=== PATIENT | male | born 1945 | race Caucasian/White ===

== ENCOUNTER 2017-12-01 10:03 | Emergency (ER) | payer MEDICARE, OTHER, SELFPAY ==
[2017-12-01 10:05] VITALS: BP 120/76; PULSE 120; RESP 16; TEMP 35.6; BMI 25.8
[2017-12-01] MEDS: HYDROcodone Bitartrate/Apap 5/325 Tablet PO (10:37)
[2017-12-01 10:50] LABS: Prothrombin Time (Protime)PT. 31.2 SECONDS (11.7-14.9)
--- NOTE | 2017-12-01 11:38 | ED.VISSUMM ---
- ER Visit Summary Date of Service: 12/01/17 Chief Complaint: Left thumb swelling History of Present Illness: The patient is a [address] Rodriguez and Dr. Gale. He reports he has swelling to his left thumb that began 3 days ago. There is seen in urgent care and he was placed on Keflex. Is not taking this for 2 days. The swelling is getting worse. Reports his pain is 8 out of 10 with bumping it and is pain-free at rest. He denies any constitutional symptoms. No fever, chills, nausea, or vomiting. Physical Examination: Vitals: Stable. Afebrile. General: Well-nourished and well-developed. Head: Normocephalic atraumatic. Neck: Supple, no lymphadenopathy. No JVD. Nontender. Cardiovascular: Irregular rhythm with a 2 out of 6 systolic murmur and mechanical valve click. Respiratory: No respiratory distress. Clear to auscultation bilaterally. Abdominal: Soft, nontender, nondistended, normal bowel sounds. No guarding, rebound, or peritoneal signs. Back: Nontender. Extremities: Large paronychia on the radial side of his left thumb. There is nothing on the palmar surface. There does not appear to be any infection underneath the nail. Minimal surrounding erythema. No lymphangitic spread. Skin: Normal color, no rash. Neurologic: Alert and oriented ?3. Cranial nerves II through XII are intact. Normal strength and sensation. Psych: Normal affect. Test Results: INR is 3.0 Emergency Department Course and Treatment: Patient was given a single [place] p.o. He did not want a digital block. He had a stab incision made with an 11 blade a large amount of pus drained. It was irrigated. Treatment Plan: Given the fact that the patient does have a mechanical heart valve I think it is a reasonable course of action to continue the Keflex as he may become bacteremic during the procedure. Also be given prescription for Bactroban ointment. Instructed to follow-up with Dr. Rodriguez or Dr. Gale in 4 days for another exam. Return to the emergency department for any worsening symptoms. Disposition: To home in improved and stable condition. Impression: 1. Paronychia left thumb. 2. I&D. 3. Coumadin coagulopathy. This note was generated with Dragon dictation software. It may contain incorrect words, spelling, and punctuation that were not noted in review of the chart prior to signing ED Disposition - Plan for ED Patient: Disposition: Home or Assisted Living Chief Complaint: Upper Extremity Injury Instructions: ED Fingernail Infec Prescriptions: Mupirocin [Bactroban] 1 applic TOPICAL TID #1 tube Referrals: Jeronimo Rodriguez MD [Primary Care Provider] - 12/05/17 Perry Gale MD [STAFF PHYSICIAN] - 12/05/17
[2017-12-01 12:14] VITALS: PULSE 96
--- NOTE | 2017-12-01 12:15 | ED.RN ---
ATTEMPTED TO DISCHARGE PT BUT DR. HARRIS DID NOT HAVE ATB OINTMENT RX. HAD TO WAIT FOR DR TO GET OUT OF ROOM. ALL QUESTIONS ANSWERED, NO FURTHER CONCERNS.
== END 2017-12-01 12:16 | disposition home or self-care (01) ==
LOC: ED 11:17
PROVIDERS: Emergency Provider Emergency Medicine; Family Provider Family Medicine; PCP Family Medicine
DX: L03.011 Cellulitis of right finger (principal); B96.89 Other specified bacterial agents as the cause of diseases classified elsewhere; E78.00 Pure hypercholesterolemia, unspecified; I69.320 Aphasia following cerebral infarction; I69.398 Other sequelae of cerebral infarction; Z79.01 Long term (current) use of anticoagulants; Z79.899 Other long term (current) drug therapy
CPT/HCPCS: 10060; 36415; 85610; 99283

== ENCOUNTER → 2018-05-12 08:42 | Outpatient (CLI) | payer MEDICARE, OTHER, SELFPAY ==
[2018-06-09 13:39] LABS: International Normalized Ratio 2.5; Prothrombin Time (Protime)PT. 27.5 SECONDS (11.7-14.9)
== END ==
PROVIDERS: Family Provider Family Medicine; PCP Family Medicine
DX: Z51.81 Encounter for therapeutic drug level monitoring (principal); Z79.01 Long term (current) use of anticoagulants
CPT/HCPCS: 85610

== ENCOUNTER 2019-08-18 19:26 | Inpatient (IN) | payer MEDICARE, OTHER, SELFPAY ==
[2019-08-18] VITALS (8 sets, daily range): BP systolic 118–156; BP diastolic 73–110; PULSE 67–83; RESP 12–20; TEMP 36.7–37.1; O2SAT 97–99; BMI 23.5; BMI 25.4
--- NOTE | 2019-08-18 19:47 | CT_ITS ---
STUDY: CT BRAIN WITHOUT CONTRAST REASON FOR EXAM: Male, 74 years old. Weakness. TECHNIQUE: Transaxial CT imaging of the brain was performed without administration of intravenous contrast material. Individualized dose optimization techniques were used for this CT. COMPARISON: No relevant priors. FINDINGS: No evidence of intracranial hemorrhage, mass, acute infarct, or hydrocephalus. Large chronic left MCA infarct and smaller chronic left RADHA infarct. Chronic microangiopathic changes in the white matter. Atherosclerosis of the intracranial arteries. No acute osseous abnormality. Visualized paranasal sinuses and mastoid air cells patent. Visualized extracranial soft tissues unremarkable. ASPECTS 05/17 CT/Brain/Head without Contrast IMPRESSION: No acute intracranial findings. 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 Electronically Signed: Todd Umanzor, at 21:21 EST Tel , Service support ,
--- NOTE | 2019-08-18 19:47 | EKG12_ITS ---
Test Reason : SYNCOPE Blood Pressure : / mmHG Vent. Rate : 065 BPM Atrial Rate : 066 BPM P-R Int : 000 ms QRS Dur : 100 ms QT Int : 410 ms P-R-T Axes : 000 -51 074 degrees QTc Int : 426 ms Atrial fibrillation Left anterior fascicular block Abnormal ECG Confirmed by SELVIN MONTGOMERY, REX ([id number]), general expeditor JONO MASSEY ([id number]) on 08/20/2019 10:06:21 AM Referred By: Confirmed By:REX MONTALVO MD
--- NOTE | 2019-08-18 19:50 | RAD_ITS ---
STUDY: X-RAY CHEST REASON FOR EXAM: Male, 74 years old. Syncopal episode. TECHNIQUE: AP upright COMPARISON: 06/20/2014 FINDINGS: No evidence of pneumonia, pulmonary edema, pneumothorax or pleural effusion. Cardiac silhouette, hilar and mediastinal contours with no acute findings. Mild cardiomegaly. Interval sternotomy with prosthetic heart valve and atrial appendage clip. Atherosclerosis and tortuosity of the thoracic aorta. Degenerative osseous changes with no acute osseous abnormality. RAD/Chest 1 View IMPRESSION: No acute findings. Mild cardiomegaly. Interval sternotomy with prosthetic heart valve and atrial appendage clip. Electronically Signed: Todd Umanzor, at 21:23 EST Tel , Service support ,
--- NOTE | 2019-08-18 19:51 | ED.VIS.GEN ---
History of Present Illness Chief Complaint: Syncope Informant: Patient, Family, Remote Sensing Technician Onset: Today Narrative: Patient was in the TV room watching television. was not in there but she heard a noise and came back and saw that the rocker was near where he was seated was on the floor and he reported possibly passing out. His legs were extremely weak and he was unable to stand. He has had a prior stroke and has a aphasia and numbness right arm/hand. EMS also notes his legs were very weak. He tells me it is the left leg that he is having difficulty with dorsiflexion. He denies any pain. He denies any chest pain shortness of breath. No headache. No cuts. No prior syncope. She does have a history of A. fib and is on Coumadin. He recently had dental surgery and has been transitioning from Lovenox to Coumadin. EMS notes a negative [place]. Past Medical History - Allergies and Home Meds Allergies/Adverse Reactions: Allergies No Known Allergies Allergy (Verified 08/18/19 19:32) Smoking Status: Former smoker - Family History Paternal Family History: Reports: No pertinent history Review of Systems General: Denies: Chills, Fever, Sweats Eyes: Denies: Visual changes - bilaterally, Diplopia ENT: Denies: Rhinorrhea, Sore throat Cardiovascular: Denies: Chest pain, Palpitations Respiratory: Denies: Dyspnea, Cough, Dyspnea on exertion Gastrointestinal: Denies: Abdominal pain, Nausea, Vomiting, Diarrhea, Melena, Hematochezia Genitourinary: Denies: Dysuria, Hematuria, Frequency Musculoskeletal: Denies: Back pain, Extremity Pain Skin: Denies: Rash, Wounds Neurological: Denies: Headache, Weakness, Numbness Psych: Denies: Depression, Anxiety, Suicidal thoughts, Suicidal ideations Endocrine: Denies: Polyuria, Heat intolerance, Cold intolerance Hematologic: Reports: Easy bruising, Easy bleeding. Denies: Lymphadenopathy Allergy: Denies: Swelling of the mouth, Swelling of the tongue Physical Exam Vital Signs/Narrative: Vital Signs Temp Pulse Resp BP Pulse Ox 08/18/19 19:45 69 20 H 128/86 H 98 08/18/19 19:27 98.7 F 73 15 156/110 H 98 Inital Vital Signs reviewed: Yes General: Well nourished, Well developed, No Acute Distress Head: Normocephalic, Atraumatic Eyes: Perrl, EOMI ENT: Moist mucous membranes, No rhinorrhea Neck: Supple, Nontender Cardiovascular: Regular rate, Regular rhythm, No murmurs Respiratory: No distress, CTA bilaterally, Chest nontender Abdomen: Soft, Nontender, Nondistended, Normal bowel sounds Back: Nontender, Normal Inspection Extremities: Nontender, No edema Skin: Normal color, No rash Neurological: Alert, Oriented x3, Normal Sensation, Weakness - Patient is able to lift his left leg up off the table. He reports weakness with dorsiflexion., - - chronic changes associated with prior stroke (aphasia, right hand numbness). I think his NIH is at his baseline.. Negative for: Normal Strength Psychological: Normal affect, Normal Mood Diagnostic/Tx/Re-eval - Rhythm Strip Rhythm Strip: A-fib Rate: 65 - LAFB - Medical Decision Making On the patient's physical exam he is able to hold his legs up against gravity as well as his arms. He says yes when he asked if it feels the same. Cannot say that his NIH is different from his baseline other than he is telling me that the legs feel weaker than normal particularly the left but also the right. His labs are otherwise negative and what is very concerning as his INR is 1.3. He has A. fib and a mechanical heart valve and his last dose of Lovenox was over 24 hours ago. Therefore I gave him Lovenox. Upon repeat examination the states that she believes he is trying to relay that the left arm feels different compared to the right as he is rubbing it. He can still feel it. He is not a TPA candidate. He is not a large vessel occlusion. At this time he is not able to safely ambulate and we will admit. ED Disposition - Plan for ED Patient: Diagnosis: Syncope, TIA (transient ischemic attack)
[2019-08-18 20:02] LABS: International Normalized Ratio 1.3
[2019-08-18 20:03] LABS: Partial Thromboplast Time 33.6 Seconds (24.1-36.2)
[2019-08-18 20:20] LABS: ALB/GLOB Ratio 0.9 RATIO (0.9-2.4); AST(SGOT) 36 U/L (15-37); Alanine Aminotransfer ALT/SGPT 50 U/L (16-61); Albumin, Serum 3.7 g/dL (3.2-5.0); Alkaline Phosphatase 68 U/L (45-117); Anion Gap 6 (5-15); BUN 28 mg/dL (7-18); BUN/Creat Ratio 25.9 RATIO (10-20); Calcium,Total 8.6 mg/dL (8.5-10.1); Chloride 105 mmol/L (98-107); Creatinine, Serum 1.08 mg/dL (0.70-1.30); EST Glomerular Filtration Rate 71 mL/min (>60); Est Glom Filt Rate - Afr Amer 86 mL/min (>60); Glucose 99 mg/dL (74-106); Potassium 4.4 mmol/L (3.5-5.1); Protein, Total 7.7 g/dL (6.4-8.2); Sodium Level 139 mmol/L (136-145)
[2019-08-18 20:21] LABS: Absolute Neutrophil Count 3.3 X10^3/uL (2.0-7.7); Basophil# 0.01 X10^3/uL; Basophil% 0.2 % (0-1); Eosinophil# 0.09 X10^3/uL; Eosinophils% 1.5 % (0-5); Hematocrit 40.3 % (40-54); Hemoglobin 13.2 g/dL (13.0-16.5); Lymphocyte % 26.6 % (19-41); Mean Corp Hgb Conc 32.8 g/dL (32-36); Mean Corpuscular Hgb 31.5 pg (27.0-32.0); Mean Corpuscular Volume 96.2 fL (80-94); Monocyte# 0.97 X10^3/uL; Monocyte% 16.1 % (0-10); NRBC Flagged by Analyzer 0 % (0-5); Neutrophil # 3.32 X10^3/uL (2.7-7.7); Neutrophil % 55.3 % (47-70); Platelet Count 203 K/mm3 (150-450); RBC Distribution Width CV 13.2 % (11.6-14.6); RBC Distribution Width SD 46.5 fl (35.1-43.9); Red Blood Count 4.19 M/mm3 (4.6-6.2)
[2019-08-18 20:39] LABS: Bacteria 0 SEEN /hpf (None Seen); Mucous, Urine 0 SEEN /hpf (<or=2+); Red Blood Cells-Urine 0 SEEN /hpf (0-5); Squamous Epithelial Cells - UA 0 SEEN /hpf (0-5); White Blood Cells 0 SEEN /hpf (0-5)
[2019-08-18 20:40] LABS: Color, Urine Straw (Yellow); Glucose, Dipstick Normal (Normal); Ketone-Dipstick Negative (Negative); Leukocyte Esterase-Dipstick Negative /ul (Negative); Nitrite-Dipstick Negative (Negative); Occult Blood-Urine Negative /ul (Negative); Protein-Dipstick Negative (Negative); Urine Bilirubin Dipstick Negative (Negative); Urine Clarity Clear (Clear); Urine Urobilinogen Normal (Normal)
[2019-08-18] MEDS: Enoxaparin 80 MG/0.8 ML Syringe SC (21:50)
--- NOTE | 2019-08-18 21:59 | PCM.HP.STD ---
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 (5) Hyperlipidemia Status: Chronic Qualifiers: Hyperlipidemia type: unspecified Qualified Code(s): E78.5 - Hyperlipidemia, unspecified (6) Atrial fibrillation Status: Chronic Qualifiers: Atrial fibrillation type: unspecified chronic Qualified Code(s): I48.20 - Chronic atrial fibrillation, unspecified History of Present Illness Date of Admission: 08/18/19 Chief Complaint: Left sided weakness, fall, probable syncope - 1 day The patient is a 74 year old M with 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 Patient is aphasic and most of the history was taken from the . Patient baseline is able to ambulate without the use of assistive devices. He recently had dental implants put in and was taking off his Coumadin. He was on the Lovenox and Coumadin bridging until 2 days ago when the pharmacist in his Coumadin clinic told his to give him the last dose of Lovenox yesterday and start giving him Coumadin 8 mg daily with a check to be done a couple of days later. Patient did not receive Lovenox on the day of admission. His had some noise in the living room and rushed her to find the patient on the floor. Per his , patient reported that he passed out. He said his legs were extremely weak especially his left leg and he is unable to stand. Per his also he had complained of numbness in his left upper extremity. I am unable to get a reliable history from the patient. He gets gestures to his legs and when asked if it is weak, he nods vigorously in affirmative. On arrival to the ED, his temperature was 98.7F, heart rate 73, blood pressure 156/110, respiratory to 16, SPO2 was 98% on room air. CBC D, CMP was unremarkable. Troponins were negative. INR was 1.3. UA was unremarkable. CT scan of the brain showed no acute intracranial findings, presence of chronic left RADHA and MCA territory infarcts. EKG showed A. fib, HR 65, QTC 426 Past Medical History Past Medical History (Chronic Problems): Chronic Problems History of stroke (Chronic) Mitral stenosis with regurgitation (Chronic) Hyperlipidemia (Chronic) Atrial fibrillation (Chronic) Allergies No Known Allergies Allergy (Verified 08/18/19 19:32) Home Medications: Ambulatory Orders Medication Instructions Recorded Warfarin [Coumadin] 5 mg PO DAILY #7 06/23/14 Ascorbic Acid [Vitamin C] 1,000 mg PO DAILY 12/01/17 Finasteride [Proscar] 5 mg PO DAILY 12/01/17 Folic Acid 1 mg PO DAILY 12/01/17 Lovastatin [Mevacor] 40 mg PO DAILY 12/01/17 Multivitamin [Multiple Vitamins] 1 each PO DAILY 12/01/17 Surgical History: - - s/p mitral valve replacement([facility]) Psychiatric History: No pertinent psych hx Lives: Spouse/ Significant Other Smoking Status: Former smoker Tobacco Use: Non-smoker Alcohol: None Drugs: None - *Family History Paternal History Items: No pertinent history Maternal History Items: No pertinent history Review of Systems Unable to obtain accurate/complete ROS d/t: Due to patient's aphasia VTE Information - Inpt Only VTE Present on Admission: No VTE Pharm Prophylaxis ordered?: Yes Patient Problems: Active and Suspected Problems Syncope (Acute) TIA (transient ischemic attack) (Acute) - Physical Exam Vitals/I&O's: Vital Signs Temp Pulse Resp BP Pulse Ox 98.7 F 67 16 122/81 H 98 08/18/19 19:27 08/18/19 21:27 08/18/19 21:27 08/18/19 21:27 08/18/19 21:27 Oxygen Delivery Method Room Air Weight: 74.3 kg Body Mass Index (BMI) 23.5 Intake and Output for Last 24 Hours 08/16/19 08/17/19 08/18/19 23:59 23:59 23:59 Intake Total 500 / 500 Balance 500 / 500 General: Alert, Oriented x3, Cooperative, No apparent distress, - - aphasic HEENT: Atraumatic, PERRLA, EOMI, Normocephalic Oral: Moist Mucosa Neck: Supple Lungs: Clear to auscultation, Normal air movement Cardiovascular: Regular rate, Regular Rhythm, Normal S1, Normal S2 Abdomen: Bowel Sounds Present, Soft, Non Tender, Non-Distended, No Hepato-splenomegaly Extremities: No edema Skin: No rashes, No breakdown Musculoskeletal: No Tenderness to Palpation of Joints or Extremities Lymphatic: No Cervical, Supraclavicular, or Inguinal Adenopathy Neurological: Cranial nerves II-XII grossly intact, - - patient is alert, oriented, aphasic, power is 4/5 in all extremities, normal tone Psych/Mental Status: Normal Affect, Appropriate Laboratory Results 08/18/19 19:36: WBC 6.0, RBC 4.19 L, Hgb 13.2, Hct 40.3, MCV 96.2 H, MCH 31.5, MCHC 32.8, RDW Std Deviation 46.5 H, RDW Coeff of Curt 13.2, Plt Count 203, MPV 10.0, Immature Gran % (Auto) 0.300, Neut % (Auto) 55.3, Lymph % (Auto) 26.6, [place] % (Auto) 16.1 H, Eos % (Auto) 1.5, Baso % (Auto) 0.2, Absolute Neuts (auto) 3.3, Absolute Lymphs (auto) 1.60, Nucleated RBC % 0 08/18/19 19:36: PT 16.0 H, INR 1.3, APTT 33.6 08/18/19 19:36: Sodium 139, Potassium 4.4, Chloride 105, Carbon Dioxide 28.0, Anion Gap 6, BUN 28 H, Creatinine 1.08, Estim Creat Clear Calc 62.90, Est GFR (MDRD) Af Amer 86, Est GFR (MDRD) Non-Af 71, BUN/Creatinine Ratio 25.9 H, Glucose 99, Calcium 8.6, Total Bilirubin 0.40, AST 36, ALT 50, Alkaline Phosphatase 68, Troponin I < 0.015, Total Protein 7.7, Albumin 3.7, Globulin 4.0, Albumin/Globulin Ratio 0.9 08/18/19 20:35: Urine Color Straw, Urine Clarity Clear, Urine pH 6.0, Ur Specific [place] 1.010, Urine Protein Negative, Urine Glucose (UA) Normal, Urine Ketones Negative, Urine Occult Blood Negative, Urine Nitrite Negative, Urine Bilirubin Negative, Urine Urobilinogen Normal, Ur Leukocyte Esterase Negative, Urine RBC 0 SEEN, Urine WBC 0 SEEN, Ur Squamous Epith Cells 0 SEEN, Urine Bacteria 0 SEEN, Urine Mucus 0 SEEN Current Medications Sodium Chloride () 500 mls @ 999 mls/hr IV .Q31M ALEXANDRA Stop: 08/18/19 22:00 Last Infusion: 08/18/19 21:54 Dose: Infused Documented by: Assessment/Plan All Active Problems Syncope (Acute) TIA (transient ischemic attack) (Acute) Impetigo follicularis (Acute) Cellulitis, periorbital (Acute) 74 year old M with 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 1. Left sided weakness,likely TIA/CVA in a patient with history of CVA with aphasia Patient has been off his Coumadin and Lovenox, INR has been subtherapeutic, this could be the likely etiology if patient does have CVA CT scan of the brain was negative for any acute abnormality Not a TPA candidate Continue on Lovenox, Coumadin. Would hold off adding aspirin on account of increased bleed risk, INR in a.m. MRI of the brain, carotid ultrasound, 2D echo, lipid profile, HgbA1c 2. [facility] mechanical mitral valve replacement, INR subtherapeutic Continue on therapeutic Lovenox with Coumadin overlap, INR in am 3. Chronic atrial fibrillation, rate controlled, continue on Lovenox/Coumadin 4. Hyperlipidemia, on lovastatin, will check lipid profile 5. BPH, on Proscar 6. DVT prophylaxis -INR subtherapeutic, on therapeutic Lovenox Code Visit Inpatient E&M: [id number] Init Hosp L3
--- NOTE | 2019-08-18 23:36 | CDU_ITS ---
Reason For Study: CVA Rt. Velocities/BP Lt. Velocities/BP Prox CCA 108.3/20.6 cm/sec. Prox CCA 78.3/14.6 cm/sec. Mid CCA 97.4/18.8 cm/sec. Mid CCA 82.7/20.1 cm/sec. Dist CCA 90/18.8 cm/sec. Dist CCA 86/16.8 cm/sec. Prox ICA 99.2/15.2 cm/sec. Prox ICA 79.1/11.5 cm/sec. Mid ICA 80.2/20 cm/sec. Mid ICA 112/35.3 cm/sec. Dist ICA 104.8/32.3 cm/sec. Dist ICA 112/31.6 cm/sec. Rt. ICA/CCA = 1.1. Lt. ICA/CCA = 1.4. Prox ECA 102.3/13.9 cm/sec. Prox ECA 97.4/9.7 cm/sec. Rt. Vert. 56.4/14.6 cm/sec. Lt. Vert. 57/14.5 cm/sec. Right Extracranial There is homogeneous, smooth atherosclerotic plaque noted in the right common carotid artery. There is heterogeneous, irregular atherosclerotic plaque noted in the right internal carotid artery. There is homogeneous, smooth atherosclerotic plaque noted in the right external carotid artery. Antegrade flow is noted in the right vertebral artery. Left Extracranial There is homogeneous, smooth atherosclerotic plaque noted in the left common carotid artery. There is heterogeneous, irregular atherosclerotic plaque noted in the left internal carotid artery. There is homogeneous, smooth atherosclerotic plaque noted in the left external carotid artery. Antegrade flow is noted in the left vertebral artery. Procedure Carotid Duplex [id number]. Exam performed portable in patient room. Interpretation Summary Minimal plaque at the proximal right internal carotid with <50% stenosis. <50% stenosis right external carotid Minimal irregular plague at the proximal left internal carotid with <50% stenosis. <50% stenosis left external carotid Patent, antegrade, <50% stenosis bilateral vertebrals Ordering Physician: Silva Moya Referring Physician: Jeovanny Rodriguez Performed By: Sarai Carty RVT
--- NOTE | 2019-08-18 23:36 | ECHOD_ITS ---
Reason For Study: TIA/CVA Procedure This was a 2D Doppler, Color Flow transthoracic echocardiogram. Exam performed portable in patient room. Left Ventricle Normal LV size. Mild concentric left ventricular hypertrophy. Left ventricular systolic function is normal. The estimated ejection fraction is 60 %. No regional wall motion abnormalities noted. Right Ventricle Normal RV size. Normal systolic function. Atria Normal left atrium. Normal right atrium. Bubble contrast study negative for right to left interatrial shunt. Mitral Valve Stable appearing mechanical mitral valve apparatus. Tricuspid Valve Normal tricuspid valve. Mild tricuspid valve insufficiency. Pulmonary artery systolic pressure is 28 mmHg. Aortic Valve The aortic valve is not well visualized. Pulmonic Valve Normal pulmonic valve. Great Vessels Normal aortic root. The pulmonary artery is normal size. Normal inferior vena cava. Pericardium/Pleural No pericardial effusion. Medication Performed a rapid injection of agitated mix of 9 cc saline and 1cc air to assess for atrial septal defect. MMode/2D Measurements & Calculations LVIDd: 4.5 cm IVSd: 1.4 cm Ao root diam: 3.8 cm LVIDs: 2.8 cm LVPWd: 1.3 cm RVDd: 4.5 cm FS: 38.5 % LAV(MOD-bp): 41.2 ml LVAd ap4: 22.3 cm2 SV(MOD-sp4): 40.4 ml LAV(MOD-bp) Indexed: 22.8 ml/m2 EDV(MOD-sp4): 64.4 ml LAV(MOD-sp2): 33.9 ml EDV(sp4-el): 66.9 ml LAV(MOD-sp4): 44.9 ml LVAs ap4: 12.4 cm2 ESV(MOD-sp4): 24.0 ml ESV(sp4-el): 25.4 ml EF(MOD-sp4): 62.8 % EF(sp4-el): 62.1 % SV(sp4-el): 41.5 ml LA A4 area: 17.0 cm2 RA A4 area: 12.9 cm2 Doppler Measurements & Calculations MV E max matt: 145.3 cm/sec MV V2 max: 159.2 cm/sec Ao V2 max: 140.4 cm/sec MV max P.2 mmHg Ao max P.9 mmHg MV V2 mean: 80.8 cm/sec Ao V2 mean: 97.2 cm/sec MV mean P.3 mmHg Ao mean P.1 mmHg MV V2 VTI: 38.1 cm Ao V2 VTI: 23.8 cm LV V1 max: 89.3 cm/sec PA V2 max: 101.3 cm/sec TR max matt: 247.9 cm/sec LV V1 max P.2 mmHg TR max P.6 mmHg Interpretation Summary Normal LV size. Mild concentric left ventricular hypertrophy. Left ventricular systolic function is normal. The estimated ejection fraction is 60 %. Stable appearing mechanical mitral valve apparatus. Ordering Physician: Silva Moya Referring Physician: Jeovanny Rodriguez Performed By: Erna Funes, HUMBERTO, RVT
[2019-08-19] VITALS (10 sets, daily range): BP systolic 107–141; BP diastolic 65–84; PULSE 59–78; RESP 15–16; TEMP 36.5–37.1; O2SAT 95–99; BMI 25.4
[2019-08-19 01:04] LABS: Hemoglobin A1c 5.7 % (4.2-6.3)
[2019-08-19] MEDS: 0.9% Normal Saline 1,000 ML 100 ML IV ×2 (01:17→12:05)
[2019-08-19] MEDS: Enoxaparin 80 MG/0.8 ML Syringe SC ×2 (06:05→17:19)
--- NOTE | 2019-08-19 07:00 | MRI_ITS ---
STUDY: MRI BRAIN WITHOUT CONTRAST REASON FOR EXAM: Male, 74 years old. CVA -- new onset left sided weakness, syncope yesterday, prev stroke 16 years ago with residual rt sided weakness and aphasia TECHNIQUE: Standardized multiplanar fat and water weighted pulse sequences were obtained. COMPARISON: 08/18/2019 CT of the head FINDINGS: There is mild cerebral atrophy with widening of the extra-axial spaces and ventricular dilatation. There are multiple white matter hyperintensities, distributed throughout the deep white matter tracts of the cerebral hemispheres, consistent with moderate chronic white matter ischemic changes. Again noted is left there are large frontal and parietal temporal encephalomalacia and gliosis, consistent with prior insult. Medial left anterior frontal encephalomalacia is also noted. Small bilateral cerebellar chronic lacunar infarcts are also noted. Normal bilateral basal ganglia. Normal thalami. There is no extra-axial fluid accumulation. Normal flow voids within the major intracranial circulation suggesting patency by spin echo criteria. Normal sella turcica, pituitary gland, infundibular stalk, optic chiasm and hypothalamus. Normal tectal plate and pineal gland. Normal midbrain, roberto and medulla. MRI/Brain without Contrast IMPRESSION: No acute intracranial abnormality. Large chronic left MCA infarct. Electronically Signed: Nancy Nicole MD at 11:20 EST Tel , Service support ,
[2019-08-19 07:08] LABS: International Normalized Ratio 1.5
[2019-08-19 07:44] LABS: ALB/GLOB Ratio 0.9 RATIO (0.9-2.4); AST(SGOT) 33 U/L (15-37); Alanine Aminotransfer ALT/SGPT 41 U/L (16-61); Albumin, Serum 3.3 g/dL (3.2-5.0); Alkaline Phosphatase 61 U/L (45-117); Anion Gap 5 (5-15); BUN 19 mg/dL (7-18); BUN/Creat Ratio 23.9 RATIO (10-20); Calcium,Total 8.2 mg/dL (8.5-10.1); Chloride 109 mmol/L (98-107); Cholesterol 176 mg/dL (200); EST Glomerular Filtration Rate 101 mL/min (>60); Est Glom Filt Rate - Afr Amer 122 mL/min (>60); Estimated Creatinine Clearance 74.21 ml/min; Globulin 3.7 g/dL (2.2-4.2); Glucose 83 mg/dL (74-106); High Density Lipoprotein 55 mg/dL; Potassium 3.8 mmol/L (3.5-5.1); Sodium Level 140 mmol/L (136-145); Triglycerides 86 mg/dL; Very Low Density Lipoprotein 17 mg/dL (5-40)
--- NOTE | 2019-08-19 08:29 | PN_ITS ---
Patient Problems: Active and Suspected Problems TIA (transient ischemic attack) (Acute) - Physical Exam Vitals/I&O's: Vital Signs Temp Pulse Resp BP Pulse Ox 98.4 F 63 15 141/80 H 96 08/19/19 06:00 08/19/19 07:02 08/19/19 06:00 08/19/19 06:00 08/19/19 06:00 Oxygen Delivery Method Room Air Weight: 156 lb 11.979 oz Body Mass Index (BMI) 25.4 Intake and Output for Last 24 Hours 08/17/19 08/18/19 08/19/19 23:59 23:59 23:59 Intake Total 500 / 500 180 / 180 Output Total 1050 / 1050 Balance 500 / 100 -870 / -870 General: Alert, Cooperative, No apparent distress, - - Dysarthric. HEENT: Atraumatic, PERRLA, EOMI, Normocephalic Oral: Moist Mucosa, No Gingival or Mucosal Lesions/ Ulcerations Neck: Supple, No JVD, Negative Carotid Bruits, Trachea Midline, Thyroid Normal Size and Texture Lungs: Clear to auscultation, Normal air movement, No rhonchi, No wheeze, No rales, Diminished Cardiovascular: Normal S1, Normal S2, PMI Normal, Irregular Rate, - - Metallic click. Abdomen: Bowel Sounds Present, Soft, Non Tender, Non-Distended, No Hepato- splenomegaly Extremities: No clubbing, No cyanosis, No edema Skin: No rashes, No breakdown Lymphatic: No Cervical, Supraclavicular, or Inguinal Adenopathy Neurological: Cranial nerves II-XII grossly intact, Motor Exam 5/5 strength throughout, - - Minimal flattening of the right nasolabial fold. Psych/Mental Status: Normal Affect, Appropriate Laboratory Results 08/18/19 19:36: WBC 6.0, RBC 4.19 L, Hgb 13.2, Hct 40.3, MCV 96.2 H, MCH 31.5, MCHC 32.8, RDW Std Deviation 46.5 H, RDW Coeff of Curt 13.2, Plt Count 203, MPV 10.0, Immature Gran % (Auto) 0.300, Neut % (Auto) 55.3, Lymph % (Auto) 26.6, Yancey % (Auto) 16.1 H, Eos % (Auto) 1.5, Baso % (Auto) 0.2, Absolute Neuts (auto) 3.3, Absolute Lymphs (auto) 1.60, Nucleated RBC % 0 08/18/19 19:36: PT 16.0 H, INR 1.3, APTT 33.6 08/18/19 19:36: Sodium 139, Potassium 4.4, Chloride 105, Carbon Dioxide 28.0, Anion Gap 6, BUN 28 H, Creatinine 1.08, Estim Creat Clear Calc 62.90, Est GFR (MDRD) Af Amer 86, Est GFR (MDRD) Non-Af 71, BUN/Creatinine Ratio 25.9 H, Glucose 99, Calcium 8.6, Total Bilirubin 0.40, AST 36, ALT 50, Alkaline Phosphatase 68, Troponin I < 0.015, Total Protein 7.7, Albumin 3.7, Globulin 4.0, Albumin/Globulin Ratio 0.9 08/18/19 19:36: Hemoglobin A1c 5.7 08/18/19 20:35: Urine Color Straw, Urine Clarity Clear, Urine pH 6.0, Ur Specific [place] 1.010, Urine Protein Negative, Urine Glucose (UA) Normal, Urine Ketones Negative, Urine Occult Blood Negative, Urine Nitrite Negative, Urine Bilirubin Negative, Urine Urobilinogen Normal, Ur Leukocyte Esterase Negative, Urine RBC 0 SEEN, Urine WBC 0 SEEN, Ur Squamous Epith Cells 0 SEEN, Urine Bacteria 0 SEEN, Urine Mucus 0 SEEN 08/19/19 03:00: Troponin I < 0.015 08/19/19 05:55: Sodium 140, Potassium 3.8, Chloride 109 H, Carbon Dioxide 26.0, Anion Gap 5, BUN 19 H, Creatinine 0.80, Estim Creat Clear Calc 74.21, Est GFR (MDRD) Af Amer 122, Est GFR (MDRD) Non-Af 101, BUN/Creatinine Ratio 23.9 H, Glucose 83, Calcium 8.2 L, Total Bilirubin 0.60, AST 33, ALT 41, Alkaline Phosphatase 61, Total Protein 7.0, Albumin 3.3, Globulin 3.7, Albumin/Globulin Ratio 0.9, Triglycerides 86, Cholesterol 176, LDL Cholesterol 104, VLDL Cholesterol 17, HDL Cholesterol 55 08/19/19 05:55: PT 18.0 H, INR 1.5 08/19/19 05:55: Troponin I 0.022 Clinical Impression(s) from Imaging Studies Brain CT 08/18/19 19:47 IMPRESSION: No acute intracranial findings. 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 Electronically Signed: Todd Umanzor, at 21:21 EST Tel , Service support , Chest X-Ray 08/18/19 19:50 IMPRESSION: No acute findings. Mild cardiomegaly. Interval sternotomy with prosthetic heart valve and atrial appendage clip. Electronically Signed: Todd Umanzor, at 21:23 EST Tel , Service support , Current Medications Acetaminophen (Tylenol) 650 mg PO Q6H PRN PRN PRN Reason: Pain Score 1-10/Temp > 100.7 F Ascorbic Acid (Vitamin C) 1,000 mg PO DAILY [facility] Atorvastatin Calcium (Lipitor) 10 mg PO DAILY@2200 [facility] Chlorhexidine Gluconate (Peridex) 15 ml PO BID [facility] Enoxaparin Sodium (Lovenox) 80 mg SC Q12@0600,1800 [facility] Last Admin: 08/19/19 06:05 Dose: 80 mg Documented by: Finasteride (Proscar) 5 mg PO DAILY [facility] Folic Acid (Folic Acid) [facility] Sodium Chloride () 1,000 mls @ 100 mls/hr IV .Q10H [facility] Stop: 08/19/19 14:35 Last Admin: 08/19/19 01:17 Dose: 100 mls/hr Documented by: Multivitamins (Multivitamin) 1 tablet [facility] Nutritional Formula (Lactose Free) (Ensure Enlive) 120 ml PO 4X/DAY [facility] Ondansetron HCl (Zofran) 4 mg IV Q8H PRN PRN PRN Reason: NAUSEA/VOMITING Sodium Chloride () 10 - 40 ml IV UD PRN PRN Reason: SALINE FLUSH Warfarin Sodium (Coumadin (Pbkc)) 5 mg PO DAILY@1700 [facility] Medical Necessity - Tobacco Use Smoking Status: Former smoker Tobacco Use: Non-smoker Assessment/Plan All Active Problems TIA (transient ischemic attack) (Acute) This is a 74 years old male patient presented to the emergency room because of left-sided body weakness and he was admitted for TIA for evaluation. #1 left side body weakness/TIA: Patient history of CVA with dysarthria. CT scan brain showed no acute infarct or hemorrhage. EKG revealed A. fib, rate is controlled, no acute changes. His vital signs are stable. He has no focal deficit on physical exam except minimal flattening of the right nasolabial fold with dysarthria and those are chronic. No motor weakness, no drift. He is on Lovenox twice daily, Coumadin and statins. Plan for MRI today, 2D echocardiogram and bilateral carotid Doppler. #2 status post mitral valve replacement with prosthetic valve: This was done for mitral stenosis. Patient is on Coumadin, INR is subtherapeutic and he is on therapeutic Lovenox for bridging. Today's INR is 1.5, still subtherapeutic. Plan to continue Lovenox and Coumadin, repeat INR tomorrow morning. #3 chronic atrial fibrillation: Rate is controlled, he is not on any medication for rate control. On Coumadin and bridging with Lovenox for anticoagulation. #4 hypertension: Blood pressure stable, he is not on any medication at this time. #5 history of stroke: With resultant chronic dysarthria. Plan as above. #6 DVT prophylaxis: On Lovenox twice daily. This note was generated with [email or web address] dictation software. It may contain incorrect words, spelling, and punctuation that were not noted in checking the note before signing. Code Visit Inpatient E&M: 87705 Subs Hosp L2
[2019-08-19] MEDS: Finasteride 5 MG Tablet PO (09:09)
[2019-08-19] MEDS: Multivitamins,Therapeutic Tablet 1 TABLET PO (09:09)
[2019-08-19] MEDS: Folic Acid 1 MG Tablet PO (09:09)
[2019-08-19] MEDS: Ascorbic Acid 500 MG Tablet 1000 MG PO (09:10)
[2019-08-19] MEDS: Chlorhexidine 480 ML 15 ML PO ×2 (09:11→20:36)
[2019-08-19] MEDS: Atorvastatin Calcium 10 MG Tablet PO (20:36)
[2019-08-20] VITALS (9 sets, daily range): BP systolic 105–110; BP diastolic 66–75; PULSE 57–89; RESP 15–18; TEMP 36.4–36.9; O2SAT 97–100; BMI 25.4
[2019-08-20] MEDS: Enoxaparin 80 MG/0.8 ML Syringe SC (05:38)
[2019-08-20 06:06] LABS: International Normalized Ratio 1.6; Prothrombin Time (Protime)PT. 18.8 SECONDS (11.7-14.9)
[2019-08-20] MEDS: Chlorhexidine 480 ML 15 ML PO (09:04)
[2019-08-20] MEDS: Folic Acid 1 MG Tablet PO (09:05)
[2019-08-20] MEDS: Finasteride 5 MG Tablet PO (09:05)
[2019-08-20] MEDS: Multivitamins,Therapeutic Tablet 1 TABLET PO (09:05)
[2019-08-20] MEDS: Ascorbic Acid 500 MG Tablet 1000 MG PO (09:05)
--- NOTE | 2019-08-20 11:20 | CASEMGMT ---
RN CM Assessment Introduced role of RN CM to patient and Shea at bedside.? Patient is alert, oriented and able?to participate in RN CM Assessment some- d/t h/o previous stroke with Aphasia, Shea provided most information. ?Care providers, pharmacy, and demographics verified. Presentation: Lt side weakness. H/o Stroke 19yrs ago with residual Rt side weakness and Aphasia. h/o Mitral Valve replacement on Coumadin, had recent dental implants and Coumadin stopped, was on Lovenox & Coumadin Bridging, , was giving Lovenox injections. Admit Dx: TIA Re-Admit: No Barriers/Issues: None PCP: Jeovanny Rodriguez Specialists: Cardio- at [facility] [address] [facility] Preferred Pharmacy: [facility] Insurance: [facility] A[facility]B, [facility] Rx Benefit:?Yes, [employer] ?LNOK: Shea Sharma LW/HPOA: has both that she thought she placed on file with [facility] x2yrs ago, aware this writer technical publications did not see them on file at [facility] and if brought in will place copy on file. HPOA- Shea Sharma Living Arrangements:? Lives with Shea in a H, no steps to enter through the garage. ADL?s: Independent with ambulation and ADLs Transportation: Both patient and drive, denies transportation issues DME: None. has a 4WW available if needed. HHC: Past with their son's HHC Company called [facility]: Past at [facility] Goal: Home and does not think will have any needs. States that OT has evaluated but awaiting PT eval, states patient has been walking in the hallway without issue. If PT recommended- Preference would be to use her son's company and would get the information from her son re: sister agency for referral. Denies any issues, concerns, needs, or questions with DC planning at this time. Aware CM remains available for any emerging needs. DC PLAN: Home with no anticipated needs identified at this time. is comfortable in continuing to give patient Lovenox injections at DC if that is the continued plan. Niraj Ni RNCM
--- NOTE | 2019-08-20 13:58 | DCINST_ITS ---
- Discharge Diagnoses Current Active Problems: Current Active and Chronic Problems Status post mitral valve replacement with metallic valve (Chronic) TIA (transient ischemic attack) (Acute) You will use the following diet at home:: Cardiac Your food should be the consistency of: Regular Discharge Activity: Return to Normal Activity Weight Bearing Status: Weight bearing as tolerated Call your doctor if you observe: Fever of 101 or Higher, Shortness of breath, Dizziness, Swelling in the ankles, Increased palpitations (irregular heartbeat), Uncontrolled pain Additional Instructions: Keep doing lovenox twice daily along with coumadin and do blood work on Tuesday. Allergies/Adverse Reactions: Allergies No Known Allergies Allergy (Verified 08/18/19 19:32) Medications to take at Discharge Warfarin [Coumadin] 5 mg PO DAILY #7 06/23/14 Ascorbic Acid [Vitamin C] 1,000 mg PO DAILY 12/01/17 Finasteride [Proscar] 5 mg PO DAILY 12/01/17 Folic Acid 1 mg PO DAILY 12/01/17 Lovastatin [Mevacor] 40 mg PO DAILY 12/01/17 Multivitamin [Multiple Vitamins] 1 each PO DAILY 12/01/17 Enoxaparin [Lovenox] 80 mg SUBCUT Q12@0600,1800 #10 syringe 08/20/19 The following prescriptions were given: Enoxaparin [Lovenox] 80 mg SUBCUT Q12@0600,1800 #10 syringe Transmission Status: Received by [facility] [id number] Orders to be completed after discharge: Prothrombin Time w/INR Time Frame: 08/22/19, Facility: [facility], Location: Laboratory Primary Care Physician: Jeronimo Rodriguez MD [Primary Care Provider] - Please follow up with your Primary Care Physician in: 1 week. Test Results: Test results from this visit will be discussed in further detail at your follow- up appointment, if applicable. Please Follow Up With: Jeronimo Rodriguez MD
--- NOTE | 2019-08-20 14:13 | PCM.DC.SUM ---
Discharge Date and Diagnosis Date of Admission: 08/18/19 Date of Discharge: 08/20/19 - Primary Discharge Diagnosis Active and Suspected Problems #1 TIA (transient ischemic attack) (Acute). #2 subtherapeutic INR. - Secondary Discharge Diagnosis Chronic Problems Status post mitral valve replacement with metallic valve (Chronic) History of stroke (Chronic) Mitral stenosis with regurgitation (Chronic) Hyperlipidemia (Chronic) Atrial fibrillation (Chronic) Hospital Course and Treatment Imaging Results: Clinical Impression(s) from Imaging Studies Brain CT 08/18/19 19:47 IMPRESSION: No acute intracranial findings. 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 Electronically Signed: Todd Umanzor, at 21:21 EST Tel , Service support , ADDENDUM: 08/19/19 1016 Chest X-Ray 08/18/19 19:50 IMPRESSION: No acute findings. Mild cardiomegaly. Interval sternotomy with prosthetic heart valve and atrial appendage clip. Electronically Signed: Todd Umanzor, at 21:23 EST Tel , Service support , Brain MRI 08/19/19 07:00 IMPRESSION: No acute intracranial abnormality. Large chronic left MCA infarct. Electronically Signed: Nancy Nicole MD at 11:20 EST Tel , Service support , Procedures: 2-D Echocardiogram, EKG Summary of Care Provided: Patient seen and examined on the day of discharge and appeared to be stable to be discharged home. He had no more symptoms, no more left-sided weakness. He does have chronic dysarthria/aphasia. His vital signs are stable. The patient is a 74 year old M patient presented to the emergency room because of left side body weakness and he was admitted for TIA for evaluation. This patient had a history of mitral valve replacement with bioprosthetic valve and he has been on Coumadin for anticoagulation. Recently, he had planned dental surgery for which he was taken off Coumadin and started on Lovenox for bridging. Upon admission, his INR was subtherapeutic at 1.3. His symptoms resolved after admission. MRI brain showed no acute infarct or hemorrhage. 2D echocardiogram revealed normal LV size and function, ejection fraction was 60% and mitral valve apparatus was stable. Bilateral carotid Doppler revealed less than 50% stenosis of both the right and left external carotid arteries and less than 50% stenosis of the bilateral vertebral arteries. Acute stroke ruled out. His symptoms attributed to TIA in context of history of chronic A. fib being on Coumadin with subtherapeutic INR. Patient was treated with Coumadin and therapeutic Lovenox twice daily for bridging. His routine blood work was unremarkable. EKG was unremarkable. Troponin was negative. Upon discharge, INR was 1.6. Patient discharged home in a stable condition, discharged on Lovenox 80 mg subcu twice daily for bridging, maintained on Coumadin, instructed to give Lovenox until INR between 2.5-3.5, prescription sent to [facility] pharmacy and INR ordered to be done this coming Thursday, August 22, 2019 and then instructed to call patient's PCP for next Coumadin dosing. Recommended follow-up with PCP in 1 week. - Physical Exam Vitals/I&O's: Vital Signs Temp Pulse Resp BP Pulse Ox 97.9 F 89 18 107/66 100 08/20/19 09:00 08/20/19 10:50 08/20/19 09:00 08/20/19 09:00 08/20/19 09:00 Oxygen Delivery Method Room Air Weight: 157 lb 3.033 oz Body Mass Index (BMI) 25.4 Intake and Output for Last 24 Hours 08/18/19 08/19/19 08/20/19 23:59 23:59 23:59 Intake Total 500 / 500 2161.66 / 2461.66 690 / 690 Output Total 1750 / 2750 1750 / 1750 Balance 500 / 100 411.66 / -288.34 -1060 / -1060 General: Alert, Oriented x3, Cooperative, No apparent distress HEENT: Atraumatic, PERRLA, EOMI, Normocephalic Oral: Moist Mucosa, No Gingival or Mucosal Lesions/ Ulcerations Neck: Supple, No JVD, Negative Carotid Bruits, Trachea Midline, Thyroid Normal Size and Texture Lungs: Clear to auscultation, Normal air movement, No rhonchi, No wheeze, No rales Cardiovascular: Normal S1, Normal S2, PMI Normal, Irregular Rate Abdomen: Bowel Sounds Present, Soft, Non Tender, Non-Distended, No Hepato-splenomegaly Extremities: No clubbing, No cyanosis, No edema Skin: No rashes, No breakdown Lymphatic: No Cervical, Supraclavicular, or Inguinal Adenopathy Neurological: Cranial nerves II-XII grossly intact, Motor Exam 5/5 strength throughout, - - Dysarthria/aphasia. Psych/Mental Status: Normal Affect, Appropriate Laboratory Results 08/20/19 05:29: PT 18.8 H, INR 1.6 Current Medications Acetaminophen (Tylenol) 650 mg PO Q6H PRN PRN PRN Reason: Pain Score 1-10/Temp > 100.7 F Ascorbic Acid (Vitamin C) 1,000 mg PO DAILY [facility] Last Admin: 08/20/19 09:05 Dose: 1,000 mg Documented by: Atorvastatin Calcium (Lipitor) 10 mg PO DAILY@2200 [facility] Last Admin: 08/19/19 20:36 Dose: 10 mg Documented by: Chlorhexidine Gluconate (Peridex) 15 ml PO BID [facility] Last Admin: 08/20/19 09:04 Dose: 15 ml Documented by: Enoxaparin Sodium (Lovenox) 80 mg SC Q12@0600,1800 [facility] Last Admin: 08/20/19 05:38 Dose: 80 mg Documented by: Finasteride (Proscar) 5 mg PO DAILY [facility] Last Admin: 08/20/19 09:05 Dose: 5 mg Documented by: [facility] Last Admin: 08/20/19 09:05 Dose: 1 mg Documented by: [facility]ivit[facility] ([facility]itamin) [facility] Last Admin: 08/20/19 09:05 Dose: 1 tablet Documented by: Nutritional Formula (Lactose Free) (Ensure Enlive) 120 ml PO 4X/DAY [facility] Last Admin: 08/20/19 13:08 Dose: 120 ml Documented by: Ondansetron HCl (Zofran) 4 mg IV Q8H PRN PRN PRN Reason: NAUSEA/VOMITING Sodium Chloride () 10 - 40 ml IV UD PRN PRN Reason: SALINE FLUSH Warfarin Sodium (Coumadin (Pbkc)) 5 mg PO DAILY@1700 [facility] Last Admin: 08/19/19 17:19 Dose: 5 mg Documented by: Discharge Activity: Return to Normal Activity Weight Bearing Status: Weight bearing as tolerated Call your doctor if you observe: Fever of 101 or Higher, Shortness of breath, Dizziness, Swelling in the ankles, Increased palpitations (irregular heartbeat), Uncontrolled pain Home Medications: Medications to take at Discharge Warfarin [Coumadin] 5 mg PO DAILY #7 06/23/14 Ascorbic Acid [Vitamin C] 1,000 mg PO DAILY 12/01/17 Finasteride [Proscar] 5 mg PO DAILY 12/01/17 Folic Acid 1 mg PO DAILY 12/01/17 Lovastatin [Mevacor] 40 mg PO DAILY 12/01/17 Multivitamin [Multiple Vitamins] 1 each PO DAILY 12/01/17 Enoxaparin [Lovenox] 80 mg SUBCUT Q12@0600,1800 #10 syringe 08/20/19 Following Prescrptions Were Given to Patient: Enoxaparin [Lovenox] 80 mg SUBCUT Q12@0600,1800 #10 syringe Transmission Status: Received by [facility] [id number] Other Amb Orders: Prothrombin Time w/INR Time Frame: 08/22/19, Facility: [facility], Location: Laboratory Primary Care Physician: Jeronimo Rodriguez MD [Primary Care Provider] - Please follow up with your Primary Care Physician in: 1 week. Please Follow Up With: Jeronimo Rodriguez MD Disposition: Home Minutes spent on discharge:: 28 Patient Condition:: Stable Medical Necessity - Tobacco Use Smoking Status: Never smoker Tobacco Use: Non-smoker Meaningful Use Info Meaningful Use Diagnoses (Choose all that apply): None applicable Code Visit Inpatient E&M: 88736 Disch Hosp
--- NOTE | 2019-08-20 15:09 | CASEMGMT ---
Pt to be sent home on Lovenox 80mg subq every 12 hours at discharge and med e-scribed to [facility] previously. Pt had been on 70mg of Lovenox subq previously. Per [facility] pharmacy laboratory technician, pt has a deductible to meet and Lovenox script is $199 at this time. Pt/ updated at this time and per , they also use [facility] and she states script will only be about $60. Pt/ voice no further questions/concerns/needs at this time. Pt states is awaiting discharge. Willie BAILEY CM
--- NOTE | 2019-08-21 13:35 | CASEMGMT ---
LEO JOYA DC PHONE CALL DC DATE: 08.20.2019 DC Disposition: Home Diagnosis on Discharge: TIA, subtherapeutic INR LACE/STRATA: 05/10 Intro role of CM to patient's . States pt is doing well, no difficulty with medications, f/u appointment is made and pt to have labwork tomorrow. No questions and no concerns @ this time. No care improvement suggestions given. Pierre VENTURAN RN AC
== END 2019-08-20 15:31 | disposition home or self-care (01) | DRG 69 ==
LOC: ED 19:53 → PCU 22:05
PROVIDERS: Admitting Provider Internal Medicine; Emergency Provider Emergency Medicine; Family Provider Family Medicine; PCP Family Medicine; Visit Provider Hospitalist
DX: G45.9 Transient cerebral ischemic attack, unspecified (principal); I48.20 Chronic atrial fibrillation, unspecified; I69.322 Dysarthria following cerebral infarction; I69.320 Aphasia following cerebral infarction; I05.2 Rheumatic mitral stenosis with insufficiency; E78.5 Hyperlipidemia, unspecified; R79.1 Abnormal coagulation profile; Z95.2 Presence of prosthetic heart valve; Z79.01 Long term (current) use of anticoagulants
CPT/HCPCS: 36415; 70450; 70551; 71045; 80053; 80061; 81001; 83036; 84484; 85025; 85610; 85730; 92610; 93005; 93306; 93880; 97112; 97162; 97166; 97802; 99251; 99285; J7030; J7040; A4216; G0463

== ENCOUNTER → 2019-08-22 12:11 | Outpatient (CLI) | payer MEDICARE, OTHER, SELFPAY ==
[2019-08-20 10:41] VITALS: BMI 25.4
[2019-08-22 12:36] LABS: International Normalized Ratio 1.8; Prothrombin Time (Protime)PT. 21.1 SECONDS (11.7-14.9)
== END ==
PROVIDERS: Family Provider Family Medicine; PCP Family Medicine; Referring Provider Family Medicine; Visit Provider Family Medicine
DX: I48.20 Chronic atrial fibrillation, unspecified (principal)
CPT/HCPCS: 85610

== ENCOUNTER → 2020-10-23 20:05 | Outpatient (CLI) | payer MEDICARE, OTHER, SELFPAY ==
[2019-08-20 10:41] VITALS: BMI 25.4
== END ==
PROVIDERS: PCP Family Medicine
DX: G47.19 Other hypersomnia (principal); R06.83 Snoring; G47.30 Sleep apnea, unspecified
CPT/HCPCS: 95810

== ENCOUNTER → 2020-11-19 20:20 | Outpatient (CLI) | payer MEDICARE, OTHER, SELFPAY ==
[2019-08-20 10:41] VITALS: BMI 25.4
== END ==
PROVIDERS: PCP Family Medicine
DX: G47.31 Primary central sleep apnea (principal); G47.33 Obstructive sleep apnea (adult) (pediatric)
CPT/HCPCS: 95811

== ENCOUNTER → 2020-11-25 12:52 | Outpatient (CLI) | payer MEDICARE, OTHER, SELFPAY ==
[2019-08-20 10:41] VITALS: BMI 25.4
--- NOTE | 2020-11-25 12:55 | CT_ITS ---
STUDY: CT RIGHT LOWER EXTREMITY WITHOUT CONTRAST REASON FOR EXAM: Right knee osteoarthritis, varus deformity, surgical planning. TECHNIQUE: Transaxial CT imaging of the lower extremity was performed. Coronal and sagittal images were reformatted. Individualized dose optimization techniques were used for this CT. COMPARISON: None. FINDINGS: Knee: There is [id number] joint space narrowing of the medial femorotibial compartment (coronal reconstruction 29). Normal lateral femoral condyle and lateral tibial plateau. There is preservation of the articular joint space of the lateral knee compartment. There is mild joint space narrowing of the lateral aspect of the patellofemoral articulation (axial image 260). Normal proximal tibiofibular articulation. There is no joint effusion. The quadriceps tendon is grossly normal. The patellar tendon is grossly normal. Normal Hoffa''s fat pad. There is mild vascular calcification. Hip: There is a right hip arthroplasty with heterotopic ossification at the lateral aspect (coronal reconstructions 45-49). Ankle: Normal tibiotalar, posterior subtalar, talonavicular and calcaneocuboid articulations. There is a small posterior calcaneal enthesophyte. CT/Extremity Lower without Contra IMPRESSION: Osteoarthritis of the medial femorotibial and patellofemoral compartments. Electronically Signed: Ozzy Evans MD at 15:00 EDT Tel , Service support ,
== END ==
PROVIDERS: PCP Family Medicine; Referring Provider Specialist; Visit Provider Specialist
DX: M21.161 Varus deformity, not elsewhere classified, right knee (principal); M17.11 Unilateral primary osteoarthritis, right knee
CPT/HCPCS: 73700

== ENCOUNTER 2020-12-10 14:14 | Observation (INO) | payer MEDICARE, OTHER, SELFPAY ==
[2019-08-20 10:41] VITALS: BMI 25.4
--- NOTE | 2020-11-24 22:43 | HP.PCM_ITS ---
History and Physical History and Physical [facility] Patient Name: Cal Sharma : 1945 From: SYL DAVE PA-C DATE OF SURGERY: 12/10/2020 SCHEDULED PROCEDURE: right total knee arthroplasty HISTORY OF PRESENT ILLNESS: Dictating on a 75-year-old male who has had ongoing pain since 2014 with his right knee. Patient's is present at the preoperative visit. 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 His gives patient's previous history. Patient has had pain in the right knee which has been constant, dull, aching. He has had a previous knee arthroscopy on the right knee in [address] Gale. His pain can reach as high as an 8/10. Patient states his pain is over the medial aspect of the knee. Pain is increased with going up and down stairs, sitting, and walking. He has difficulty with activities of daily living including yard work. He has tried rest, ice, heat, elevation with no relief in symptoms. He has previous corticosteroid injection with only one day of relief. He has also had Visco supplementation injection with no relief in symptoms. He has attempted bracing without relief. He uses a cane for ambulatory assistance. Patient has a significant history consistent with previous stroke in 2014 that is affected his right side. He is followed by spine supervisor Dr. Freedman. Mechanical heart valve as well as previous atrial fibrillation. He has history of benign prostatic hyperplasia. He did have a mini stroke 1 year ago. We are obtaining surgical clearance from the primary care physician as well as spine supervisor. Director Of Golf did recommend we stop the Coumadin 5 days prior to surgery but will need to bridge pre-and post operatively until he is therapeutic again. After failing conservative measures and discussing all treatment options with Dr. Ozzie Sweeney, the patient does wish to proceed with a right total knee arthroplasty. REVIEW OF SYSTEMS: ROS: Const: Denies change in appetite, fever and weight change. CV: Reports irregular heartbeat, but denies chest pain and heart murmur. Resp: Denies cough, pneumonia, shortness of breath, tuberculosis and wheezing. GI: Denies constipation, diarrhea, heartburn, nausea, rectal itching, bloody stools and vomiting. : Denies incontinence. Musculo: Denies leg swelling, pain, trouble walking and weakness. Skin: Reports tattoo, but denies Raynaud's and history of shingles. Neuro: Denies ambulatory dysfunction, dizziness, numbness/tingling and tremor. Psych: Denies anxiety, insomnia and stress. Lamont/Lymph: Denies anemia, bleeding/bruising tendency and past transfusion. Reviewed, no changes. PAST MEDICAL HISTORY: Advance Care Plan: Other Directive, LIVING WILL Effective Date: 09/01/2020 Other Directive, POA Effective Date: 09/01/2020 PMH: Medical Problems: Arthritis / Rheumatoid Arthritis Stroke - (08/2003) Hard of Hearing TIA - (2019) Sleep Apnea, Atrial fibulation Accidents: None Surgical Hx: Mechanical Valve - (09/2014) [facility] Hernia Repair - [facility] Knee Arthroscopy RT - (2013) [facility] Hip Replacement RT - (2016) [facility] Anesthesia Complications: None Assistive Devices: Glasses, Dentures Reviewed and updated. SOCIAL HISTORY: SH: Marital: .Occupation: Retired.Work Status: Retired.Hand Dominance: Left- handed. Personal Habits: Cigarette Use: Former.Smokeless Tobacco: Former user.E- Cigarette Use: Never used.Alcohol: Occasionally.Drug Use: Denies Use.Enjoy Exercising: Never Exercises. Reviewed, no changes. VITALS: Ht: 66.25 Wt: 205lb Wt k.988 BMI: 32.8 BP: 94/64 Pulse: 70 Resp: 16 T: 97.5 T: 36.4C ALLERGIES: No Known Drug Allergy MEDICATIONS: Coumadin 5 mg as directed, Finasteride 5 mg 1 by mouth every day, Folic Acid 1 mg 1 by mouth every day, Lovastatin 40 mg 1 by mouth every day, Multivitamin take one(1) tablet daily., Aspirin 81 81 mg 1po bi weekly, Vitamin C 1000 mg 1po qday, Vitamin D3 1000 Unit 1po qday PRE-OP EXAM: General appearance:NORMAL Other: Eyes: Conjunctivae and lids: NORMAL Pupils: ERR Ears, Nose, Mouth, and Throat: NORMAL Other: Inspection of lips, teeth and gums: NORMAL Other: Neck: Examination of neck: no masses noted. Respiratory: Assessment of respiratory effort: NORMAL Other: Auscultation of lungs: clear to auscultation no wheezes, rhonchi or rales. Cardiovascular: Auscultation of heart: regular rate and rhythm, no murmurs, gallops or rubs. Exam of carotid arteries: NORMAL Other: Gastrointestinal: Exam of abdomen: soft, nontender, nondistended bowel sounds present. PHYSICAL EXAMINATION: On exam patient does walk with an antalgic gait. There is valgus alignment on ambulation. Patient does have aphasia secondary to stroke and his does speak for him with regards to previous history. He has tenderness to palpation along the medial joint line. Crepitus with range of motion. Patient is able to flex to 125. Sensation intact to light touch. IMAGING STUDIES: Previous x-rays reveal varus alignment with medial joint space narrowing. Lateral tracking of patella with lateral patellofemoral space narrowing. Previous MRI also reveals grade 3 medial compartment osteoarthritis with full- thickness chondral fissuring of the posterior weightbearing femoral condyle. Post meniscectomy changes of the medial meniscus. Grade 2-3 lateral compartment chondromalacia and grade 2-3 chondromalacia of the patellofemoral compartment. IMPRESSION: 1. Right knee osteoarthritis 2. Mechanical heart valve 3. Atrial fibrillation 4. History of abdominal aortic aortic aneurysm: 3.5 cm in 2017 per spine supervisor 5. Aphasia 6. History of stroke affecting right upper and lower extremity 7. Dyslipidemia 8. Benign prostatic hyperplasia 9. Sleep Apnea: in process of getting BIPAP PLAN: Dr. Ozzie Sweeney did discuss and review with the patient all treatment options including surgical versus nonsurgical options. Patient does wish to proceed with the above-stated procedure. Potential risks, benefits, and complications of the procedure were discussed in detail including but not limited to , infection, nerve and blood vessel damage, persistent pain, numbness, tingling, paresthesias, blood clot, pulmonary embolism, and requirement for possible further surgery. The patient expressed full understanding and has no further questions for the doctor. Patient does agree to proceed with the above-stated procedure and has signed the surgery consent form. We discussed the current risks associated with COVID 19. This does include the risk of exposure while in the hospital. Patient was reassured local hospitals have low infection rates and are taking all necessary precautions to avoid exposure to patients. In addition, we discussed strategies that can be used to help limit exposure including those that limit the patient's time in the hospital. Also using strategies to limit the patient's need for continued inpatient services after being discharged from the hospital. Patient was notified that we will need to comply with any screening or testing the hospital wishes to perform or that surgery may be delayed for any positive results. This dictation was created using voice recognition software. Phonetic and/or grammatical errors may exist. ___ I have re-examined the patient. There are no clinical changes since date of exam. ___ See progress notes for changes. ___ Dictated on admission Date: Time: Signature:
--- NOTE | 2020-12-01 09:16 | EKG12_ITS ---
Test Reason : PREOP Blood Pressure : / mmHG Vent. Rate : 074 BPM Atrial Rate : 098 BPM P-R Int : 000 ms QRS Dur : 092 ms QT Int : 388 ms P-R-T Axes : 000 -53 076 degrees QTc Int : 430 ms Atrial fibrillation Left anterior fascicular block Abnormal ECG Confirmed by SELVIN MONTGOMERY, REX ([id number]), loan expeditor RHEA BERNARD ([id number] on 12/02/2020 8:30:07 AM Referred By: Ozzie Sweeney Confirmed By:REX MONTALVO MD
[2020-12-01 10:56] LABS: Magnesium 2.2 mg/dL (1.6-2.6)
[2020-12-10] VITALS (14 sets, daily range): BP systolic 90–135; BP diastolic 59–83; PULSE 58–80; RESP 16–18; TEMP 36.3–37.6; O2SAT 94–100; BMI 23.9
[2020-12-10 10:46] LABS: Prothrombin Time Fingerstick 22.8 SEC (11.9-14.4)
[2020-12-10] MEDS: Lactated Ringers 1,000 ML 999 ML IV ×2 (10:46→14:15)
[2020-12-10] MEDS: Gabapentin 600 MG Tablet PO (10:47)
[2020-12-10] MEDS: Acetaminophen 500 MG Tablet 1000 MG PO ×2 (10:47→21:18)
[2020-12-10 11:15] LABS: Bedside Glucose 83 mg/dL (70-110)
[2020-12-10 11:20] LABS: International Normalized Ratio 1.1; Prothrombin Time (Protime)PT. 13.4 SECONDS (11.7-14.9)
[2020-12-10] MEDS: Cefazolin 2 GM in 0.9% Normal Saline 100 ML IV (12:50)
[2020-12-10] MEDS: dexAMETHasone 10 MG/ML Vial IV (13:15)
--- NOTE | 2020-12-10 14:19 | PCM.OPRPT ---
Report of Operation Date of Procedure: 12/10/20 Pre-Operative Diagnosis: Right knee primary osteoarthritis Post-Operative Diagnosis: Right knee primary osteoarthritis Surgery/Procedure Performed:: Right minimally invasive robotic assisted total knee replacement Description of Surgical Findings:: Stable knee with good patella tracking order processing clerk: Peyman Lockhart Type of Anesthesia: General Anesthesiologist: Chris Blum Special Medications: 2 g Ancef, 2 g TXA lavage prior to closure, 10 mg Decadron, joint cocktail (5 mg Duramorph, 30 mL of 0.5% Ropivicaine, 1000 units of epinephrine, 30 mg of Toradol) Specimen's removed: Bony cuts Estimated Blood Loss (mL): 20 Fluids Replaced: 500 mL crystalloid Description of Procedure: Implants used: 1. Ana size seven triathlon cruciate retaining distal femoral press-fit component6 2. Ana size six press-fit tritanium tibial baseplate 3. Buffalo X3 9 mm CS polyethylene 4. [place] X3 35 mm asymmetric patella Brief history operative indications: [age]-old male with history of right knee osteoarthritis with radiographic findings with loss of joint space, osteophyte formation and subchondral sclerosis. Failed conservative measures as mentioned in the H&P. Discussion of total knee arthroplasty as well as risk and benefits were discussed the patient including but not limited to blood loss, DVTs, PEs, neurovascular damage, general risk of anesthesia including loss of life, and stiffness or instability were discussed with patient. Patient demonstrated understanding and was able to sign informed consent. Procedure: On the date of procedure patient's right lower extremity was marked in the preoperative area. The patient was then taken back to the operating room where the patient was placed on the table in the supine position. All bony prominences were identified a well-padded. Anesthesia assumed control of the C-spine and airway and remained controlled throughout the remainder of the procedure. A tourniquet was placed on the right upper thigh and the leg was prepped in a sterile fashion. The surgeon then scrubbed at this time .Upon reentering the room right lower extremity was draped in a standard orthopedic fashion. A timeout was then called and everyone agreed upon the side, the site, the procedure to be performed, patient's identity and antibiotics given. Esmarch bandage was used to exsanguinate the extremity and the tourniquet was placed up to 250 mmHg with the knee in flexion. A midline skin incision was made and sharp dissection was taken down through skin subcutaneous tissue and fat. The standard medial parapatellar incision was made and the patella was subluxed laterally. An Appropriate deep MCL release was done and the fat pad was resected. Our attention was then directed to the patella. The patella was everted and a flat resection was made. The knee was then flexed up in 2 femoral pins were placed inside the incision and 2 tibial pins were placed outside the incision in the medial tibia bicortically. Once this was completed the 2 checkpoints in the femur and tibia were placed. Knee was then flexed up and the bony landmarks were registered. Once this was completed knee was taken through range of motion and manually stressed allowing us to a plan for an appropriate tibial cut. The robotic arm was brought into the field sterilely and checkpoint and saw were registered. Based on the patient's deformity the tibial cut was made in 1 degree of varus. At this time the tensioner was then placed in the joint and ligament tension was checked at 90 degrees and full extension. Based on the patient's ligamentous tension appropriate adjustments were made to the operative plan and ligament releases were done. Once we were happy with our operative plan with balanced flexion and extension gaps our attention was directed to the femur. The robot was brought into the field sterilely and registered. Posterior condylar cuts, anterior chamfer cuts and anterior cuts were appropriately made for a size six femur. When these were completed the saws were switched out in the distal femoral and posterior chamfer cuts were made. Protecting the soft tissue throughout this time. A size seven tibial base plate was selected. the knee was flexed to 90 degrees and the soft tissues and posterior osteophytes were removed from the joint. 40 cc of the periarticular injection was injected into the posterior medial corner of the joint. The appropriate trials were then placed on the femur and tibia. A trial polyethylene was trialed to ensure proper balancing and stability of the knee. The appropriate tibial internal rotation was then marked with a bovie. Our attention was then directed to the patella. The lug holes were drilled and the patella trial was placed. Patellar tracking was checked and deemed appropriate. Once we were happy lug holes were drilled for the femur and trial components were removed. the tibia was subluxed and pinned into place and the keel was punched and drilled appropriately. Final components were verified and opened, and cement was mixed in a vacuum. Link Trigger Simplex cement was used. The wound was copiously irrigated with normal saline. When the cement was ready the components were impacted into place starting with the tibia, femur and finally cementing the patella. The trial poly component was placed and the knee was placed in full extension. All excess cement was removed in the process. Once the cement had cured the tracking, alignment and balance were verified and a size 9 mm CS polyethylene component was placed. Once the final components were placed a 3-minute dilute Betadine lavage was performed followed by an Irrisept lavage was performed and the wound was copiously irrigated with normal saline solution and the periarticular injection was given. The wound was closed in a layer massey fashion using #1 vicryl interrupted sutures for the arthrotomy, 2-0 interrupted Vicryl suture for the subcuticular layer and bhupendra for final skin closure. A sterile compressive dressing was then placed. The patient was then awakened from anesthesia, transferred to the rulman and transferred to the PACU for recovery. Post op plan DVT ppx: Coumadin with Lovenox bridge, thigh high compression stockings Follow up: in office in 2 weeks for wound check PT: to start POD #0 at hospital, outpatient PT should be arranged. My physician medical assistant secretary was a vital part of this case. He was important in appropriate retraction during the case, and protection of soft tissues during bony cuts. His intimate knowledge of the case and my steps aided in safe and expedient completion of the procedure as well as appropriate position of the leg during the case. He was also vital in assisting with closure under my direct supervision. Due to the complexity of this case robotic arm was used to assist in the surgery to improve accuracy and clinical outcomes. Complications No intraoperative complications Admit VTE Documentation VTE Present on Admission: No VTE Mechan Device Prophylaxis: SCD's and Thigh High SRUTHI Hose VTE Pharm Prophylaxis ordered?: Yes
[2020-12-10] MEDS: Lactated Ringers 1,000 ML 125 ML IV (15:15)
--- NOTE | 2020-12-10 15:20 | RAD_ITS ---
STUDY: X-RAY - RIGHT KNEE REASON FOR EXAM: Male, 75 years old. Post op -- AP and Lateral xray of operative knee in PACU TECHNIQUE: 2 view(s) of the knee. COMPARISON: None. FINDINGS: Normal visualized distal femur. Normal visualized proximal tibia and fibula. Normal proximal tibiofibular articulation. The patient is status post total knee replacement. There is good alignment. Postoperative soft tissue changes. RAD/Knee 1 or 2 Views IMPRESSION: Status post total knee replacement. There is good alignment. Postoperative soft tissue changes. Electronically Signed: Jayy Valdez MD at 15:33 EDT , Service support ,
[2020-12-10 15:41] LABS: Bedside Glucose 134 mg/dL (70-110)
--- NOTE | 2020-12-10 17:30 | PCM.HP.STD ---
Documented by User: LONI Thakkar 12/10/20 17:43 HPI - General General Date of Admission: 12/10/20 HPI Narrative JUAN MEDINA, is a 75 M who presents for right total knee replacement. Per Dr. Sweeney's request hospitalist have been consulted for medical management of patient's chronic conditions. Patient currently in bed denies pain at this time. Patient denies fever, chills, chest pain, shortness of breath. [facility] Medical History (Updated 12/10/20 @ 17:36 by LONI Thakkar) History of stroke Mitral stenosis with regurgitation TIA (transient ischemic attack) Home Medications Lovastatin [Mevacor] 40 mg PO DAILY 12/01/17 [History Last Taken 12/10/20] ascorbic acid (vitamin C) 500 mg PO DAILY 12/01/17 [History Last Taken 12/10/20] finasteride 5 mg PO DAILY 12/01/17 [History Last Taken 12/10/20] folic acid 1 mg PO DAILY 12/01/17 [History Last Taken 12/10/20] multivitamin [Multiple Vitamins] 1 ea PO DAILY 12/01/17 [History Last Taken 12/10/20] cholecalciferol (vitamin D3) 1,000 unit PO DAILY 11/26/20 [History Last Taken 12/10/20] enoxaparin 0.7 ml SQ Q12H 11/26/20 [History Last Taken 12/10/20] vo-ua-BZ-vit G-suvtj-fvfi-zeax 1 each PO DAILY 11/26/20 [History Last Taken 12/10/20] warfarin 4 mg PO MO 11/26/20 [History Last Taken 12/10/20] warfarin 5 mg PO SUTUWETHFRSA 11/26/20 [History Last Taken 12/10/20] Allergy/AdvReac Type Severity Reaction Status Date / Time No Known Allergies Allergy Verified 12/10/20 10:43 Surgical History (Updated 12/10/20 @ 17:36 by LONI Thakkar) Status post mitral valve replacement with metallic valve Social History Smoking Status: Former smoker ROS Constitutional Constitutional: Denies anorexia, chills, fatigue or fever(s) Cardiovascular Cardiovascular: Denies chest pain, edema or palpitations Respiratory/Chest Respiratory/Chest: Denies cough or hemoptysis Gastrointestinal Gastrointestinal: Denies abdominal pain, constipation, diarrhea, nausea or vomiting Genitourinary Genitourinary: Denies dysuria Musculoskeletal Musculoskeletal: Reports joint stiffness; Denies joint pain Integumentary Integumentary: Reports dry skin Neurologic Neurologic: Denies abnormal gait or abnormal speech Psychiatric Psychiatric: Denies anxiety or depression Endocrine Endocrinology: Denies change in body appearance Hematologic/Lymphatic Hematologic/Lymphatic: Denies anemia Vital Signs Vital Signs Vital Signs: 12/10/20 10:50 12/10/20 15:09 12/10/20 15:15 Temperature 99.6 F H 97.6 F L Temperature Source Temporal Temporal Pulse Rate 66 60 71 Pulse Strength Normal (2+) Respiratory Rate 16 16 16 Respiratory Pattern Normal Normal Blood Pressure 135/83 H 90/68 92/61 Blood Pressure Mean 100 75 71 Blood Pressure Source Monitor Monitor Monitor Blood Pressure Position Semi-Fowlers Semi-Fowlers Supine Blood Pressure Location Left Arm Left Arm Left Arm Baseline BP 135/83 135/83 Pulse Ox 100 94 100 Oxygen Delivery Method Room Air Room Air Simple Mask Oxygen Flow Rate (L/min) 6 12/10/20 15:30 12/10/20 15:45 12/10/20 16:01 Temperature Temperature Source Pulse Rate 64 80 70 Pulse Strength Respiratory Rate 16 16 16 Respiratory Pattern Blood Pressure 113/66 116/67 Blood Pressure Mean 81 83 Blood Pressure Source Monitor Monitor Monitor Blood Pressure Position Supine Semi-Fowlers Semi-Fowlers Blood Pressure Location Left Arm Right Arm Right Arm Baseline BP 135/83 135/83 135/83 Pulse Ox 100 100 100 Oxygen Delivery Method Simple Mask Simple Mask Simple Mask Oxygen Flow Rate (L/min) 6 6 6 12/10/20 16:15 12/10/20 16:52 12/10/20 17:16 Temperature 97.3 F L 97.6 F L Temperature Source Temporal Oral Pulse Rate 74 73 58 L Pulse Strength Respiratory Rate 16 16 18 Respiratory Pattern Blood Pressure 125/78 H 111/80 121/80 H Blood Pressure Mean 93 90 93 Blood Pressure Source Monitor Monitor Monitor Blood Pressure Position Semi-Fowlers Semi-Fowlers Supine Blood Pressure Location Left Arm Left Arm Right Arm Baseline BP 135/83 135/83 Pulse Ox 100 100 99 Oxygen Delivery Method Simple Mask Simple Mask Nasal Cannula Oxygen Flow Rate (L/min) 6 6 6 Physical Exam Const alert, oriented x3 and no apparent distress General Appearance: cooperative HEENT normocephalic and head/scalp atraumatic Eyes PERRL and EOMs intact bilaterally Neck no lymphadenopathy, supple and no JVD General: trachea midline Resp normal respiratory effort, normal air movement and clear to auscultation bilaterally Cardio regular rate, S1 normal heart sound and S2 normal heart sound Rhythm: abnormal rhythm irregularly irregular (Chronic A. fib) GI soft to palpation and non-tender Extremity normal capillary refill and no clubbing, cyanosis or edema General Extremity: no tenderness to palpation of joints or extremities Skin Skin Narrative: Postsurgical dressing dry and intact to right knee. General Skin Exam: no breakdown and turgor normal Lesions: no lesions Rashes: no rashes Wounds: wounds noted Neuro CN's II-XII intact bilaterally Psych thought process normal, cooperative and affect normal Appearance: appropriate Lab / Micro Data Labs: Laboratory Results - last 24 hr 12/10/20 12/10/20 12/10/20 10:38 10:42 11:00 POC PT 22.8 H PT 13.4 INR 2.0 1.1 POC Glucose 83 12/10/20 15:29 POC PT PT INR POC Glucose 134 H Radiology Impression Knee X-Ray 12/10/20 15:20 IMPRESSION: Status post total knee replacement. There is good alignment. Postoperative soft tissue changes. Electronically Signed: Jayy Valdez MD at 15:33 EDT , Service support , Assessment & Plan Assessment/Plan (1) Status post total right knee replacement: (2) Atrial fibrillation: QUALIFIERS: Atrial fibrillation type: unspecified chronic Qualified Code(s): I48.20 - Chronic atrial fibrillation, unspecified (3) Hyperlipidemia: QUALIFIERS: Hyperlipidemia type: unspecified Qualified Code(s): E78.5 - Hyperlipidemia, unspecified (4) BPH (benign prostatic hyperplasia): PLAN: 1. Status post right total knee replacement -Postop day 0 -Continue pain management regimen as ordered per Ortho 2. Atrial fibrillation -Telemetry ordered -Lovenox bridge back to warfarin as ordered per Ortho -Currently rate controlled, heart rate 58 3. Hyperlipidemia -Continue lovastatin daily 4. BPH -Continue finasteride daily DVT prophylaxis-Will complete Lovenox bridge back to warfarin. This patient was seen by LONI Thakkar under the supervision of Dr. Malcolm. Documented by User: Dr. Po Malcolm MD 12/10/20 19:45 HPI - General General Date of Admission: 12/10/20 [facility] Medical History (Updated 12/10/20 @ 17:36 by TEGAN ThakkarC) History of stroke Mitral stenosis with regurgitation TIA (transient ischemic attack) Home Medications Lovastatin [Mevacor] 40 mg PO DAILY 12/01/17 [History Last Taken 12/10/20] ascorbic acid (vitamin C) 500 mg PO DAILY 12/01/17 [History Last Taken 12/10/20] finasteride 5 mg PO DAILY 12/01/17 [History Last Taken 12/10/20] folic acid 1 mg PO DAILY 12/01/17 [History Last Taken 12/10/20] multivitamin [Multiple Vitamins] 1 ea PO DAILY 12/01/17 [History Last Taken 12/10/20] cholecalciferol (vitamin D3) 1,000 unit PO DAILY 11/26/20 [History Last Taken 12/10/20] enoxaparin 0.7 ml SQ Q12H 11/26/20 [History Last Taken 12/10/20] pf-og-CZ-vit L-kepve-ryur-zeax 1 each PO DAILY 11/26/20 [History Last Taken 12/10/20] warfarin 4 mg PO MO 11/26/20 [History Last Taken 12/10/20] warfarin 5 mg PO SUTUWETHFRSA 11/26/20 [History Last Taken 12/10/20] Allergy/AdvReac Type Severity Reaction Status Date / Time No Known Allergies Allergy Verified 12/10/20 10:43 Surgical History (Updated 12/10/20 @ 17:36 by LONI Thakkar) Status post mitral valve replacement with metallic valve Social History Smoking Status: Former smoker Addendum Addendum: Dr. Malcolm: I personally reviewed the chart and examined the patient, and agree with the above findings. 75-year-old male presenting to the hospital for elective right total knee replacement. This is due to osteoarthritis. Sensations intact and he is able to move his toes. Pain management and PT/OT per primary. Can resume all of his home medications and monitor a BMP and a CBC in the morning. Visit Charges Inpatient E&M: 26918 Subs Hosp L3
[2020-12-10] MEDS: Cefazolin 1 GM/50 ML BAG IV (20:48)
[2020-12-10] MEDS: Senna/Docusate Sodium 1 Tablet 2 TABLET PO (21:18)
[2020-12-10] MEDS: Atorvastatin Calcium 10 MG Tablet PO (21:18)
[2020-12-11 00:42] VITALS: BP 124/62; PULSE 65; RESP 18; TEMP 36.6; O2SAT 97
[2020-12-11 03:00] VITALS: PULSE 61
[2020-12-11] MEDS: Cefazolin 1 GM/50 ML BAG IV (05:08)
[2020-12-11] MEDS: Acetaminophen 500 MG Tablet 1000 MG PO ×2 (05:08→13:52)
[2020-12-11 05:09] VITALS: BP 145/88; PULSE 67; RESP 18; TEMP 36.4; O2SAT 98
[2020-12-11 06:13] LABS: Hematocrit 35.1 % (40-54); Hemoglobin 11.7 g/dL (13.0-16.5); Mean Corp Hgb Conc 33.3 g/dL (32-36); Mean Corpuscular Hgb 32.4 pg (27.0-32.0); Mean Corpuscular Volume 97.2 fL (80-94); Mean Platelet Vol. 9.8 fl (6.2-12.0); Platelet Count 187 K/mm3 (150-450); RBC Distribution Width CV 12.8 % (11.6-14.6); RBC Distribution Width SD 46.1 fl (35.1-43.9); Red Blood Count 3.61 M/mm3 (4.6-6.2); White Blood Count 18.8 K/mm3 (4.4-11.0)
[2020-12-11 06:31] LABS: International Normalized Ratio 1.2; Prothrombin Time (Protime)PT. 14.3 SECONDS (11.7-14.9)
[2020-12-11] MEDS: Enoxaparin 80 MG/0.8 ML Syringe 70 MG SC (06:42)
--- NOTE | 2020-12-11 06:43 | PN.HOSP_ITS ---
Subjective Subjective: Patient without any acute events overnight. He notes pain is controlled s/p R TKR. He notes having been up without issue with therapies and remains amenable to discharge to home with outpatient therapies. Patient denies fevers, chills, nausea, emesis, abdominal pain, chest pain or dyspnea. Objective Data Objective Data Vital Signs: Vital Signs Temp Pulse Resp BP Pulse Ox 97.6 F L 67 18 145/88 H 98 12/11/20 05:09 12/11/20 05:09 12/11/20 05:09 12/11/20 05:09 12/11/20 05:09 Oxygen Flow Rate (L/min) 6 Oxygen Delivery Method Room Air Weight: 150 lb 9.211 oz Body Mass Index (BMI) 23.9 Intake & Output: Intake and Output for Last 24 Hours 12/09/20 12/10/20 12/11/20 23:59 23:59 23:59 Intake Total 3985.5 / 3985.5 50 / 50 Output Total 450 / 450 Balance 3535.5 / 3535.5 50 / 50 Lab / Micro Data Result Diagrams: 12/11/20 06:00 12/11/20 06:00 Labs: Laboratory Results - last 24 hr 12/10/20 12/10/20 12/10/20 10:38 10:42 11:00 WBC RBC Hgb Hct MCV MCH MCHC RDW Std Deviation RDW Coeff of Curt Plt Count MPV POC PT 22.8 H PT 13.4 INR 2.0 1.1 POC Glucose 83 12/10/20 12/11/20 12/11/20 15:29 06:00 06:00 WBC 18.8 H RBC 3.61 L Hgb 11.7 L Hct 35.1 L MCV 97.2 H MCH 32.4 H MCHC 33.3 RDW Std Deviation 46.1 H RDW Coeff of Curt 12.8 Plt Count 187 MPV 9.8 POC PT PT 14.3 INR 1.2 POC Glucose 134 H Micro: Microbiology 12/01/20 09:29 Swab (Method) Nasal Screen MRSA/MSSA - Final Radiography Diagnostic Testing: Radiology Impression Knee X-Ray 12/10/20 15:20 IMPRESSION: Status post total knee replacement. There is good alignment. Postoperative soft tissue changes. Electronically Signed: Jayy Valdez MD at 15:33 EDT , Service support , Physical Exam Narrative Physical Examination: General: awake, alert, oriented x 3 and cooperative, seated upright in the medical surgical bedside chair, no acute distress, notes pain controlled. Skin: normal color, turgor, no icterus, cyanosis except recent right total knee replacement with dressing in place without drainage. HEENT: AT/NC, EOMI, PERRLA, MMM. Lungs: CTA bilaterally, moderate effort, mild decrease BL bases, no rales, ronchi or wheezing. Heart: Irregular, rate controlled; no gallop, rub audible. Abdomen: soft, NTTP, ND, normal BS. Extremities: no cyanosis, clubbing, or edema. Status post recent right total knee replacement, dressing in place, no drainage. Neurological: patient awake, alert, oriented as noted; cognitive function appears baseline intact; chronic aphasia present which is stable and unchanged status post CVA previously; pupils equally reactive to light and accomodation; cranial nerves II-XII grossly normal, moving all 4 extremities, strength mildly to moderately global decrease given recent right total knee replacement. Psychiatric: affect appears normal, no acute evidence of depressive or anxiety feelings. Assessment & Plan Assessment/Plan (1) Status post total right knee replacement: PLAN: The patient is a 75 y/o M w/ PMHx: Valvular heart disease s/p mechanical valve replacement mitral valve on coumadin, PAF, Hx CVA, HLD, BPH who presents to the [facility] on 12/10/20 for planned R TKR per Dr. Sweeney. 1. Severe Osteoarthritis, right knee: Failed conservative therapies and treatments, admitted per Dr. Sweeney for planned right total knee replacement, post-operative pain management, bowel regimen, DVT Prophylaxis, PT/OT/CM per Orthopedic surgery discretion. 2. Chronic atrial fibrillation: Patient normally on Coumadin, placed on bridge following operative intervention given valvular heart disease with mechanical valve, continue to trend INR and de-escalate off Lovenox once INR therapeutic. 3. Valvular heart disease: Status post mitral valve replacement with mechanical valve, currently transition back to Coumadin with Lovenox bridging, de-escalate off Lovenox once INR therapeutic. 4. Hyperlipidemia: Continue home statin regimen. 5. BPH: We will continue patient home finasteride regimen. 6. DVT prophylaxis: SCDs, restarted Coumadin with Lovenox bridging, de-escalate off Lovenox once INR therapeutic. Visit Charges Inpatient E&M: 88148 Subs Hosp L2
[2020-12-11 06:47] LABS: Anion Gap 3 (5-15); BUN 26 mg/dL (7-18); BUN/Creat Ratio 23.4 RATIO (10-20); Calcium,Total 8.2 mg/dL (8.5-10.1); Chloride 107 mmol/L (98-107); Creatinine, Serum 1.11 mg/dL (0.70-1.30); EST Glomerular Filtration Rate 69 mL/min (>60); Est Glom Filt Rate - Afr Amer 83 mL/min (>60); Estimated Creatinine Clearance 52.69 ml/min; Glucose 120 mg/dL (74-106); Potassium 4.1 mmol/L (3.5-5.1); Sodium Level 138 mmol/L (136-145)
[2020-12-11] MEDS: Ensure Surgery 237 ML LIQUID PO ×2 (08:04→12:28)
[2020-12-11] MEDS: Multivitamins,Therapeutic Tablet 1 TABLET PO (08:05)
[2020-12-11] MEDS: Senna/Docusate Sodium 1 Tablet 2 TABLET PO (08:05)
[2020-12-11] MEDS: Folic Acid 1 MG Tablet PO (08:05)
[2020-12-11] MEDS: Finasteride 5 MG Tablet PO (08:05)
[2020-12-11] MEDS: Multivitamin (Healthy Eyes) Capsule 1 CAP PO (08:05)
[2020-12-11] MEDS: Famotidine 20 MG Tablet PO (08:05)
[2020-12-11] MEDS: Ascorbic Acid 500 MG Tablet PO (08:06)
[2020-12-11] MEDS: Cholecalciferol (VIT D3) 25 MCG TABLET (1,000 UNITS) PO (08:06)
--- NOTE | 2020-12-11 09:14 | PN.ORTHO_ITS ---
Subjective Subjective: The patient was sitting in bedside chair upon examination. Patient denies any chest pain, shortness of breath, dizziness, lightheadedness, nausea or vomiting, or calf pain. Pain is controlled on medications. No adverse overnight events. Overall patient is doing well today. Patient does have aphasia but he is able to communicate with me today. Patient has not had physical therapy. Pain is well controlled. He is currently being bridged with Lovenox while he has placed back on his Coumadin. This is being managed by outside provider. Objective Data Objective Data Vital Signs: Vital Signs Temp Pulse Resp BP Pulse Ox 97.6 F L 67 18 145/88 H 98 12/11/20 05:09 12/11/20 05:09 12/11/20 05:09 12/11/20 05:09 12/11/20 05:09 Oxygen Flow Rate (L/min) 6 Oxygen Delivery Method Room Air Weight: 68.3 kg Body Mass Index (BMI) 23.9 Intake & Output: Intake and Output for Last 24 Hours 12/09/20 12/10/20 12/11/20 23:59 23:59 23:59 Intake Total 3985.5 / 3985.5 450 / 450 Output Total 450 / 450 440 / 440 Balance 3535.5 / 3535.5 Lab / Micro Data Result Diagrams: 12/11/20 06:00 12/11/20 06:00 Labs: Laboratory Results - last 24 hr 12/10/20 12/10/20 12/10/20 10:38 10:42 11:00 WBC RBC Hgb Hct MCV MCH MCHC RDW Std Deviation RDW Coeff of Curt Plt Count MPV POC PT 22.8 H PT 13.4 INR 2.0 1.1 Sodium Potassium Chloride Carbon Dioxide Anion Gap BUN Creatinine Estim Creat Clear Calc Est GFR (MDRD) Af Amer Est GFR (MDRD) Non-Af BUN/Creatinine Ratio Glucose Calcium POC Glucose 83 12/10/20 12/11/20 12/11/20 15:29 06:00 06:00 WBC 18.8 H RBC 3.61 L Hgb 11.7 L Hct 35.1 L MCV 97.2 H MCH 32.4 H MCHC 33.3 RDW Std Deviation 46.1 H RDW Coeff of Curt 12.8 Plt Count 187 MPV 9.8 POC PT PT INR Sodium 138 Potassium 4.1 Chloride 107 Carbon Dioxide 28.0 Anion Gap 3 L BUN 26 H Creatinine 1.11 Estim Creat Clear Calc 52.69 Est GFR (MDRD) Af Amer 83 Est GFR (MDRD) Non-Af 69 BUN/Creatinine Ratio 23.4 H Glucose 120 H Calcium 8.2 L POC Glucose 134 H 12/11/20 06:00 WBC RBC Hgb Hct MCV MCH MCHC RDW Std Deviation RDW Coeff of Curt Plt Count MPV POC PT PT 14.3 INR 1.2 Sodium Potassium Chloride Carbon Dioxide Anion Gap BUN Creatinine Estim Creat Clear Calc Est GFR (MDRD) Af Amer Est GFR (MDRD) Non-Af BUN/Creatinine Ratio Glucose Calcium POC Glucose Micro: Microbiology 12/01/20 09:29 Swab (Method) Nasal Screen MRSA/MSSA - Final Radiography Diagnostic Testing: Radiology Impression Knee X-Ray 12/10/20 15:20 IMPRESSION: Status post total knee replacement. There is good alignment. Postoperative soft tissue changes. Electronically Signed: Jayy Valdez MD at 15:33 EDT , Service support , Physical Exam Narrative Vital signs stable and afebrile. Patient is able to plantarflex and dorsiflex actively. Sensation is intact to light touch to saphenous, sural, superficial and deep peroneal, and tibial distribution. Dressing is with minimal drainage over the distal one third of the main dressing. Minimal drainage over the distal pin site and no drainage over the pr oximal pin site Negative Homans bilaterally, negative signs and symptoms of DVT. Const alert, oriented x3 and no apparent distress Assessment & Plan Assessment/Plan (1) Status post total right knee replacement: PLAN: 1. S/P right total knee arthroplasty POD #1 2. Continue Pain Medications: Tylenol and oxycodone 3. DVT Prophylaxis: Patient has been placed back on his Coumadin. He is currently being bridged until he is therapeutic. This is being managed by outside provider 4. PT/OT: Weightbearing as tolerated 5. H & H: 11.7/35.1, asymptomatic. Postoperative anemia secondary to acute blood loss from surgery without any intra operative complications. 6. Reactive leukocytosis: Currently 18.8, afebrile. Patient did receive Decadron intraoperatively 7. Continue postoperative medical management per medicine: I did discuss case with the hospitalist and at this time plan will be for discharge home today as long as patient is medically stable. 8. Encouraged Incentive Spirometry 9. Disposition: Plan will be for probable discharge home today as long as pain is well controlled, patient is medically stable, and patient tolerates physical therapy. Patient does have medical history of aphasia from a stroke and I did contact patient's Shea over the phone. We discussed all postoperative discharge medications and plan. All questions were answered. She had no further questions. Prescriptions will be E scribed to [facility]. Patient will follow-up per postop instructions. He has outpatient physical therapy established. Patient will also continue to follow with outside provider with regards to his INR rechecks with bridging of the Coumadin. Patient's states they have a plan to get his INR checked on Tuesday. I have reviewed the [place] Automated Rx Reporting System (OARRS) report for this patient for refill pattern and other prescriber involvement as part of the appropriate surveillance for the provision of acute and chronic controlled medications. The report was requested and reviewed on the date of this entry and was considered in the prescribing process.
--- NOTE | 2020-12-11 09:21 | DCINST_ITS ---
Discharge Instructions Diet Discharge Diet: No restrictions Activity Discharge Activity: May Not Drive and May not drive while taking narcotic pain medications. May shower in (days): 1 (With back to shower) Ice area for (Minutes): 20 (every hour while awake.) Weight Bearing Status: Weight bearing as tolerated Keep extremity elevated above heart level: Operative Extremity Additional Activity Instructions:: Wear elastic stockings for 2 weeks. DO NOT use alcohol with narcotic pain medication. DO NOT make important decisions while taking narcotic medication. If you have problems with taking your medication (rash, itching, nausea, etc.) call the office at once. Dressing / Incision Call your doctor if your incision/area has: Continuous Slow Oozing, Sudden Increased Bleeding, Increased Pain/ Swelling, Increased Redness and Foul Smelling Discharge Call your doctor if you observe: Fever of 101 or Higher, Coldness, Increased Pain, Numbness or Tingling, Change in Color, Shortness of breath, Chest pain, Calf discomfort and Uncontrolled pain Remove Dressing in: 4 days (Okay to remove dressing on December 15, 2020) Additional Dressing/Incision Instructions:: Follow [facility] Post-op Instructions. Once postoperative dressing has been removed only use gentle soap and water over the incision. Do not use any ointments, Neosporin, salves, alcohol pads over the incision for 6 weeks postoperatively. Do not submerge underwater for 6 weeks postoperatively. Discharge Plan Admission Admit Date/Time: 12/10/20 14:14 Attending Provider: Deepti Martinez Primary Care Provider: Jeronimo Rodriguez Consulting Providers: Po Malcolm Discharge Orders/Prescriptions Prescriptions: New acetaminophen 500 mg Tablet 1,000 mg PO Q8 14 Days Qty: 84 RF: 0 oxycodone 5 mg Tablet 5 - 10 mg PO Q4H PRN PRN (Reason: prn pain) 7 Days Qty: 48 RF: 0 sennosides-docusate sodium [Stool Softener-Stimulant Laxat] 8.6-50 mg Tablet 2 tab PO BID Qty: 14 RF: 0 Continued multivitamin [Multiple Vitamins] 1 EACH tablet 1 ea PO DAILY RF: 0 ascorbic acid (vitamin C) 1,000 MG tablet extended release 500 mg PO DAILY RF: 0 Lovastatin [Mevacor] 40 MG tablet 40 mg PO DAILY RF: 0 warfarin 5 MG tablet 5 mg PO SUTUWETHFRSA RF: 0 cholecalciferol (vitamin D3) 25 MCG capsule 1,000 unit PO DAILY RF: 0 mn-dy-AH-vit A-xkgkx-ffzj-zeax 1 EACH tablet 1 each PO DAILY RF: 0 warfarin 5 MG tablet 4 mg PO MO RF: 0 No Action folic acid 1 MG tablet 1 mg PO DAILY RF: 0 finasteride 5 MG tablet 5 mg PO DAILY RF: 0 enoxaparin 80 MG/0.8 ML syringe 0.7 ml SQ Q12H RF: 0 Referrals / Follow Up: Physical, Therapy [Other] - 12/15/20 9:00 am (with [facility] with [facility]) Jeronimo Rodriguez MD [Primary Care Provider] - Peyman Lockhart PA-C [PHYSICIAN MOLDED GOODS INSPECTOR TRIMMER] - 12/24/20 9:00 am Disposition Disposition (needs filled in before D/C Order can be placed): Home, self care
[2020-12-11 09:33] VITALS: BP 100/60; PULSE 64; RESP 18; TEMP 36.7; O2SAT 97
[2020-12-11 10:00] VITALS: PULSE 77
--- NOTE | 2020-12-11 10:58 | CASEMGMT ---
RN MAHNAZ TEXTILE CUTTING MACHINE OPERATOR CM to room to meet with patient and for initial transition planning/care coordination assessment. LEO JOYA introduced self and role at [facility]. Pt and voices understanding and consents to assessment at this time. Pt sitting up in recliner chair. in room visiting. Pt has expressive aphasia from prior stroke. Most questions anwered by . Care providers, pharmacy, and demographics verified/updated at this time. PCP: Dr Rodriguez Specialists: Dr Sweeney--ortho, Dr Freedman--cardiology @ [facility] Preferred Pharmacy: [facility] Retail Insurance: Buru Buru, AARP Prescription Benefit: Yes, [employer] Living Will/HPOA: Has both LW and Healthcare POA, who is his , Shea. Shea states plans to bring in paperwork to be placed on file @ [facility]. LNOK: , Shea Living Arrangements: Lives w/ in one-story home w/1 step to enter. Pt was independent prior to surgery. able to help as needed. Transportation: Pt and . They deny transportation concerns at this time. DME: Pt has the following DME: shower chair, cane, walker, fish and wildlife biologist, CPAP They deny need for further DME at this time. HHC/SNF: No hx of SNF. Had HHC about 3-4 yrs ago after hip surgery. They decline need for HHC and pt plans to go to OP therapy @ [facility]. Has OP therapy appt scheduled for 12/15 @ 0900. /pt aware. Pt/ wish for pt to return home and states has no concerns with going home at time of discharge. CM to follow for any discharge planning/needs. They voice no concerns/needs at this time. PLAN: Home w/OP therapy. Madalyn FUNEZ RN, CM
[2020-12-11 11:15] VITALS: BP 100/60; PULSE 64; RESP 18; TEMP 36.7; O2SAT 97
== END 2020-12-11 14:17 | disposition home or self-care (01) ==
LOC: SDC 17:11 → MS3 17:51
PROVIDERS: Anesthesiology; Admitting Provider Specialist; PCP Family Medicine; Referring Provider Specialist; Visit Provider Family Medicine
PROC: 0SRC0JZ Replacement of Right Knee Joint with Synthetic Substitute, Open Approach (ICD-10-PCS; CPT 27447; principal; 2020-12-10 12:15)
DX: M17.11 Unilateral primary osteoarthritis, right knee (principal); Z79.899 Other long term (current) drug therapy; Z79.01 Long term (current) use of anticoagulants; I44.4 Left anterior fascicular block; I48.0 Paroxysmal atrial fibrillation; Z87.891 Personal history of nicotine dependence; G47.30 Sleep apnea, unspecified; G25.81 Restless legs syndrome; I69.320 Aphasia following cerebral infarction; N40.0 Benign prostatic hyperplasia without lower urinary tract symptoms; M06.9 Rheumatoid arthritis, unspecified; E78.5 Hyperlipidemia, unspecified; Z95.2 Presence of prosthetic heart valve
CPT/HCPCS: 01402; 27447; 64447; S2900; 36415; 36416; 73560; 80048; 82962; 83735; 85027; 85610; 87081; 93005; 94762; 96365; 96366; 96372; 97110; 97162; 97166; 97530; 97535; 99218; 99251; C1776; J7120; G0378; G0379; G0463

== ENCOUNTER 2020-12-12 01:30 | Emergency (ER) | payer MEDICARE, OTHER, SELFPAY ==
[2020-12-10 10:50] VITALS: BMI 23.9
[2020-12-12 01:31] VITALS: BP 138/85; PULSE 87; RESP 18; TEMP 36.1; O2SAT 100; BMI 25.2
--- NOTE | 2020-12-12 01:59 | EDS_ITS ---
HPI History of Present Illness Chief Complaint: Complaint Narrative Narrative: This patient is a 75-year-old male who presents with urinary retention. He was just released from the hospital yesterday after a total knee arthroplasty. He is doing well from the knee replacement point his pain is well controlled. However he has been unable to void tonight. He is beginning to develop some suprapubic discomfort and pain. He otherwise denies fevers or vomiting no other complaints. [facility] Medical History (Updated 12/12/20 @ 02:[address] Russell Harris MD) History of stroke Mitral stenosis with regurgitation TIA (transient ischemic attack) Home Medications Lovastatin [Mevacor] 40 mg PO DAILY 12/01/17 [History Last Taken 12/10/20] ascorbic acid (vitamin C) 500 mg PO DAILY 12/01/17 [History Last Taken 12/10/20] finasteride 5 mg PO DAILY 12/01/17 [History Last Taken 12/10/20] folic acid 1 mg PO DAILY 12/01/17 [History Last Taken 12/10/20] multivitamin [Multiple Vitamins] 1 ea PO DAILY 12/01/17 [History Last Taken 12/10/20] cholecalciferol (vitamin D3) 1,000 unit PO DAILY 11/26/20 [History Last Taken 12/10/20] enoxaparin 0.7 ml SQ Q12H 11/26/20 [History Last Taken 12/10/20] vs-lq-JT-vit H-ndkbo-juvf-zeax 1 each PO DAILY 11/26/20 [History Last Taken 12/10/20] warfarin 4 mg PO MO 11/26/20 [History Last Taken 12/10/20] warfarin 5 mg PO SUTUWETHFRSA 11/26/20 [History Last Taken 12/10/20] acetaminophen 1,000 mg PO Q8 14 Days #84 tab 12/11/20 [Rx Last Taken Unknown] oxycodone 5 - 10 mg PO Q4H PRN PRN 7 Days #48 tab 12/11/20 [Rx Last Taken Unknown] sennosides-docusate sodium [Stool Softener-Stimulant Laxat] 2 tab PO BID #14 tab 12/11/20 [Rx Last Taken Unknown] Allergy/AdvReac Type Severity Reaction Status Date / Time No Known Allergies Allergy Verified 12/12/20 01:35 Surgical History Status post mitral valve replacement with metallic valve Social History Smoking Status: Former smoker ROS ROS ED Constitutional Constitutional ED: Denies fever(s) Cardiovascular Cardiovascular: Denies chest pain Respiratory/Chest Respiratory/Chest: Denies dyspnea Gastrointestinal Gastrointestinal: Denies diarrhea or vomiting Genitourinary Genitourinary ED: Reports other Details: Urinary retention Integumentary Denies rash Neurologic Neurologic: Denies headache(s) EXAM Physical Exam Const Vital Signs: 12/12/20 01:31 Temperature 97 F L Temperature Source Temporal Pulse Rate 87 Respiratory Rate 18 Blood Pressure 138/85 H Blood Pressure Mean 102 Pulse Ox 100 Oxygen Delivery Method Room Air Positive well nourished HEENT Reports moist mucous membranes Eyes EOMs intact bilaterally Neck supple Chest Wall inspection of chest normal Resp normal respiratory effort Cardio regular rate GI non-tender and non-distended Palpation: soft Neuro Sensorium / Orientation: alert Psych mental status grossly normal Skin no rashes or lesions noted MDM MDM MDM Narrative Medical decision making narrative: We will place Lopez catheter and discharged with a leg bag. Patient referred to urology for outpatient follow-up. He understands to return for new or worsening symptoms. Patient discharged. Discharge Plan Triage Chief Complaint: Complaint ED Provider: Russell Harris Dx/Rx/DC Orders Clinical Impression: Acute urinary retention Instructions: ED Urinary Retention, Male Prescriptions: No Action multivitamin [Multiple Vitamins] 1 EACH tablet 1 ea PO DAILY RF: 0 ascorbic acid (vitamin C) 1,000 MG tablet extended release 500 mg PO DAILY RF: 0 folic acid 1 MG tablet 1 mg PO DAILY RF: 0 finasteride 5 MG tablet 5 mg PO DAILY RF: 0 Lovastatin [Mevacor] 40 MG tablet 40 mg PO DAILY RF: 0 warfarin 5 MG tablet 5 mg PO SUTUWETHFRSA RF: 0 cholecalciferol (vitamin D3) 25 MCG capsule 1,000 unit PO DAILY RF: 0 enoxaparin 80 MG/0.8 ML syringe 0.7 ml SQ Q12H RF: 0 nu-bm-TN-vit M-lrxyd-prcm-zeax 1 EACH tablet 1 each PO DAILY RF: 0 warfarin 5 MG tablet 4 mg PO MO RF: 0 acetaminophen 500 mg Tablet 1,000 mg PO Q8 14 Days Qty: 84 RF: 0 oxycodone 5 mg Tablet 5 - 10 mg PO Q4H PRN PRN (Reason: prn pain) 7 Days Qty: 48 RF: 0 sennosides-docusate sodium [Stool Softener-Stimulant Laxat] 8.6-50 mg Tablet 2 tab PO BID Qty: 14 RF: 0 Primary Care Provider: Jeronimo Rodriguez Referrals: Jeronimo Rodriguez MD [Primary Care Provider] - Yunier Major MD [STAFF PHYSICIAN] - 2 Days Disposition Disposition: Home, self care
== END 2020-12-12 02:40 | disposition home or self-care (01) ==
PROVIDERS: Emergency Provider Emergency Medicine; PCP Family Medicine
DX: R33.9 Retention of urine, unspecified (principal); Z79.01 Long term (current) use of anticoagulants; Z87.891 Personal history of nicotine dependence; Z86.73 Personal history of transient ischemic attack (TIA), and cerebral infarction without residual deficits
CPT/HCPCS: 51702; 99283

== ENCOUNTER → 2021-01-15 11:51 | Outpatient (CLI) | payer MEDICARE, OTHER, SELFPAY ==
[2021-01-15 14:28] LABS: PSA,Total- Diagnostic 5.66 ng/mL (0.0-4.0)
== END ==
PROVIDERS: PCP Family Medicine; Referring Provider Nurse Practitioner Adult Health; Visit Provider Nurse Practitioner Adult Health
DX: R97.20 Elevated prostate specific antigen [PSA] (principal)
CPT/HCPCS: 36415; 84153

== ENCOUNTER → 2021-07-16 09:14 | Outpatient (CLI) | payer MEDICARE, OTHER, SELFPAY | PROVIDERS: PCP Family Medicine; Visit Provider Urology | DX: R97.20 Elevated prostate specific antigen [PSA] (principal) | CPT/HCPCS: 36415; 84153 ==

== ENCOUNTER 2021-08-26 22:56 | Outpatient (CLI) | payer MEDICARE, OTHER, SELFPAY | END 2021-08-26 23:59 | disposition home or self-care (01) | PROVIDERS: PCP Family Medicine; Visit Provider Psychiatry & Neurology Neurology | DX: G47.31 Primary central sleep apnea (principal) | CPT/HCPCS: 95811 ==

== ENCOUNTER → 2022-07-07 | Outpatient (CLI) | payer MEDICARE, OTHER, SELFPAY ==
[2022-07-07 11:04] LABS: PSA,Total- Diagnostic 5.31 ng/mL (0.0-4.0)
== END | disposition home or self-care (01) ==
LOC: MTLAB 09:30
PROVIDERS: PCP Family Medicine; Referring Provider Urology; Visit Provider Urology
DX: R97.20 Elevated prostate specific antigen [PSA] (principal)
CPT/HCPCS: 36415; 84153

== ENCOUNTER → 2023-06-29 | Outpatient (CLI) | payer MEDICARE, OTHER, SELFPAY ==
[2023-06-29 12:30] LABS: Erythrocyte Sedimentation Rate 18 mm/hr (0-20)
[2023-06-29 12:54] LABS: Absolute Lymphocyte Count 0.94 X10^3/uL (0.83-4.51); Absolute Neutrophil Count 7.6 X10^3/uL (2.0-7.7); Basophil# 0.03 X10^3/uL; Basophil% 0.3 % (0-1); Eosinophil# 0.05 X10^3/uL; Eosinophils% 0.5 % (0-5); Hematocrit 39.6 % (40-54); Lymphocyte # 0.94 X10^3/ul (0.83-4.51); Lymphocyte % 9.7 % (19-41); Mean Corp Hgb Conc 32.8 g/dL (32-36); Mean Corpuscular Hgb 31.8 pg (27.0-32.0); Mean Corpuscular Volume 96.8 fL (80-94); Mean Platelet Vol. 10.1 fl (6.2-12.0); Monocyte# 1.07 X10^3/uL; NRBC Flagged by Analyzer 0.2 % (0-5); Neutrophil # 7.56 X10^3/uL (2.7-7.7); Neutrophil % 78.1 % (47-70); Platelet Count 244 K/mm3 (150-450); RBC Distribution Width CV 13.1 % (11.6-14.6); RBC Distribution Width SD 46.6 fl (35.1-43.9); Red Blood Count 4.09 M/mm3 (4.6-6.2); White Blood Count 9.7 K/mm3 (4.4-11.0)
[2023-06-29 13:23] LABS: ALB/GLOB Ratio 0.8 RATIO (0.9-2.4); AST(SGOT) 25 U/L (15-37); Alanine Aminotransfer ALT/SGPT 22 U/L (16-61); Albumin, Serum 3.6 g/dL (3.2-5.0); Alkaline Phosphatase 78 U/L (45-117); Anion Gap 7 (5-15); BUN 24 mg/dL (7-18); BUN/Creat Ratio 22.9 RATIO (10-20); Calcium,Total 8.7 mg/dL (8.5-10.1); Chloride 104 mmol/L (98-107); Creatinine, Serum 1.05 mg/dL (0.70-1.30); EST Glomerular Filtration Rate 73 mL/min (>60); Est Glom Filt Rate - Afr Amer 88 mL/min (>60); Globulin 4.3 g/dL (2.2-4.2); Glucose 72 mg/dL (74-106); PSA,Total- Diagnostic 5.47 ng/mL (0.0-4.0); Potassium 4.3 mmol/L (3.5-5.1); Protein, Total 7.9 g/dL (6.4-8.2); Sodium Level 138 mmol/L (136-145); Uric Acid 3.1 mg/dL (3.5-7.2)
== END | disposition home or self-care (01) ==
PROVIDERS: PCP Family Medicine; Referring Provider Urology; Visit Provider Urology
DX: L97.511 Non-pressure chronic ulcer of other part of right foot limited to breakdown of skin (principal); M79.671 Pain in right foot; R97.20 Elevated prostate specific antigen [PSA]
CPT/HCPCS: 36415; 80053; 84153; 84550; 85025; 85652; 86140; 87070; 87075; 87077; 87186; 87205

== ENCOUNTER → 2023-07-28 | Outpatient (CLI) | payer MEDICARE, OTHER, SELFPAY | END | disposition home or self-care (01) | PROVIDERS: PCP Family Medicine; Visit Provider Podiatrist | DX: L97.512 Non-pressure chronic ulcer of other part of right foot with fat layer exposed (principal) | CPT/HCPCS: 87070; 87075; 87077; 87186; 87205 ==

== ENCOUNTER → 2023-08-02 | Outpatient (CLI) | payer MEDICARE, OTHER, SELFPAY ==
--- NOTE | 2023-08-02 10:30 | US_ITS ---
EXAM: US RIGHT LOWER EXTREMITY NON-VASCULAR, COMPLETE CLINICAL INDICATION: RT FOOT /LOOKING FOR ABSESS 5TH TOE TECHNIQUE: Real-time ultrasound scan of the right lower extremity with image documentation. COMPARISON: No relevant prior studies available. FINDINGS: SOFT TISSUES: No pathologic fluid collection is identified in the area of interest to indicate an abscess. Soft tissues appears somewhat edematous. No foreign body. US/Ext Non Vasc Limited/Soft Tiss IMPRESSION: No pathologic fluid collection is identified in the area of interest to indicate an abscess. Soft tissues appears somewhat edematous. Consider cellulitis. Electronically Signed: German Peralta DO at 19:15 EST ,
== END | disposition home or self-care (01) ==
LOC: US 10:30
PROVIDERS: PCP Family Medicine; Referring Provider Podiatrist; Visit Provider Podiatrist
DX: L97.512 Non-pressure chronic ulcer of other part of right foot with fat layer exposed (principal)
CPT/HCPCS: 76882

== ENCOUNTER → 2023-09-01 | Outpatient (CLI) | payer MEDICARE, OTHER, SELFPAY ==
--- OUTSIDE RECORDS SUMMARY | 2023-09-01 18:03 | XMS RPT_ITS | CCD ---
Author Name Unknown Address [address] [place] [address] Organization [facility] Care Team Providers Care Quiller Tender Name Role Phone SEVEN CASTELLANOS Unavailable Unavailable [facility] Unavailable Unavailable SEVEN CASTELLANOS Unavailable Unavailable SEVEN CASTELLANOS Unavailable Unavailable SEVEN CASTELLANOS Unavailable Unavailable Sridevi Rodriguez MD Primary Care Provider 13, Pharmacist Unavailable Vincent Wilde Unavailable None, No PCP Unavailable Unavailable Unavailable Unavailable Sridevi Rodriguez MD Primary Care Provider 13, Pharmacist Unavailable Vincent Wilde Unavailable Sridevi Rodriguez MD Primary Care Provider Vincent Wilde Unavailable Sridevi Rodriguez MD Primary Care Provider 13, Pharmacist Unavailable Vincent Wilde Unavailable PCP, Pt States None Referring Unavailable Dr. Vincent Wilde Attending Unav ailable PCP, Pt States None Referring Unavailable Dr. Vincent Wilde Attending Unav ailable SRIDEVI RODRIGUEZ Referring Unavailab SRIDEVI Gibbons Primary Care Unavailab SRIDEVI Gibbons Referring Unavailab SRIDEVI Gibbons Primary Care Unavailab SRIDEVI Gibbons Attending Unavailab SRIDEVI Gibbons Primary Care Unavailab LAUREL Farias Attending Unavailable SRIDEVI RODRIGUEZ Primary Care Unavailab LAUREL FariasANSELMO Referring Unavailable SRIDEVI RODRIGUEZ Primary Care Unavailab SRIDEVI Gibbons Primary Care Unavailab pat PODLOGANTOINETTE RAMIREZ Attending Unavailable SRIDEVI RODRIGUEZ Primary Care Unavailab le Medications Current Medications Medication Drug Class(es) Dates Sig (Normalized) Sig (Original) perflutren lipid microspheres 1.3 mL in NaCl (PF) 0.9% 10 mL injection (DEFINITY) (20 sources) Start: 06-20-2023 End: 06-27-2023 perflutren lipid microspheres 1.3 mL in NaCl (PF) 0.9% 10 mL injection (DEFINITY) Completed/Discontinued Medications Medication Drug Class(es) Dates Sig (Normalized) Sig (Original) ascorbic acid 1000 mg oral tablet (2 sources) Vitamin C take 1 tablet by mouth once daily Ascorbic Acid 1000 MG Oral Tablet TAKE 1 TABLET DAILY. Quantity: 0 Refills: 0 Ordered: 10-Oct-2020 DO Active CPAP (20 sources) Start: 05-20-2021 CPAP Initiate CPAP @ 10 cm of water with humidification. Mask (per patient preference) optional chin strap (if indicated) , filters, tubing, humidifier and lifetime supplies. 0 05/20/2021 Active Problems Active Problems Problem Classification Problem Date Documented Date Episodic/Chronic Acute cerebrovascular disease (20 sources) Cerebrovascular accident; Translations: [Cerebral infarction, unspecified] Onset: 08-08-2003 01-09-2018 Chronic Aortic; peripheral; and visceral artery aneurysms (20 sources) Abdominal aortic aneurysm; Translations: [Abdominal aortic aneurysm, without rupture] Onset: 07-20-2016 07-20-2016 Chronic Cardiac dysrhythmias (20 sources) Chronic atrial fibrillation; Translations: [Chronic atrial fibrillation] Onset: 09-24-2005 Chronic Disorders of lipid metabolism (20 sources) Hyperlipidemia; Translations: [Hyperlipidemia, unspecified] Onset: 02-06-2010 Chronic Heart valve disorders (20 sources) Presence of prosthetic heart valve; Translations: [History of mitral valve replacement] Onset: 11-12-2005 Chronic Hyperplasia of prostate (20 sources) Benign prostatic hyperplasia; Translations: [Benign prostatic hyperplasia without lower urinary tract symptoms] Onset: 08-22-2014 Chronic Late effects of cerebrovascular disease (20 sources) Aphasia as late effect of cerebrovascular accident; Translations: [Aphasia following cerebral infarction] Onset: 12-13-2012 Chronic Mood disorders (20 sources) Moderate major depression, single episode; Translations: [Major depressive disorder, single episode, moderate] Onset: 05-20-2021 05-20-2021 Chronic Osteoarthritis (20 sources) Osteoarthritis of right knee joint; Translations: [Unilateral primary osteoarthritis, right knee] Onset: 01-30-2016 01-30-2016 Chronic Other and ill-defined cerebrovascular disease (20 sources) Cerebrovascular disease; Translations: [Other cerebrovascular disease] 11-11-2005 Chronic Other circulatory disease (1 source) History of cerebrovascular accident; Translations: [Personal history of transient ischemic attack (TIA), and cerebral infarction without residual deficits] Episodic Other connective tissue disease (20 sources) History of repair of hip joint; Translations: [Presence of right artificial hip joint] Onset: 10-07-2016 10-07-2016 Chronic Other ear and sense organ disorders (2 sources) Bilateral hearing loss; Translations: [Unspecified hearing loss] Chronic Other lower respiratory disease (2 sources) Snoring; Translations: [Other respiratory abnormalities] Episodic Other lower respiratory disease (1 source) Dyspnea; Translations: [Shortness of breath] 06-20-2023 Episodic Other nervous system disorders (2 sources) Broca's dysphasia; Translations: [Aphasia] Chronic Other nervous system disorders (2 sources) Tremor; Translations: [Abnormal involuntary movements] Episodic Other screening for suspected conditions (not mental disorders or infectious disease) (20 sources) Patient encounter status; Translations: [Encounter for screening for cardiovascular disorders] Onset: 08-23-2014 08-03-2021 Episodic Residual codes; unclassified (20 sources) Sleep apnea; Translations: [Sleep apnea, unspecified] Onset: 11-20-2021 11-20-2021 Chronic Residual codes; unclassified (2 sources) Obstructive sleep apnea syndrome; Translations: [Obstructive sleep apnea (adult) (pediatric)] Chronic Residual codes; unclassified (2 sources) Daytime somnolence; Translations: [Hypersomnia, unspecified] Chronic Residual codes; unclassified (2 sources) Central sleep apnea syndrome; Translations: [Unspecified sleep apnea] Chronic Residual codes; unclassified (2 sources) Primary central sleep apnea; Translations: [Primary central sleep apnea] Onset: 02-11-2023 Chronic Residual codes; unclassified (3 sources) Other hypersomnia; Translations: [Other hypersomnia] Onset: 02-19-2022 Chronic Residual codes; unclassified (1 source) Sleep apnea, unspecified; Translations: [Sleep apnea, unspecified] Onset: 02-19-2022 Chronic Residual codes; unclassified (1 source) Obstructive sleep apnea (adult) (pediatric); Translations: [Obstructive sleep apnea syndrome] Onset: 11-20-2021 Chronic Residual codes; unclassified (2 sources) Confusional state; Translations: [Unspecified psychosis] Episodic Residual codes; unclassified (2 sources) Amnesia; Translations: [Memory loss] Episodic Unclassified (1 source) Unknown / UNK(Unknown) Onset: 07-21-2017 Unclassified (20 sources) SUMMARY Onset: 08-21-2014 Unclassified (1 source) Abdominal aortic aneurysm (AAA) 35 to 39 mm in diameter (HCC); Translations: [Abdominal aortic aneurysm (AAA) 35 to 39 mm in diameter (HCC)] Onset: 07-20-2016 Unclassified (1 source) Permanent atrial fibrillation; Translations: [Permanent atrial fibrillation (HCC)] Onset: 08-03-2021 Past or Other Problems Problem Classification Problem Date Documented Da te Episodic/Chronic Hemorrhoids (20 sources) Internal hemorrhoids; Translations: [Other hemorrhoids] Onset: 02-23-2006 02-23-2006 Episodic Joint disorders and dislocations; trauma-related (20 sources) Acute meniscal tear, medial; Translations: [Complex tear of medial meniscus, current injury, right knee, initial encounter] Onset: 03-09-2016 03-09-2016 Episodic Other aftercare (20 sources) Long-term current use of anticoagulant; Translations: [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 anticoagulants] Onset: 05-21-2015 Episodic Other aftercare (1 source) 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 anticoagulants; Translations: [shelter (current) use of anticoagulants] Onset: 10-04-2019 Episodic Other and unspecified benign neoplasm (20 sources) Benign neoplasm of colon; Translations: [Benign neoplasm of colon, unspecified] Onset: 02-23-2006 02-23-2006 Episodic Other gastrointestinal disorders (20 sources) Constipation; Translations: [Constipation, unspecified] Onset: 02-23-2006 02-23-2006 Episodic Other lower respiratory disease (1 source) Snoring; Translations: [Snoring] Onset: 02-19-2022 Episodic Results Test Name Value Interpretation Reference Range Facil ity Vital Signs Date Time Vital Sign Value Performing Clinician Nataliiai miguel 06-20-2023 09:33-0500 Body height 170.2 cm Laurel Freedman MD Work Phone: [facility] 06-20-2023 09:33-0500 Body weight 71.67 kg Laurel Freedman MD Work Phone: [facility] 06-20-2023 09:33-0500 Diastolic blood pressure 69 mm[Hg] Laurel Freedman MD Work Phone: [facility] 06-20-2023 09:33-0500 Heart rate 71 /min Laurel Freedman MD Work Phone: [facility] 06-20-2023 09:33-0500 Respiratory rate 16 /min Laurel Freedman MD Work Phone: [facility] 06-20-2023 09:33-0500 SaO2% (BldA) [Mass fraction] 97 % Laurel Freedman MD Work Phone: [facility] 06-20-2023 09:33-0500 Systolic blood pressure 109 mm[Hg] Laurel Freedman MD Work Phone: [facility] 05-24-2023 09:07-0400 Body weight 72.12 kg Antoinette Podlogar SAFE AND VAULT SERVICE MECHANIC.WAFER FAB OPERATOR Work Phone: [facility] 05-24-2023 09:07-0400 Diastolic blood pressure 68 mm[Hg] Antoinette Podlogar SAFE AND VAULT SERVICE MECHANIC.WAFER FAB OPERATOR Work Phone: [facility] 05-24-2023 09:07-0400 Heart rate 67 /min Antoinette Podlogar SAFE AND VAULT SERVICE MECHANIC.WAFER FAB OPERATOR Work Phone: [facility] 05-24-2023 09:07-0400 Respiratory rate 18 /min Antoinette Podlogar SAFE AND VAULT SERVICE MECHANIC.WAFER FAB OPERATOR Work Phone: [facility] 05-24-2023 09:07-0400 SaO2% (BldA) [Mass fraction] 99 % Antoinette Podlogar SAFE AND VAULT SERVICE MECHANIC.WAFER FAB OPERATOR Work Phone: [facility] 05-24-2023 09:07-0400 Systolic blood pressure 114 mm[Hg] Antoinette Carey APRN.WAFER FAB OPERATOR Work Phone: [facility] 02-11-2023 10:02-0400 Body height 170.18 cm No PCP None SG-RBZHI-Cterwkk st Work Phone: 02-11-2023 10:02-0400 Body mass index (BMI) [Ratio] 24.32 kg/m2 No PCP None MT-ZUUUI-Zwobtjpba Work Phone: 02-11-2023 10:02-0400 Body surface area Derived from formula 1.82 m2 No PCP None ZN-RWIFY-Ddmpkyasv Work Phone: 02-11-2023 10:02-0400 Body weight 70.42 kg No PCP None GL-JRHNK-Zcfxeyb st Work Phone: 02-11-2023 10:02-0400 Diastolic blood pressure 80 mm[Hg] No PCP None MJ-IWHMR-Hekywmcgz Work Phone: 02-11-2023 10:02-0400 Heart rate 63 /min No PCP None RR-CFZLS-Qkgoerw st Work Phone: 02-11-2023 10:02-0400 Respiratory rate 18 /min No PCP None WC-WMKXO-Tphgju est Work Phone: 02-11-2023 10:02-0400 SaO2% (BldA) [Mass fraction] 97 % No PCP None LE-JUVML-Gzakdjjek Work Phone: 02-11-2023 10:02-0400 Systolic blood pressure 123 mm[Hg] No PCP None ZM-OXFCD-Swnghylgo Work Phone: 06-07-2022 09:24-0400 Body height 170.2 cm Laurel Freedman MD Work Phone: [facility] 06-07-2022 09:24-0400 Body weight 68.49 kg Laurel Freedman MD Work Phone: [facility] 06-07-2022 09:24-0400 Diastolic blood pressure 70 mm[Hg] Laurel Freedman MD Work Phone: [facility] 06-07-2022 09:24-0400 Heart rate 68 /min Laurel Freedman MD Work Phone: [facility] 06-07-2022 09:24-0400 Respiratory rate 14 /min Laurel Freedman MD Work Phone: [facility] 06-07-2022 09:24-0400 SaO2% (BldA) [Mass fraction] 96 % Laurel Freedman MD Work Phone: [facility] 06-07-2022 09:24-0400 Systolic blood pressure 104 mm[Hg] Laurel Freedman MD Work Phone: [facility] 05-24-2022 09:00-0400 Body weight 68.49 kg Sridevi Rodriguez MD Work Phone: [facility] 05-24-2022 09:00-0400 Diastolic blood pressure 70 mm[Hg] Sridevi Rodriguez MD Work Phone: [facility] 05-24-2022 09:00-0400 Heart rate 73 /min Sridevi Rodriguez MD Work Phone: [facility] 05-24-2022 09:00-0400 Respiratory rate 16 /min Sridevi Rodriguez MD Work Phone: [facility] 05-24-2022 09:00-0400 SaO2% (BldA) [Mass fraction] 98 % Sridevi Rodriguez MD Work Phone: [facility] 05-24-2022 09:00-0400 Systolic blood pressure 108 mm[Hg] Sridevi Rodriguez MD Work Phone: [facility] 02-19-2022 10:14-0400 Body height 170.18 cm No PCP None WG-CSHTT-Yytlxol st Work Phone: 02-19-2022 10:14-0400 Body mass index (BMI) [Ratio] 23.18 kg/m2 No PCP None IF-PXPGQ-Srjzntswr Work Phone: 02-19-2022 10:14-0400 Body surface area Derived from formula 1.78 m2 No PCP None VG-OFJGK-Pbtjoeruh Work Phone: 02-19-2022 10:14-0400 Body weight 67.13 kg No PCP None HS-CBVEP-Phqwuez st Work Phone: 02-19-2022 10:14-0400 Diastolic blood pressure 79 mm[Hg] No PCP None EQ-JKGTR-Zdrehjyra Work Phone: 02-19-2022 10:14-0400 Heart rate 75 /min No PCP None SX-GRYTF-Rttxbtz st Work Phone: 02-19-2022 10:14-0400 Respiratory rate 16 /min No PCP None YP-CMNHL-Doheur est Work Phone: 02-19-2022 10:14-0400 SaO2% (BldA) [Mass fraction] 98 % No PCP None WL-XCBQT-Nrnfmncfh Work Phone: 02-19-2022 10:14-0400 Systolic blood pressure 145 mm[Hg] No PCP None HE-CJXTB-Ojryfdhqq Work Phone: 11-20-2021 09:02-0400 Body weight 67.95 kg Sridevi Rodriguez MD Work Phone: [facility] 11-20-2021 09:02-0400 Diastolic blood pressure 70 mm[Hg] Sridevi Rodriguez MD Work Phone: [facility] 11-20-2021 09:02-0400 Heart rate 88 /min Sridevi Rodriguez MD Work Phone: [facility] 11-20-2021 09:02-0400 Respiratory rate 16 /min Sridevi Rodriguez MD Work Phone: [facility] 11-20-2021 09:02-0400 SaO2% (BldA) [Mass fraction] 97 % Sridevi Rodriguez MD Work Phone: [facility] 11-20-2021 09:02-0400 Systolic blood pressure 122 mm[Hg] Sridevi Rodriguez MD Work Phone: [facility] Encounters Encounter Date Encounter Type Care Provider Facility Start: 07-15-2023 Telephone encounter [facility] Procedures Date Procedure Procedure Detail Performing Clinician Start: 06-20-2023 Ecg routine ecg w/least 12 lds i&r only [facility] Provider Start: 05-13-2023 INFLUENZA VACCINE, PRSV FREE, AGE 65+ YR, HIGH DOSE, QUADRIVALENT (FLUZONE HIGH-DOSE) Sridevi Rodriguez MD Work Phone: Start: 11-26-2022 Us retroperitoneal real time w/image limited Sridevi Rodriguez MD Work Phone: Start: 05-01-2022 INFLUENZA SEASONAL QUADRIVALENT HIGH DOSE AGE 65+ Pawan Fernandez MD Work Phone: Start: 09-22-2016 H/O: artificial joint Knee joint replacement status Tabatha Gramajo [facility] Start: 09-22-2016 History of operative procedure on knee Knee joint replacement status Tabatha Gramajo [facility] Plan of Treatment Date Care Activity Detail Author Start: 05-15-2026 LIPID SCREEN LIPID SCREEN [facility] Start: 11-22-2025 DIABETES SCREEN DIABETES SCREEN [facility] Start: 11-22-2025 Diabetes Screening Diabetes Screenin g [facility] Start: 05-24-2025 DIABETES SCREEN DIABETES SCREEN [facility] Start: 06-20-2024 End: 06-20-2024 Echocardiography ECHO Cardiology Routine Permanent atrial fibrillation (HCC) Expected: 06/20/2024, Expires: 06/20/[address] [facility] Work Phone: Immunizations Immunization Date Immunization Notes Care Provider Fa brandyn 05-13-2023 influenza (HD-IIV4) vaccine, age 65+ yr, high dose, quadrivalent, PF (FLUZONE HIGH-DOSE) Immunization Norphlet Work Phone: [facility] Work Phone: 06-22-2022 Moderna COVID-19 Bivalent 50 MCG/0.5ML Intramuscular Suspension No PCP None FQ-IWZGM-Gavqlkkm t Work Phone: 05-01-2022 influenza, high-dose , quadrivalent vaccine (FLUZONE HIGH DOSE QUADRIVALENT) Immunization Norphlet Work Phone: [facility] 05-01-2022 influenza virus vaccine, unspecified formulation Andie Lesley [facility] 11-26-2021 Moderna COVID-19 Vaccine 100 MCG/0.5ML Intramuscular Suspension No PCP None BJ-HMLRR-Jxxzxcpo t Work Phone: 06-25-2021 Moderna COVID-19 Vaccine 100 MCG/0.5ML Intramuscular Suspension No PCP None VB-JCTYY-Youfhdiq t Work Phone: 05-09-2021 influenza, high-dose , quadrivalent vaccine (FLUZONE HIGH DOSE QUADRIVALENT) [facility] 10-22-2020 Moderna COVID-19 Vaccine 100 MCG/0.5ML Intramuscular Suspension No PCP None EA-QWOBG-Nhswllpi t Work Phone: 09-25-2020 Moderna COVID-19 Vaccine 100 MCG/0.5ML Intramuscular Suspension No PCP None ER-ZYFSW-Svcrkxce t Work Phone: 05-10-2020 influenza, high-dose , quadrivalent vaccine (FLUZONE HIGH DOSE QUADRIVALENT) [facility] 05-25-2019 influenza, high dose seasonal, preservative-free [facility] 06-10-2018 influenza, high dose seasonal, preservative-free [facility] Work Phone: 07-08-2017 influenza, high dose seasonal, preservative-free [facility] 07-02-2016 influenza, high dose seasonal, preservative-free Tabatha Cross [facility] 07-04-2015 influenza, high dose seasonal, preservative-free [facility] 12-27-2014 pneumococcal conjuga te vaccine, 13 valent [facility] 06-23-2014 influenza, seasonal, injectable, preservative free No PCP None Adriana romero Work Phone: 06-08-2014 influenza virus vaccine, whole virus [facility] 05-10-2012 influenza virus vaccine, unspecified formulation [facility] 05-12-2011 influenza virus vaccine, unspecified formulation [facility] 05-12-2011 pneumococcal polysaccharide vaccine, 23 valent [facility] 11-04-2010 tetanus toxoid, redu peter diphtheria toxoid, and acellular pertussis vaccine, adsorbed [facility] 05-06-2010 influenza virus vaccine, unspecified formulation [facility] 06-04-2009 influenza virus vaccine, unspecified formulation [facility] Work Phone: 06-14-2008 influenza virus vaccine, unspecified formulation [facility] Work Phone: 06-06-2007 influenza virus vaccine, unspecified formulation [facility] Work Phone: 06-02-2004 pneumococcal polysaccharide vaccine, 23 valent [facility] Work Phone: 10-10-2003 diphtheria and tetan us toxoids, adsorbed for pediatric use [facility] Work Phone: Payers Date Payer Category Payer Private Health Insurance [facility] AARP SUPPLEMENT [id number] 2017-Present [phone] [address] [place] [address] Indemnity [id number] 2017 Private Health Insurance [facility] AARP SUPPLEMENT [id number] 2017-Present [phone] [address] [place] [address] Indemnity [id number] 2017 Unknown [id number] 2011 Medicare MEDICARE MEDICAR E A AND B [id number] 2011-Present [phone] [place] [address] Medicare [id number] 2011 Medicare MEDICARE MEDICAR E A AND B [id number] 2011-Present [phone] [place] [address] Medicare [id number] 2006 Medicare [id number] 1945 Unknown [id number] 1945 Unknown [id number] Medicare [id number] Unknown Social History Date Type Detail Facility Start: 09-17-2016 End: 05-24-2022 Tobacco smoking status NHIS Ex-smoker [facility] End: 08-08-1994 History of tobacco use Current smoker [facility] End: 08-08-1994 History of tobacco use Cigarette Smoker [facility] End: 08-08-1994 History of tobacco use Pipe Smoker [facility] End: 08-08-2001 History of tobacco use Chews Tobacco [facility] Start: 11-20-2021 End: 06-20-2023 Alcohol intake Current drinker of alcohol (finding) [facility] Start: 01-07-2020 History SDOH Alcohol Frequency 1 [facility] Start: 11-24-2015 History SDOH Alcohol Comment Occasionally [facility] Start: 01-07-2020 History SDOH Social Connections Phone 98 [facility] Start: 01-07-2020 History SDOH Social Connections Rastafarian 3 [facility] Start: 01-07-2020 History SDOH Physica l Activity DPW 4 [facility] Start: 01-07-2020 History SDOH Financial 5 [facility] Start: 01-07-2020 History SDOH Transport Med 2 [facility] Start: 1945 Sex Assigned At Not on file [facility] Start: 11-10-2021 End: 06-07-2022 Exposure to SARS-CoV-2 (event) Not sure [facility] Start: 09-17-2016 End: 05-13-2023 Cigarettes smoked current (pack per day) - Reported 1 [facility] Start: 09-17-2016 End: 05-24-2022 Tobacco use and exposure Former smokeless tobacco user [facility] Start: 11-22-2022 End: 05-13-2023 Tobacco use panel [facility] National Score (1-10 0), lower number is lower risk 57 [facility] Do you belong to any clubs or organizations such as rastafarian groups, [employer], [employer] or athletic groups, or school groups? Yes [facility] Are you now , , , , never or living with a partner? [facility] How often to you hav e a drink containing alcohol? Never [facility] Do you feel stress - tense, restless, nervous, or anxious, or unable to sleep at night because your mind is troubled all the time - these days [OSQ] Not at all [facility] (I/We) worried wheth er (my/our) food would run out before (I/we) got money to buy more. Never true [facility] In the past 12 month s, was there a time when you were not able to pay the mortgage or rent on time? No [facility] Medical Equipment Procedure Code Equipment Code Equipment Origin al Text Equipment Identifier Dates Scalf Cv 4x.5in Thk1.65mm Ptfe - [id number] Start: 08-20-2014 Clinical Notes 07-25-2015 to 07-15-2023 Telephone Encounter - Yeny Guzman LPN - 07/15/2023 11:53 AM ESTTelephone Encounter - Clementina Nelson [facility] - 07/01/2023 8:41 AM Laurel Norton MD - 06/20/2023 9:39 AM EST Note Date & Type Note Facility 07-15-2023 Miscellaneous Notes [facility]-05/24/23 Labs- NOV-11/23/23 Yeny Guzman LPN documented in this encounter [facility] 07-01-2023 Miscellaneous Notes [facility] Ambulatory Pharmacy Anticoagulation Clinic Anticoagulation Episode Summary Anticoagulation Care Providers Provider Role Specialty Phone number Sridevi Rodriguez MD Family Medicine [phone] Juan Sharma is a 78 year old year old male patient being evaluated today for a Telemanagement visit. Patient is currently on the following anticoagulant(s) Warfarin. Labs PT INR (no units) Date Value 07/02/2022 3.9 biotel 11/06/2021 3.2 biotel 10/23/2021 2.9 INR Home CoaguChek (no units) Date Value 07/01/2023 3.9 06/24/2023 2.5 06/17/2023 2.4 Hemoglobin (g/dL) Date Value 11/22/2022 13.0 11/17/2020 13.2 Hematocrit (%) Date Value 11/22/2022 39.2 11/17/2020 39.9 Platelet Count (k/uL) Date Value 11/22/2022 229 11/17/2020 208 Creatinine (mg/dL) Date Value 11/22/2022 0.92 05/24/2022 0.94 05/15/2021 1.00 11/17/2020 0.94 05/19/2020 1.02 Bilirubin, Total (mg/dL) Date Value 11/22/2022 0.5 05/15/2021 0.8 ALT (U/L) Date Value 11/22/2022 18 05/15/2021 14 AST (U/L) Date Value 11/22/2022 31 05/15/2021 25 CrCl cannot be calculated (Patient's most recent lab result is older than the maximum 180 days allowed.). 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: shelter (current) use of anticoagulants Permanent atrial fibrillation (hcc) S/p mvr (mitral valve replacement) Anticoagulation Episode Summary Current INR goal: 2.5-3.5 Assessment: INR result of 3.9 is SUPRAtherapeutic due to: swollen foot with infection and is now on cephalexin. Pt also had a little cranberries to eat yesterday Plan: Current Warfarin Dosing As of 07/01/2023 Full warfarin instructions: 07/01: 2.5 mg; Otherwise 5 mg every Mon, Wed, Fri; 4 mg all other days Called and spoke to patient/caregiver Advised patient to decrease dose for 1 day only then resume weekly regimen Next home INR check scheduled on 07/15/2023 Patient's caregiver verbalizes understanding of the plan. Patient denies need for refills. Clementina Nelson RPh Clinical Pharmacist, Pharmacy Anticoagulation Clinic Pharmacy Anticoagulation Clinic Pager: [phone]. documented in this encounter [facility] 06-29-2023 Miscellaneous Notes Jayne notified and states that she will inform Juan. Erna Martin MA Yes, can start on Kelfex. Come in for INR on Tuesday to monitor. Should call with new bleeding or bruising symptoms with combination Keflex and coumadin. Jayne with Dr. [facility] calls to ask if provider would be ok with them putting patient on Keflex 500 mg three times daily with patient being on Coumadin. Jayne requests call back at [phone]. Sara Correa RN documented in this encounter [facility] 06-20-2023 Note HNO ID: [id number] Author: Laurel Freedman MD Service: ? Author Type: Physician Type: Progress Notes Filed: 06/20/2023 9:57 AM Note Text: Laurel Freedman MD Interventional Cardiology [address] [address] [id number] Chief Complaint Patient presents with: Recheck HISTORY OF PRESENT ILLNESS: Mr. Sharma is a 78 year old male seen in my office for follow-up patient had prior history of mitral stenosis required [employer]ad mechanical valve #3 3 with replacement done in 2014 associated with cryo maze and left atrial appendage closure device complicated by stroke right-sided hemiparesis patient is aphasic because of the stroke maintain on anticoagulation Coumadin Asymptomatic denies chest pain or shortness of breath No symptoms or signs of congestive heart failure EKG shows atrial fibrillation Maintained on Coumadin INR is 2.4 Cardiac Risk Factors age (male over 45, female over 55), hyperlipidemia, hypertension, family history of CAD PAST MEDICAL HISTORY Diagnosis Date AAA (abdominal aortic aneurysm) ([facility]) 3.5cm in 2017 Acute, but ill-defined, cerebrovascular disease 08/2003 Aortic valve disorders ATRIAL REGURGITATION Aphasia 2/2 stroke Atrial fibrillation ([facility]) Cardiology Dr. Freedman Benign neoplasm of colon BPH (benign prostatic hyperplasia) Dr. Major Current moderate episode of major depressive disorder without prior episode ([facility]) Dyslipidemia Elevated PSA Urology Raciel Damon History of mitral valve replacement 2014 mechanical valve INR 2.5-3.5 Internal hemorrhoids without mention of complication Mitral stenosis Osteoarthritis hip Sleep apnea Sleep medicine at , on Bipap Stroke ([facility]) 2003 Unspecified constipation PAST SURGICAL HISTORY Procedure Laterality Date ARTHRS KNE SURG W/MENISCECTOMY MED/LAT W/SHVG Right 02/27/2016 Right knee scope meniscectomy, PF chondroplasty and medial plica excision COLONOSCOPY W/BIOPSY SINGLE/MULTIPLE 02/23/2006 PAST SURGICAL HISTORY OF 2003 cardio version PAST SURGICAL HISTORY OF 08/2014 Mitral valve replacement PAST SURGICAL HISTORY OF 08/2014 MAZE for A fib RPR 1ST INGUN HRNA AGE 6 YRS/> REDUCIBLE Hernia repair, inguinal SIGMOIDOSCOPY FLX DX W/COLLJ SPEC BR/WA IF PFRMD 02/2000 Sigmoidoscopy, flexible TOTAL HIP JOINT REPLACEMENT Right 09/2016 TOTAL KNEE REPLACEMENT Right 12/10/2020 FAMILY HISTORY Problem Relation Age of Onset Diabetes Mother other (renal failure) Brother Social History Tobacco Use Smoking status: Former Packs/day: 1.00 Years: 20.00 Additional pack years: 0.00 Total pack years: 20.00 Types: Cigarettes, Pipe Quit date: 08/08/1994 Years since quittin.8 Smokeless tobacco: Former Types: Chew Quit date: 08/08/2001 Vaping Use Vaping Use: Never used Substance Use Topics Alcohol use: Yes Comment: Occasionally Drug use: No ALLERGIES No Known Allergies Medications: Current Outpatient Medications Medication Sig Dispense Refill lovastatin (MEVACOR) 40 mg tablet Take 1 tablet by mouth once daily. 90 tablet 3 folic acid 1 mg tablet Take 2 tablets by mouth once daily. 180 tablet 1 warfarin (COUMADIN) 4 mg tablet Take as directed 30 tablet 2 sertraline (ZOLOFT) 50 mg tablet Take 1 tablet by mouth once daily. 90 tablet 1 warfarin (COUMADIN) 5 mg tablet Take as directed by Pharmacy Anticoagulation Clinic 90 tablet 0 CPAP Initiate CPAP @ 10 cm of water with humidification. Mask (per patient preference) optional chin strap (if indicated) , filters, tubing, humidifier and lifetime supplies. (Patient taking differently: Initiate CPAP @ 10 cm of water with humidification. Mask (per patient preference) optional chin strap (if indicated) , filters, tubing, humidifier and lifetime supplies. Uses BPAP machine) finasteride (PROSCAR) 5 mg tablet Take 1 tablet by mouth once daily. 90 tablet 3 multivitamin tablet Take 1 tablet by mouth once daily. Current Facility-Administered Medications Medication Dose Route Frequency Provider Last Rate Last Admin perflutren lipid microspheres 1.3 mL in NaCl (PF) 0.9% 10 mL injection (DEFINITY) INTRAVENOUS DIRECTED PRLaurel Kapoor MD sodium chloride 0.9 % (flush) 10 mL (BD POSIFLUSH) 10 mL INTRAVENOUS DIRECTED PRLaurel Kapoor MD Review of Systems Constitutional: Negative for chills, diaphoresis, fever, malaise/fatigue and weight loss. HENT: Negative for congestion, ear discharge, ear pain, hearing loss, nosebleeds, sinus pain, sore throat and tinnitus. Eyes: Negative for blurred vision, double vision, photophobia, pain, discharge and redness. Respiratory: Negative for cough, hemoptysis, sputum production, shortness of breath, wheezing and stridor. Cardiovascular: Negative for chest pain, palpitations, orthopnea, claudication, leg swelling and PND. Gastrointestinal: Negative for abdominal pain, blood in stool, constipation, diarrhea (more content not included)... [facility] 06-20-2023 History of Presen t illness Narrative Images from the original note were not included. Laurel Freedman MD Interventional Cardiology [address] [place] [address] [id number] Chief Complaint Patient presents with: Recheck HISTORY OF PRESENT ILLNESS: Mr. Sharma is a 78 year old male seen in my office for follow-up patient had prior history of mitral stenosis required [employer] Rashad mechanical valve #3 3 with replacement done in 2014 associated with cryo maze and left atrial appendage closure device complicated by stroke right-sided hemiparesis patient is aphasic because of the stroke maintain on anticoagulation Coumadin Asymptomatic denies chest pain or shortness of breath No symptoms or signs of congestive heart failure EKG shows atrial fibrillation Maintained on Coumadin INR is 2.4 Cardiac Risk Factors age (male over 45, female over 55), hyperlipidemia, hypertension, family history of CAD PAST MEDICAL HISTORY Diagnosis Date AAA (abdominal aortic aneurysm) ([facility]) 3.5cm in 2017 Acute, but ill-defined, cerebrovascular disease 08/2003 Aortic valve disorders ATRIAL REGURGITATION Aphasia 2/2 stroke Atrial fibrillation ([facility]) Cardiology Dr. Freedman Benign neoplasm of colon BPH (benign prostatic hyperplasia) Dr. Major Current moderate episode of major depressive disorder without prior episode ([facility]) Dyslipidemia Elevated PSA Urology Raciel Damon History of mitral valve replacement 2014 mechanical valve INR 2.5-3.5 Internal hemorrhoids without mention of complication Mitral stenosis Osteoarthritis hip Sleep apnea Sleep medicine at , on Bipap Stroke ([facility]) 2003 Unspecified constipation PAST SURGICAL HISTORY Procedure Laterality Date ARTHRS KNE SURG W/MENISCECTOMY MED/LAT W/SHVG Right 02/27/2016 Right knee scope meniscectomy, PF chondroplasty and medial plica excision COLONOSCOPY W/BIOPSY SINGLE/MULTIPLE 02/23/2006 PAST SURGICAL HISTORY OF 2003 cardio version PAST SURGICAL HISTORY OF 08/2014 Mitral valve replacement PAST SURGICAL HISTORY OF 08/2014 MAZE for A fib RPR 1ST INGUN HRNA AGE 6 YRS/> REDUCIBLE Hernia repair, inguinal SIGMOIDOSCOPY FLX DX W/COLLJ SPEC BR/WA IF PFRMD 02/2000 Sigmoidoscopy, flexible TOTAL HIP JOINT REPLACEMENT Right 09/2016 TOTAL KNEE REPLACEMENT Right 12/10/2020 FAMILY HISTORY Problem Relation Age of Onset Diabetes Mother other (renal failure) Brother Social History Tobacco Use Smoking status: Former Packs/day: 1.00 Years: 20.00 Additional pack years: 0.00 Total pack years: 20.00 Types: Cigarettes, Pipe Quit date: 08/08/1994 Years since quittin.8 Smokeless tobacco: Former Types: Chew Quit date: 08/08/2001 Vaping Use Vaping Use: Never used Substance Use Topics Alcohol use: Yes Comment: Occasionally Drug use: No ALLERGIES No Known Allergies Medications: Current Outpatient Medications Medication Sig Dispense Refill lovastatin (MEVACOR) 40 mg tablet Take 1 tablet by mouth once daily. 90 tablet 3 folic acid 1 mg tablet Take 2 tablets by mouth once daily. 180 tablet 1 warfarin (COUMADIN) 4 mg tablet Take as directed 30 tablet 2 sertraline (ZOLOFT) 50 mg tablet Take 1 tablet by mouth once daily. 90 tablet 1 warfarin (COUMADIN) 5 mg tablet Take as directed by Pharmacy Anticoagulation Clinic 90 tablet 0 CPAP Initiate CPAP @ 10 cm of water with humidification. Mask (per patient preference) optional chin strap (if indicated) , filters, tubing, humidifier and lifetime supplies. (Patient taking differently: Initiate CPAP @ 10 cm of water with humidification. Mask (per patient preference) optional chin strap (if indicated) , filters, tubing, humidifier and lifetime supplies. Uses BPAP machine) finasteride (PROSCAR) 5 mg tablet Take 1 tablet by mouth once daily. 90 tablet 3 multivitamin tablet Take 1 tablet by mouth once daily. Current Facility-Administered Medications Medication Dose Route Frequency Provider Last Rate Last Admin perflutren lipid microspheres 1.3 mL in NaCl (PF) 0.9% 10 mL injection (DEFINITY) INTRAVENOUS DIRECTED PRLaurel Kapoor MD sodium chloride 0.9 % (flush) 10 mL (BD POSIFLUSH) 10 mL INTRAVENOUS DIRECTED PRLaurel Kapoor MD Review of Systems Constitutional: Negative for chills, diaphoresis, fever, malaise/fatigue and weight loss. HENT: Negative for congestion, ear discharge, ear pain, hearing loss, nosebleeds, sinus pain, sore throat and tinnitus. Eyes: Negative for blurred vision, double vision, photophobia, pain, discharge and redness. Respiratory: Negative for cough, hemoptysis, sputum production, shortness of breath, wheezing and stridor. Cardiovascular: Negative for chest pain, palpitations, orthopnea, claudication, leg swelling and PND. Gastrointestinal: Negative for abdominal pain, blood in stool, constipation, diarrhea, heartburn, melena, nausea and vomiting. Genitourinary: Negative for dysuria, flank pain, frequency, hematuria and urgency. Musculoskeletal: Negative for back pain, falls, joint pain, myalgias and neck pain. Skin: Negative for itching and rash. Neurological: Negative for dizziness, tingling, tremors, sensory change, speech change, focal weakness, seizures, loss of consciousness, weakness and headaches. Endo/Heme/Allergies: Negative for environmental allergies and polydipsia. Does not bruise/bleed easily. Psychiatric/Behavioral: Negative for depression, hallucinations, memory loss, substance abuse and suicidal ideas. The patient is not nervous/anxious and does not have insomnia. Physical Examination: Vitals:BP 109/69 Pulse 71 Resp 16 Ht 5' 7 (1.70m) Wt 158 lb (71.7kg) SpO2 97% BMI 24.74 kg/(m^2). BP w/Orthostatic Vitals Date and Time Orthostatic BP Orthostatic Pulse BP Pulse BP Position BP Site BP Cuff Size 06/20/23932 -- -- 109/69 71 -- -- -- Peak Flow Date and Time PF Resp 06/20/23932 -- 16 Last 2 Encounter Wt Readings: Date: Wt: 06/20/2023 71.7 kg (158 lb) 05/24/2023 72.1 kg (159 lb) Physical Exam Cardiovascular: Rate and Rhythm: Rhythm irregular. Psychiatric: Mood and Affect: Mood normal. Thought Content: Thought content normal. Pertinent Labs: CBC: Hemoglobin (g/dL) Date Value 11/22/2022 13.0 11/17/2020 13.2 Hematocrit (%) Date Value 11/22/2022 39.2 11/17/2020 39.9 WBC (k/uL) Date Value 11/22/2022 5.44 11/17/2020 5.41 Platelet Count (k/uL) Date Value 11/22/2022 229 11/17/2020 208 BMP: Glucose (mg/dL) Date Value 11/22/2022 79 05/15/2021 99 Potassium (mmol/L) Date Value 11/22/2022 5.0 05/15/2021 4.5 Sodium (mmol/L) Date Value 11/22/2022 138 05/15/2021 140 Chloride (mmol/L) Date Value 11/22/2022 104 05/15/2021 104 CO2 (mmol/L) Date Value 11/22/2022 27 05/15/2021 28 Creatinine (mg/dL) Date Value 11/22/2022 0.92 05/15/2021 1.00 BUN (mg/dL) Date Value 11/22/2022 24 05/15/2021 23 Anion Gap (mmol/L) Date Value 11/22/2022 7 05/15/2021 8 Calcium (mg/dL) Date Value 05/15/2021 9.1 Calcium, Total (mg/dL) Date Value 11/22/2022 9.0 INR: Lipid Profile: Total Cholesterol, Nonfasting Date Value Ref Range Status 05/24/2022 156 <200 mg/dL Final Comment: <200 mg/dL, Desirable 200-239 mg/dL, Borderline high >239 mg/dL, High HDL Cholesterol, Nonfasting Date Value Ref Range Status 05/24/2022 56 >39 mg/dL Final Comment: 40-59 mg/dL, Acceptable >59 mg/dL, High: Negative risk factor for coronary heart disease <40 mg/dL, Low: Positive risk factor for coronary heart disease LDL Cholesterol, Nonfasting Date Value Ref Range Status 05/24/2022 86 <100 mg/dL Final Comment: <100 mg/dL, Optimal 100-129 mg/dL, Near optimal/above optimal 130-159 mg/dL, Borderline high 160-189 mg/dL, High >189 mg/dL, Very high Secondary prevention optimal LDL Cholesterol levels are recommended to be < 70 mg/dL Triglycerides, Nonfasting Date Value Ref Range Status 05/24/2022 68 <150 mg/dL Final Comment: <150 mg/dL, Normal 150-199 mg/dL, Borderline high 200-499 mg/dL, High >499 mg/dL, Very high Hemoglobin A1C: No results found for: HGBA1C TSH: No results found for: TSHREFL Prior Cardiac Testing Ekg Echo Assessment and Plan: 78 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 Abnormal EKG - ICD9: 794.31, ICD10: R94.31 (primary diagnosis) Atrial fibrillation maintained on Coumadin - ECG COMPLETE 2. Aphasia as late effect of cerebrovascular accident - ICD9: 438.11, ICD10: I69.320 Stroke right-sided hemiparesis aphasia due to stroke associated with surgery when he had his mitral valve replaced 3. Permanent atrial fibrillation (HCC) - ICD9: 427.31, ICD10: I48.21 Rate controlled maintained on anticoagulation - ECHO - PERFLUTREN LIPID MICROSPHERES 1.1 MG/ML INJECTION IN NS 10 ML - SODIUM CHLORIDE 0.9 % (FLUSH) INJECTION SYRINGE 4. rheumatic mitral valve stenosis - ICD9: 424.0, ICD10: I34.2 Status post mitral valve replacement recent echo shows normal mitral function St. Rashad's valve 5. Abdominal aortic aneurysm (AAA) 35 to 39 mm in diameter (HCC) - ICD9: 441.4, ICD10: I71.40 Stable aneurysm continue monitoring Laurel Freedman MD Follow up planning: One year Electronically signed by Laurel Freedman MD on June 20, 2023, 9:39 AM The above note was partially created using a dictation recognition software. A reasonable attempt has been made to correct any errors. documented in this encounter [facility] 06-17-2023 Miscellaneous Notes [facility] Ambulatory Pharmacy Anticoagulation Clinic Anticoagulation Episode Summary Anticoagulation Care Providers Provider Role Specialty Phone number Sridevi Rodriguez MD Family Medicine [phone] Juan Sharma is a 78 year old year old male patient being evaluated today for a Telemanagement visit. Patient is currently on the following anticoagulant(s) Warfarin. Labs PT INR (no units) Date Value 07/02/2022 3.9 biotel 11/06/2021 3.2 biotel 10/23/2021 2.9 INR Home CoaguChek (no units) Date Value 06/17/2023 2.4 06/10/2023 2.2 06/03/2023 2.5 Hemoglobin (g/dL) Date Value 11/22/2022 13.0 11/17/2020 13.2 Hematocrit (%) Date Value 11/22/2022 39.2 11/17/2020 39.9 Platelet Count (k/uL) Date Value 11/22/2022 229 11/17/2020 208 Creatinine (mg/dL) Date Value 11/22/2022 0.92 05/24/2022 0.94 05/15/2021 1.00 11/17/2020 0.94 05/19/2020 1.02 Bilirubin, Total (mg/dL) Date Value 11/22/2022 0.5 05/15/2021 0.8 ALT (U/L) Date Value 11/22/2022 18 05/15/2021 14 AST (U/L) Date Value 11/22/2022 31 05/15/2021 25 CrCl cannot be calculated (Patient's most recent lab result is older than the maximum 180 days allowed.). 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 Patient denies need for refills. Tabatha Gramajo RPh Clinical Pharmacist, Pharmacy Anticoagulation Clinic Pharmacy Anticoagulation Clinic Pager: [phone]. documented in this encounter [facility] 06-10-2023 Miscellaneous Notes [facility] Ambulatory Pharmacy Anticoagulation Clinic Anticoagulation Episode Summary Anticoagulation Care Providers Provider Role Specialty Phone number Sridevi Rodriguez MD Family Medicine [phone] Juan Sharma is a 78 year old year old male patient being evaluated today for a Telemanagement visit. Patient is currently on the following anticoagulant(s) Warfarin. Labs PT INR (no units) Date Value 07/02/2022 3.9 biotel 11/06/2021 3.2 biotel 10/23/2021 2.9 INR Home CoaguChek (no units) Date Value 06/10/2023 2.2 06/03/2023 2.5 05/27/2023 2.1 Hemoglobin (g/dL) Date Value 11/22/2022 13.0 11/17/2020 13.2 Hematocrit (%) Date Value 11/22/2022 39.2 11/17/2020 39.9 Platelet Count (k/uL) Date Value 11/22/2022 229 11/17/2020 208 Creatinine (mg/dL) Date Value 11/22/2022 0.92 05/24/2022 0.94 05/15/2021 1.00 11/17/2020 0.94 05/19/2020 1.02 Bilirubin, Total (mg/dL) Date Value 11/22/2022 0.5 05/15/2021 0.8 ALT (U/L) Date Value 11/22/2022 18 05/15/2021 14 AST (U/L) Date Value 11/22/2022 31 05/15/2021 25 CrCl cannot be calculated (Patient's most recent lab result is older than the maximum 180 days allowed.). 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: shelter (current) use of anticoagulants Permanent atrial fibrillation (hcc) S/p mvr (mitral valve replacement) Anticoagulation Episode Summary Current INR goal: 2.5-3.5 Assessment: INR result of 2.2 is therapeutic Plan: Current Warfarin Dosing As of 06/10/2023 Full warfarin instructions: 5 mg every Mon, Fri; 4 mg all other days Called and spoke to patient/caregiver Advised patient to increase total weekly regimen Next home INR check scheduled on 06/17/2023 Patient's caregiver verbalizes understanding of the plan. Patient denies need for refills. Tabatha Gramajo [facility] Clinical Pharmacist, Pharmacy Anticoagulation Clinic Pharmacy Anticoagulation Clinic Pager: [phone]. documented in this encounter [facility] 06-03-2023 Miscellaneous Notes [facility] Ambulatory Pharmacy Anticoagulation Clinic Anticoagulation Episode Summary Anticoagulation Care Providers Provider Role Specialty Phone number Sridevi Rodriguez MD Family Medicine [phone] Juan Sharma is a 78 year old year old male patient being evaluated today for a Telemanagement visit. Patient is currently on the following anticoagulant(s) Warfarin. Labs PT INR (no units) Date Value 07/02/2022 3.9 biotel 11/06/2021 3.2 biotel 10/23/2021 2.9 INR Home CoaguChek (no units) Date Value 06/03/2023 2.5 05/27/2023 2.1 05/20/2023 2.4 Hemoglobin (g/dL) Date Value 11/22/2022 13.0 11/17/2020 13.2 Hematocrit (%) Date Value 11/22/2022 39.2 11/17/2020 39.9 Platelet Count (k/uL) Date Value 11/22/2022 229 11/17/2020 208 Creatinine (mg/dL) Date Value 11/22/2022 0.92 05/24/2022 0.94 05/15/2021 1.00 11/17/2020 0.94 05/19/2020 1.02 Bilirubin, Total (mg/dL) Date Value 11/22/2022 0.5 05/15/2021 0.8 ALT (U/L) Date Value 11/22/2022 18 05/15/2021 14 AST (U/L) Date Value 11/22/2022 31 05/15/2021 25 CrCl cannot be calculated (Patient's most recent lab result is older than the maximum 180 days allowed.). 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 Patient denies need for refills. Tabatha Gramajo RPh Clinical Pharmacist, Pharmacy Anticoagulation Clinic Pharmacy Anticoagulation Clinic Pager: [phone]. documented in this encounter [facility] 05-27-2023 Miscellaneous Notes [facility] Ambulatory Pharmacy Anticoagulation Clinic Anticoagulation Episode Summary Anticoagulation Care Providers Provider Role Specialty Phone number Sridevi Rodriguez MD Family Medicine [phone] Juan Sharma is a 78 year old year old male patient being evaluated today for a Telemanagement visit. Patient is currently on the following anticoagulant(s) Warfarin. Labs PT INR (no units) Date Value 07/02/2022 3.9 biotel 11/06/2021 3.2 biotel 10/23/2021 2.9 INR Home CoaguChek (no units) Date Value 05/27/2023 2.1 05/20/2023 2.4 05/13/2023 5.7 Hemoglobin (g/dL) Date Value 11/22/2022 13.0 11/17/2020 13.2 Hematocrit (%) Date Value 11/22/2022 39.2 11/17/2020 39.9 Platelet Count (k/uL) Date Value 11/22/2022 229 11/17/2020 208 Creatinine (mg/dL) Date Value 11/22/2022 0.92 05/24/2022 0.94 05/15/2021 1.00 11/17/2020 0.94 05/19/2020 1.02 Bilirubin, Total (mg/dL) Date Value 11/22/2022 0.5 05/15/2021 0.8 ALT (U/L) Date Value 11/22/2022 18 05/15/2021 14 AST (U/L) Date Value 11/22/2022 31 05/15/2021 25 CrCl cannot be calculated (Patient's most recent lab result is older than the maximum 180 days allowed.). 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 Patient denies need for refills. Tabatha Gramajo RPh Clinical Pharmacist, Pharmacy Anticoagulation Clinic Pharmacy Anticoagulation Clinic Pager: [phone]. documented in this encounter [facility] 05-24-2023 Note HNO ID: [id number] Author: Antoinette Carey APRN.WAFER FAB OPERATOR Service: ? Author Type: Nurse Practitioner Type: Progress Notes Filed: 05/24/2023 10:34 AM Note Text: 05/24/2023 Patient presents with: F/U 6 months SUBJECTIVE: This is a 78 year old, accompanied by , that is here today for Above Complaints. Since last office visit has been in good health without ER visits or hospitalizations. BPH/elevated PSA: Followed with Dr. Griffin with last office appointment on 07/13/2022. No medication changes at this time. Taking and tolerating Proscar as prescribed. Due for follow-up per . Denies nocturia, feeling of incomplete emptying, weak stream, urinary urgency, frequency or hematuria Atrial fib Mitral valve replacement: following with [facility] cardiology with last appointment on 05/29/2023 with follow-up scheduled in June with ECHO prior. No medication changes at last appointment. Taking coumadin and INRs are up to date and managed by coumadin clinic. Per INR has been fluctuating and they are not sure why. No dietary or medication changes. Denies bleeding symptoms, SOB, dyspnea, chest pain, palpitations or leg edema Depression: taking Zoloft as prescribed without side effects. Denies depressive symptoms SCOTT: Follows with Dr. Loza through [facility] yearly. Using BiPAP nightly. Last appointment in January with no changes made PAST MEDICAL HISTORY Diagnosis Date AAA (abdominal aortic aneurysm) (HCC) 3.5cm in 2017 Acute, but ill-defined, cerebrovascular disease 08/2003 Aortic valve disorders ATRIAL REGURGITATION Aphasia 2/2 stroke Atrial fibrillation (HCC) Cardiology Dr. Freedman Benign neoplasm of colon BPH (benign prostatic hyperplasia) Dr. Major Current moderate episode of major depressive disorder without prior episode (HCC) Dyslipidemia Elevated PSA Urology Raciel Damon History of mitral valve replacement 2014 mechanical valve INR 2.5-3.5 Internal hemorrhoids without mention of complication Mitral stenosis Osteoarthritis hip Sleep apnea Sleep medicine at , on Bipap Stroke (HCC) 2003 Unspecified constipation ALLERGIES Patient has no known allergies. MEDICATIONS Current Outpatient Medications Medication Sig lovastatin (MEVACOR) 40 mg tablet Take 1 tablet by mouth once daily. folic acid 1 mg tablet Take 2 tablets by mouth once daily. warfarin (COUMADIN) 4 mg tablet Take as directed sertraline (ZOLOFT) 50 mg tablet Take 1 tablet by mouth once daily. warfarin (COUMADIN) 5 mg tablet Take as directed by Pharmacy Anticoagulation Clinic CPAP Initiate CPAP @ 10 cm of water with humidification. Mask (per patient preference) optional chin strap (if indicated) , filters, tubing, humidifier and lifetime supplies. (Patient taking differently: Initiate CPAP @ 10 cm of water with humidification. Mask (per patient preference) optional chin strap (if indicated) , filters, tubing, humidifier and lifetime supplies. Uses BPAP machine) finasteride (PROSCAR) 5 mg tablet Take 1 tablet by mouth once daily. multivitamin tablet Take 1 tablet by mouth once daily. Current Facility-Administered Medications Medication Dose Route Frequency perflutren lipid microspheres 1.3 mL in NaCl (PF) 0.9% 10 mL injection (DEFINITY) INTRAVENOUS DIRECTED PRN sodium chloride 0.9 % (flush) 10 mL (BD POSIFLUSH) 10 mL INTRAVENOUS DIRECTED PRN Medications and allergies reviewed by this provider. SOCIAL HISTORY Social History Tobacco Use Smoking status: Former Packs/day: 1.00 Years: 20.00 Additional pack years: 0.00 Total pack years: 20.00 Types: Cigarettes, Pipe Quit date: 08/08/1994 Years since quittin.8 Smokeless tobacco: Former Types: Chew Quit date: 08/08/2001 Vaping Use Vaping Use: Never used Substance Use Topics Alcohol use: Yes Comment: Occasionally Drug use: No REVIEW OF SYSTEMS All other reviewed and negative other than HPI. OBJECTIVE: BP 114/68 Pulse 67 Resp 18 Wt 72.1 kg (159 lb) SpO2 99% BMI 24.90 kg/m? . Vital signs reviewed by this provider. APPEARANCE Well appearing, alert, in no acute distress, well-hydrated, well nourished. Patient has aphasia EYES PERRLA, conjunctiva and sclera normal. HEART irregularly irregular. No murmur LUNG clear to auscultation. Denies wheezes, rhonchi or rales EXTREMITIES Extremities normal, No deformities, No skin discoloration, and No edema SKIN Skin color, texture, turgor normal, no suspicious rashes or lesions to exposed skin Component Latest Ref Rng AND Units 11/22/2022 WBC 3.70 - 11.00 k/uL 5.44 RBC 4.20 - 6.00 m/uL 4.09 (L) Hemoglobin 13.0 - 17.0 g/dL 13.0 Hematocrit 39.0 - 51.0 % 39.2 MCV 80.0 - 100.0 fL 95.8 MCH 26.0 - 34.0 pg 31.8 MCHC 30.5 - 36.0 g/dL 33.2 RDW-CV 11.5 - 15.0 % 13.5 Platelet Count 150 - 400 k/uL 229 MPV 9.0 - 12.7 fL 10.2 Neut% % 70.9 Abs Neut (ANC) 1.45 - 7.50 k/uL 3.86 Lymph% % 15.8 Abs Lymph 1.00 - 4.00 (more content not included)... [facility] 05-24-2023 History of Presen t illness Narrative 05/24/2023 Patient presents with: F/U 6 months SUBJECTIVE: This is a 78 year old, accompanied by , that is here today for Above Complaints. Since last office visit has been in good health without ER visits or hospitalizations. BPH/elevated PSA: Followed with Dr. Griffin with last office appointment on 07/13/2022. No medication changes at this time. Taking and tolerating Proscar as prescribed. Due for follow-up per . Denies nocturia, feeling of incomplete emptying, weak stream, urinary urgency, frequency or hematuria Atrial fib Mitral valve replacement: following with [facility] cardiology with last appointment on 05/29/2023 with follow-up scheduled in June with ECHO prior. No medication changes at last appointment. Taking coumadin and INRs are up to date and managed by coumadin clinic. Per INR has been fluctuating and they are not sure why. No dietary or medication changes. Denies bleeding symptoms, SOB, dyspnea, chest pain, palpitations or leg edema Depression: taking Zoloft as prescribed without side effects. Denies depressive symptoms SCOTT: Follows with Dr. Loza through [facility] yearly. Using BiPAP nightly. Last appointment in January with no changes made PAST MEDICAL HISTORY Diagnosis Date AAA (abdominal aortic aneurysm) ([facility]) 3.5cm in 2017 Acute, but ill-defined, cerebrovascular disease 08/2003 Aortic valve disorders ATRIAL REGURGITATION Aphasia 2/2 stroke Atrial fibrillation ([facility]) Cardiology Dr. Freedman Benign neoplasm of colon BPH (benign prostatic hyperplasia) Dr. Major Current moderate episode of major depressive disorder without prior episode ([facility]) Dyslipidemia Elevated PSA Urology Raciel Damon History of mitral valve replacement 2014 mechanical valve INR 2.5-3.5 Internal hemorrhoids without mention of complication Mitral stenosis Osteoarthritis hip Sleep apnea Sleep medicine at , on Bipap Stroke ([facility]) 2003 Unspecified constipation ALLERGIES Patient has no known allergies. MEDICATIONS Current Outpatient Medications Medication Sig lovastatin (MEVACOR) 40 mg tablet Take 1 tablet by mouth once daily. folic acid 1 mg tablet Take 2 tablets by mouth once daily. warfarin (COUMADIN) 4 mg tablet Take as directed sertraline (ZOLOFT) 50 mg tablet Take 1 tablet by mouth once daily. warfarin (COUMADIN) 5 mg tablet Take as directed by Pharmacy Anticoagulation Clinic CPAP Initiate CPAP @ 10 cm of water with humidification. Mask (per patient preference) optional chin strap (if indicated) , filters, tubing, humidifier and lifetime supplies. (Patient taking differently: Initiate CPAP @ 10 cm of water with humidification. Mask (per patient preference) optional chin strap (if indicated) , filters, tubing, humidifier and lifetime supplies. Uses BPAP machine) finasteride (PROSCAR) 5 mg tablet Take 1 tablet by mouth once daily. multivitamin tablet Take 1 tablet by mouth once daily. Current Facility-Administered Medications Medication Dose Route Frequency perflutren lipid microspheres 1.3 mL in NaCl (PF) 0.9% 10 mL injection (DEFINITY) INTRAVENOUS DIRECTED PRN sodium chloride 0.9 % (flush) 10 mL (BD POSIFLUSH) 10 mL INTRAVENOUS DIRECTED PRN Medications and allergies reviewed by this provider. SOCIAL HISTORY Social History Tobacco Use Smoking status: Former Packs/day: 1.00 Years: 20.00 Additional pack years: 0.00 Total pack years: 20.00 Types: Cigarettes, Pipe Quit date: 08/08/1994 Years since quittin.8 Smokeless tobacco: Former Types: Chew Quit date: 08/08/2001 Vaping Use Vaping Use: Never used Substance Use Topics Alcohol use: Yes Comment: Occasionally Drug use: No REVIEW OF SYSTEMS All other reviewed and negative other than HPI. OBJECTIVE: BP 114/68 Pulse 67 Resp 18 Wt 72.1 kg (159 lb) SpO2 99% BMI 24.90 kg/m . Vital signs reviewed by this provider. APPEARANCE Well appearing, alert, in no acute distress, well-hydrated, well nourished. Patient has aphasia EYES PERRLA, conjunctiva and sclera normal. HEART irregularly irregular. No murmur LUNG clear to auscultation. Denies wheezes, rhonchi or rales EXTREMITIES Extremities normal, No deformities, No skin discoloration, and No edema SKIN Skin color, texture, turgor normal, no suspicious rashes or lesions to exposed skin Component Latest Ref Rng & Units 11/22/2022 WBC 3.70 - 11.00 k/uL 5.44 RBC 4.20 - 6.00 m/uL 4.09 (L) Hemoglobin 13.0 - 17.0 g/dL 13.0 Hematocrit 39.0 - 51.0 % 39.2 MCV 80.0 - 100.0 fL 95.8 MCH 26.0 - 34.0 pg 31.8 MCHC 30.5 - 36.0 g/dL 33.2 RDW-CV 11.5 - 15.0 % 13.5 Platelet Count 150 - 400 k/uL 229 MPV 9.0 - 12.7 fL 10.2 Neut% % 70.9 Abs Neut (ANC) 1.45 - 7.50 k/uL 3.86 Lymph% % 15.8 Abs Lymph 1.00 - 4.00 k/uL 0.86 (L) Wilcox% % 11.6 Abs Wilcox <0.87 k/uL 0.63 Eosin% % 1.1 Abs Eosin <0.46 k/uL 0.06 Baso% % 0.4 Abs Baso <0.11 k/uL <0.03 Immature Gran % % 0.2 IMMATURE GRANS (ABS) <0.10 k/uL <0.03 NRBC /100 WBC 0.0 Absolute nRBC <0.01 k/uL <0.01 DTYPE Auto Protein, Total 6.3 - 8.0 g/dL 7.4 Albumin 3.9 - 4.9 g/dL 4.0 Calcium 8.5 - 10.2 mg/dL 9.0 Bilirubin, Total 0.2 - 1.3 mg/dL 0.5 Alkaline Phosphatase 38 - 113 U/L 77 AST 14 - 40 U/L 31 ALT 10 - 54 U/L 18 Glucose 74 - 99 mg/dL 79 BUN 9 - 24 mg/dL 24 Creatinine 0.73 - 1.22 mg/dL 0.92 Sodium 136 - 144 mmol/L 138 Potassium 3.7 - 5.1 mmol/L 5.0 Chloride 97 - 105 mmol/L 104 CO2 22 - 30 mmol/L 27 Anion Gap 9 - 18 mmol/L 7 (L) eGFR >=60 mL/min/1.73m 86 Component Latest Ref Rng & Units 05/24/2022 Total Cholesterol, Nonfasting <200 mg/dL 156 Triglycerides, Nonfasting <150 mg/dL 68 HDL Cholesterol, Nonfasting >39 mg/dL 56 LDL Cholesterol, Nonfasting <100 mg/dL 86 Non HDL Cholesterol, Nonfasting <130 mg/dL 100 VLDL Cholesterol, Nonfasting <30 mg/dL 14 Total Chol/HDL Ratio, Nonfasting <5.10 mg/dL 2.79 LDL/HDL Ratio, Nonfasting <2.54 mg/dL 1.54 Shingrix Vaccine(1 of 2) Never done RSV Vaccine(1 - 1-dose 60+ series) Never done Advance Directive Discussion Never done Covid-19 Vaccine(2022- season) due on 04/08/2023 DTaP,Tdap,Td Vaccine(3 - Td or Tdap) due on 11/23/2023 Diabetes Screening due on 11/22/2025 Influenza Vaccine Completed Hepatitis C Screening Completed Pneumococcal Vaccine: 65+ Completed Fecal Occult Blood Discontinued ASSESSMENT/PLAN: 1. Depression, unspecified depression type - ICD9: 311, ICD10: F32.A (primary diagnosis) - controlled on Zoloft - follow-up as needed 2. Mixed hyperlipidemia - ICD9: 272.2, ICD10: E78.2 - Controlled - Continue current medications - Counseled on healthy diet and regular exercise - Follow up in 6 months, sooner should any other issues arise. 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 Elevated prostate specific antigen (PSA) - ICD9: 790.93, ICD10: R97.20 - stable on current regime - follow-up with urology as recommended 5. Permanent atrial fibrillation (HCC) - ICD9: 427.31, ICD10: I48.21 - stable at this time - plan as in #3 6. Mitral valve stenosis, unspecified etiology - ICD9: 394.0, ICD10: I05.0 - plan as above 7. Benign prostatic hyperplasia, unspecified whether lower urinary tract symptoms present - ICD9: 600.00, ICD10: N40.0 -plan as in #4 Antoinette Carey APRN.BLAKE Prescription instructions reviewed with patient as applicable. Patient advised if symptoms do not improve or if symptoms worsen sooner, to contact their primary care physician. Potential red flag symptoms discussed with the patient. Reviewed appropriate action plan to take if red flag symptoms occur. Patient agreeable to treatment plan. I spent a total of 25 minutes on the date of the service which included preparing to see the patient, [id number] patient care, completing clinical documentation, obtaining and/or reviewing separately obtained history, performing a medically appropriate examination, counseling and educating the patient/family/caregiver, and ordering medications, tests, or procedures. documented in this encounter [facility] 05-13-2023 Miscellaneous Notes PATIENT CALL Patient called call center regarding message. Patient's daughter spouse called re: they received message and have no additional questions. Will route to [facility] as FYI. Zainab LandersChairman & Chief Executive Officer) [facility] Ambulatory Pharmacy Anticoagulation Clinic Anticoagulation Episode Summary Anticoagulation Care Providers Provider Role Specialty Phone number Sridevi Rodriguez MD Family Medicine [phone] Juan Sharma is a 78 year old year old male patient being evaluated today for a Telemanagement visit. Patient is currently on the following anticoagulant(s) Warfarin. Labs PT INR (no units) Date Value 07/02/2022 3.9 biotel 11/06/2021 3.2 biotel 10/23/2021 2.9 INR Home CoaguChek (no units) Date Value 05/13/2023 5.7 05/06/2023 3.7 04/29/2023 1.9 Hemoglobin (g/dL) Date Value 11/22/2022 13.0 11/17/2020 13.2 Hematocrit (%) Date Value 11/22/2022 39.2 11/17/2020 39.9 Platelet Count (k/uL) Date Value 11/22/2022 229 11/17/2020 208 Creatinine (mg/dL) Date Value 11/22/2022 0.92 05/24/2022 0.94 05/15/2021 1.00 11/17/2020 0.94 05/19/2020 1.02 Bilirubin, Total (mg/dL) Date Value 11/22/2022 0.5 05/15/2021 0.8 ALT (U/L) Date Value 11/22/2022 18 05/15/2021 14 AST (U/L) Date Value 11/22/2022 31 05/15/2021 25 CrCl cannot be calculated (Unknown ideal weight.). 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 Permanent atrial fibrillation (hcc) S/p mvr (mitral valve replacement) Anticoagulation Episode Summary Current INR goal: 2.5-3.5 Assessment: INR result of 5.7 is SUPRAtherapeutic due to: unknown cause - did not speak to patient Plan: Current Warfarin Dosing As of 05/13/2023 Full warfarin instructions: 05/13: Hold; 05/14: Hold; Otherwise 4 mg every day Left voice message Advised patient to hold 2 doses then decrease current regimen Next home INR check scheduled on 05/20/2023 Advised patient's Shea to return call to PAC to ensure she received our message Adding to critical list for weekend follow up due to supratherapeutic INR Tabatha Gramajo RPh Clinical Pharmacist, Pharmacy Anticoagulation Clinic Pharmacy Anticoagulation Clinic Pager: [phone]. PATIENT CALL Received call from Jaimie with [facility] for patient. Patient tested on 05/13 with an out of range INR result of 5.7. PT INR (no units) Date Value 07/02/2022 3.9 biotel 11/06/2021 3.2 biotel 10/23/2021 2.9 INR Home CoaguChek (no units) Date Value 05/13/2023 5.7 05/06/2023 3.7 04/29/2023 1.9 Zainab Ramirez (Chairman & Chief Executive Officer) Pharmacy Anticoagulation Clinic documented in this encounter [facility] 05-06-2023 Miscellaneous Notes [facility] Ambulatory Pharmacy Anticoagulation Clinic Anticoagulation Episode Summary Anticoagulation Care Providers Provider Role Specialty Phone number Sridevi Rodriguez MD Family Medicine [phone] Juan Sharma is a 78 year old year old male patient being evaluated today for a Telemanagement visit. Patient is currently on the following anticoagulant(s) Warfarin. Labs PT INR (no units) Date Value 07/02/2022 3.9 biotel 11/06/2021 3.2 biotel 10/23/2021 2.9 INR Home CoaguChek (no units) Date Value 05/06/2023 3.7 04/29/2023 1.9 04/25/2023 2.8 Hemoglobin (g/dL) Date Value 11/22/2022 13.0 11/17/2020 13.2 Hematocrit (%) Date Value 11/22/2022 39.2 11/17/2020 39.9 Platelet Count (k/uL) Date Value 11/22/2022 229 11/17/2020 208 Creatinine (mg/dL) Date Value 11/22/2022 0.92 05/24/2022 0.94 05/15/2021 1.00 11/17/2020 0.94 05/19/2020 1.02 Bilirubin, Total (mg/dL) Date Value 11/22/2022 0.5 05/15/2021 0.8 ALT (U/L) Date Value 11/22/2022 18 05/15/2021 14 AST (U/L) Date Value 11/22/2022 31 05/15/2021 25 CrCl cannot be calculated (Unknown ideal weight.). 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: shelter (current) use of anticoagulants Permanent atrial fibrillation (hcc) S/p mvr (mitral valve replacement) Anticoagulation Episode Summary Current INR goal: 2.5-3.5 Assessment: INR result of 3.7 is SUPRAtherapeutic due to: No obvious cause Plan: Current Warfarin Dosing As of 05/06/2023 Full warfarin instructions: 5 mg every Sun, Smiley; 4 mg all other days Called and spoke to patient/caregiver Advised patient to decrease total weekly regimen Next home INR check scheduled on 05/13/2023 Patient's caregiver verbalizes understanding of the plan. Patient denies need for refills. Tabatha Gramajo RPh Clinical Pharmacist, Pharmacy Anticoagulation Clinic Pharmacy Anticoagulation Clinic Pager: [phone]. documented in this encounter [facility] 04-29-2023 Miscellaneous Notes [facility] Ambulatory Pharmacy Anticoagulation Clinic Anticoagulation Episode Summary Anticoagulation Care Providers Provider Role Specialty Phone number Sridevi Rodriguez MD Family Medicine [phone] Juan Sharma is a 78 year old year old male patient being evaluated today for a Telemanagement visit. Patient is currently on the following anticoagulant(s) Warfarin. Labs PT INR (no units) Date Value 07/02/2022 3.9 biotel 11/06/2021 3.2 biotel 10/23/2021 2.9 INR Home CoaguChek (no units) Date Value 04/29/2023 1.9 04/25/2023 2.8 04/22/2023 6.0 Hemoglobin (g/dL) Date Value 11/22/2022 13.0 11/17/2020 13.2 Hematocrit (%) Date Value 11/22/2022 39.2 11/17/2020 39.9 Platelet Count (k/uL) Date Value 11/22/2022 229 11/17/2020 208 Creatinine (mg/dL) Date Value 11/22/2022 0.92 05/24/2022 0.94 05/15/2021 1.00 11/17/2020 0.94 05/19/2020 1.02 Bilirubin, Total (mg/dL) Date Value 11/22/2022 0.5 05/15/2021 0.8 ALT (U/L) Date Value 11/22/2022 18 05/15/2021 14 AST (U/L) Date Value 11/22/2022 31 05/15/2021 25 CrCl cannot be calculated (Unknown ideal weight.). 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: shelter (current) use of anticoagulants Permanent atrial fibrillation (hcc) S/p mvr (mitral valve replacement) Anticoagulation Episode Summary Current INR goal: 2.5-3.5 Assessment: INR result of 1.9 is SUBtherapeutic due to: Following recent dosage decrease Plan: Current Warfarin Dosing As of 04/29/2023 Full warfarin instructions: 4 mg every Mon, Wed, Sat; 5 mg all other days Called and spoke to patient/caregiver Advised patient to increase total weekly regimen Next home INR check scheduled on 05/06/2023 Patient's caregiver verbalizes understanding of the plan. Patient denies need for refills. Tabatha Gramajo RPh Clinical Pharmacist, Pharmacy Anticoagulation Clinic Pharmacy Anticoagulation Clinic Pager: [phone]. documented in this encounter [facility] 04-25-2023 Miscellaneous Notes [facility] Ambulatory Pharmacy Anticoagulation Clinic Anticoagulation Episode Summary Anticoagulation Care Providers Provider Role Specialty Phone number Sridevi Rodriguez MD Family Medicine [phone] Juan Sharma is a 78 year old year old male patient being evaluated today for a Telemanagement visit. Patient is currently on the following anticoagulant(s) Warfarin. Labs PT INR (no units) Date Value 07/02/2022 3.9 biotel 11/06/2021 3.2 biotel 10/23/2021 2.9 INR Home CoaguChek (no units) Date Value 04/25/2023 2.8 04/22/2023 6.0 04/22/2023 6.0 CrCl cannot be calculated (Unknown ideal weight.). 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: Anticoagulation Episode Summary Current INR goal: 2.5-3.5 Assessment: INR result of 2.8 is therapeutic following held doses. Plan: Current Warfarin Dosing As of 04/25/2023 Full warfarin instructions: 5 mg every Sun, Smiley; 4 mg all other days Called and spoke to patient/caregiver Advised patient to decrease total weekly regimen Next INR check due on 04/29/2023 Patient's caregiver verbalizes understanding of the plan. Boris Polanco RPh Clinical Pharmacist, Pharmacy Anticoagulation Clinic Pharmacy Anticoagulation Clinic Pager: [phone]. documented in this encounter [facility] 04-22-2023 Miscellaneous Notes PATIENT CALL [facility] called regarding INR result for patient. Result has been addressed below, no further action needed. Manuel Sierra, Wood Scaler (toolman) Pharmacy Anticoagulation Clinic [facility] Ambulatory Pharmacy Anticoagulation Clinic Anticoagulation Episode Summary Anticoagulation Care Providers Provider Role Specialty Phone number Sridevi Rodriguez MD Family Medicine [phone] Juan Sharma is a 78 year old year old male patient being evaluated today for a Telemanagement visit. Patient is currently on the following anticoagulant(s) Warfarin. Labs PT INR (no units) Date Value 07/02/2022 3.9 biotel 11/06/2021 3.2 biotel 10/23/2021 2.9 INR Home CoaguChek (no units) Date Value 04/22/2023 6.0 04/22/2023 6.0 04/08/2023 3.1 Hemoglobin (g/dL) Date Value 11/22/2022 13.0 11/17/2020 13.2 Hematocrit (%) Date Value 11/22/2022 39.2 11/17/2020 39.9 Platelet Count (k/uL) Date Value 11/22/2022 229 11/17/2020 208 Creatinine (mg/dL) Date Value 11/22/2022 0.92 05/24/2022 0.94 05/15/2021 1.00 11/17/2020 0.94 05/19/2020 1.02 Bilirubin, Total (mg/dL) Date Value 11/22/2022 0.5 05/15/2021 0.8 ALT (U/L) Date Value 11/22/2022 18 05/15/2021 14 AST (U/L) Date Value 11/22/2022 31 05/15/2021 25 CrCl cannot be calculated (Unknown ideal weight.). 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 Permanent atrial fibrillation (hcc) S/p mvr (mitral valve replacement) Anticoagulation Episode Summary Current INR goal: 2.5-3.5 Assessment: INR result of 6.0 is SUPRAtherapeutic due to: No obvious cause Pt denies any unusual bruising or bleeding Plan: Current Warfarin Dosing As of 04/22/2023 Full warfarin instructions: 04/22: Hold; 04/23: Hold; 04/24: 2.5 mg; Otherwise 4 mg every Mon, Wed, Fri; 5 mg all other days Called and spoke to patient/caregiver Advised patient to hold 2 doses then decrease current regimen Next home INR check scheduled on 04/25/2023 Pt's spouse verbalizes understanding of the plan. Patient denies need for refills. Andie Sutton RPh Clinical Pharmacist, Pharmacy Anticoagulation Clinic Pharmacy Anticoagulation Clinic Pager: [phone]. documented in this encounter [facility] 04-08-2023 Miscellaneous Notes [facility] Ambulatory Pharmacy Anticoagulation Clinic Anticoagulation Episode Summary Anticoagulation Care Providers Provider Role Specialty Phone number Sridevi Rodriguez MD Family Medicine [phone] Juan Sharma is a 78 year old year old male patient being evaluated today for a Telemanagement visit. Patient is currently on the following anticoagulant(s) Warfarin. Labs PT INR (no units) Date Value 07/02/2022 3.9 biotel 11/06/2021 3.2 biotel 10/23/2021 2.9 INR Home CoaguChek (no units) Date Value 04/08/2023 3.1 03/25/2023 3.7 03/11/2023 3.9 Hemoglobin (g/dL) Date Value 11/22/2022 13.0 11/17/2020 13.2 Hematocrit (%) Date Value 11/22/2022 39.2 11/17/2020 39.9 Platelet Count (k/uL) Date Value 11/22/2022 229 11/17/2020 208 Creatinine (mg/dL) Date Value 11/22/2022 0.92 05/24/2022 0.94 05/15/2021 1.00 11/17/2020 0.94 05/19/2020 1.02 Bilirubin, Total (mg/dL) Date Value 11/22/2022 0.5 05/15/2021 0.8 ALT (U/L) Date Value 11/22/2022 18 05/15/2021 14 AST (U/L) Date Value 11/22/2022 31 05/15/2021 25 CrCl cannot be calculated (Unknown ideal weight.). 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 Patient denies need for refills. Clementina Nelson RPh Clinical Pharmacist, Pharmacy Anticoagulation Clinic Pharmacy Anticoagulation Clinic Pager: [phone]. documented in this encounter [facility] 03-25-2023 Miscellaneous Notes [facility] Ambulatory Pharmacy Anticoagulation Clinic Anticoagulation Episode Summary Anticoagulation Care Providers Provider Role Specialty Phone number Sridevi Rodriguez MD Family Medicine [phone] Juan Sharma is a 78 year old year old male patient being evaluated today for a Telemanagement visit. Patient is currently on the following anticoagulant(s) Warfarin. Labs PT INR (no units) Date Value 07/02/2022 3.9 biotel 11/06/2021 3.2 biotel 10/23/2021 2.9 INR Home CoaguChek (no units) Date Value 03/25/2023 3.7 03/11/2023 3.9 02/25/2023 3.4 Hemoglobin (g/dL) Date Value 11/22/2022 13.0 11/17/2020 13.2 Hematocrit (%) Date Value 11/22/2022 39.2 11/17/2020 39.9 Platelet Count (k/uL) Date Value 11/22/2022 229 11/17/2020 208 Creatinine (mg/dL) Date Value 11/22/2022 0.92 05/24/2022 0.94 05/15/2021 1.00 11/17/2020 0.94 05/19/2020 1.02 Bilirubin, Total (mg/dL) Date Value 11/22/2022 0.5 05/15/2021 0.8 ALT (U/L) Date Value 11/22/2022 18 05/15/2021 14 AST (U/L) Date Value 11/22/2022 31 05/15/2021 25 CrCl cannot be calculated (Unknown ideal weight.). 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 Patient denies need for refills. Tabatha Gramajo RPh Clinical Pharmacist, Pharmacy Anticoagulation Clinic Pharmacy Anticoagulation Clinic Pager: [phone]. documented in this encounter [facility] 03-11-2023 Miscellaneous Notes [facility] Ambulatory Pharmacy Anticoagulation Clinic Anticoagulation Episode Summary Anticoagulation Care Providers Provider Role Specialty Phone number Sridevi Rodriguez MD Family Medicine [phone] Juan Sharma is a 78 year old year old male patient being evaluated today for a Telemanagement visit. Patient is currently on the following anticoagulant(s) Warfarin. Labs PT INR (no units) Date Value 07/02/2022 3.9 biotel 11/06/2021 3.2 biotel 10/23/2021 2.9 INR Home CoaguChek (no units) Date Value 03/11/2023 3.9 02/25/2023 3.4 02/11/2023 3.9 Hemoglobin (g/dL) Date Value 11/22/2022 13.0 11/17/2020 13.2 Hematocrit (%) Date Value 11/22/2022 39.2 11/17/2020 39.9 Platelet Count (k/uL) Date Value 11/22/2022 229 11/17/2020 208 Creatinine (mg/dL) Date Value 11/22/2022 0.92 05/24/2022 0.94 05/15/2021 1.00 11/17/2020 0.94 05/19/2020 1.02 Bilirubin, Total (mg/dL) Date Value 11/22/2022 0.5 05/15/2021 0.8 ALT (U/L) Date Value 11/22/2022 18 05/15/2021 14 AST (U/L) Date Value 11/22/2022 31 05/15/2021 25 CrCl cannot be calculated (Unknown ideal weight.). 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: shelter (current) use of anticoagulants Permanent atrial fibrillation (hcc) S/p mvr (mitral valve replacement) Anticoagulation Episode Summary Current INR goal: 2.5-3.5 Assessment: INR result of 3.9 is SUPRAtherapeutic due to: No obvious cause Plan: Current Warfarin Dosing As of 03/11/2023 Full warfarin instructions: 4 mg every Mon, Wed, Fri; 5 mg all other days Called and spoke to patient/caregiver Advised patient to decrease total weekly regimen Next home INR check scheduled on 03/25/2023 Patient's caregiver verbalizes understanding of the plan. Patient denies need for refills. Tabatha Gramajo RPh Clinical Pharmacist, Pharmacy Anticoagulation Clinic Pharmacy Anticoagulation Clinic Pager: [phone]. documented in this encounter [facility] 03-07-2023 Miscellaneous Notes Patient has been identified by name and date of : Yes Patient phones for refill(s): Requested Prescriptions Pending Prescriptions Disp Refills folic acid 1 mg tablet 180 tablet 1 Sig: Take 2 tablets by mouth once daily. Date of last office visit in primary care: RAFY 11/22/22 NOV 05/24/23 Last 2 Encounter Wt Readings: Date: Wt: 11/22/2022 71.2 kg (157 lb) 06/07/2022 68.5 kg (151 lb) Please advise. Thank you. MALCOM Grigsby documented in this encounter [facility] 02-11-2023 Miscellaneous Notes [facility] Ambulatory Pharmacy Anticoagulation Clinic Anticoagulation Episode Summary Anticoagulation Care Providers Provider Role Specialty Phone number Sridevi Rodriguez MD Family Medicine [phone] Juan Sharma is a 78 year old year old male patient being evaluated today for a Telemanagement visit. Patient is currently on the following anticoagulant(s) Warfarin. Labs PT INR (no units) Date Value 07/02/2022 3.9 biotel 11/06/2021 3.2 biotel 10/23/2021 2.9 INR Home CoaguChek (no units) Date Value 02/11/2023 3.9 01/28/2023 2.7 01/14/2023 4.0 Hemoglobin (g/dL) Date Value 11/22/2022 13.0 11/17/2020 13.2 Hematocrit (%) Date Value 11/22/2022 39.2 11/17/2020 39.9 Platelet Count (k/uL) Date Value 11/22/2022 229 11/17/2020 208 Creatinine (mg/dL) Date Value 11/22/2022 0.92 05/24/2022 0.94 05/15/2021 1.00 11/17/2020 0.94 05/19/2020 1.02 Bilirubin, Total (mg/dL) Date Value 11/22/2022 0.5 05/15/2021 0.8 ALT (U/L) Date Value 11/22/2022 18 05/15/2021 14 AST (U/L) Date Value 11/22/2022 31 05/15/2021 25 Estimated Creatinine Clearance: 62.9 mL/min (based on SCr of 0.92 mg/dL). 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 Patient denies need for refills. Tabatha Gramajo [facility] Clinical Pharmacist, Pharmacy Anticoagulation Clinic Pharmacy Anticoagulation Clinic Pager: [phone]. documented in this encounter [facility] 02-11-2023 History of Presen t illness Narrative The patient is stable from a sleep medicine standpoint. He is using his CPAP every night and all night. The patient has lights out at about 11 PM and it takes him just minutes to fall asleep. The patient will wake for the day between 730 and 8 AM. The patient is occasionally napping during the day. His [place] Sleepiness Scale score today was 4. The patient's is changing his mask and cleaning his machine on a regular basis. She is using soap and water. I did review his latest compliance report and it shows that he is using his ASV 100% of the time for 8 hours and 30 minutes a night. His AHI is 1.9 and he has a mild mask leak.The patient's feels that his memory is slightly worse but that his tremor is stable. He is compliant with his Coumadin, folic acid, Mevacor and Zoloft.The patient's feels that his memory is slightly worse [id number] Work Phone: 01-28-2023 Miscellaneous Notes [facility] Ambulatory Pharmacy Anticoagulation Clinic Anticoagulation Episode Summary Anticoagulation Care Providers Provider Role Specialty Phone number Sridevi Rodriguez MD Family Medicine [phone] Juan Sharma is a 78 year old year old male patient being evaluated today for a Telemanagement visit. Patient is currently on the following anticoagulant(s) Warfarin. Labs PT INR (no units) Date Value 07/02/2022 3.9 biotel 11/06/2021 3.2 biotel 10/23/2021 2.9 INR Home CoaguChek (no units) Date Value 01/28/2023 2.7 01/14/2023 4.0 12/31/2022 3.0 Hemoglobin (g/dL) Date Value 11/22/2022 13.0 11/17/2020 13.2 Hematocrit (%) Date Value 11/22/2022 39.2 11/17/2020 39.9 Platelet Count (k/uL) Date Value 11/22/2022 229 11/17/2020 208 Creatinine (mg/dL) Date Value 11/22/2022 0.92 05/24/2022 0.94 05/15/2021 1.00 11/17/2020 0.94 05/19/2020 1.02 Bilirubin, Total (mg/dL) Date Value 11/22/2022 0.5 05/15/2021 0.8 ALT (U/L) Date Value 11/22/2022 18 05/15/2021 14 AST (U/L) Date Value 11/22/2022 31 05/15/2021 25 Estimated Creatinine Clearance: 62.9 mL/min (based on SCr of 0.92 mg/dL). 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 Patient denies need for refills. Tabatha Gramajo RPh Clinical Pharmacist, Pharmacy Anticoagulation Clinic Pharmacy Anticoagulation Clinic Pager: [phone]. documented in this encounter [facility] 01-04-2023 Miscellaneous Notes Patient has been identified by name and date of : Yes Requested Prescriptions Pending Prescriptions Disp Refills warfarin (COUMADIN) 5 mg tablet 90 tablet 0 Sig: Take as directed by Pharmacy Anticoagulation Clinic RX INSTRUCTIONS: Patient aware RX will be sent to pharmacy. No need to notify patient. Patient last office visit: 11/22/22 Patient next office visit: 05/24/23 Erna Martin MA documented in this encounter [facility] 12-10-2022 Miscellaneous Notes [facility] Ambulatory Pharmacy Anticoagulation Clinic Anticoagulation Episode Summary Anticoagulation Care Providers Provider Role Specialty Phone number Sridevi Rodriguez MD Family Medicine [phone] Juan Sharma is a 77 year old year old male patient being evaluated today for a Telemanagement visit. Patient is currently on the following anticoagulant(s) Warfarin. Labs PT INR (no units) Date Value 07/02/2022 3.9 biotel 11/06/2021 3.2 biotel 10/23/2021 2.9 INR Home CoaguChek (no units) Date Value 12/10/2022 3.2 11/26/2022 2.7 11/12/2022 2.9 Hemoglobin (g/dL) Date Value 11/22/2022 13.0 11/17/2020 13.2 Hematocrit (%) Date Value 11/22/2022 39.2 11/17/2020 39.9 Platelet Count (k/uL) Date Value 11/22/2022 229 11/17/2020 208 Creatinine (mg/dL) Date Value 11/22/2022 0.92 05/24/2022 0.94 05/15/2021 1.00 11/17/2020 0.94 05/19/2020 1.02 Bilirubin, Total (mg/dL) Date Value 11/22/2022 0.5 05/15/2021 0.8 ALT (U/L) Date Value 11/22/2022 18 05/15/2021 14 AST (U/L) Date Value 11/22/2022 31 05/15/2021 25 Estimated Creatinine Clearance: 63.9 mL/min (based on SCr of 0.92 mg/dL). 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 Patient denies need for refills. Tabatha Gramajo RPh Clinical Pharmacist, Pharmacy Anticoagulation Clinic Pharmacy Anticoagulation Clinic Pager: [phone]. documented in this encounter [facility] 11-29-2022 Miscellaneous Notes Letter mailed to pt home of results. Fatuma Torres MA ----- Message from Sridevi Rodriguez MD sent at 11/29/2022 9:54 AM EDT ----- US for abdominal aorta is stable compared to 2021. Repeat in 1-2 years. documented in this encounter [facility] 11-26-2022 Note HNO ID: [id number] Author: Vaishnavi Paul RDMS Service: ? Author Type: Professional Employer Consultant Type: Progress Notes Filed: 11/26/2022 11:40 AM Note Text: Radiology Service Progress Note PATIENT NAME: Juan Sharma DATE OF SERVICE: November 26, 2022 TIME: 11:40 AM PATIENT IDENTITY VERIFICATION COMPLETED USING TWO (2) IDENTIFIERS: Name and Date of confirmed by patient verbally. FALL SCREENING: Has the patient had 2 falls in the last year or 1 fall with injury or currently using an Ambulatory Assistive Device (Walker, Cane, Wheelchair, Crutches, etc.)? No PATIENT GENDER DATA: Male PATIENT RELEVANT IMPLANT DATA REVIEWED: Not Applicable RADIOLOGY DEPARTMENT: Ultrasound PERIPHERAL IV DATA: Not applicable SIGNED BY: Vaishnavi Paul RDMS RVT November 26, 2022 11:40 AM [facility] 11-26-2022 History of Presen t illness Narrative Radiology Service Progress Note PATIENT NAME: Juan Sharma DATE OF SERVICE: November 26, 2022 TIME: 11:40 AM PATIENT IDENTITY VERIFICATION COMPLETED USING TWO (2) IDENTIFIERS: Name and Date of confirmed by patient verbally. FALL SCREENING: Has the patient had 2 falls in the last year or 1 fall with injury or currently using an Ambulatory Assistive Device (Walker, Cane, Wheelchair, Crutches, etc.)? No PATIENT GENDER DATA: Male PATIENT RELEVANT IMPLANT DATA REVIEWED: Not Applicable RADIOLOGY DEPARTMENT: Ultrasound PERIPHERAL IV DATA: Not applicable SIGNED BY: Vaishnavi Paul RDMS RVT November 26, 2022 11:40 AM documented in this encounter [facility] 11-23-2022 Miscellaneous Notes Pt's notified of dr's message. transferred to PSS to schedule. Alena Maurice LPN Patient due for repeat US for AAA. This was not ordered at his appointment yesterday. Please notify patient and assist with scheduling. documented in this encounter [facility] 11-22-2022 Note HNO ID: [id number] Author: Sridevi Rodriguez MD Service: ? Author Type: Physician Type: Progress Notes Filed: 11/23/2022 10:29 AM Note Text: Chief Complaint Patient presents with: Follow Up: 6 months HPI Juan Sharma is a 77 year old male who presents here today for Above Complaints. Previous HPI: Accompanied today by who is providing history due to patient's aphasia. BPH: taking Proscar on a daily basis and is getting up 0-2 times at night with good stream. Denies weak stream or incontinence. 1 year follow up in July with urology and will repeat PSA. A fib/mitral valve replacement: Rate controlled on current regimen. Asymptomatic. Taking anticoagulation as prescribed with last INR 3.5. Denies bleeding/bruising. Has follow up appointment with Dr. Freedman in May. AAA stable on US in September. Depression symptoms continue to be improved with Zoloft without side effects. SCOTT: patient switched from CPAP to Bipap by Dr. Loza at about 4-5 months ago. AHI reportedly greatly improved. Has appointment in January of 2023. No recurrent CVA symptoms. Interim: In good health without hospitalizations, ER visits or falls. Follow up appointment with urology in July with PSA of 5.3 which was similar to previous check. No change in symptoms. F/u in 1 year with PSA. Doing well otherwise without change in chronic conditions listed above. Past medical history, appointments, medications, allergies reviewed. Previous Medical History PAST MEDICAL HISTORY Diagnosis Date AAA (abdominal aortic aneurysm) ([facility]) 3.5cm in 2017 Acute, but ill-defined, cerebrovascular disease 08/2003 Aortic valve disorders ATRIAL REGURGITATION Aphasia 2/2 stroke Atrial fibrillation ([facility]) Cardiology Dr. Freedman Benign neoplasm of colon BPH (benign prostatic hyperplasia) Dr. Major Current moderate episode of major depressive disorder without prior episode ([facility]) Dyslipidemia Elevated PSA Urology Raciel Damon History of mitral valve replacement 2014 mechanical valve INR 2.5-3.5 Internal hemorrhoids without mention of complication Mitral stenosis Osteoarthritis hip Sleep apnea Sleep medicine at , on Bipap Stroke ([facility]) 2003 Unspecified constipation Previous Surgical History PAST SURGICAL HISTORY Procedure Laterality Date ARTHRS KNE SURG W/MENISCECTOMY MED/LAT W/SHVG Right 02/27/2016 Right knee scope meniscectomy, PF chondroplasty and medial plica excision COLONOSCOPY W/BIOPSY SINGLE/MULTIPLE 02/23/2006 PAST SURGICAL HISTORY OF 2003 cardio version PAST SURGICAL HISTORY OF 08/2014 Mitral valve replacement PAST SURGICAL HISTORY OF 08/2014 MAZE for A fib RPR 1ST INGUN HRNA AGE 6 YRS/> REDUCIBLE Hernia repair, inguinal SIGMOIDOSCOPY FLX DX W/COLLJ SPEC BR/WA IF PFRMD 02/2000 Sigmoidoscopy, flexible TOTAL HIP JOINT REPLACEMENT Right 09/2016 TOTAL KNEE REPLACEMENT Right 12/10/2020 Family History FAMILY HISTORY Problem Relation Age of Onset Diabetes Mother other (renal failure) Brother Patient Allergies ALLERGIES No Known Allergies Current Medications Current Outpatient Medications on File Prior to Visit Medication Sig folic acid 1 mg tablet Take 2 tablets by mouth once daily. warfarin (COUMADIN) 5 mg tablet Take as directed by Pharmacy Anticoagulation Clinic sertraline (ZOLOFT) 50 mg tablet Take 1 tablet by mouth once daily. warfarin (COUMADIN) 4 mg tablet Take as directed lovastatin (MEVACOR) 40 mg tablet Take 1 tablet by mouth once daily. CPAP Initiate CPAP @ 10 cm of water with humidification. Mask (per patient preference) optional chin strap (if indicated) , filters, tubing, humidifier and lifetime supplies. (Patient taking differently: Initiate CPAP @ 10 cm of water with humidification. Mask (per patient preference) optional chin strap (if indicated) , filters, tubing, humidifier and lifetime supplies. Uses BPAP machine) finasteride (PROSCAR) 5 mg tablet Take 1 tablet by mouth once daily. multivitamin tablet Take 1 tablet by mouth once daily. Current Facility-Administered Medications on File Prior to Visit Medication perflutren lipid microspheres 1.3 mL in NaCl (PF) 0.9% 10 mL injection (DEFINITY) sodium chloride 0.9 % (flush) 10 mL (BD POSIFLUSH) Social History Social History Tobacco Use Smoking status: Former Packs/day: 1.00 Years: 20.00 Pack years: 20.00 Types: Cigarettes, Pipe Quit date: 08/08/1994 Years since quittin.3 Smokeless tobacco: Former Types: Chew Quit date: 08/08/2001 Vaping Use Vaping Use: Never used Substance Use Topics Alcohol use: Yes Comment: Occasionally Drug use: No Review of Symptoms REVIEW OF SYSTEMS GENERAL: No weight loss, malaise or fevers RESPIRATORY: Negative for cough, hemoptysis, wheezing, COPD, dyspnea or shortness of breath CARDIOVASCULAR: Negative for chest pain, leg swelling, hypertension, CHF or palpitations GI: No nausea, (more content not included)... [facility] 11-12-2022 Miscellaneous Notes [facility] Ambulatory Pharmacy Anticoagulation Clinic Anticoagulation Episode Summary Anticoagulation Care Providers Provider Role Specialty Phone number Sridevi Rodriguez MD Family Medicine [phone] Juan Sharma is a 77 year old year old male patient being evaluated today for a Telemanagement visit. Patient is currently on the following anticoagulant(s) Warfarin. Labs PT INR (no units) Date Value 07/02/2022 3.9 biotel 11/06/2021 3.2 biotel 10/23/2021 2.9 INR Home CoaguChek (no units) Date Value 11/12/2022 2.9 10/29/2022 3.2 10/15/2022 2.9 Hemoglobin (g/dL) Date Value 05/24/2022 13.0 11/17/2020 13.2 Hematocrit (%) Date Value 05/24/2022 40.1 11/17/2020 39.9 Platelet Count (k/uL) Date Value 05/24/2022 297 11/17/2020 208 Creatinine (mg/dL) Date Value 05/24/2022 0.94 05/15/2021 1.00 11/17/2020 0.94 05/19/2020 1.02 Bilirubin, Total (mg/dL) Date Value 05/24/2022 0.5 05/15/2021 0.8 ALT (U/L) Date Value 05/24/2022 14 05/15/2021 14 AST (U/L) Date Value 05/24/2022 26 05/15/2021 25 CrCl cannot be calculated (Unknown ideal weight.). 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: Anticoagulation Episode Summary Current INR goal: 2.5-3.5 Assessment: INR result of 2.9 is therapeutic Plan: Current Warfarin Dosing As of 10/29/2022 Full warfarin instructions: 4 mg every Mon, Wed; 5 mg all other days Called and spoke to patient/caregiver spouse Advised patient to continue current weekly dose as noted above Next home INR check scheduled on Patient's caregiver verbalizes understanding of the plan. Harleen Watt RPh Clinical Pharmacist, Pharmacy Anticoagulation Clinic Pharmacy Anticoagulation Clinic Pager: [phone]. documented in this encounter [facility] 10-29-2022 Miscellaneous Notes [facility] Ambulatory Pharmacy Anticoagulation Clinic Anticoagulation Episode Summary Anticoagulation Care Providers Provider Role Specialty Phone number Sridevi Rodriguez MD Family Medicine [phone] Juan Sharma is a 77 year old year old male patient being evaluated today for a Telemanagement visit. Patient is currently on the following anticoagulant(s) Warfarin. Labs PT INR (no units) Date Value 07/02/2022 3.9 biotel 11/06/2021 3.2 biotel 10/23/2021 2.9 INR Home CoaguChek (no units) Date Value 10/29/2022 3.2 10/15/2022 2.9 10/01/2022 2.4 Hemoglobin (g/dL) Date Value 05/24/2022 13.0 11/17/2020 13.2 Hematocrit (%) Date Value 05/24/2022 40.1 11/17/2020 39.9 Platelet Count (k/uL) Date Value 05/24/2022 297 11/17/2020 208 Creatinine (mg/dL) Date Value 05/24/2022 0.94 05/15/2021 1.00 11/17/2020 0.94 05/19/2020 1.02 Bilirubin, Total (mg/dL) Date Value 05/24/2022 0.5 05/15/2021 0.8 ALT (U/L) Date Value 05/24/2022 14 05/15/2021 14 AST (U/L) Date Value 05/24/2022 26 05/15/2021 25 CrCl cannot be calculated (Unknown ideal weight.). 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 Patient denies need for refills. Tabatha Gramajo RPh Clinical Pharmacist, Pharmacy Anticoagulation Clinic Pharmacy Antico[facility] Clinic Pager: [phone]. documented in this encounter [facility] 10-15-2022 Miscellaneous Notes [facility] Ambulatory Pharmacy Anticoagulation Clinic Anticoagulation Episode Summary Anticoagulation Care Providers Provider Role Specialty Phone number Sridevi Rodriguez MD Family Medicine [phone] Juan Sharma is a 77 year old year old male patient being evaluated today for a Telemanagement visit. Patient is currently on the following anticoagulant(s) Warfarin. Labs PT INR (no units) Date Value 07/02/2022 3.9 biotel 11/06/2021 3.2 biotel 10/23/2021 2.9 INR Home CoaguChek (no units) Date Value 10/15/2022 2.9 10/01/2022 2.4 09/17/2022 3.1 Hemoglobin (g/dL) Date Value 05/24/2022 13.0 11/17/2020 13.2 Hematocrit (%) Date Value 05/24/2022 40.1 11/17/2020 39.9 Platelet Count (k/uL) Date Value 05/24/2022 297 11/17/2020 208 Creatinine (mg/dL) Date Value 05/24/2022 0.94 05/15/2021 1.00 11/17/2020 0.94 05/19/2020 1.02 Bilirubin, Total (mg/dL) Date Value 05/24/2022 0.5 05/15/2021 0.8 ALT (U/L) Date Value 05/24/2022 14 05/15/2021 14 AST (U/L) Date Value 05/24/2022 26 05/15/2021 25 CrCl cannot be calculated (Unknown ideal weight.). 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: Permanent atrial fibrillation (hcc) shelter (current) use of anticoagulants S/p mvr (mitral valve replacement) Anticoagulation Episode Summary Current INR goal: 2.5-3.5 Assessment: INR result of 2.9 is therapeutic Plan: Current Warfarin Dosing As of 10/15/2022 Full warfarin instructions: 4 mg every Mon, Wed, Fri; 5 mg all other days Called and spoke to patient/caregiver Advised patient to continue current weekly dose as noted above - patient was taking 5mg every Tuesday Next home INR check scheduled on 10/29/2022 Patient's caregiver verbalizes understanding of the plan. Patient denies need for refills. Tabatha Gramajo RPh Clinical Pharmacist, Pharmacy Anticoagulation Clinic Pharmacy Anticoagulation Clinic Pager: [phone]. documented in this encounter [facility] 09-06-2022 Miscellaneous Notes Last office visit: 05/24/22 F/u scheduled: 11/22/22 Fatuma Torres Ma documented in this encounter [facility] 09-03-2022 Miscellaneous Notes [facility] Ambulatory Pharmacy Anticoagulation Clinic Anticoagulation Episode Summary Anticoagulation Care Providers Provider Role Specialty Phone number Sridevi Rodriguez MD Family Medicine [phone] Juan Sharma is a 77 year old year old male patient being evaluated today for a Telemanagement visit. Patient is currently on the following anticoagulant(s) Warfarin. Labs PT INR (no units) Date Value 07/02/2022 3.9 biotel 11/06/2021 3.2 biotel 10/23/2021 2.9 INR Home CoaguChek (no units) Date Value 09/03/2022 2.6 08/20/2022 2.8 08/06/2022 2.7 Hemoglobin (g/dL) Date Value 05/24/2022 13.0 11/17/2020 13.2 Hematocrit (%) Date Value 05/24/2022 40.1 11/17/2020 39.9 Platelet Count (k/uL) Date Value 05/24/2022 297 11/17/2020 208 Creatinine (mg/dL) Date Value 05/24/2022 0.94 05/15/2021 1.00 11/17/2020 0.94 05/19/2020 1.02 Bilirubin, Total (mg/dL) Date Value 05/24/2022 0.5 05/15/2021 0.8 ALT (U/L) Date Value 05/24/2022 14 05/15/2021 14 AST (U/L) Date Value 05/24/2022 26 05/15/2021 25 Estimated Creatinine Clearance: 62.5 mL/min (based on SCr of 0.94 mg/dL). 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: Permanent atrial fibrillation (hcc) shelter (current) use of anticoagulants S/p mvr (mitral valve replacement) Anticoagulation Episode Summary Current INR goal: 2.5-3.5 Assessment: INR result of 2.6 is therapeutic Plan: Current Warfarin Dosing As of 09/03/2022 Full warfarin instructions: 4 mg every Mon, Wed, Fri; 5 mg all other days; Starting 09/03/2022 Left voice message Advised patient to continue current weekly dose as noted above Next home INR check scheduled on 09/17/2022 Tabatha Gramajo RPh Clinical Pharmacist, Pharmacy Anticoagulation Clinic Pharmacy Anticoagulation Clinic Pager: [phone]. documented in this encounter [facility] 08-20-2022 Miscellaneous Notes [facility] Ambulatory Pharmacy Anticoagulation Clinic Anticoagulation Episode Summary Anticoagulation Care Providers Provider Role Specialty Phone number Sridevi Rodriguez MD Family Medicine [phone] Juan Sharma is a 77 year old year old male patient being evaluated today for a Telemanagement visit. Patient is currently on the following anticoagulant(s) Warfarin. Labs PT INR (no units) Date Value 07/02/2022 3.9 biotel 11/06/2021 3.2 biotel 10/23/2021 2.9 INR Home CoaguChek (no units) Date Value 08/20/2022 2.8 08/06/2022 2.7 07/23/2022 3.0 Hemoglobin (g/dL) Date Value 05/24/2022 13.0 11/17/2020 13.2 Hematocrit (%) Date Value 05/24/2022 40.1 11/17/2020 39.9 Platelet Count (k/uL) Date Value 05/24/2022 297 11/17/2020 208 Creatinine (mg/dL) Date Value 05/24/2022 0.94 05/15/2021 1.00 11/17/2020 0.94 05/19/2020 1.02 Bilirubin, Total (mg/dL) Date Value 05/24/2022 0.5 05/15/2021 0.8 ALT (U/L) Date Value 05/24/2022 14 05/15/2021 14 AST (U/L) Date Value 05/24/2022 26 05/15/2021 25 Estimated Creatinine Clearance: 62.5 mL/min (based on SCr of 0.94 mg/dL). 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 Patient denies need for refills. Tabatha Gramajo RPh Clinical Pharmacist, Pharmacy Anticoagulation Clinic Pharmacy Anticoagulation Clinic Pager: [phone]. documented in this encounter [facility] 08-06-2022 Miscellaneous Notes [facility] Ambulatory Pharmacy Anticoagulation Clinic Anticoagulation Episode Summary Anticoagulation Care Providers Provider Role Specialty Phone number Sridevi Rodriguez MD Family Medicine [phone] Juan Sharma is a 77 year old year old male patient being evaluated today for a Telemanagement visit. Patient is currently on the following anticoagulant(s) Warfarin. Labs PT INR (no units) Date Value 07/02/2022 3.9 biotel 11/06/2021 3.2 biotel 10/23/2021 2.9 INR Home CoaguChek (no units) Date Value 08/06/2022 2.7 07/23/2022 3.0 07/09/2022 3.0 Hemoglobin (g/dL) Date Value 05/24/2022 13.0 11/17/2020 13.2 Hematocrit (%) Date Value 05/24/2022 40.1 11/17/2020 39.9 Platelet Count (k/uL) Date Value 05/24/2022 297 11/17/2020 208 Creatinine (mg/dL) Date Value 05/24/2022 0.94 05/15/2021 1.00 11/17/2020 0.94 05/19/2020 1.02 Bilirubin, Total (mg/dL) Date Value 05/24/2022 0.5 05/15/2021 0.8 ALT (U/L) Date Value 05/24/2022 14 05/15/2021 14 AST (U/L) Date Value 05/24/2022 26 05/15/2021 25 Estimated Creatinine Clearance: 62.5 mL/min (based on SCr of 0.94 mg/dL). 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 documented in this encounter [facility] 07-23-2022 Miscellaneous Notes [facility] Ambulatory Pharmacy Anticoagulation Clinic Anticoagulation Episode Summary Anticoagulation Care Providers Provider Role Specialty Phone number Sridevi Rodriguez MD Family Medicine [phone] Juan Sharma is a 77 year old year old male patient being evaluated today for a Telemanagement visit. Patient is currently on the following anticoagulant(s) Warfarin. Labs PT INR (no units) Date Value 07/02/2022 3.9 biotel 11/06/2021 3.2 biotel 10/23/2021 2.9 INR Home CoaguChek (no units) Date Value 07/23/2022 3.0 07/09/2022 3.0 07/02/2022 3.9 Hemoglobin (g/dL) Date Value 05/24/2022 13.0 11/17/2020 13.2 Hematocrit (%) Date Value 05/24/2022 40.1 11/17/2020 39.9 Platelet Count (k/uL) Date Value 05/24/2022 297 11/17/2020 208 Creatinine (mg/dL) Date Value 05/24/2022 0.94 05/15/2021 1.00 11/17/2020 0.94 05/19/2020 1.02 Bilirubin, Total (mg/dL) Date Value 05/24/2022 0.5 05/15/2021 0.8 ALT (U/L) Date Value 05/24/2022 14 05/15/2021 14 AST (U/L) Date Value 05/24/2022 26 05/15/2021 25 Estimated Creatinine Clearance: 62.5 mL/min (based on SCr of 0.94 mg/dL). 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 documented in this encounter [facility] 07-10-2022 Miscellaneous Notes Patient phones requesting refills as follows: Requested Prescriptions Pending Prescriptions Disp Refills sertraline (ZOLOFT) 50 mg tablet 30 tablet 5 Sig: Take 1 tablet by mouth once daily. RAFY 05/24/22 NOV 11/22/22 Please review and advise. Ruy Shaikh LPN documented in this encounter [facility] 07-09-2022 Miscellaneous Notes [facility] Ambulatory Pharmacy Anticoagulation Clinic Anticoagulation Episode Summary Anticoagulation Care Providers Provider Role Specialty Phone number Sridevi Rodriguez MD Family Medicine [phone] Juan Sharma is a 77 year old year old male patient being evaluated today for a Telemanagement visit. Patient is currently on the following anticoagulant(s) Warfarin. Labs PT INR (no units) Date Value 07/02/2022 3.9 biotel 11/06/2021 3.2 biotel 10/23/2021 2.9 INR Home CoaguChek (no units) Date Value 07/09/2022 3.0 07/02/2022 3.9 06/18/2022 3.3 Hemoglobin (g/dL) Date Value 05/24/2022 13.0 11/17/2020 13.2 Hematocrit (%) Date Value 05/24/2022 40.1 11/17/2020 39.9 Platelet Count (k/uL) Date Value 05/24/2022 297 11/17/2020 208 Creatinine (mg/dL) Date Value 05/24/2022 0.94 05/15/2021 1.00 11/17/2020 0.94 05/19/2020 1.02 Bilirubin, Total (mg/dL) Date Value 05/24/2022 0.5 05/15/2021 0.8 ALT (U/L) Date Value 05/24/2022 14 05/15/2021 14 AST (U/L) Date Value 05/24/2022 26 05/15/2021 25 Estimated Creatinine Clearance: 62.5 mL/min (based on SCr of 0.94 mg/dL). 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 Patient denies need for refills. Tabatha Gramajo RPh Clinical Pharmacist, Pharmacy Anticoagulation Clinic Pharmacy Anticoagulation Clinic Pager: [phone]. documented in this encounter [facility] 06-18-2022 Miscellaneous Notes [facility] Ambulatory Pharmacy Anticoagulation Clinic Anticoagulation Episode Summary Anticoagulation Care Providers Provider Role Specialty Phone number Sridevi Rodriguez MD Family Medicine [phone] Juan Sharma is a 77 year old year old male patient being evaluated today for a Telemanagement visit. Patient is currently on the following anticoagulant(s) Warfarin. Labs PT INR (no units) Date Value 11/06/2021 3.2 biotel 10/23/2021 2.9 09/11/2021 2.8 INR Home CoaguChek (no units) Date Value 06/18/2022 3.3 06/03/2022 3.6 05/21/2022 3.5 Hemoglobin (g/dL) Date Value 05/24/2022 13.0 11/17/2020 13.2 Hematocrit (%) Date Value 05/24/2022 40.1 11/17/2020 39.9 Platelet Count (k/uL) Date Value 05/24/2022 297 11/17/2020 208 Creatinine (mg/dL) Date Value 05/24/2022 0.94 05/15/2021 1.00 11/17/2020 0.94 05/19/2020 1.02 Bilirubin, Total (mg/dL) Date Value 05/24/2022 0.5 05/15/2021 0.8 ALT (U/L) Date Value 05/24/2022 14 05/15/2021 14 AST (U/L) Date Value 05/24/2022 26 05/15/2021 25 Estimated Creatinine Clearance: 62.5 mL/min (based on SCr of 0.94 mg/dL). 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 documented in this encounter [facility] 06-07-2022 History of Presen t illness Narrative Images from the original note were not included. Laurel Freedman MD Interventional Cardiology [facility] [address], [place] [address] [phone] Chief Complaint Patient presents with: Follow Up HISTORY OF PRESENT ILLNESS: Mr. Sharma is a 77 year old male seen in my office for follow-up patient had prior history of rheumatic mitral valve disease with mechanical [facility] Rashad #33 replacement in 2014 at that time he had cryo maze for left atrium and left atrial appendage closure his prior history complicated by stroke with right-sided hemiparesis Maintained in nature of on Coumadin Asymptomatic from the cardiac point of view denies any symptoms or signs of congestive heart failure Cardiac Risk Factors age (male over 45, female over 55), hyperlipidemia, family history of CAD PAST MEDICAL HISTORY Diagnosis Date AAA (abdominal aortic aneurysm) 3.5cm in 2017 Acute, but ill-defined, cerebrovascular disease 08/2003 Aortic valve disorders ATRIAL REGURGITATION Aphasia 2/2 stroke Atrial fibrillation ([facility]) Cardiology Dr. Freedman Benign neoplasm of colon BPH (benign prostatic hyperplasia) Dr. Major Current moderate episode of major depressive disorder without prior episode ([facility]) Dyslipidemia Elevated PSA Urology Raciel Damon History of mitral valve replacement 2014 mechanical valve INR 2.5-3.5 Internal hemorrhoids without mention of complication Mitral stenosis Osteoarthritis hip Sleep apnea Sleep medicine at , on Bipap Stroke ([facility]) 2003 Unspecified constipation PAST SURGICAL HISTORY Procedure Laterality Date ARTHRS KNE SURG W/MENISCECTOMY MED/LAT W/SHVG Right 02/27/2016 Right knee scope meniscectomy, PF chondroplasty and medial plica excision COLONOSCOPY W/BIOPSY SINGLE/MULTIPLE 02/23/2006 PAST SURGICAL HISTORY OF 2003 cardio version PAST SURGICAL HISTORY OF 08/2014 Mitral valve replacement PAST SURGICAL HISTORY OF 08/2014 MAZE for A fib RPR 1ST INGUN HRNA AGE 5 YRS/> REDUCIBLE Hernia repair, inguinal SIGMOIDOSCOPY FLX DX W/COLLJ SPEC BR/WA IF PFRMD 02/2000 Sigmoidoscopy, flexible TOTAL HIP JOINT REPLACEMENT Right 09/2016 TOTAL KNEE REPLACEMENT Right 12/10/2020 FAMILY HISTORY Problem Relation Age of Onset Diabetes Mother other (renal failure) Brother Social History Tobacco Use Smoking status: Former Packs/day: 1.00 Years: 20.00 Pack years: 20.00 Types: Cigarettes, Pipe Quit date: 08/08/1994 Years since quittin.8 Smokeless tobacco: Former Types: Chew Quit date: 08/08/2001 Vaping Use Vaping Use: Never used Substance Use Topics Alcohol use: Yes Comment: Occasionally Drug use: No ALLERGIES No Known Allergies Medications: Current Outpatient Medications Medication Sig Dispense Refill lovastatin (MEVACOR) 40 mg tablet Take 1 tablet by mouth once daily. 90 tablet 3 warfarin (COUMADIN) 5 mg tablet Take as directed by Pharmacy Anticoagulation Clinic folic acid 1 mg tablet Take 2 tablets by mouth once daily. 180 tablet 1 sertraline (ZOLOFT) 50 mg tablet Take 1 tablet by mouth once daily. 30 tablet 5 warfarin (COUMADIN) 4 mg tablet Take as directed CPAP Initiate CPAP @ 10 cm of water with humidification. Mask (per patient preference) optional chin strap (if indicated) , filters, tubing, humidifier and lifetime supplies. (Patient taking differently: Initiate CPAP @ 10 cm of water with humidification. Mask (per patient preference) optional chin strap (if indicated) , filters, tubing, humidifier and lifetime supplies. Uses BPAP machine) finasteride (PROSCAR) 5 mg tablet Take 1 tablet by mouth once daily. 90 tablet 3 multivitamin tablet Take 1 tablet by mouth once daily. Current Facility-Administered Medications Medication Dose Route Frequency Provider Last Rate Last Admin perflutren lipid microspheres 1.3 mL in NaCl (PF) 0.9% 10 mL injection (DEFINITY) INTRAVENOUS DIRECTED JIMENEZ Freedman MD sodium chloride 0.9 % (flush) 10 mL (BD POSIFLUSH) 10 mL INTRAVENOUS DIRECTED JIMENEZ Freedman MD Review of Systems Constitutional: Negative for chills, diaphoresis, fever, malaise/fatigue and weight loss. HENT: Negative for congestion, ear discharge, ear pain, hearing loss, nosebleeds, sinus pain, sore throat and tinnitus. Eyes: Negative for blurred vision, double vision, photophobia, pain, discharge and redness. Respiratory: Negative for cough, hemoptysis, sputum production, shortness of breath, wheezing and stridor. Cardiovascular: Negative for chest pain, palpitations, orthopnea, claudication, leg swelling and PND. Gastrointestinal: Negative for abdominal pain, blood in stool, constipation, diarrhea, heartburn, melena, nausea and vomiting. Genitourinary: Negative for dysuria, flank pain, frequency, hematuria and urgency. Musculoskeletal: Negative for back pain, falls, joint pain, myalgias and neck pain. Skin: Negative for itching and rash. Neurological: Negative for dizziness, tingling, tremors, sensory change, speech change, focal weakness, seizures, loss of consciousness, weakness and headaches. Endo/Heme/Allergies: Negative for environmental allergies and polydipsia. Does not bruise/bleed easily. Psychiatric/Behavioral: Negative for depression, hallucinations, memory loss, substance abuse and suicidal ideas. The patient is not nervous/anxious and does not have insomnia. Physical Examination: Vitals:BP 104/70 Pulse 68 Resp 14 Ht 5' 7 (1.70m) Wt 151 lb (68.5kg) SpO2 96% BMI 23.64 kg/(m^2). BP w/Orthostatic Vitals Date and Time Orthostatic BP Orthostatic Pulse BP Pulse BP Position BP Site BP Cuff Size 06/07/22923 -- -- 104/70 68 Sitting Right Arm Large Adult Peak Flow Date and Time PF Resp 06/07/22923 -- 14 Last 2 Encounter Wt Readings: Date: Wt: 06/07/2022 68.5 kg (151 lb) 05/24/2022 68.5 kg (151 lb) Physical Exam Constitutional: General: He is not in acute distress. Appearance: He is not diaphoretic. HENT: Head: Normocephalic and atraumatic. Right Ear: External ear normal. Left Ear: External ear normal. Nose: Nose normal. Mouth/Throat: Pharynx: Oropharynx is clear. Eyes: General: Right eye: No discharge. Left eye: No discharge. Conjunctiva/sclera: Conjunctivae normal. Pupils: Pupils are equal, round, and reactive to light. Cardiovascular: Rate and Rhythm: Normal rate. Rhythm irregular. Heart sounds: Normal heart sounds, S1 normal and S2 normal. No murmur heard. No friction rub. No gallop. No S3 or S4 sounds. Pulmonary: Effort: Pulmonary effort is normal. No respiratory distress. Breath sounds: Normal breath sounds. No wheezing or rales. Chest: Chest wall: No tenderness. Musculoskeletal: General: Normal range of motion. Cervical back: Normal range of motion and neck supple. Skin: General: Skin is warm and dry. Neurological: Mental Status: He is alert and oriented to person, place, and time. Psychiatric: Mood and Affect: Mood normal. Thought Content: Thought content normal. Judgment: Judgment normal. Pertinent Labs: CBC: Hemoglobin (g/dL) Date Value 05/24/2022 13.0 11/17/2020 13.2 Hematocrit (%) Date Value 05/24/2022 40.1 11/17/2020 39.9 WBC (k/uL) Date Value 05/24/2022 7.61 11/17/2020 5.41 Platelet Count (k/uL) Date Value 05/24/2022 297 11/17/2020 208 BMP: Glucose (mg/dL) Date Value 05/24/2022 91 05/15/2021 99 Potassium (mmol/L) Date Value 05/24/2022 4.6 05/15/2021 4.5 Sodium (mmol/L) Date Value 05/24/2022 138 05/15/2021 140 Chloride (mmol/L) Date Value 05/24/2022 102 05/15/2021 104 CO2 (mmol/L) Date Value 05/24/2022 27 05/15/2021 28 Creatinine (mg/dL) Date Value 05/24/2022 0.94 05/15/2021 1.00 BUN (mg/dL) Date Value 05/24/2022 28 05/15/2021 23 Anion Gap (mmol/L) Date Value 05/24/2022 9 05/15/2021 8 Calcium (mg/dL) Date Value 05/15/2021 9.1 Calcium, Total (mg/dL) Date Value 05/24/2022 9.3 INR: Lipid Profile: Total Cholesterol, Nonfasting Date Value Ref Range Status 05/24/2022 156 <200 mg/dL Final Comment: <200 mg/dL, Desirable 200-239 mg/dL, Borderline high >239 mg/dL, High HDL Cholesterol, Nonfasting Date Value Ref Range Status 05/24/2022 56 >39 mg/dL Final Comment: 40-59 mg/dL, Acceptable >59 mg/dL, High: Negative risk factor for coronary heart disease <40 mg/dL, Low: Positive risk factor for coronary heart disease LDL Cholesterol, Nonfasting Date Value Ref Range Status 05/24/2022 86 <100 mg/dL Final Comment: <100 mg/dL, Optimal 100-129 mg/dL, Near optimal/above optimal 130-159 mg/dL, Borderline high 160-189 mg/dL, High >189 mg/dL, Very high Secondary prevention optimal LDL Cholesterol levels are recommended to be < 70 mg/dL Triglycerides, Nonfasting Date Value Ref Range Status 05/24/2022 68 <150 mg/dL Final Comment: <150 mg/dL, Normal 150-199 mg/dL, Borderline high 200-499 mg/dL, High >499 mg/dL, Very high Hemoglobin A1C: No results found for: HGBA1C TSH: No results found for: TSHREFL Prior Cardiac Testing echo Assessment and Plan: 77 years old gentleman prior history of mitral valve replacement for rheumatic mitral stenosis Mitral valve replacement Mechanical Saint Rashad #33 in 2014 Echo October 2020 showed normal function valve Continue with anticoagulation 2. Atrial fibrillation Chronic atrial fib Does not required any rate limiting medication Prior history of cryo maze and left atrial appendage closure surgically Follow up planning: Yearly. Electronically signed by Laurel Freedman MD on June 07, 2022, 9:44 AM The above note was partially created using a dictation recognition software. A reasonable attempt has been made to correct any errors. documented in this encounter [facility] 06-07-2022 Nurse Note upset with answering some of the family history questions and did not complete intake due to. Hilaria Robert LPN documented in this encounter [facility] 06-04-2022 Miscellaneous Notes [facility] Ambulatory Pharmacy Anticoagulation Clinic Anticoagulation Episode Summary Anticoagulation Care Providers Provider Role Specialty Phone number Sridevi Rodriguez MD Family Medicine [phone] Juan Sharma is a 77 year old year old male patient being evaluated today for a Telemanagement visit. Patient is currently on the following anticoagulant(s) Warfarin. Labs PT INR (no units) Date Value 11/06/2021 3.2 biotel 10/23/2021 2.9 09/11/2021 2.8 INR Home CoaguChek (no units) Date Value 06/03/2022 3.6 05/21/2022 3.5 05/07/2022 4.0 Hemoglobin (g/dL) Date Value 05/24/2022 13.0 11/17/2020 13.2 Hematocrit (%) Date Value 05/24/2022 40.1 11/17/2020 39.9 Platelet Count (k/uL) Date Value 05/24/2022 297 11/17/2020 208 Creatinine (mg/dL) Date Value 05/24/2022 0.94 05/15/2021 1.00 11/17/2020 0.94 05/19/2020 1.02 Bilirubin, Total (mg/dL) Date Value 05/24/2022 0.5 05/15/2021 0.8 ALT (U/L) Date Value 05/24/2022 14 05/15/2021 14 AST (U/L) Date Value 05/24/2022 26 05/15/2021 25 CrCl cannot be calculated (Unknown ideal weight.). 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: Permanent atrial fibrillation (hcc) shelter (current) use of anticoagulants S/p mvr (mitral valve replacement) Anticoagulation Episode Summary Current INR goal: 2.5-3.5 Assessment: INR result of 3.6 is SUPRAtherapeutic due to: No obvious cause Plan: Current Warfarin Dosing As of 06/04/2022 Full warfarin instructions: 4 mg every Mon, Fri; 5 mg all other days Called and spoke to patient/caregiver - , Shea Advised patient to decrease total weekly regimen Next home INR check scheduled on 06/18/2022 Patient's caregiver verbalizes understanding of the plan. Patient denies need for refills. Tabatha Gramajo RPh Clinical Pharmacist, Pharmacy Anticoagulation Clinic Pharmacy Anticoagulation Clinic Pager: [phone]. documented in this encounter [facility] 05-24-2022 History of Presen t illness Narrative Chief Complaint Patient presents with: Follow Up: 6 month HPI Juan Sharma is a 77 year old male who presents here today for 6 month follow up. Accompanied today by who is providing history due to patient's aphasia. BPH: taking Proscar on a daily basis and is getting up 0-2 times at night with good stream. Denies weak stream or incontinence. 1 year follow up in July with urology and will repeat PSA. A fib/mitral valve replacement: Rate controlled on current regimen. Asymptomatic. Taking anticoagulation as prescribed with last INR 3.5. Denies bleeding/bruising. Has follow up appointment with Dr. Freedman in May. AAA stable on US in September. Depression symptoms continue to be improved with Zoloft without side effects. SCOTT: patient switched from CPAP to Bipap by Dr. Loza at about 4-5 months ago. AHI reportedly greatly improved. Has appointment in January of 2023. No recurrent CVA symptoms. Past medical history, appointments, medications, allergies reviewed. Previous Medical History PAST MEDICAL HISTORY Diagnosis Date AAA (abdominal aortic aneurysm) 3.5cm in 2017 Acute, but ill-defined, cerebrovascular disease 08/2003 Aortic valve disorders ATRIAL REGURGITATION Aphasia 2/2 stroke Atrial fibrillation (HCC) Cardiology Dr. Freedman Benign neoplasm of colon BPH (benign prostatic hyperplasia) Dr. Major Current moderate episode of major depressive disorder without prior episode (HCC) Dyslipidemia Elevated PSA Urology Raciel Damon History of mitral valve replacement 2014 mechanical valve INR 2.5-3.5 Internal hemorrhoids without mention of complication Mitral stenosis Osteoarthritis hip Sleep apnea Stroke (HCC) 2003 Unspecified constipation Previous Surgical History PAST SURGICAL HISTORY Procedure Laterality Date ARTHRS KNE SURG W/MENISCECTOMY MED/LAT W/SHVG Right 02/27/2016 Right knee scope meniscectomy, PF chondroplasty and medial plica excision COLONOSCOPY W/BIOPSY SINGLE/MULTIPLE 02/23/2006 PAST SURGICAL HISTORY OF 2003 cardio version PAST SURGICAL HISTORY OF 08/2014 Mitral valve replacement PAST SURGICAL HISTORY OF 08/2014 MAZE for A fib RPR 1ST INGUN HRNA AGE 6 YRS/> REDUCIBLE Hernia repair, inguinal SIGMOIDOSCOPY FLX DX W/COLLJ SPEC BR/WA IF PFRMD 02/2000 Sigmoidoscopy, flexible TOTAL HIP JOINT REPLACEMENT Right 09/2016 TOTAL KNEE REPLACEMENT Right 12/10/2020 Family History FAMILY HISTORY Problem Relation Age of Onset Diabetes Mother other (renal failure) Brother Patient Allergies ALLERGIES No Known Allergies Current Medications Current Outpatient Medications on File Prior to Visit Medication Sig lovastatin (MEVACOR) 40 mg tablet Take 1 tablet by mouth once daily. warfarin (COUMADIN) 5 mg tablet Take as directed by Pharmacy Anticoagulation Clinic folic acid 1 mg tablet Take 2 tablets by mouth once daily. sertraline (ZOLOFT) 50 mg tablet Take 1 tablet by mouth once daily. warfarin (COUMADIN) 4 mg tablet Take as directed CPAP Initiate CPAP @ 10 cm of water with humidification. Mask (per patient preference) optional chin strap (if indicated) , filters, tubing, humidifier and lifetime supplies. finasteride (PROSCAR) 5 mg tablet Take 1 tablet by mouth once daily. multivitamin tablet Take 1 tablet by mouth once daily. No current facility-administered medications on file prior to visit. Social History Social History Tobacco Use Smoking status: Former Packs/day: 1.00 Years: 20.00 Pack years: 20.00 Types: Cigarettes, Pipe Quit date: 08/08/1994 Years since quittin.8 Smokeless tobacco: Former Types: Chew Quit date: 08/08/2001 Substance Use Topics Alcohol use: Yes Comment: Occasionally Drug use: No Review of Symptoms REVIEW OF SYSTEMS GENERAL: No weight loss, malaise or fevers RESPIRATORY: Negative for cough, hemoptysis, wheezing, COPD, dyspnea or shortness of breath CARDIOVASCULAR: Negative for chest pain, leg swelling, hypertension, CHF or palpitations GI: No nausea, vomiting, or diarrhea SKIN: Negative for lesions, rash, and itching EXAM: BP 108/70 Pulse 73 Resp 16 Wt 68.5 kg (151 lb) SpO2 98% BMI 23.65 kg/m General Appearance: Well appearing, alert, in no acute distress, well-hydrated, well nourished.. Skin: Skin color, texture, turgor normal, no suspicious rashes or lesions. Lungs: Lungs clear to auscultation. No wheezing, rhonchi, rales.. Heart: irregularly irregular, normal rate. No RGM. Abdomen: Normal abdominal exam, Abdomen soft, non-tender. Bowel sounds normal. No masses, organomegaly. Extremities: No deformities, edema, skin discoloration, clubbing or cyanosis. Good capillary refill. . Health Maintenance List SHINGRIX VACCINE(1 of 2) Never done FECAL OCCULT BLOOD due on 08/26/2020 DTAP,TDAP,TD(3 - Td or Tdap) due on 11/04/2020 ADVANCE DIRECTIVE DISCUSSION Never done COVID-19 VACCINE(5 - Booster for Moderna series) due on 01/21/2022 DIABETES SCREEN due on 05/15/2024 INFLUENZA Completed HEPATITIS C SCREENING Completed PNEUMOCOCCAL: 65+ Completed ASSESSMENT/PLAN: 1. Permanent atrial fibrillation (HCC) - ICD9: 427.31, ICD10: I48.21 (primary diagnosis) Rate controlled on current regimen. Continue beta miguel, statin, and Coumadin. F/u with cardiology as recommended. - CBC 2. Aphasia as late effect of cerebrovascular accident - ICD9: 438.11, ICD10: I69.320 Chronic 2/2 CVA. Stable. Will monitor. 3. Benign prostatic hyperplasia, unspecified whether lower urinary tract symptoms present - ICD9: 600.00, ICD10: N40.0 Symptoms unchanged on current regimen. 4. Mixed hyperlipidemia - ICD9: 272.2, ICD10: E78.2 - to be determined upon return of lab results - Continue current medication. - Encouraged following a low fat, low cholesterol diet. - Discussed the benefits of regular aerobic exercise and weight loss. - COMP METABOLIC PANEL - LIPID PANEL, NONFASTING 5. Obstructive sleep apnea syndrome - ICD9: 327.23, ICD10: G47.33 Improved AHI on bipap per . Obtain records from sleep medicine. Continue nightly Bipap. 6. Current moderate episode of major depressive disorder without prior episode (HCC) - ICD9: 296.22, ICD10: F32.1 Controlled on zoloft. 7. shelter (current) use of anticoagulants - ICD9: V58.61, ICD10: Z79.01 Last INR in good range. Monitored by pharmacy. Sridevi Rodriguez MD documented in this encounter [facility] 05-21-2022 Miscellaneous Notes [facility] Ambulatory Pharmacy Anticoagulation Clinic Anticoagulation Episode Summary Anticoagulation Care Providers Provider Role Specialty Phone number Sridevi Rodriguez MD Family Medicine [phone] Juan Sharma is a 77 year old year old male patient being evaluated today for a Telemanagement visit. Patient is currently on the following anticoagulant(s) Warfarin. Labs PT INR (no units) Date Value 11/06/2021 3.2 biotel 10/23/2021 2.9 09/11/2021 2.8 INR Home CoaguChek (no units) Date Value 05/21/2022 3.5 05/07/2022 4.0 04/23/2022 4.2 Hemoglobin (g/dL) Date Value 11/17/2020 13.2 Hematocrit (%) Date Value 11/17/2020 39.9 Platelet Count (k/uL) Date Value 11/17/2020 208 Creatinine (mg/dL) Date Value 05/15/2021 1.00 11/17/2020 0.94 05/19/2020 1.02 Bilirubin, Total (mg/dL) Date Value 05/15/2021 0.8 ALT (U/L) Date Value 05/15/2021 14 AST (U/L) Date Value 05/15/2021 25 CrCl cannot be calculated (Patient's most recent lab result is older than the maximum 180 days allowed.). 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: Permanent atrial fibrillation (hcc) shelter (current) use of anticoagulants S/p mvr (mitral valve replacement) Anticoagulation Episode Summary Current INR goal: 2.5-3.5 Assessment: INR result of 3.5 is therapeutic Plan: Current Warfarin Dosing As of 05/21/2022 Full warfarin instructions: 4 mg every Mon; 5 mg all other days Left voice message Advised patient to continue current weekly dose as noted above Next home INR check scheduled on 06/04/2022 Tabatha Gramajo RPh Clinical Pharmacist, Pharmacy Anticoagulation Clinic Pharmacy Anticoagulation Clinic Pager: [phone]. documented in this encounter [facility] 05-14-2022 Miscellaneous Notes Patient has been identified by name and date of : Yes Patient phones for refill(s): Requested Prescriptions Pending Prescriptions Disp Refills lovastatin (MEVACOR) 40 mg tablet 90 tablet 3 Sig: Take 1 tablet by mouth once daily. Date of last office visit in primary care: 11/20/21 next apt 05/24/22 Last 2 Encounter Wt Readings: Date: Wt: 11/20/2021 67.9 kg (149 lb 12.8 oz) 08/21/2021 67.1 kg (148 lb) Previous labs/tests for medication: Cholesterol: HDL Cholesterol (mg/dL) Date Value 05/15/2021 57 LDL Cholesterol (mg/dL) Date Value 05/15/2021 67 ALT (U/L) Date Value 05/15/2021 14 Non HDL Cholesterol, Nonfasting (mg/dL) Date Value 05/19/2020 81 Non HDL Cholesterol (mg/dL) Date Value 05/15/2021 81 Thank you. Enma Moore LPN documented in this encounter [facility] 05-07-2022 Miscellaneous Notes [facility] Ambulatory Pharmacy Anticoagulation Clinic Anticoagulation Episode Summary Anticoagulation Care Providers Provider Role Specialty Phone number Sridevi Rodriguez MD Family Medicine [phone] Juan Sharma is a 77 year old year old male patient being evaluated today for a Telemanagement visit. Patient is currently on the following anticoagulant(s) Warfarin. Labs PT INR (no units) Date Value 11/06/2021 3.2 biotel 10/23/2021 2.9 09/11/2021 2.8 INR Home CoaguChek (no units) Date Value 05/07/2022 4.0 04/23/2022 4.2 04/09/2022 3.5 Hemoglobin (g/dL) Date Value 11/17/2020 13.2 Hematocrit (%) Date Value 11/17/2020 39.9 Platelet Count (k/uL) Date Value 11/17/2020 208 Creatinine (mg/dL) Date Value 05/15/2021 1.00 11/17/2020 0.94 05/19/2020 1.02 Bilirubin, Total (mg/dL) Date Value 05/15/2021 0.8 ALT (U/L) Date Value 05/15/2021 14 AST (U/L) Date Value 05/15/2021 25 CrCl cannot be calculated (Patient's most recent lab result is older than the maximum 180 days allowed.). 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: Permanent atrial fibrillation (hcc) shelter (current) use of anticoagulants S/p mvr (mitral valve replacement) Anticoagulation Episode Summary Current INR goal: 2.5-3.5 Assessment: INR result of 4.0 is SUPRAtherapeutic due to: No obvious cause Plan: Current Warfarin Dosing As of 05/07/2022 Full warfarin instructions: 05/07: 2 mg; Otherwise 4 mg every Mon; 5 mg all other days Called and spoke to patient/caregiver - , Shea Advised patient to decrease dose for 1 day only then resume weekly regimen Next home INR check scheduled on 05/21/2022 Patient's caregiver verbalizes understanding of the plan. Patient denies need for refills. Tabatha Gramajo RPh Clinical Pharmacist, Pharmacy Anticoagulation Clinic Pharmacy Anticoagulation Clinic Pager: [phone]. documented in this encounter [facility] 04-23-2022 Miscellaneous Notes [facility] Ambulatory Pharmacy Anticoagulation Clinic Anticoagulation Episode Summary Anticoagulation Care Providers Provider Role Specialty Phone number Sridevi Rodriguez MD [facility] [phone] Juan Sharma is a 77 year old year old male patient being evaluated today for a Telemanagement visit. Patient is currently on the following anticoagulant(s) Warfarin. Labs PT INR (no units) Date Value 11/06/2021 3.2 biotel 10/23/2021 2.9 09/11/2021 2.8 INR Home CoaguChek (no units) Date Value 04/23/2022 4.2 04/09/2022 3.5 03/26/2022 3.0 Hemoglobin (g/dL) Date Value 11/17/2020 13.2 Hematocrit (%) Date Value 11/17/2020 39.9 Platelet Count (k/uL) Date Value 11/17/2020 208 Creatinine (mg/dL) Date Value 05/15/2021 1.00 11/17/2020 0.94 05/19/2020 1.02 Bilirubin, Total (mg/dL) Date Value 05/15/2021 0.8 ALT (U/L) Date Value 05/15/2021 14 AST (U/L) Date Value 05/15/2021 25 CrCl cannot be calculated (Patient's most recent lab result is older than the maximum 180 days allowed.). 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: Permanent atrial fibrillation (hcc) shelter (current) use of anticoagulants S/p mvr (mitral valve replacement) Anticoagulation Episode Summary Current INR goal: 2.5-3.5 Assessment: INR result of 4.2 is SUPRAtherapeutic due to: No obvious cause Plan: Current Warfarin Dosing As of 04/23/2022 Full warfarin instructions: 04/23: 4 mg; Otherwise 4 mg every Mon; 5 mg all other days Called and spoke to patient/caregiver Advised patient to decrease dose for 1 day and decrease total weekly regimen Next home INR check scheduled on 05/07/2022 Patient's caregiver verbalizes understanding of the plan. Patient denies need for refills. Tabatha Gramajo RPh Clinical Pharmacist, Pharmacy Anticoagulation Clinic Pharmacy Anticoagulation Clinic Pager: [phone]. documented in this encounter [facility] 04-09-2022 Miscellaneous Notes [facility] Ambulatory Pharmacy Anticoagulation Clinic Anticoagulation Episode Summary Anticoagulation Care Providers Provider Role Specialty Phone number Sridevi Rodriguez MD [facility] [phone] Juan Sharma is a 77 year old year old male patient being evaluated today for a Telemanagement visit. Patient is currently on the following anticoagulant(s) Warfarin. Labs PT INR (no units) Date Value 11/06/2021 3.2 biotel 10/23/2021 2.9 09/11/2021 2.8 INR Home CoaguChek (no units) Date Value 04/09/2022 3.5 03/26/2022 3.0 03/12/2022 3.0 Hemoglobin (g/dL) Date Value 11/17/2020 13.2 Hematocrit (%) Date Value 11/17/2020 39.9 Platelet Count (k/uL) Date Value 11/17/2020 208 Creatinine (mg/dL) Date Value 05/15/2021 1.00 11/17/2020 0.94 05/19/2020 1.02 Bilirubin, Total (mg/dL) Date Value 05/15/2021 0.8 ALT (U/L) Date Value 05/15/2021 14 AST (U/L) Date Value 05/15/2021 25 CrCl cannot be calculated (Patient's most recent lab result is older than the maximum 180 days allowed.). 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: Permanent atrial fibrillation (hcc) shelter (current) use of anticoagulants S/p mvr (mitral valve replacement) Anticoagulation Episode Summary Current INR goal: 2.5-3.5 Assessment: INR result of 3.5 is therapeutic Plan: Current Warfarin Dosing As of 04/09/2022 Full warfarin instructions: 5 mg every day Called and spoke to patient/caregiver Advised patient to continue current weekly dose as noted above Next home INR check scheduled on 04/23/2022 Patient's caregiver verbalizes understanding of the plan. Patient denies need for refills. Andie Sutton RPh Clinical Pharmacist, Pharmacy Anticoagulation Clinic Pharmacy Anticoagulation Clinic Pager: [phone]. documented in this encounter [facility] 03-12-2022 Miscellaneous Notes [facility] Ambulatory Pharmacy Anticoagulation Clinic Anticoagulation Episode Summary Anticoagulation Care Providers Provider Role Specialty Phone number Sridevi Rodriguez MD [facility] [phone] Juan Sharma is a 77 year old year old male patient being evaluated today for a Telemanagement visit. Patient is currently on the following anticoagulant(s) Warfarin. Labs PT INR (no units) Date Value 11/06/2021 3.2 biotel 10/23/2021 2.9 09/11/2021 2.8 INR Home CoaguChek (no units) Date Value 03/12/2022 3.0 02/26/2022 3.7 02/12/2022 4.1 Hemoglobin (g/dL) Date Value 11/17/2020 13.2 Hematocrit (%) Date Value 11/17/2020 39.9 Platelet Count (k/uL) Date Value 11/17/2020 208 Creatinine (mg/dL) Date Value 05/15/2021 1.00 11/17/2020 0.94 05/19/2020 1.02 Bilirubin, Total (mg/dL) Date Value 05/15/2021 0.8 ALT (U/L) Date Value 05/15/2021 14 AST (U/L) Date Value 05/15/2021 25 CrCl cannot be calculated (Patient's most recent lab result is older than the maximum 180 days allowed.). 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 Patient denies need for refills. Andie Sutton RPh Clinical Pharmacist, Pharmacy Anticoagulation Clinic Pharmacy Anticoagulation Clinic Pager: [phone] . documented in this encounter [facility] 02-26-2022 Miscellaneous Notes [facility] Ambulatory Pharmacy Anticoagulation Clinic Anticoagulation Episode Summary Anticoagulation Care Providers Provider Role Specialty Phone number Sridevi Rodriguez MD [facility] [phone] Juan Sharma is a 77 year old year old male patient being evaluated today for a Telemanagement visit. Patient is currently on the following anticoagulant(s) Warfarin. Labs PT INR (no units) Date Value 11/06/2021 3.2 biotel 10/23/2021 2.9 09/11/2021 2.8 INR Home CoaguChek (no units) Date Value 02/26/2022 3.7 02/12/2022 4.1 01/29/2022 3.4 Hemoglobin (g/dL) Date Value 11/17/2020 13.2 Hematocrit (%) Date Value 11/17/2020 39.9 Platelet Count (k/uL) Date Value 11/17/2020 208 Creatinine (mg/dL) Date Value 05/15/2021 1.00 11/17/2020 0.94 05/19/2020 1.02 Bilirubin, Total (mg/dL) Date Value 05/15/2021 0.8 ALT (U/L) Date Value 05/15/2021 14 AST (U/L) Date Value 05/15/2021 25 CrCl cannot be calculated (Patient's most recent lab result is older than the maximum 180 days allowed.). 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 Patient denies need for refills. Tabatha Gramajo RPh Clinical Pharmacist, Pharmacy Anticoagulation Clinic Pharmacy Anticoagulation Clinic Pager: [phone] . documented in this encounter [facility] 02-12-2022 Miscellaneous Notes [facility] Ambulatory Pharmacy Anticoagulation Clinic Anticoagulation Episode Summary Anticoagulation Care Providers Provider Role Specialty Phone number Sridevi Rodriguez MD [facility] [phone] Juan Sharma is a 77 year old year old male patient being evaluated today for a Telemanagement visit. Patient is currently on the following anticoagulant(s) Warfarin. Labs PT INR (no units) Date Value 11/06/2021 3.2 biotel 10/23/2021 2.9 09/11/2021 2.8 INR Home CoaguChek (no units) Date Value 02/12/2022 4.1 01/29/2022 3.4 01/15/2022 3.4 Hemoglobin (g/dL) Date Value 11/17/2020 13.2 Hematocrit (%) Date Value 11/17/2020 39.9 Platelet Count (k/uL) Date Value 11/17/2020 208 Creatinine (mg/dL) Date Value 05/15/2021 1.00 11/17/2020 0.94 05/19/2020 1.02 Bilirubin, Total (mg/dL) Date Value 05/15/2021 0.8 ALT (U/L) Date Value 05/15/2021 14 AST (U/L) Date Value 05/15/2021 25 CrCl cannot be calculated (Patient's most recent lab result is older than the maximum 180 days allowed.). 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 denies decrease in dietary vitamin K, changes in Prescription/OTC/herbal/ medicines or dietary supplement, cranberry or grapefruit ingestion, NVD, cold/flu/infection, change in tablet apperance, increased edema (worsened CHF), or EtOH ingestion Plan: Current Warfarin Dosing As of 02/12/2022 Warfarin maintenance plan: 5 mg (5 mg x 1) every day Called and spoke to patient/caregiver - Shea Advised patient to hold 1 dose then continue current regimen Next home INR check scheduled on 02/26/2022 Patient's caregiver verbalizes understanding of the plan. Patient denies need for refills. Krystian Guido [facility] Clinical Pharmacist, Pharmacy Anticoagulation Clinic Pharmacy Anticoagulation Clinic Pager: [phone] . documented in this encounter [facility] 01-29-2022 Miscellaneous Notes [facility] Ambulatory Pharmacy Anticoagulation Clinic Anticoagulation Episode Summary Anticoagulation Care Providers Provider Role Specialty Phone number Sridevi Rodriguez MD [facility] [phone] Juan Sharma is a 77 year old year old male patient being evaluated today for a Telemanagement visit. Patient is currently on the following anticoagulant(s) Warfarin. Labs PT INR (no units) Date Value 11/06/2021 3.2 biotel 10/23/2021 2.9 09/11/2021 2.8 INR Home CoaguChek (no units) Date Value 01/29/2022 3.4 01/15/2022 3.4 01/01/2022 3.4 Hemoglobin (g/dL) Date Value 11/17/2020 13.2 Hematocrit (%) Date Value 11/17/2020 39.9 Platelet Count (k/uL) Date Value 11/17/2020 208 Creatinine (mg/dL) Date Value 05/15/2021 1.00 11/17/2020 0.94 05/19/2020 1.02 Bilirubin, Total (mg/dL) Date Value 05/15/2021 0.8 ALT (U/L) Date Value 05/15/2021 14 AST (U/L) Date Value 05/15/2021 25 CrCl cannot be calculated (Patient's most recent lab result is older than the maximum 180 days allowed.). 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 Patient denies need for refills. Tabatha Gramajo [facility] Clinical Pharmacist, Pharmacy Anticoagulation Clinic Pharmacy Anticoagulation Clinic Pager: [phone] . documented in this encounter [facility] 01-15-2022 Miscellaneous Notes [facility] Ambulatory Pharmacy Anticoagulation Clinic Anticoagulation Episode Summary Anticoagulation Care Providers Provider Role Specialty Phone number Sridevi Rodriguez MD [facility] [phone] Juan Sharma is a 76 year old year old male patient being evaluated today for a Telemanagement visit. Patient is currently on the following anticoagulant(s) Warfarin. Labs PT INR (no units) Date Value 11/06/2021 3.2 biotel 10/23/2021 2.9 09/11/2021 2.8 INR Home CoaguChek (no units) Date Value 01/15/2022 3.4 01/01/2022 3.4 12/18/2021 3.2 Hemoglobin (g/dL) Date Value 11/17/2020 13.2 Hematocrit (%) Date Value 11/17/2020 39.9 Platelet Count (k/uL) Date Value 11/17/2020 208 Creatinine (mg/dL) Date Value 05/15/2021 1.00 11/17/2020 0.94 05/19/2020 1.02 Bilirubin, Total (mg/dL) Date Value 05/15/2021 0.8 ALT (U/L) Date Value 05/15/2021 14 AST (U/L) Date Value 05/15/2021 25 CrCl cannot be calculated (Patient's most recent lab result is older than the maximum 180 days allowed.). 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 Patient denies need for refills. Tabatha Gramajo RPh Clinical Pharmacist, Pharmacy Anticoagulation Clinic Pharmacy Anticoagulation Clinic Pager: [phone] . documented in this encounter [facility] 01-08-2022 Miscellaneous Notes Patient phones requesting refills as follows: Pending Prescriptions Disp Refills SERTRALINE 50 MG TABLET 30 tablet 5 Sig: Take 1 tablet by mouth once daily. ALEXIS: No RAFY-11/20/21 Labs-05/15/21 NOV-05/24/22 med filled 07/10/21 Please review and advise. Yeyn Guzman LPN documented in this encounter [facility] 01-01-2022 Miscellaneous Notes [facility] Ambulatory Pharmacy Anticoagulation Clinic Anticoagulation Episode Summary Anticoagulation Care Providers Provider Role Specialty Phone number Sridevi Rodriguez MD [facility] [phone] Juan Sharma is a 76 year old year old male patient being evaluated today for a Telemanagement visit. Patient is currently on the following anticoagulant(s) Warfarin. Labs PT INR (no units) Date Value 11/06/2021 3.2 biotel 10/23/2021 2.9 09/11/2021 2.8 INR Home CoaguChek (no units) Date Value 01/01/2022 3.4 12/18/2021 3.2 12/04/2021 3.3 Hemoglobin (g/dL) Date Value 11/17/2020 13.2 Hematocrit (%) Date Value 11/17/2020 39.9 Platelet Count (k/uL) Date Value 11/17/2020 208 Creatinine (mg/dL) Date Value 05/15/2021 1.00 11/17/2020 0.94 05/19/2020 1.02 Bilirubin, Total (mg/dL) Date Value 05/15/2021 0.8 ALT (U/L) Date Value 05/15/2021 14 AST (U/L) Date Value 05/15/2021 25 CrCl cannot be calculated (Patient's most recent lab result is older than the maximum 180 days allowed.). 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 Patient denies need for refills. Tabatha Gramajo RP Clinical Pharmacist, Pharmacy Anticoagulation Clinic Pharmacy Anticoagulation Clinic Pager: [phone] . documented in this encounter [facility] 12-23-2021 Miscellaneous Notes Pt is confirmed to be on wait list for any cancellation that becomes available. Enma Quan Called pt's and LVM to contact office in regards to below. Patient's Shea rose. Patient due for 1 [address] follow up with Dr. Freedman at end of January. Patient scheduled on 06/07/22 due to patient never received a Recall letter to call in sooner than today. asking if there is anyway patient can be seen sooner? This PSS offered Dr. Hemphill and Vaishnavi Brady, however, they are scheduling out to May/Jun at [place] office. Offered patient to go to [place] office, declined due to patient's condition. PCP does not want patient to wait till Oct to be seen. Please advise and call patient. documented in this encounter [facility] 12-18-2021 Miscellaneous Notes [facility] Ambulatory Pharmacy Anticoagulation Clinic Anticoagulation Episode Summary Anticoagulation Care Providers Provider Role Specialty Phone number Sridevi Rodriguez MD [facility] [phone] Juan Sharma is a 76 year old year old male patient being evaluated today for a Telemanagement visit. Patient is currently on the following anticoagulant(s) Warfarin. Labs PT INR (no units) Date Value 11/06/2021 3.2 biotel 10/23/2021 2.9 09/11/2021 2.8 INR Home CoaguChek (no units) Date Value 12/18/2021 3.2 12/04/2021 3.3 11/20/2021 3.0 Hemoglobin (g/dL) Date Value 11/17/2020 13.2 Hematocrit (%) Date Value 11/17/2020 39.9 Platelet Count (k/uL) Date Value 11/17/2020 208 Creatinine (mg/dL) Date Value 05/15/2021 1.00 11/17/2020 0.94 05/19/2020 1.02 Bilirubin, Total (mg/dL) Date Value 05/15/2021 0.8 ALT (U/L) Date Value 05/15/2021 14 AST (U/L) Date Value 05/15/2021 25 CrCl cannot be calculated (Patient's most recent lab result is older than the maximum 180 days allowed.). 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: Permanent atrial fibrillation (hcc) shelter (current) use of anticoagulants S/p mvr (mitral valve replacement) Anticoagulation Episode Summary Current INR goal: 2.5-3.5 Assessment: INR result of 3.2 is therapeutic Plan: Left voice message Advised patient to continue current weekly dose Next home INR check scheduled on 01/01/2022 Tabatha Gramajo RPh Clinical Pharmacist, Pharmacy Anticoagulation Clinic Pharmacy Anticoagulation Clinic Pager: [phone] . documented in this encounter [facility] 12-04-2021 Miscellaneous Notes [facility] Ambulatory Pharmacy Anticoagulation Clinic Anticoagulation Episode Summary Anticoagulation Care Providers Provider Role Specialty Phone number Sridevi Rodriguez MD [facility] [phone] Juan Sharma is a 76 year old year old male patient being evaluated today for a Telemanagement visit. Patient is currently on the following anticoagulant(s) Warfarin. Labs PT INR (no units) Date Value 11/06/2021 3.2 biotel 10/23/2021 2.9 09/11/2021 2.8 INR Home CoaguChek (no units) Date Value 12/04/2021 3.3 11/20/2021 3.0 10/09/2021 2.3 Hemoglobin (g/dL) Date Value 11/17/2020 13.2 Hematocrit (%) Date Value 11/17/2020 39.9 Platelet Count (k/uL) Date Value 11/17/2020 208 Creatinine (mg/dL) Date Value 05/15/2021 1.00 11/17/2020 0.94 05/19/2020 1.02 Bilirubin, Total (mg/dL) Date Value 05/15/2021 0.8 ALT (U/L) Date Value 05/15/2021 14 AST (U/L) Date Value 05/15/2021 25 CrCl cannot be calculated (Patient's most recent lab result is older than the maximum 180 days allowed.). 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: Permanent atrial fibrillation (hcc) shelter (current) use of anticoagulants S/p mvr (mitral valve replacement) Anticoagulation Episode Summary Current INR goal: 2.5-3.5 Assessment: INR result of 3.3 is therapeutic Plan: Called and spoke to patient/caregiver Advised patient to continue current weekly dose Next home INR check scheduled on 12/18/2021 Patient's caregiver verbalizes understanding of the plan. Patient denies need for refills. Lauren Mayorga RPh Clinical Pharmacist, Pharmacy Anticoagulation Clinic Pharmacy Anticoagulation Clinic Pager: [phone] . documented in this encounter [facility] 11-20-2021 Miscellaneous Notes [facility] Ambulatory Pharmacy Anticoagulation Clinic Anticoagulation Episode Summary Anticoagulation Care Providers Provider Role Specialty Phone number Sridevi Rodriguez MD [facility] [phone] Juan Sharma is a 76 year old year old male patient being evaluated today for a Telemanagement visit. Patient is currently on the following anticoagulant(s) Warfarin. Labs PT INR (no units) Date Value 11/06/2021 3.2 biotel 10/23/2021 2.9 09/11/2021 2.8 INR Home CoaguChek (no units) Date Value 11/20/2021 3.0 10/09/2021 2.3 09/25/2021 2.4 Hemoglobin (g/dL) Date Value 11/17/2020 13.2 Hematocrit (%) Date Value 11/17/2020 39.9 Platelet Count (k/uL) Date Value 11/17/2020 208 Creatinine (mg/dL) Date Value 05/15/2021 1.00 11/17/2020 0.94 05/19/2020 1.02 Bilirubin, Total (mg/dL) Date Value 05/15/2021 0.8 ALT (U/L) Date Value 05/15/2021 14 AST (U/L) Date Value 05/15/2021 25 CrCl cannot be calculated (Patient's most recent lab result is older than the maximum 180 days allowed.). 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: Permanent atrial fibrillation (hcc) shelter (current) use of anticoagulants S/p mvr (mitral valve replacement) Anticoagulation Episode Summary Current INR goal: 2.5-3.5 Assessment: INR result of 3.0 is therapeutic Plan: Left voice message Advised patient to continue current weekly dose Next home INR check scheduled on 12/04/2021 Tabatha Gramajo RPh Clinical Pharmacist, Pharmacy Anticoagulation Clinic Pharmacy Anticoagulation Clinic Pager: [phone] . documented in this encounter [facility] 11-20-2021 History of Presen t illness Narrative Chief Complaint Patient presents with: Follow Up: 3 month HPI Juan Sharma is a 76 year old male who presents here today for 3 month follow up. Accompanied today by who is providing history due to patient's aphasia. BPH: taking Proscar on a daily basis and is getting up 0-2 times at night with good stream. Denies weak stream or incontinence. 1 year follow up in July with urology and will repeat PSA. A fib/mitral valve replacement: Rate controlled on current regimen. Asymptomatic. Taking anticoagulation as prescribed with INR 3 today.Denies bleeding/bruising. Due for 1 year follow up in January with Dr. Freedman. AAA stable on US in September. Depression symptoms continue to be improved with Zoloft. No recurrent CVA symptoms. [facility] Past medical history, appointments, medications, allergies reviewed. Previous Medical History PAST MEDICAL HISTORY Diagnosis Date AAA (abdominal aortic aneurysm) (HCC) 3.5cm in 2017 Acute, but ill-defined, cerebrovascular disease 08/2003 Aortic valve disorders ATRIAL REGURGITATION Aphasia 2/2 stroke Atrial fibrillation (HCC) Cardiology Dr. Freedman Benign neoplasm of colon BPH (benign prostatic hyperplasia) Dr. Major Current moderate episode of major depressive disorder without prior episode (HCC) Dyslipidemia Elevated PSA Urology Raciel Damon History of mitral valve replacement 2014 mechanical valve INR 2.5-3.5 Internal hemorrhoids without mention of complication Mitral stenosis Osteoarthritis hip Sleep apnea Stroke (HCC) 2003 Unspecified constipation Previous Surgical History PAST SURGICAL HISTORY Procedure Laterality Date ARTHRS KNE SURG W/MENISCECTOMY MED/LAT W/SHVG Right 02/27/2016 Right knee scope meniscectomy, PF chondroplasty and medial plica excision COLONOSCOPY W/BIOPSY SINGLE/MULTIPLE 02/23/2006 PAST SURGICAL HISTORY OF 2003 cardio version PAST SURGICAL HISTORY OF 08/2014 Mitral valve replacement PAST SURGICAL HISTORY OF 08/2014 MAZE for A fib RPR 1ST INGUN HRNA AGE 6 YRS/> REDUCIBLE Hernia repair, inguinal SIGMOIDOSCOPY FLX DX W/COLLJ SPEC BR/WA IF PFRMD 02/2000 Sigmoidoscopy, flexible TOTAL HIP JOINT REPLACEMENT Right 09/2016 TOTAL KNEE REPLACEMENT Right 12/10/2020 Family History FAMILY HISTORY Problem Relation Age of Onset Diabetes Mother other (renal failure) Brother Patient Allergies ALLERGIES No Known Allergies Current Medications Current Outpatient Medications on File Prior to Visit Medication Sig warfarin (COUMADIN) 4 mg tablet Take as directed warfarin (COUMADIN) 5 mg tablet 5 mg every day folic acid 1 mg tablet Take 2 tablets by mouth once daily. sertraline (ZOLOFT) 50 mg tablet Take 1 tablet by mouth once daily. CPAP Initiate CPAP @ 10 cm of water with humidification. Mask (per patient preference) optional chin strap (if indicated) , filters, tubing, humidifier and lifetime supplies. lovastatin (MEVACOR) 40 mg tablet Take 1 tablet by mouth once daily. finasteride (PROSCAR) 5 mg tablet Take 1 tablet by mouth once daily. multivitamin (MULTIPLE VITAMINS) tablet Take 1 tablet by mouth once daily. tamsulosin (FLOMAX) 0.4 mg Take 0.4 mg by mouth once daily. (Patient not taking: Reported on 08/21/2021 ) No current facility-administered medications on file prior to visit. Social History Social History Tobacco Use Smoking status: Former Smoker Packs/day: 1.00 Years: 20.00 Pack years: 20.00 Types: Cigarettes, Pipe Quit date: 08/08/1994 Years since quittin.3 Smokeless tobacco: Former User Types: Chew Quit date: 08/08/2001 Substance Use Topics Alcohol use: Yes Comment: Occasionally Drug use: No Review of Symptoms REVIEW OF SYSTEMS GENERAL: No weight loss, malaise or fevers RESPIRATORY: Negative for cough, hemoptysis, wheezing, COPD, dyspnea or shortness of breath CARDIOVASCULAR: Negative for chest pain, leg swelling, hypertension, CHF or palpitations GI: No nausea, vomiting, or diarrhea SKIN: Negative for lesions, rash, and itching EXAM: BP 122/70 Pulse 88 Resp 16 Wt 67.9 kg (149 lb 12.8 oz) SpO2 97% BMI 23.46 kg/m General Appearance: Well appearing, alert, in no acute distress, well-hydrated, well nourished.. Skin: Skin color, texture, turgor normal, no suspicious rashes or lesions. Lungs: Lungs clear to auscultation. No wheezing, rhonchi, rales.. Heart: Negative findings: no murmurs, clicks, or gallops, Positive findings: irregularly irregular rhythm. Abdomen: Normal abdominal exam, Abdomen soft, non-tender. Bowel sounds normal. No masses, organomegaly. Extremities: No deformities, edema, skin discoloration, clubbing or cyanosis. Good capillary refill. . Health Maintenance List SHINGRIX VACCINE(1 of 2) Never done COLORECTAL CANCER SCREENING due on 08/26/2020 DTAP,TDAP,TD(3 - Td or Tdap) due on 11/04/2020 ADVANCE DIRECTIVE DISCUSSION Never done DIABETES SCREEN due on 05/15/2024 LIPID SCREEN due on 05/15/2026 INFLUENZA Completed HEPATITIS C SCREENING Completed PNEUMOVAX AGE 65 AND OVER WITH 5YR LOOKBACK Completed COVID-19 VACCINE Completed MENINGOCOCCAL CONJUGATE Aged Out Data reviewed Component Latest Ref Rng & Units 05/15/2021 Protein, Total 6.3 - 8.0 g/dL 7.1 Albumin 3.9 - 4.9 g/dL 3.9 Calcium 8.5 - 10.2 mg/dL 9.1 Bilirubin, Total 0.2 - 1.3 mg/dL 0.8 Alkaline Phosphatase 38 - 113 U/L 73 AST 14 - 40 U/L 25 Glucose 74 - 99 mg/dL 99 BUN 9 - 24 mg/dL 23 Creatinine 0.73 - 1.22 mg/dL 1.00 Sodium 136 - 144 mmol/L 140 Potassium 3.7 - 5.1 mmol/L 4.5 Chloride 97 - 105 mmol/L 104 CO2 22 - 30 mmol/L 28 Anion Gap 9 - 18 mmol/L 8 (L) ALT 10 - 54 U/L 14 eGFR- >60 eGFR-All Other Races . >60 Cholesterol, Total <200 mg/dL 138 Triglyceride <150 mg/dL 68 HDL Cholesterol >39 mg/dL 57 LDL Cholesterol <100 mg/dL 67 Non HDL Cholesterol <130 mg/dL 81 Fasting Time hrs 12 VLDL Cholesterol <30 mg/dL 14 TC:HDL Ratio <5.10 2.42 LDL:HDL Ratio <2.54 1.18 ASSESSMENT/PLAN: 1. Permanent atrial fibrillation (HCC) - ICD9: 427.31, ICD10: I48.21 (primary diagnosis) Rate controlled without beta miguel or anti arrhythmic. Continue anticoagulation and follow up with cardiology in January. - CBC - COMP METABOLIC PANEL 2. Mitral valve stenosis, unspecified etiology - ICD9: 394.0, ICD10: I05.0 Asymptomatic. Continue anticoagulation and follow up with cardiology in January.. 3. Mechanical heart valve present - ICD9: V43.3, ICD10: Z95.2 4. shelter (current) use of anticoagulants - ICD9: V58.61, ICD10: Z79.01 5. Mixed hyperlipidemia - ICD9: 272.2, ICD10: E78.2 - good control - Continue current medication. - Encouraged following a low fat, low cholesterol diet. - Discussed the benefits of regular aerobic exercise and weight loss. 6. Current moderate episode of major depressive disorder without prior episode (HCC) - ICD9: 296.22, ICD10: F32.1 Controlled on Zoloft daily. 7. History of CVA (cerebrovascular accident) - ICD9: V12.54, ICD10: Z86.73 No recurrent symptoms. Will monitor. 8. Obstructive sleep apnea syndrome - ICD9: 327.23, ICD10: G47.33 Continue nightly CPAP use. 9. Benign prostatic hyperplasia, unspecified whether lower urinary tract symptoms present - ICD9: 600.00, ICD10: N40.0 Symtpoms stable on Proscar. Continue current regimen. Recheck PSA at f/u appointment with urology. 10. Screening for colon cancer - ICD9: V76.51, ICD10: Z12.11 - FECAL OCCULT BLOOD TEST 11. Abdominal aortic aneurysm (AAA) 35 to 39 mm in diameter (HCC) - ICD9: 441.4, ICD10: I71.4 Stable. Repeat US in 1 year. Sridevi Rodriguez MD documented in this encounter [facility] documented as of this encounter (statuses as of 11/20/2021) [facility] History of Past illness Narrative* Problem Noted Date Resolved Date Aphasia following cerebral infarction 07/25/2015 12/30/2016 Prostate enlargement 05/21/2015 12/30/2016 On mechanically assisted ventilation 08/20/2014 08/21/2014 Overview: On full ventilator support. Grade I airway, WTE Intravascular volume depletion 08/20/2014 0 08/21/2014 Overview: IV fluid resuscitation Stress hyperglycemia 08/20/2014 08/22/2014 Overview: RHI gtt to maintain blood glucose <180 Pre-op testing 08/15/2014 08/21/2014 Overview: Images from the original note were not included. [facility] Surgeon: Beatris Mcadams M.D. Informed Consent Completed: Yes STS Score: unsupported CAD: Mild Is intended procedure a CABG: No - is a beta miguel ordered? No - reason: not indicated H & P completed: Yes PA/LAT: Completed CT: N/A MRI: N/A LE US: N/A Cath: Yes - reviewed: Yes Echo:Completed EKG: Completed EF %: 63 PI's: N/A Carotid: Completed Mapping: N/A Dental: Completed PFT's: N/A Basename 08/13/14 0830 WBC 7.93 HB 13.7 HCT 40.8 PLT 233 INR 2.4* CREAT 1.02 UA: Normal HCG:N/A ABO/ABO Confirmed: Yes Blood ordered: No SA Swab: Yes - results: Positive Last Dose of Anticoagulation: Coumadin; LD 08/14 Op Note: N/A Pacemaker Check: N/A Consults: Neurology DM: No Cardiac Surgical prep: N/A SIGNATURE: ARMIN Walton WAFER FAB OPERATOR CHECKED BY: teresa DATE of SERVICE: 08/15/2014 TIME of SERVICE: 1:32 PM AAA (abdominal aortic aneurysm) 07/13/2019 Overview: 3.5cm in 2014 documented as of this encounter (statuses as of 11/20/2021) [facility] History of Past illness Narrative* Problem Noted Date Resolved Date Aphasia following cerebral infarction 07/25/2015 12/30/2016 Prostate enlargement 05/21/2015 12/30/2016 On mechanically assisted ventilation 08/20/2014 08/21/2014 Overview: On full ventilator support. Grade I airway, WTE Intravascular volume depletion 08/20/2014 0 08/21/2014 Overview: IV fluid resuscitation Stress hyperglycemia 08/20/2014 08/22/2014 Overview: RHI gtt to maintain blood glucose <180 Pre-op testing 08/15/2014 08/21/2014 Overview: Images from the original note were not included. [facility] PRE-OP CHECKLIST Surgeon: Beatris Mcadams M.D. Informed Consent Completed: Yes STS Score: unsupported CAD: Mild Is intended procedure a CABG: No - is a beta miguel ordered? No - reason: not indicated H & P completed: Yes PA/LAT: Completed CT: N/A MRI: N/A LE US: N/A Cath: Yes - reviewed: Yes Echo:Completed EKG: Completed EF %: 63 PI's: N/A Carotid: Completed Mapping: N/A Dental: Completed PFT's: N/A Basename 08/13/14 0830 WBC 7.93 HB 13.7 HCT 40.8 PLT 233 INR 2.4* CREAT 1.02 UA: Normal HCG:N/A ABO/ABO Confirmed: Yes Blood ordered: No SA Swab: Yes - results: Positive Last Dose of Anticoagulation: Coumadin; LD 08/14 Op Note: N/A Pacemaker Check: N/A Consults: Neurology DM: No Cardiac Surgical prep: N/A SIGNATURE: ARMIN Walton WAFER FAB OPERATOR CHECKED BY: teresa DATE of SERVICE: 08/15/2014 TIME of SERVICE: 1:32 PM AAA (abdominal aortic aneurysm) 07/13/2019 Overview: 3.5cm in 2014 documented as of this encounter (statuses as of 12/04/2021) [facility] History of Past illness Narrative* Problem Noted Date Resolved Date Aphasia following cerebral infarction 07/25/2015 12/30/2016 Prostate enlargement 05/21/2015 12/30/2016 On mechanically assisted ventilation 08/20/2014 08/21/2014 Overview: On full ventilator support. Grade I airway, WTE Intravascular volume depletion 08/20/2014 0 08/21/2014 Overview: IV fluid resuscitation Stress hyperglycemia 08/20/2014 08/22/2014 Overview: RHI gtt to maintain blood glucose <180 Pre-op testing 08/15/2014 08/21/2014 Overview: Images from the original note were not included. [facility] PRE-OP CHECKLIST Surgeon: Beatris Mcadams M.D. Informed Consent Completed: Yes STS Score: unsupported CAD: Mild Is intended procedure a CABG: No - is a beta miguel ordered? No - reason: not indicated H & P completed: Yes PA/LAT: Completed CT: N/A MRI: N/A LE US: N/A Cath: Yes - reviewed: Yes Echo:Completed EKG: Completed EF %: 63 PI's: N/A Carotid: Completed Mapping: N/A Dental: Completed PFT's: N/A Basename 08/13/14 0830 WBC 7.93 HB 13.7 HCT 40.8 PLT 233 INR 2.4* CREAT 1.02 UA: Normal HCG:N/A ABO/ABO Confirmed: Yes Blood ordered: No SA Swab: Yes - results: Positive Last Dose of Anticoagulation: Coumadin; LD 08/14 Op Note: N/A Pacemaker Check: N/A Consults: Neurology DM: No Cardiac Surgical prep: N/A SIGNATURE: ARMIN Walton WAFER FAB OPERATOR CHECKED BY: teresa DATE of SERVICE: 08/15/2014 TIME of SERVICE: 1:32 PM AAA (abdominal aortic aneurysm) 07/13/2019 Overview: 3.5cm in 2014 documented as of this encounter (statuses as of 12/18/2021) [facility] History of Past illness Narrative* Problem Noted Date Resolved Date Aphasia following cerebral infarction 07/25/2015 12/30/2016 Prostate enlargement 05/21/2015 12/30/2016 On mechanically assisted ventilation 08/20/2014 08/21/2014 Overview: On full ventilator support. Grade I airway, WTE Intravascular volume depletion 08/20/2014 0 08/21/2014 Overview: IV fluid resuscitation Stress hyperglycemia 08/20/2014 08/22/2014 Overview: RHI gtt to maintain blood glucose <180 Pre-op testing 08/15/2014 08/21/2014 Overview: Images from the original note were not included. [facility] PRE-OP [facility]LIST Surgeon: Beatris Mcadams M.D. Informed Consent Completed: Yes STS Score: unsupported CAD: Mild Is intended procedure a CABG: No - is a beta miguel ordered? No - reason: not indicated H & P completed: Yes PA/LAT: Completed CT: N/A MRI: N/A LE US: N/A Cath: Yes - reviewed: Yes Echo:Completed EKG: Completed EF %: 63 PI's: N/A Carotid: Completed Mapping: N/A Dental: Completed PFT's: N/A Basename 08/13/14 0830 WBC 7.93 HB 13.7 HCT 40.8 PLT 233 INR 2.4* CREAT 1.02 UA: Normal HCG:N/A ABO/ABO Confirmed: Yes Blood ordered: No SA Swab: Yes - results: Positive Last Dose of Anticoagulation: Coumadin; LD 08/14 Op Note: N/A Pacemaker Check: N/A Consults: Neurology DM: No Cardiac Surgical prep: N/A SIGNATURE: ARMIN Walton WAFER FAB OPERATOR CHECKED BY: teresa DATE of SERVICE: 08/15/2014 TIME of SERVICE: 1:32 PM AAA (abdominal aortic aneurysm) 07/13/2019 Overview: 3.5cm in 2014 documented as of this encounter (statuses as of 12/23/2021) [facility] History of Past illness Narrative* Problem Noted Date Resolved Date Aphasia following cerebral infarction 07/25/2015 12/30/2016 Prostate enlargement 05/21/2015 12/30/2016 On mechanically assisted ventilation 08/20/2014 08/21/2014 Overview: On full ventilator support. Grade I airway, WTE Intravascular volume depletion 08/20/2014 0 08/21/2014 Overview: IV fluid resuscitation Stress hyperglycemia 08/20/2014 08/22/2014 Overview: RHI gtt to maintain blood glucose <180 Pre-op testing 08/15/2014 08/21/2014 Overview: Images from the original note were not included. [facility] Surgeon: Beatris Mcadams M.D. Informed Consent Completed: Yes STS Score: unsupported CAD: Mild Is intended procedure a CABG: No - is a beta miguel ordered? No - reason: not indicated H & P completed: Yes PA/LAT: Completed CT: N/A MRI: N/A LE US: N/A Cath: Yes - reviewed: Yes Echo:Completed EKG: Completed EF %: 63 PI's: N/A Carotid: Completed Mapping: N/A Dental: Completed PFT's: N/A Basename 08/13/14 0830 WBC 7.93 HB 13.7 HCT 40.8 PLT 233 INR 2.4* CREAT 1.02 UA: Normal HCG:N/A ABO/ABO Confirmed: Yes Blood ordered: No SA Swab: Yes - results: Positive Last Dose of Anticoagulation: Coumadin; LD 08/14 Op Note: N/A Pacemaker Check: N/A Consults: Neurology DM: No Cardiac Surgical prep: N/A SIGNATURE: ARMIN Walton WAFER FAB OPERATOR CHECKED BY: teresa DATE of SERVICE: 08/15/2014 TIME of SERVICE: 1:32 PM AAA (abdominal aortic aneurysm) 07/13/2019 Overview: 3.5cm in 2014 documented as of this encounter (statuses as of 01/01/2022) [facility] History of Past illness Narrative* Problem Noted Date Resolved Date Aphasia following cerebral infarction 07/25/2015 12/30/2016 Prostate enlargement 05/21/2015 12/30/2016 On mechanically assisted ventilation 08/20/2014 08/21/2014 Overview: On full ventilator support. Grade I airway, WTE Intravascular volume depletion 08/20/2014 0 08/21/2014 Overview: IV fluid resuscitation Stress hyperglycemia 08/20/2014 08/22/2014 Overview: RHI gtt to maintain blood glucose <180 Pre-op testing 08/15/2014 08/21/2014 Overview: Images from the original note were not included. [facility] Surgeon: Beatris Mcadams M.D. Informed Consent Completed: Yes STS Score: unsupported CAD: Mild Is intended procedure a CABG: No - is a beta miguel ordered? No - reason: not indicated H & P completed: Yes PA/LAT: Completed CT: N/A MRI: N/A LE US: N/A Cath: Yes - reviewed: Yes Echo:Completed EKG: Completed EF %: 63 PI's: N/A Carotid: Completed Mapping: N/A Dental: Completed PFT's: N/A Basename 08/13/14 0830 WBC 7.93 HB 13.7 HCT 40.8 PLT 233 INR 2.4* CREAT 1.02 UA: Normal HCG:N/A ABO/ABO Confirmed: Yes Blood ordered: No SA Swab: Yes - results: Positive Last Dose of Anticoagulation: Coumadin; LD 08/14 Op Note: N/A Pacemaker Check: N/A Consults: Neurology DM: No Cardiac Surgical prep: N/A SIGNATURE: ARMIN Walton CNP CHECKED BY: teresa DATE of SERVICE: 08/15/2014 TIME of SERVICE: 1:32 PM AAA (abdominal aortic aneurysm) 07/13/2019 Overview: 3.5cm in 2014 documented as of this encounter (statuses as of 01/08/2022) [facility] History of Past illness Narrative* Problem Noted Date Resolved Date Aphasia following cerebral infarction 07/25/2015 12/30/2016 Prostate enlargement 05/21/2015 12/30/2016 On mechanically assisted ventilation 08/20/2014 08/21/2014 Overview: On full ventilator support. Grade I airway, WTE Intravascular volume depletion 08/20/2014 0 08/21/2014 Overview: IV fluid resuscitation Stress hyperglycemia 08/20/2014 08/22/2014 Overview: RHI gtt to maintain blood glucose <180 Pre-op testing 08/15/2014 08/21/2014 Overview: Images from the original note were not included. [facility] Surgeon: Beatris Mcadams M.D. Informed Consent Completed: Yes STS Score: unsupported CAD: Mild Is intended procedure a CABG: No - is a beta miguel ordered? No - reason: not indicated H & P completed: Yes PA/LAT: Completed CT: N/A MRI: N/A LE US: N/A Cath: Yes - reviewed: Yes Echo:Completed EKG: Completed EF %: 63 PI's: N/A Carotid: Completed Mapping: N/A Dental: Completed PFT's: N/A Basename 08/13/14 0830 WBC 7.93 HB 13.7 HCT 40.8 PLT 233 INR 2.4* CREAT 1.02 UA: Normal HCG:N/A ABO/ABO Confirmed: Yes Blood ordered: No SA Swab: Yes - results: Positive Last Dose of Anticoagulation: Coumadin; LD 08/14 Op Note: N/A Pacemaker Check: N/A Consults: Neurology DM: No Cardiac Surgical prep: N/A SIGNATURE: ARMIN Walton WAFER FAB OPERATOR CHECKED BY: teresa DATE of SERVICE: 08/15/2014 TIME of SERVICE: 1:32 PM AAA (abdominal aortic aneurysm) 07/13/2019 Overview: 3.5cm in 2014 documented as of this encounter (statuses as of 01/15/2022) [facility] History of Past illness Narrative* Problem Noted Date Resolved Date Aphasia following cerebral infarction 07/25/2015 12/30/2016 Prostate enlargement 05/21/2015 12/30/2016 On mechanically assisted ventilation 08/20/2014 08/21/2014 Overview: On full ventilator support. Grade I airway, WTE Intravascular volume depletion 08/20/2014 0 08/21/2014 Overview: IV fluid resuscitation Stress hyperglycemia 08/20/2014 08/22/2014 Overview: RHI gtt to maintain blood glucose <180 Pre-op testing 08/15/2014 08/21/2014 Overview: Images from the original note were not included. [facility] Surgeon: Beatris Mcadams M.D. Informed Consent Completed: Yes STS Score: unsupported CAD: Mild Is intended procedure a CABG: No - is a beta miguel ordered? No - reason: not indicated H & P completed: Yes PA/LAT: Completed CT: N/A MRI: N/A LE US: N/A Cath: Yes - reviewed: Yes Echo:Completed EKG: Completed EF %: 63 PI's: N/A Carotid: Completed Mapping: N/A Dental: Completed PFT's: N/A Basename 08/13/14 0830 WBC 7.93 HB 13.7 HCT 40.8 PLT 233 INR 2.4* CREAT 1.02 UA: Normal HCG:N/A ABO/ABO Confirmed: Yes Blood ordered: No SA Swab: Yes - results: Positive Last Dose of Anticoagulation: Coumadin; LD 08/14 Op Note: N/A Pacemaker Check: N/A Consults: Neurology DM: No Cardiac Surgical prep: N/A SIGNATURE: ARMIN Walton CNP CHECKED BY: teresa DATE of SERVICE: 08/15/2014 TIME of SERVICE: 1:32 PM AAA (abdominal aortic aneurysm) 07/13/2019 Overview: 3.5cm in 2014 documented as of this encounter (statuses as of 01/29/2022) [facility] History of Past illness Narrative* Problem Noted Date Resolved Date Aphasia following cerebral infarction 07/25/2015 12/30/2016 Prostate enlargement 05/21/2015 12/30/2016 On mechanically assisted ventilation 08/20/2014 08/21/2014 Overview: On full ventilator support. Grade I airway, WTE Intravascular volume depletion 08/20/2014 0 08/21/2014 Overview: IV fluid resuscitation Stress hyperglycemia 08/20/2014 08/22/2014 Overview: RHI gtt to maintain blood glucose <180 Pre-op testing 08/15/2014 08/21/2014 Overview: Images from the original note were not included. [facility] Surgeon: Beatris Mcadams M.D. Informed Consent Completed: Yes STS Score: unsupported CAD: Mild Is intended procedure a CABG: No - is a beta miguel ordered? No - reason: not indicated H & P completed: Yes PA/LAT: Completed CT: N/A MRI: N/A LE US: N/A Cath: Yes - reviewed: Yes Echo:Completed EKG: Completed EF %: 63 PI's: N/A Carotid: Completed Mapping: N/A Dental: Completed PFT's: N/A Basename 08/13/14 0830 WBC 7.93 HB 13.7 HCT 40.8 PLT 233 INR 2.4* CREAT 1.02 UA: Normal HCG:N/A ABO/ABO Confirmed: Yes Blood ordered: No SA Swab: Yes - results: Positive Last Dose of Anticoagulation: Coumadin; LD 08/14 Op Note: N/A Pacemaker Check: N/A Consults: Neurology DM: No Cardiac Surgical prep: N/A SIGNATURE: ARMIN Walton WAFER FAB OPERATOR CHECKED BY: teresa DATE of SERVICE: 08/15/2014 TIME of SERVICE: 1:32 PM AAA (abdominal aortic aneurysm) 07/13/2019 Overview: 3.5cm in 2014 documented as of this encounter (statuses as of 02/12/2022) [facility] History of Past illness Narrative* Problem Noted Date Resolved Date Aphasia following cerebral infarction 07/25/2015 12/30/2016 Prostate enlargement 05/21/2015 12/30/2016 On mechanically assisted ventilation 08/20/2014 08/21/2014 Overview: On full ventilator support. Grade I airway, WTE Intravascular volume depletion 08/20/2014 0 08/21/2014 Overview: IV fluid resuscitation Stress hyperglycemia 08/20/2014 08/22/2014 Overview: RHI gtt to maintain blood glucose <180 Pre-op testing 08/15/2014 08/21/2014 Overview: Images from the original note were not included. [facility] Surgeon: Beatris Mcadams M.D. Informed Consent Completed: Yes STS Score: unsupported CAD: Mild Is intended procedure a CABG: No - is a beta miguel ordered? No - reason: not indicated H & P completed: Yes PA/LAT: Completed CT: N/A MRI: N/A LE US: N/A Cath: Yes - reviewed: Yes Echo:Completed EKG: Completed EF %: 63 PI's: N/A Carotid: Completed Mapping: N/A Dental: Completed PFT's: N/A Basename 08/13/14 0830 WBC 7.93 HB 13.7 HCT 40.8 PLT 233 INR 2.4* CREAT 1.02 UA: Normal HCG:N/A ABO/ABO Confirmed: Yes Blood ordered: No SA Swab: Yes - results: Positive Last Dose of Anticoagulation: Coumadin; LD 08/14 Op Note: N/A Pacemaker Check: N/A Consults: Neurology DM: No Cardiac Surgical prep: N/A SIGNATURE: ARMIN Walton CNP CHECKED BY: teresa DATE of SERVICE: 08/15/2014 TIME of SERVICE: 1:32 PM AAA (abdominal aortic aneurysm) 07/13/2019 Overview: 3.5cm in 2014 documented as of this encounter (statuses as of 02/26/2022) [facility] History of Past illness Narrative* Problem Noted Date Resolved Date Aphasia following cerebral infarction 07/25/2015 12/30/2016 Prostate enlargement 05/21/2015 12/30/2016 On mechanically assisted ventilation 08/20/2014 08/21/2014 Overview: On full ventilator support. Grade I airway, WTE Intravascular volume depletion 08/20/2014 0 08/21/2014 Overview: IV fluid resuscitation Stress hyperglycemia 08/20/2014 08/22/2014 Overview: RHI gtt to maintain blood glucose <180 Pre-op testing 08/15/2014 08/21/2014 Overview: Images from the original note were not included. [facility] Surgeon: Beatris Mcadams M.D. Informed Consent Completed: Yes STS Score: unsupported CAD: Mild Is intended procedure a CABG: No - is a beta miguel ordered? No - reason: not indicated H & P completed: Yes PA/LAT: Completed CT: N/A MRI: N/A LE US: N/A Cath: Yes - reviewed: Yes Echo:Completed EKG: Completed EF %: 63 PI's: N/A Carotid: Completed Mapping: N/A Dental: Completed PFT's: N/A Basename 08/13/14 0830 WBC 7.93 HB 13.7 HCT 40.8 PLT 233 INR 2.4* CREAT 1.02 UA: Normal HCG:N/A ABO/ABO Confirmed: Yes Blood ordered: No SA Swab: Yes - results: Positive Last Dose of Anticoagulation: Coumadin; LD 08/14 Op Note: N/A Pacemaker Check: N/A Consults: Neurology DM: No Cardiac Surgical prep: N/A SIGNATURE: ARMIN Walton WAFER FAB OPERATOR CHECKED BY: teresa DATE of SERVICE: 08/15/2014 TIME of SERVICE: 1:32 PM AAA (abdominal aortic aneurysm) 07/13/2019 Overview: 3.5cm in 2014 documented as of this encounter (statuses as of 03/12/2022) [facility] History of Past illness Narrative* Problem Noted Date Resolved Date Aphasia following cerebral infarction 07/25/2015 12/30/2016 Prostate enlargement 05/21/2015 12/30/2016 On mechanically assisted ventilation 08/20/2014 08/21/2014 Overview: On full ventilator support. Grade I airway, WTE Intravascular volume depletion 08/20/2014 0 08/21/2014 Overview: IV fluid resuscitation Stress hyperglycemia 08/20/2014 08/22/2014 Overview: RHI gtt to maintain blood glucose <180 Pre-op testing 08/15/2014 08/21/2014 Overview: Images from the original note were not included. [facility] Surgeon: Beatris Mcadams M.D. Informed Consent Completed: Yes STS Score: unsupported CAD: Mild Is intended procedure a CABG: No - is a beta miguel ordered? No - reason: not indicated H & P completed: Yes PA/LAT: Completed CT: N/A MRI: N/A LE US: N/A Cath: Yes - reviewed: Yes Echo:Completed EKG: Completed EF %: 63 PI's: N/A Carotid: Completed Mapping: N/A Dental: Completed PFT's: N/A Basename 08/13/14 0830 WBC 7.93 HB 13.7 HCT 40.8 PLT 233 INR 2.4* CREAT 1.02 UA: Normal HCG:N/A ABO/ABO Confirmed: Yes Blood ordered: No SA Swab: Yes - results: Positive Last Dose of Anticoagulation: Coumadin; LD 08/14 Op Note: N/A Pacemaker Check: N/A Consults: Neurology DM: No Cardiac Surgical prep: N/A SIGNATURE: ARMIN Walton CNP CHECKED BY: teresa DATE of SERVICE: 08/15/2014 TIME of SERVICE: 1:32 PM AAA (abdominal aortic aneurysm) 07/13/2019 Overview: 3.5cm in 2014 documented as of this encounter (statuses as of 04/09/2022) [facility] History of Past illness Narrative* Problem Noted Date Resolved Date Aphasia following cerebral infarction 07/25/2015 12/30/2016 Prostate enlargement 05/21/2015 12/30/2016 On mechanically assisted ventilation 08/20/2014 08/21/2014 Overview: On full ventilator support. Grade I airway, WTE Intravascular volume depletion 08/20/2014 0 08/21/2014 Overview: IV fluid resuscitation Stress hyperglycemia 08/20/2014 08/22/2014 Overview: RHI gtt to maintain blood glucose <180 Pre-op testing 08/15/2014 08/21/2014 Overview: Images from the original note were not included. [facility] Surgeon: Beatris Mcadams M.D. Informed Consent Completed: Yes STS Score: unsupported CAD: Mild Is intended procedure a CABG: No - is a beta miguel ordered? No - reason: not indicated H & P completed: Yes PA/LAT: Completed CT: N/A MRI: N/A LE US: N/A Cath: Yes - reviewed: Yes Echo:Completed EKG: Completed EF %: 63 PI's: N/A Carotid: Completed Mapping: N/A Dental: Completed PFT's: N/A Basename 08/13/14 0830 WBC 7.93 HB 13.7 HCT 40.8 PLT 233 INR 2.4* CREAT 1.02 UA: Normal HCG:N/A ABO/ABO Confirmed: Yes Blood ordered: No SA Swab: Yes - results: Positive Last Dose of Anticoagulation: Coumadin; LD 08/14 Op Note: N/A Pacemaker Check: N/A Consults: Neurology DM: No Cardiac Surgical prep: N/A SIGNATURE: ARMIN Walton WAFER FAB OPERATOR CHECKED BY: teresa DATE of SERVICE: 08/15/2014 TIME of SERVICE: 1:32 PM AAA (abdominal aortic aneurysm) 07/13/2019 Overview: 3.5cm in 2014 documented as of this encounter (statuses as of 04/23/2022) [facility] History of Past illness Narrative* Problem Noted Date Resolved Date Aphasia following cerebral infarction 07/25/2015 12/30/2016 Prostate enlargement 05/21/2015 12/30/2016 On mechanically assisted ventilation 08/20/2014 08/21/2014 Overview: On full ventilator support. Grade I airway, WTE Intravascular volume depletion 08/20/2014 0 08/21/2014 Overview: IV fluid resuscitation Stress hyperglycemia 08/20/2014 08/22/2014 Overview: RHI gtt to maintain blood glucose <180 Pre-op testing 08/15/2014 08/21/2014 Overview: Images from the original note were not included. [facility] Surgeon: Beatris Mcadams M.D. Informed Consent Completed: Yes STS Score: unsupported CAD: Mild Is intended procedure a CABG: No - is a beta miguel ordered? No - reason: not indicated H & P completed: Yes PA/LAT: Completed CT: N/A MRI: N/A LE US: N/A Cath: Yes - reviewed: Yes Echo:Completed EKG: Completed EF %: 63 PI's: N/A Carotid: Completed Mapping: N/A Dental: Completed PFT's: N/A Basename 08/13/14 0830 WBC 7.93 HB 13.7 HCT 40.8 PLT 233 INR 2.4* CREAT 1.02 UA: Normal HCG:N/A ABO/ABO Confirmed: Yes Blood ordered: No SA Swab: Yes - results: Positive Last Dose of Anticoagulation: Coumadin; LD 08/14 Op Note: N/A Pacemaker Check: N/A Consults: Neurology DM: No Cardiac Surgical prep: N/A SIGNATURE: ARMIN Walton WAFER FAB OPERATOR CHECKED BY: teresa DATE of SERVICE: 08/15/2014 TIME of SERVICE: 1:32 PM AAA (abdominal aortic aneurysm) 07/13/2019 Overview: 3.5cm in 2014 documented as of this encounter (statuses as of 05/01/2022) [facility] History of Past illness Narrative* Problem Noted Date Resolved Date Aphasia following cerebral infarction 07/25/2015 12/30/2016 Prostate enlargement 05/21/2015 12/30/2016 On mechanically assisted ventilation 08/20/2014 08/21/2014 Overview: On full ventilator support. Grade I airway, WTE Intravascular volume depletion 08/20/2014 0 08/21/2014 Overview: IV fluid resuscitation Stress hyperglycemia 08/20/2014 08/22/2014 Overview: RHI gtt to maintain blood glucose <180 Pre-op testing 08/15/2014 08/21/2014 Overview: Images from the original note were not included. [facility] Surgeon: Beatris Mcadams M.D. Informed Consent Completed: Yes STS Score: unsupported CAD: Mild Is intended procedure a CABG: No - is a beta miguel ordered? No - reason: not indicated H & P completed: Yes PA/LAT: Completed CT: N/A MRI: N/A LE US: N/A Cath: Yes - reviewed: Yes Echo:Completed EKG: Completed EF %: 63 PI's: N/A Carotid: Completed Mapping: N/A Dental: Completed PFT's: N/A Basename 08/13/14 0830 WBC 7.93 HB 13.7 HCT 40.8 PLT 233 INR 2.4* CREAT 1.02 UA: Normal HCG:N/A ABO/ABO Confirmed: Yes Blood ordered: No SA Swab: Yes - results: Positive Last Dose of Anticoagulation: Coumadin; LD 08/14 Op Note: N/A Pacemaker Check: N/A Consults: Neurology DM: No Cardiac Surgical prep: N/A SIGNATURE: ARMIN Walton WAFER FAB OPERATOR CHECKED BY: teresa DATE of SERVICE: 08/15/2014 TIME of SERVICE: 1:32 PM AAA (abdominal aortic aneurysm) 07/13/2019 Overview: 3.5cm in 2014 documented as of this encounter (statuses as of 05/07/2022) [facility] History of Past illness Narrative* Problem Noted Date Resolved Date Aphasia following cerebral infarction 07/25/2015 12/30/2016 Prostate enlargement 05/21/2015 12/30/2016 On mechanically assisted ventilation 08/20/2014 08/21/2014 Overview: On full ventilator support. Grade I airway, WTE Intravascular volume depletion 08/20/2014 0 08/21/2014 Overview: IV fluid resuscitation Stress hyperglycemia 08/20/2014 08/22/2014 Overview: RHI gtt to maintain blood glucose <180 Pre-op testing 08/15/2014 08/21/2014 Overview: Images from the original note were not included. [facility] Surgeon: Beatris Mcadams M.D. Informed Consent Completed: Yes STS Score: unsupported CAD: Mild Is intended procedure a CABG: No - is a beta miguel ordered? No - reason: not indicated H & P completed: Yes PA/LAT: Completed CT: N/A MRI: N/A LE US: N/A Cath: Yes - reviewed: Yes Echo:Completed EKG: Completed EF %: 63 PI's: N/A Carotid: Completed Mapping: N/A Dental: Completed PFT's: N/A Basename 08/13/14 0830 WBC 7.93 HB 13.7 HCT 40.8 PLT 233 INR 2.4* CREAT 1.02 UA: Normal HCG:N/A ABO/ABO Confirmed: Yes Blood ordered: No SA Swab: Yes - results: Positive Last Dose of Anticoagulation: Coumadin; LD 08/14 Op Note: N/A Pacemaker Check: N/A Consults: Neurology DM: No Cardiac Surgical prep: N/A SIGNATURE: ARMIN Walton WAFER FAB OPERATOR CHECKED BY: teresa DATE of SERVICE: 08/15/2014 TIME of SERVICE: 1:32 PM AAA (abdominal aortic aneurysm) 07/13/2019 Overview: 3.5cm in 2014 documented as of this encounter (statuses as of 05/14/2022) [facility] History of Past illness Narrative* Problem Noted Date Resolved Date Aphasia following cerebral infarction 07/25/2015 12/30/2016 Prostate enlargement 05/21/2015 12/30/2016 On mechanically assisted ventilation 08/20/2014 08/21/2014 Overview: On full ventilator support. Grade I airway, WTE Intravascular volume depletion 08/20/2014 0 08/21/2014 Overview: IV fluid resuscitation Stress hyperglycemia 08/20/2014 08/22/2014 Overview: RHI gtt to maintain blood glucose <180 Pre-op testing 08/15/2014 08/21/2014 Overview: Images from the original note were not included. [facility] Surgeon: Beatris Mcadams M.D. Informed Consent Completed: Yes STS Score: unsupported CAD: Mild Is intended procedure a CABG: No - is a beta miguel ordered? No - reason: not indicated H & P completed: Yes PA/LAT: Completed CT: N/A MRI: N/A LE US: N/A Cath: Yes - reviewed: Yes Echo:Completed EKG: Completed EF %: 63 PI's: N/A Carotid: Completed Mapping: N/A Dental: Completed PFT's: N/A Basename 08/13/14 0830 WBC 7.93 HB 13.7 HCT 40.8 PLT 233 INR 2.4* CREAT 1.02 UA: Normal HCG:N/A ABO/ABO Confirmed: Yes Blood ordered: No SA Swab: Yes - results: Positive Last Dose of Anticoagulation: Coumadin; LD 08/14 Op Note: N/A Pacemaker Check: N/A Consults: Neurology DM: No Cardiac Surgical prep: N/A SIGNATURE: ARMIN Walton WAFER FAB OPERATOR CHECKED BY: teresa DATE of SERVICE: 08/15/2014 TIME of SERVICE: 1:32 PM AAA (abdominal aortic aneurysm) 07/13/2019 Overview: 3.5cm in 2014 documented as of this encounter (statuses as of 05/21/2022) [facility] History of Past illness Narrative* Problem Noted Date Resolved Date Aphasia following cerebral infarction 07/25/2015 12/30/2016 Prostate enlargement 05/21/2015 12/30/2016 On mechanically assisted ventilation 08/20/2014 08/21/2014 Overview: On full ventilator support. Grade I airway, WTE Intravascular volume depletion 08/20/2014 0 08/21/2014 Overview: IV fluid resuscitation Stress hyperglycemia 08/20/2014 08/22/2014 Overview: RHI gtt to maintain blood glucose <180 Pre-op testing 08/15/2014 08/21/2014 Overview: Images from the original note were not included. [facility] Surgeon: Beatris Mcadams M.D. Informed Consent Completed: Yes STS Score: unsupported CAD: Mild Is intended procedure a CABG: No - is a beta miguel ordered? No - reason: not indicated H & P completed: Yes PA/LAT: Completed CT: N/A MRI: N/A LE US: N/A Cath: Yes - reviewed: Yes Echo:Completed EKG: Completed EF %: 63 PI's: N/A Carotid: Completed Mapping: N/A Dental: Completed PFT's: N/A Basename 08/13/14 0830 WBC 7.93 HB 13.7 HCT 40.8 PLT 233 INR 2.4* CREAT 1.02 UA: Normal HCG:N/A ABO/ABO Confirmed: Yes Blood ordered: No SA Swab: Yes - results: Positive Last Dose of Anticoagulation: Coumadin; LD 08/14 Op Note: N/A Pacemaker Check: N/A Consults: Neurology DM: No Cardiac Surgical prep: N/A SIGNATURE: ARMIN Walton WAFER FAB OPERATOR CHECKED BY: teresa DATE of SERVICE: 08/15/2014 TIME of SERVICE: 1:32 PM AAA (abdominal aortic aneurysm) 07/13/2019 Overview: 3.5cm in 2014 documented as of this encounter (statuses as of 05/24/2022) [facility] History of Past illness Narrative* Problem Noted Date Resolved Date Aphasia following cerebral infarction 07/25/2015 12/30/2016 Prostate enlargement 05/21/2015 12/30/2016 On mechanically assisted ventilation 08/20/2014 08/21/2014 Overview: On full ventilator support. Grade I airway, WTE Intravascular volume depletion 08/20/2014 0 08/21/2014 Overview: IV fluid resuscitation Stress hyperglycemia 08/20/2014 08/22/2014 Overview: RHI gtt to maintain blood glucose <180 Pre-op testing 08/15/2014 08/21/2014 Overview: Images from the original note were not included. [facility] Surgeon: Beatris Mcadams M.D. Informed Consent Completed: Yes STS Score: unsupported CAD: Mild Is intended procedure a CABG: No - is a beta miguel ordered? No - reason: not indicated H & P completed: Yes PA/LAT: Completed CT: N/A MRI: N/A LE US: N/A Cath: Yes - reviewed: Yes Echo:Completed EKG: Completed EF %: 63 PI's: N/A Carotid: Completed Mapping: N/A Dental: Completed PFT's: N/A Basename 08/13/14 0830 WBC 7.93 HB 13.7 HCT 40.8 PLT 233 INR 2.4* CREAT 1.02 UA: Normal HCG:N/A ABO/ABO Confirmed: Yes Blood ordered: No SA Swab: Yes - results: Positive Last Dose of Anticoagulation: Coumadin; LD 08/14 Op Note: N/A Pacemaker Check: N/A Consults: Neurology DM: No Cardiac Surgical prep: N/A SIGNATURE: ARMIN Walton WAFER FAB OPERATOR CHECKED BY: teresa DATE of SERVICE: 08/15/2014 TIME of SERVICE: 1:32 PM AAA (abdominal aortic aneurysm) 07/13/2019 Overview: 3.5cm in 2014 documented as of this encounter (statuses as of 06/04/2022) [facility] History of Past illness Narrative* Problem Noted Date Resolved Date Aphasia following cerebral infarction 07/25/2015 12/30/2016 Prostate enlargement 05/21/2015 12/30/2016 On mechanically assisted ventilation 08/20/2014 08/21/2014 Overview: On full ventilator support. Grade I airway, WTE Intravascular volume depletion 08/20/2014 0 08/21/2014 Overview: IV fluid resuscitation Stress hyperglycemia 08/20/2014 08/22/2014 Overview: RHI gtt to maintain blood glucose <180 Pre-op testing 08/15/2014 08/21/2014 Overview: Images from the original note were not included. [facility] Surgeon: Beatris Mcadams M.D. Informed Consent Completed: Yes STS Score: unsupported CAD: Mild Is intended procedure a CABG: No - is a beta miguel ordered? No - reason: not indicated H & P completed: Yes PA/LAT: Completed CT: N/A MRI: N/A LE US: N/A Cath: Yes - reviewed: Yes Echo:Completed EKG: Completed EF %: 63 PI's: N/A Carotid: Completed Mapping: N/A Dental: Completed PFT's: N/A Basename 08/13/14 0830 WBC 7.93 HB 13.7 HCT 40.8 PLT 233 INR 2.4* CREAT 1.02 UA: Normal HCG:N/A ABO/ABO Confirmed: Yes Blood ordered: No SA Swab: Yes - results: Positive Last Dose of Anticoagulation: Coumadin; LD 08/14 Op Note: N/A Pacemaker Check: N/A Consults: Neurology DM: No Cardiac Surgical prep: N/A SIGNATURE: ARMIN Walton CNP CHECKED BY: teresa DATE of SERVICE: 08/15/2014 TIME of SERVICE: 1:32 PM AAA (abdominal aortic aneurysm) 07/13/2019 Overview: 3.5cm in 2014 documented as of this encounter (statuses as of 06/07/2022) [facility] History of Past illness Narrative* Problem Noted Date Resolved Date Aphasia following cerebral infarction 07/25/2015 12/30/2016 Prostate enlargement 05/21/2015 12/30/2016 On mechanically assisted ventilation 08/20/2014 08/21/2014 Overview: On full ventilator support. Grade I airway, WTE Intravascular volume depletion 08/20/2014 0 08/21/2014 Overview: IV fluid resuscitation Stress hyperglycemia 08/20/2014 08/22/2014 Overview: RHI gtt to maintain blood glucose <180 Pre-op testing 08/15/2014 08/21/2014 Overview: Images from the original note were not included. [facility] Surgeon: Beatris Mcadams M.D. Informed Consent Completed: Yes STS Score: unsupported CAD: Mild Is intended procedure a CABG: No - is a beta miguel ordered? No - reason: not indicated H & P completed: Yes PA/LAT: Completed CT: N/A MRI: N/A LE US: N/A Cath: Yes - reviewed: Yes Echo:Completed EKG: Completed EF %: 63 PI's: N/A Carotid: Completed Mapping: N/A Dental: Completed PFT's: N/A Basename 08/13/14 0830 WBC 7.93 HB 13.7 HCT 40.8 PLT 233 INR 2.4* CREAT 1.02 UA: Normal HCG:N/A ABO/ABO Confirmed: Yes Blood ordered: No SA Swab: Yes - results: Positive Last Dose of Anticoagulation: Coumadin; LD 08/14 Op Note: N/A Pacemaker Check: N/A Consults: Neurology DM: No Cardiac Surgical prep: N/A SIGNATURE: ARMIN Walton WAFER FAB OPERATOR CHECKED BY: teresa DATE of SERVICE: 08/15/2014 TIME of SERVICE: 1:32 PM AAA (abdominal aortic aneurysm) 07/13/2019 Overview: 3.5cm in 2014 documented as of this encounter (statuses as of 06/18/2022) [facility] History of Past illness Narrative* Problem Noted Date Resolved Date Aphasia following cerebral infarction 07/25/2015 12/30/2016 Prostate enlargement 05/21/2015 12/30/2016 On mechanically assisted ventilation 08/20/2014 08/21/2014 Overview: On full ventilator support. Grade I airway, WTE Intravascular volume depletion 08/20/2014 0 08/21/2014 Overview: IV fluid resuscitation Stress hyperglycemia 08/20/2014 08/22/2014 Overview: RHI gtt to maintain blood glucose <180 Pre-op testing 08/15/2014 08/21/2014 Overview: Images from the original note were not included. [facility] Surgeon: Beatris Mcadams M.D. Informed Consent Completed: Yes STS Score: unsupported CAD: Mild Is intended procedure a CABG: No - is a beta miguel ordered? No - reason: not indicated H & P completed: Yes PA/LAT: Completed CT: N/A MRI: N/A LE US: N/A Cath: Yes - reviewed: Yes Echo:Completed EKG: Completed EF %: 63 PI's: N/A Carotid: Completed Mapping: N/A Dental: Completed PFT's: N/A Basename 08/13/14 0830 WBC 7.93 HB 13.7 HCT 40.8 PLT 233 INR 2.4* CREAT 1.02 UA: Normal HCG:N/A ABO/ABO Confirmed: Yes Blood ordered: No SA Swab: Yes - results: Positive Last Dose of Anticoagulation: Coumadin; LD 08/14 Op Note: N/A Pacemaker Check: N/A Consults: Neurology DM: No Cardiac Surgical prep: N/A SIGNATURE: ARMIN Walton WAFER FAB OPERATOR CHECKED BY: teresa DATE of SERVICE: 08/15/2014 TIME of SERVICE: 1:32 PM AAA (abdominal aortic aneurysm) 07/13/2019 Overview: 3.5cm in 2014 documented as of this encounter (statuses as of 07/09/2022) [facility] History of Past illness Narrative* Problem Noted Date Resolved Date Aphasia following cerebral infarction 07/25/2015 12/30/2016 Prostate enlargement 05/21/2015 12/30/2016 On mechanically assisted ventilation 08/20/2014 08/21/2014 Overview: On full ventilator support. Grade I airway, WTE Intravascular volume depletion 08/20/2014 0 08/21/2014 Overview: IV fluid resuscitation Stress hyperglycemia 08/20/2014 08/22/2014 Overview: RHI gtt to maintain blood glucose <180 Pre-op testing 08/15/2014 08/21/2014 Overview: Images from the original note were not included. [facility] Surgeon: Beatris Mcadams M.D. Informed Consent Completed: Yes STS Score: unsupported CAD: Mild Is intended procedure a CABG: No - is a beta miguel ordered? No - reason: not indicated H & P completed: Yes PA/LAT: Completed CT: N/A MRI: N/A LE US: N/A Cath: Yes - reviewed: Yes Echo:Completed EKG: Completed EF %: 63 PI's: N/A Carotid: Completed Mapping: N/A Dental: Completed PFT's: N/A Basename 08/13/14 0830 WBC 7.93 HB 13.7 HCT 40.8 PLT 233 INR 2.4* CREAT 1.02 UA: Normal HCG:N/A ABO/ABO Confirmed: Yes Blood ordered: No SA Swab: Yes - results: Positive Last Dose of Anticoagulation: Coumadin; LD 08/14 Op Note: N/A Pacemaker Check: N/A Consults: Neurology DM: No Cardiac Surgical prep: N/A SIGNATURE: ARMIN Walton CNP CHECKED BY: teresa DATE of SERVICE: 08/15/2014 TIME of SERVICE: 1:32 PM AAA (abdominal aortic aneurysm) 07/13/2019 Overview: 3.5cm in 2014 documented as of this encounter (statuses as of 07/12/2022) [facility] History of Past illness Narrative* Problem Noted Date Resolved Date Aphasia following cerebral infarction 07/25/2015 12/30/2016 Prostate enlargement 05/21/2015 12/30/2016 On mechanically assisted ventilation 08/20/2014 08/21/2014 Overview: On full ventilator support. Grade I airway, WTE Intravascular volume depletion 08/20/2014 0 08/21/2014 Overview: IV fluid resuscitation Stress hyperglycemia 08/20/2014 08/22/2014 Overview: RHI gtt to maintain blood glucose <180 Pre-op testing 08/15/2014 08/21/2014 Overview: Images from the original note were not included. [facility] Surgeon: Beatris Mcadams M.D. Informed Consent Completed: Yes STS Score: unsupported CAD: Mild Is intended procedure a CABG: No - is a beta miguel ordered? No - reason: not indicated H & P completed: Yes PA/LAT: Completed CT: N/A MRI: N/A LE US: N/A Cath: Yes - reviewed: Yes Echo:Completed EKG: Completed EF %: 63 PI's: N/A Carotid: Completed Mapping: N/A Dental: Completed PFT's: N/A Basename 08/13/14 0830 WBC 7.93 HB 13.7 HCT 40.8 PLT 233 INR 2.4* CREAT 1.02 UA: Normal HCG:N/A ABO/ABO Confirmed: Yes Blood ordered: No SA Swab: Yes - results: Positive Last Dose of Anticoagulation: Coumadin; LD 08/14 Op Note: N/A Pacemaker Check: N/A Consults: Neurology DM: No Cardiac Surgical prep: N/A SIGNATURE: ARMIN Walton WAFER FAB OPERATOR CHECKED BY: teresa DATE of SERVICE: 08/15/2014 TIME of SERVICE: 1:32 PM AAA (abdominal aortic aneurysm) 07/13/2019 Overview: 3.5cm in 2014 documented as of this encounter (statuses as of 07/23/2022) [facility] History of Past illness Narrative* Problem Noted Date Resolved Date Aphasia following cerebral infarction 07/25/2015 12/30/2016 Prostate enlargement 05/21/2015 12/30/2016 On mechanically assisted ventilation 08/20/2014 08/21/2014 Overview: On full ventilator support. Grade I airway, WTE Intravascular volume depletion 08/20/2014 0 08/21/2014 Overview: IV fluid resuscitation Stress hyperglycemia 08/20/2014 08/22/2014 Overview: RHI gtt to maintain blood glucose <180 Pre-op testing 08/15/2014 08/21/2014 Overview: Images from the original note were not included. [facility] Surgeon: Beatris Mcadams M.D. Informed Consent Completed: Yes STS Score: unsupported CAD: Mild Is intended procedure a CABG: No - is a beta miguel ordered? No - reason: not indicated H & P completed: Yes PA/LAT: Completed CT: N/A MRI: N/A LE US: N/A Cath: Yes - reviewed: Yes Echo:Completed EKG: Completed EF %: 63 PI's: N/A Carotid: Completed Mapping: N/A Dental: Completed PFT's: N/A Basename 08/13/14 0830 WBC 7.93 HB 13.7 HCT 40.8 PLT 233 INR 2.4* CREAT 1.02 UA: Normal HCG:N/A ABO/ABO Confirmed: Yes Blood ordered: No SA Swab: Yes - results: Positive Last Dose of Anticoagulation: Coumadin; LD 08/14 Op Note: N/A Pacemaker Check: N/A Consults: Neurology DM: No Cardiac Surgical prep: N/A SIGNATURE: ARMIN Walton WAFER FAB OPERATOR CHECKED BY: teresa DATE of SERVICE: 08/15/2014 TIME of SERVICE: 1:32 PM AAA (abdominal aortic aneurysm) 07/13/2019 Overview: 3.5cm in 2014 documented as of this encounter (statuses as of 08/09/2022) [facility] History of Past illness Narrative* Problem Noted Date Resolved Date Aphasia following cerebral infarction 07/25/2015 12/30/2016 Prostate enlargement 05/21/2015 12/30/2016 On mechanically assisted ventilation 08/20/2014 08/21/2014 Overview: On full ventilator support. Grade I airway, WTE Intravascular volume depletion 08/20/2014 0 08/21/2014 Overview: IV fluid resuscitation Stress hyperglycemia 08/20/2014 08/22/2014 Overview: RHI gtt to maintain blood glucose <180 Pre-op testing 08/15/2014 08/21/2014 Overview: Images from the original note were not included. [facility] Surgeon: Beatris Mcadams M.D. Informed Consent Completed: Yes STS Score: unsupported CAD: Mild Is intended procedure a CABG: No - is a beta miguel ordered? No - reason: not indicated H & P completed: Yes PA/LAT: Completed CT: N/A MRI: N/A LE US: N/A Cath: Yes - reviewed: Yes Echo:Completed EKG: Completed EF %: 63 PI's: N/A Carotid: Completed Mapping: N/A Dental: Completed PFT's: N/A Basename 08/13/14 0830 WBC 7.93 HB 13.7 HCT 40.8 PLT 233 INR 2.4* CREAT 1.02 UA: Normal HCG:N/A ABO/ABO Confirmed: Yes Blood ordered: No SA Swab: Yes - results: Positive Last Dose of Anticoagulation: Coumadin; LD 08/14 Op Note: N/A Pacemaker Check: N/A Consults: Neurology DM: No Cardiac Surgical prep: N/A SIGNATURE: ARMIN Walton WAFER FAB OPERATOR CHECKED BY: teresa DATE of SERVICE: 08/15/2014 TIME of SERVICE: 1:32 PM AAA (abdominal aortic aneurysm) 07/13/2019 Overview: 3.5cm in 2014 documented as of this encounter (statuses as of 08/11/2022) [facility] History of Past illness Narrative* Problem Noted Date Resolved Date Aphasia following cerebral infarction 07/25/2015 12/30/2016 Prostate enlargement 05/21/2015 12/30/2016 On mechanically assisted ventilation 08/20/2014 08/21/2014 Overview: On full ventilator support. Grade I airway, WTE Intravascular volume depletion 08/20/2014 0 08/21/2014 Overview: IV fluid resuscitation Stress hyperglycemia 08/20/2014 08/22/2014 Overview: RHI gtt to maintain blood glucose <180 Pre-op testing 08/15/2014 08/21/2014 Overview: Images from the original note were not included. [facility] Surgeon: Beatris Mcadams M.D. Informed Consent Completed: Yes STS Score: unsupported CAD: Mild Is intended procedure a CABG: No - is a beta miguel ordered? No - reason: not indicated H & P completed: Yes PA/LAT: Completed CT: N/A MRI: N/A LE US: N/A Cath: Yes - reviewed: Yes Echo:Completed EKG: Completed EF %: 63 PI's: N/A Carotid: Completed Mapping: N/A Dental: Completed PFT's: N/A Basename 08/13/14 0830 WBC 7.93 HB 13.7 HCT 40.8 PLT 233 INR 2.4* CREAT 1.02 UA: Normal HCG:N/A ABO/ABO Confirmed: Yes Blood ordered: No SA Swab: Yes - results: Positive Last Dose of Anticoagulation: Coumadin; LD 08/14 Op Note: N/A Pacemaker Check: N/A Consults: Neurology DM: No Cardiac Surgical prep: N/A SIGNATURE: ARMIN Walton CNP CHECKED BY: teresa DATE of SERVICE: 08/15/2014 TIME of SERVICE: 1:32 PM AAA (abdominal aortic aneurysm) 07/13/2019 Overview: 3.5cm in 2014 documented as of this encounter (statuses as of 08/20/2022) [facility] History of Past illness Narrative* Problem Noted Date Resolved Date Aphasia following cerebral infarction 07/25/2015 12/30/2016 Prostate enlargement 05/21/2015 12/30/2016 On mechanically assisted ventilation 08/20/2014 08/21/2014 Overview: On full ventilator support. Grade I airway, WTE Intravascular volume depletion 08/20/2014 0 08/21/2014 Overview: IV fluid resuscitation Stress hyperglycemia 08/20/2014 08/22/2014 Overview: RHI gtt to maintain blood glucose <180 Pre-op testing 08/15/2014 08/21/2014 Overview: Images from the original note were not included. [facility] Surgeon: Beatris Mcadams M.D. Informed Consent Completed: Yes STS Score: unsupported CAD: Mild Is intended procedure a CABG: No - is a beta miguel ordered? No - reason: not indicated H & P completed: Yes PA/LAT: Completed CT: N/A MRI: N/A LE US: N/A Cath: Yes - reviewed: Yes Echo:Completed EKG: Completed EF %: 63 PI's: N/A Carotid: Completed Mapping: N/A Dental: Completed PFT's: N/A Basename 08/13/14 0830 WBC 7.93 HB 13.7 HCT 40.8 PLT 233 INR 2.4* CREAT 1.02 UA: Normal HCG:N/A ABO/ABO Confirmed: Yes Blood ordered: No SA Swab: Yes - results: Positive Last Dose of Anticoagulation: Coumadin; LD 08/14 Op Note: N/A Pacemaker Check: N/A Consults: Neurology DM: No Cardiac Surgical prep: N/A SIGNATURE: ARMIN Walton WAFER FAB OPERATOR CHECKED BY: teresa DATE of SERVICE: 08/15/2014 TIME of SERVICE: 1:32 PM AAA (abdominal aortic aneurysm) 07/13/2019 Overview: 3.5cm in 2014 documented as of this encounter (statuses as of 09/03/2022) [facility] History of Past illness Narrative* Problem Noted Date Resolved Date Aphasia following cerebral infarction 07/25/2015 12/30/2016 Prostate enlargement 05/21/2015 12/30/2016 On mechanically assisted ventilation 08/20/2014 08/21/2014 Overview: On full ventilator support. Grade I airway, WTE Intravascular volume depletion 08/20/2014 0 08/21/2014 Overview: IV fluid resuscitation Stress hyperglycemia 08/20/2014 08/22/2014 Overview: RHI gtt to maintain blood glucose <180 Pre-op testing 08/15/2014 08/21/2014 Overview: Images from the original note were not included. [facility] Surgeon: Beatris Mcadams M.D. Informed Consent Completed: Yes STS Score: unsupported CAD: Mild Is intended procedure a CABG: No - is a beta miguel ordered? No - reason: not indicated H & P completed: Yes PA/LAT: Completed CT: N/A MRI: N/A LE US: N/A Cath: Yes - reviewed: Yes Echo:Completed EKG: Completed EF %: 63 PI's: N/A Carotid: Completed Mapping: N/A Dental: Completed PFT's: N/A Basename 08/13/14 0830 WBC 7.93 HB 13.7 HCT 40.8 PLT 233 INR 2.4* CREAT 1.02 UA: Normal HCG:N/A ABO/ABO Confirmed: Yes Blood ordered: No SA Swab: Yes - results: Positive Last Dose of Anticoagulation: Coumadin; LD 08/14 Op Note: N/A Pacemaker Check: N/A Consults: Neurology DM: No Cardiac Surgical prep: N/A SIGNATURE: ARMIN Walton WAFER FAB OPERATOR CHECKED BY: teresa DATE of SERVICE: 08/15/2014 TIME of SERVICE: 1:32 PM AAA (abdominal aortic aneurysm) 07/13/2019 Overview: 3.5cm in 2014 documented as of this encounter (statuses as of 09/06/2022) [facility] History of Past illness Narrative* Problem Noted Date Resolved Date Aphasia following cerebral infarction 07/25/2015 12/30/2016 Prostate enlargement 05/21/2015 12/30/2016 On mechanically assisted ventilation 08/20/2014 08/21/2014 Overview: On full ventilator support. Grade I airway, WTE Intravascular volume depletion 08/20/2014 0 08/21/2014 Overview: IV fluid resuscitation Stress hyperglycemia 08/20/2014 08/22/2014 Overview: RHI gtt to maintain blood glucose <180 Pre-op testing 08/15/2014 08/21/2014 Overview: Images from the original note were not included. [facility] Surgeon: Beatris Mcadams M.D. Informed Consent Completed: Yes STS Score: unsupported CAD: Mild Is intended procedure a CABG: No - is a beta miguel ordered? No - reason: not indicated H & P completed: Yes PA/LAT: Completed CT: N/A MRI: N/A LE US: N/A Cath: Yes - reviewed: Yes Echo:Completed EKG: Completed EF %: 63 PI's: N/A Carotid: Completed Mapping: N/A Dental: Completed PFT's: N/A Basename 08/13/14 0830 WBC 7.93 HB 13.7 HCT 40.8 PLT 233 INR 2.4* CREAT 1.02 UA: Normal HCG:N/A ABO/ABO Confirmed: Yes Blood ordered: No SA Swab: Yes - results: Positive Last Dose of Anticoagulation: Coumadin; LD 08/14 Op Note: N/A Pacemaker Check: N/A Consults: Neurology DM: No Cardiac Surgical prep: N/A SIGNATURE: ARMIN Walton WAFER FAB OPERATOR CHECKED BY: teresa DATE of SERVICE: 08/15/2014 TIME of SERVICE: 1:32 PM AAA (abdominal aortic aneurysm) 07/13/2019 Overview: 3.5cm in 2014 documented as of this encounter (statuses as of 10/15/2022) [facility] History of Past illness Narrative* Problem Noted Date Resolved Date Aphasia following cerebral infarction 07/25/2015 12/30/2016 Prostate enlargement 05/21/2015 12/30/2016 On mechanically assisted ventilation 08/20/2014 08/21/2014 Overview: On full ventilator support. Grade I airway, WTE Intravascular volume depletion 08/20/2014 0 08/21/2014 Overview: IV fluid resuscitation Stress hyperglycemia 08/20/2014 08/22/2014 Overview: RHI gtt to maintain blood glucose <180 Pre-op testing 08/15/2014 08/21/2014 Overview: Images from the original note were not included. [facility] Surgeon: Beatris Mcadams M.D. Informed Consent Completed: Yes STS Score: unsupported CAD: Mild Is intended procedure a CABG: No - is a beta miguel ordered? No - reason: not indicated H & P completed: Yes PA/LAT: Completed CT: N/A MRI: N/A LE US: N/A Cath: Yes - reviewed: Yes Echo:Completed EKG: Completed EF %: 63 PI's: N/A Carotid: Completed Mapping: N/A Dental: Completed PFT's: N/A Basename 08/13/14 0830 WBC 7.93 HB 13.7 HCT 40.8 PLT 233 INR 2.4* CREAT 1.02 UA: Normal HCG:N/A ABO/ABO Confirmed: Yes Blood ordered: No SA Swab: Yes - results: Positive Last Dose of Anticoagulation: Coumadin; LD 08/14 Op Note: N/A Pacemaker Check: N/A Consults: Neurology DM: No Cardiac Surgical prep: N/A SIGNATURE: ARMIN Walton WAFER FAB OPERATOR CHECKED BY: teresa DATE of SERVICE: 08/15/2014 TIME of SERVICE: 1:32 PM AAA (abdominal aortic aneurysm) 07/13/2019 Overview: 3.5cm in 2014 documented as of this encounter (statuses as of 10/29/2022) [facility] History of Past illness Narrative* Problem Noted Date Resolved Date Aphasia following cerebral infarction 07/25/2015 12/30/2016 Prostate enlargement 05/21/2015 12/30/2016 On mechanically assisted ventilation 08/20/2014 08/21/2014 Overview: On full ventilator support. Grade I airway, WTE Intravascular volume depletion 08/20/2014 0 08/21/2014 Overview: IV fluid resuscitation Stress hyperglycemia 08/20/2014 08/22/2014 Overview: RHI gtt to maintain blood glucose <180 Pre-op testing 08/15/2014 08/21/2014 Overview: Images from the original note were not included. [facility] Surgeon: Beatris Mcadams M.D. Informed Consent Completed: Yes STS Score: unsupported CAD: Mild Is intended procedure a CABG: No - is a beta miguel ordered? No - reason: not indicated H & P completed: Yes PA/LAT: Completed CT: N/A MRI: N/A LE US: N/A Cath: Yes - reviewed: Yes Echo:Completed EKG: Completed EF %: 63 PI's: N/A Carotid: Completed Mapping: N/A Dental: Completed PFT's: N/A Basename 08/13/14 0830 WBC 7.93 HB 13.7 HCT 40.8 PLT 233 INR 2.4* CREAT 1.02 UA: Normal HCG:N/A ABO/ABO Confirmed: Yes Blood ordered: No SA Swab: Yes - results: Positive Last Dose of Anticoagulation: Coumadin; LD 08/14 Op Note: N/A Pacemaker Check: N/A Consults: Neurology DM: No Cardiac Surgical prep: N/A SIGNATURE: ARMIN Walton WAFER FAB OPERATOR CHECKED BY: teresa DATE of SERVICE: 08/15/2014 TIME of SERVICE: 1:32 PM AAA (abdominal aortic aneurysm) 07/13/2019 Overview: 3.5cm in 2014 documented as of this encounter (statuses as of 11/12/2022) [facility] History of Past illness Narrative* Problem Noted Date Resolved Date Aphasia following cerebral infarction 07/25/2015 12/30/2016 Prostate enlargement 05/21/2015 12/30/2016 On mechanically assisted ventilation 08/20/2014 08/21/2014 Overview: On full ventilator support. Grade I airway, WTE Intravascular volume depletion 08/20/2014 0 08/21/2014 Overview: IV fluid resuscitation Stress hyperglycemia 08/20/2014 08/22/2014 Overview: RHI gtt to maintain blood glucose <180 Pre-op testing 08/15/2014 08/21/2014 Overview: Images from the original note were not included. [facility] Surgeon: Beatris Mcadams M.D. Informed Consent Completed: Yes STS Score: unsupported CAD: Mild Is intended procedure a CABG: No - is a beta miguel ordered? No - reason: not indicated H & P completed: Yes PA/LAT: Completed CT: N/A MRI: N/A LE US: N/A Cath: Yes - reviewed: Yes Echo:Completed EKG: Completed EF %: 63 PI's: N/A Carotid: Completed Mapping: N/A Dental: Completed PFT's: N/A Basename 08/13/14 0830 WBC 7.93 HB 13.7 HCT 40.8 PLT 233 INR 2.4* CREAT 1.02 UA: Normal HCG:N/A ABO/ABO Confirmed: Yes Blood ordered: No SA Swab: Yes - results: Positive Last Dose of Anticoagulation: Coumadin; LD 08/14 Op Note: N/A Pacemaker Check: N/A Consults: Neurology DM: No Cardiac Surgical prep: N/A SIGNATURE: ARMIN Walton WAFER FAB OPERATOR CHECKED BY: teresa DATE of SERVICE: 08/15/2014 TIME of SERVICE: 1:32 PM AAA (abdominal aortic aneurysm) 07/13/2019 Overview: 3.5cm in 2014 documented as of this encounter (statuses as of 11/23/2022) [facility] History of Past illness Narrative* Problem Noted Date Resolved Date Aphasia following cerebral infarction 07/25/2015 12/30/2016 Prostate enlargement 05/21/2015 12/30/2016 On mechanically assisted ventilation 08/20/2014 08/21/2014 Overview: On full ventilator support. Grade I airway, WTE Intravascular volume depletion 08/20/2014 0 08/21/2014 Overview: IV fluid resuscitation Stress hyperglycemia 08/20/2014 08/22/2014 Overview: RHI gtt to maintain blood glucose <180 Pre-op testing 08/15/2014 08/21/2014 Overview: Images from the original note were not included. [facility] Surgeon: Beatris Mcadams M.D. Informed Consent Completed: Yes STS Score: unsupported CAD: Mild Is intended procedure a CABG: No - is a beta miguel ordered? No - reason: not indicated H & P completed: Yes PA/LAT: Completed CT: N/A MRI: N/A LE US: N/A Cath: Yes - reviewed: Yes Echo:Completed EKG: Completed EF %: 63 PI's: N/A Carotid: Completed Mapping: N/A Dental: Completed PFT's: N/A Basename 08/13/14 0830 WBC 7.93 HB 13.7 HCT 40.8 PLT 233 INR 2.4* CREAT 1.02 UA: Normal HCG:N/A ABO/ABO Confirmed: Yes Blood ordered: No SA Swab: Yes - results: Positive Last Dose of Anticoagulation: Coumadin; LD 08/14 Op Note: N/A Pacemaker Check: N/A Consults: Neurology DM: No Cardiac Surgical prep: N/A SIGNATURE: ARMIN Walton WAFER FAB OPERATOR CHECKED BY: teresa DATE of SERVICE: 08/15/2014 TIME of SERVICE: 1:32 PM AAA (abdominal aortic aneurysm) 07/13/2019 Overview: 3.5cm in 2014 documented as of this encounter (statuses as of 11/29/2022) [facility] History of Past illness Narrative* Problem Noted Date Resolved Date Aphasia following cerebral infarction 07/25/2015 12/30/2016 Prostate enlargement 05/21/2015 12/30/2016 On mechanically assisted ventilation 08/20/2014 08/21/2014 Overview: On full ventilator support. Grade I airway, WTE Intravascular volume depletion 08/20/2014 0 08/21/2014 Overview: IV fluid resuscitation Stress hyperglycemia 08/20/2014 08/22/2014 Overview: RHI gtt to maintain blood glucose <180 Pre-op testing 08/15/2014 08/21/2014 Overview: Images from the original note were not included. [facility] Surgeon: Beatris Mcadams M.D. Informed Consent Completed: Yes STS Score: unsupported CAD: Mild Is intended procedure a CABG: No - is a beta miguel ordered? No - reason: not indicated H & P completed: Yes PA/LAT: Completed CT: N/A MRI: N/A LE US: N/A Cath: Yes - reviewed: Yes Echo:Completed EKG: Completed EF %: 63 PI's: N/A Carotid: Completed Mapping: N/A Dental: Completed PFT's: N/A Basename 08/13/14 0830 WBC 7.93 HB 13.7 HCT 40.8 PLT 233 INR 2.4* CREAT 1.02 UA: Normal HCG:N/A ABO/ABO Confirmed: Yes Blood ordered: No SA Swab: Yes - results: Positive Last Dose of Anticoagulation: Coumadin; LD 08/14 Op Note: N/A Pacemaker Check: N/A Consults: Neurology DM: No Cardiac Surgical prep: N/A SIGNATURE: ARMIN Walton WAFER FAB OPERATOR CHECKED BY: teresa DATE of SERVICE: 08/15/2014 TIME of SERVICE: 1:32 PM AAA (abdominal aortic aneurysm) 07/13/2019 Overview: 3.5cm in 2014 documented as of this encounter (statuses as of 12/10/2022) [facility] History of Past illness Narrative* Problem Noted Date Resolved Date Aphasia following cerebral infarction 07/25/2015 12/30/2016 Prostate enlargement 05/21/2015 12/30/2016 On mechanically assisted ventilation 08/20/2014 08/21/2014 Overview: On full ventilator support. Grade I airway, WTE Intravascular volume depletion 08/20/2014 0 08/21/2014 Overview: IV fluid resuscitation Stress hyperglycemia 08/20/2014 08/22/2014 Overview: RHI gtt to maintain blood glucose <180 Pre-op testing 08/15/2014 08/21/2014 Overview: Images from the original note were not included. [facility] Surgeon: Beatris Mcadams M.D. Informed Consent Completed: Yes STS Score: unsupported CAD: Mild Is intended procedure a CABG: No - is a beta miguel ordered? No - reason: not indicated H & P completed: Yes PA/LAT: Completed CT: N/A MRI: N/A LE US: N/A Cath: Yes - reviewed: Yes Echo:Completed EKG: Completed EF %: 63 PI's: N/A Carotid: Completed Mapping: N/A Dental: Completed PFT's: N/A Basename 08/13/14 0830 WBC 7.93 HB 13.7 HCT 40.8 PLT 233 INR 2.4* CREAT 1.02 UA: Normal HCG:N/A ABO/ABO Confirmed: Yes Blood ordered: No SA Swab: Yes - results: Positive Last Dose of Anticoagulation: Coumadin; LD 08/14 Op Note: N/A Pacemaker Check: N/A Consults: Neurology DM: No Cardiac Surgical prep: N/A SIGNATURE: ARMIN Walton WAFER FAB OPERATOR CHECKED BY: teresa DATE of SERVICE: 08/15/2014 TIME of SERVICE: 1:32 PM AAA (abdominal aortic aneurysm) 07/13/2019 Overview: 3.5cm in 2014 documented as of this encounter (statuses as of 01/05/2023) [facility] History of Past illness Narrative* Problem Noted Date Resolved Date Aphasia following cerebral infarction 07/25/2015 12/30/2016 Prostate enlargement 05/21/2015 12/30/2016 On mechanically assisted ventilation 08/20/2014 08/21/2014 Overview: On full ventilator support. Grade I airway, WTE Intravascular volume depletion 08/20/2014 0 08/21/2014 Overview: IV fluid resuscitation Stress hyperglycemia 08/20/2014 08/22/2014 Overview: RHI gtt to maintain blood glucose <180 Pre-op testing 08/15/2014 08/21/2014 Overview: Images from the original note were not included. [facility] Surgeon: Beatris Mcadams M.D. Informed Consent Completed: Yes STS Score: unsupported CAD: Mild Is intended procedure a CABG: No - is a beta miguel ordered? No - reason: not indicated H & P completed: Yes PA/LAT: Completed CT: N/A MRI: N/A LE US: N/A Cath: Yes - reviewed: Yes Echo:Completed EKG: Completed EF %: 63 PI's: N/A Carotid: Completed Mapping: N/A Dental: Completed PFT's: N/A Basename 08/13/14 0830 WBC 7.93 HB 13.7 HCT 40.8 PLT 233 INR 2.4* CREAT 1.02 UA: Normal HCG:N/A ABO/ABO Confirmed: Yes Blood ordered: No SA Swab: Yes - results: Positive Last Dose of Anticoagulation: Coumadin; LD 08/14 Op Note: N/A Pacemaker Check: N/A Consults: Neurology DM: No Cardiac Surgical prep: N/A SIGNATURE: ARMIN Walton WAFER FAB OPERATOR CHECKED BY: teresa DATE of SERVICE: 08/15/2014 TIME of SERVICE: 1:32 PM AAA (abdominal aortic aneurysm) 07/13/2019 Overview: 3.5cm in 2014 documented as of this encounter (statuses as of 01/28/2023) [facility] History of Past illness Narrative* Problem Noted Date Resolved Date Aphasia following cerebral infarction 07/25/2015 12/30/2016 Prostate enlargement 05/21/2015 12/30/2016 On mechanically assisted ventilation 08/20/2014 08/21/2014 Overview: On full ventilator support. Grade I airway, WTE Intravascular volume depletion 08/20/2014 0 08/21/2014 Overview: IV fluid resuscitation Stress hyperglycemia 08/20/2014 08/22/2014 Overview: RHI gtt to maintain blood glucose <180 Pre-op testing 08/15/2014 08/21/2014 Overview: Images from the original note were not included. [facility] Surgeon: Beatris Mcadams M.D. Informed Consent Completed: Yes STS Score: unsupported CAD: Mild Is intended procedure a CABG: No - is a beta miguel ordered? No - reason: not indicated H & P completed: Yes PA/LAT: Completed CT: N/A MRI: N/A LE US: N/A Cath: Yes - reviewed: Yes Echo:Completed EKG: Completed EF %: 63 PI's: N/A Carotid: Completed Mapping: N/A Dental: Completed PFT's: N/A Basename 08/13/14 0830 WBC 7.93 HB 13.7 HCT 40.8 PLT 233 INR 2.4* CREAT 1.02 UA: Normal HCG:N/A ABO/ABO Confirmed: Yes Blood ordered: No SA Swab: Yes - results: Positive Last Dose of Anticoagulation: Coumadin; LD 08/14 Op Note: N/A Pacemaker Check: N/A Consults: Neurology DM: No Cardiac Surgical prep: N/A SIGNATURE: ARMIN Walton WAFER FAB OPERATOR CHECKED BY: teresa DATE of SERVICE: 08/15/2014 TIME of SERVICE: 1:32 PM AAA (abdominal aortic aneurysm) 07/13/2019 Overview: 3.5cm in 2014 documented as of this encounter (statuses as of 02/11/2023) [facility] History of Past illness Narrative* Problem Noted Date Diagnosed Date Resolved Date Aphasia following cerebral infarction 07/25/2015 12/30/2016 Prostate enlargement 05/21/2015 017 On mechanically assisted ventilation 08/20/2014 08/21/2014 Overview: On full ventilator support. Grade I airway, WTE Intravascular volume depletion 08/20/2014 08/21/2014 Overview: IV fluid resuscitation Stress hyperglycemia 08/20/2014 015 Overview: RHI gtt to maintain blood glucose <180 Pre-op testing 08/15/2014 08/21/2014 Overview: Images from the original note were not included. [facility] Surgeon: Beatris Mcadams M.D. Informed Consent Completed: Yes STS Score: unsupported CAD: Mild Is intended procedure a CABG: No - is a beta miguel ordered? No - reason: not indicated H & P completed: Yes PA/LAT: Completed CT: N/A MRI: N/A LE US: N/A Cath: Yes - reviewed: Yes Echo:Completed EKG: Completed EF %: 63 PI's: N/A Carotid: Completed Mapping: N/A Dental: Completed PFT's: N/A Basename 08/13/14 0830 WBC 7.93 HB 13.7 HCT 40.8 PLT 233 INR 2.4* CREAT 1.02 UA: Normal HCG:N/A ABO/ABO Confirmed: Yes Blood ordered: No SA Swab: Yes - results: Positive Last Dose of Anticoagulation: Coumadin; LD 08/14 Op Note: N/A Pacemaker Check: N/A Consults: Neurology DM: No Cardiac Surgical prep: N/A SIGNATURE: ARMIN Walton WAFER FAB OPERATOR CHECKED BY: teresa DATE of SERVICE: 08/15/2014 TIME of SERVICE: 1:32 PM AAA (abdominal aortic aneurysm) 07/13/2019 Overview: 3.5cm in 2014 documented as of this encounter (statuses as of 03/07/2023) [facility] History of Past illness Narrative* Problem Noted Date Diagnosed Date Resolved Date Aphasia following cerebral infarction 07/25/2015 12/30/2016 Prostate enlargement 05/21/2015 017 On mechanically assisted ventilation 08/20/2014 08/21/2014 Overview: On full ventilator support. Grade I airway, WTE Intravascular volume depletion 08/20/2014 08/21/2014 Overview: IV fluid resuscitation Stress hyperglycemia 08/20/2014 015 Overview: RHI gtt to maintain blood glucose <180 Pre-op testing 08/15/2014 08/21/2014 Overview: Images from the original note were not included. [facility] Surgeon: Beatris Mcadams M.D. Informed Consent Completed: Yes STS Score: unsupported CAD: Mild Is intended procedure a CABG: No - is a beta miguel ordered? No - reason: not indicated H & P completed: Yes PA/LAT: Completed CT: N/A MRI: N/A LE US: N/A Cath: Yes - reviewed: Yes Echo:Completed EKG: Completed EF %: 63 PI's: N/A Carotid: Completed Mapping: N/A Dental: Completed PFT's: N/A Basename 08/13/14 0830 WBC 7.93 HB 13.7 HCT 40.8 PLT 233 INR 2.4* CREAT 1.02 UA: Normal HCG:N/A ABO/ABO Confirmed: Yes Blood ordered: No SA Swab: Yes - results: Positive Last Dose of Anticoagulation: Coumadin; LD 08/14 Op Note: N/A Pacemaker Check: N/A Consults: Neurology DM: No Cardiac Surgical prep: N/A SIGNATURE: ARMIN Walton WAFER FAB OPERATOR CHECKED BY: teresa DATE of SERVICE: 08/15/2014 TIME of SERVICE: 1:32 PM AAA (abdominal aortic aneurysm) 07/13/2019 Overview: 3.5cm in 2014 documented as of this encounter (statuses as of 03/08/2023) [facility] History of Past illness Narrative* Problem Noted Date Diagnosed Date Resolved Date Aphasia following cerebral infarction 07/25/2015 12/30/2016 Prostate enlargement 05/21/2015 017 On mechanically assisted ventilation 08/20/2014 08/21/2014 Overview: On full ventilator support. Grade I airway, WTE Intravascular volume depletion 08/20/2014 08/21/2014 Overview: IV fluid resuscitation Stress hyperglycemia 08/20/2014 015 Overview: RHI gtt to maintain blood glucose <180 Pre-op testing 08/15/2014 08/21/2014 Overview: Images from the original note were not included. [facility] Surgeon: Beatris Mcadams M.D. Informed Consent Completed: Yes STS Score: unsupported CAD: Mild Is intended procedure a CABG: No - is a beta miguel ordered? No - reason: not indicated H & P completed: Yes PA/LAT: Completed CT: N/A MRI: N/A LE US: N/A Cath: Yes - reviewed: Yes Echo:Completed EKG: Completed EF %: 63 PI's: N/A Carotid: Completed Mapping: N/A Dental: Completed PFT's: N/A Basename 08/13/14 0830 WBC 7.93 HB 13.7 HCT 40.8 PLT 233 INR 2.4* CREAT 1.02 UA: Normal HCG:N/A ABO/ABO Confirmed: Yes Blood ordered: No SA Swab: Yes - results: Positive Last Dose of Anticoagulation: Coumadin; LD 08/14 Op Note: N/A Pacemaker Check: N/A Consults: Neurology DM: No Cardiac Surgical prep: N/A SIGNATURE: ARMIN Walton WAFER FAB OPERATOR CHECKED BY: teresa DATE of SERVICE: 08/15/2014 TIME of SERVICE: 1:32 PM AAA (abdominal aortic aneurysm) 07/13/2019 Overview: 3.5cm in 2014 documented as of this encounter (statuses as of 03/11/2023) [facility] History of Past illness Narrative* Problem Noted Date Diagnosed Date Resolved Date Aphasia following cerebral infarction 07/25/2015 12/30/2016 Prostate enlargement 05/21/2015 017 On mechanically assisted ventilation 08/20/2014 08/21/2014 Overview: On full ventilator support. Grade I airway, WTE Intravascular volume depletion 08/20/2014 08/21/2014 Overview: IV fluid resuscitation Stress hyperglycemia 08/20/2014 015 Overview: RHI gtt to maintain blood glucose <180 Pre-op testing 08/15/2014 08/21/2014 Overview: Images from the original note were not included. [facility] Surgeon: Beatris Mcadams M.D. Informed Consent Completed: Yes STS Score: unsupported CAD: Mild Is intended procedure a CABG: No - is a beta miguel ordered? No - reason: not indicated H & P completed: Yes PA/LAT: Completed CT: N/A MRI: N/A LE US: N/A Cath: Yes - reviewed: Yes Echo:Completed EKG: Completed EF %: 63 PI's: N/A Carotid: Completed Mapping: N/A Dental: Completed PFT's: N/A Basename 08/13/14 0830 WBC 7.93 HB 13.7 HCT 40.8 PLT 233 INR 2.4* CREAT 1.02 UA: Normal HCG:N/A ABO/ABO Confirmed: Yes Blood ordered: No SA Swab: Yes - results: Positive Last Dose of Anticoagulation: Coumadin; LD 08/14 Op Note: N/A Pacemaker Check: N/A Consults: Neurology DM: No Cardiac Surgical prep: N/A SIGNATURE: ARMIN Walton WAFER FAB OPERATOR CHECKED BY: teresa DATE of SERVICE: 08/15/2014 TIME of SERVICE: 1:32 PM AAA (abdominal aortic aneurysm) 07/13/2019 Overview: 3.5cm in 2014 documented as of this encounter (statuses as of 03/25/2023) [facility] History of Past illness Narrative* Problem Noted Date Diagnosed Date Resolved Date Aphasia following cerebral infarction 07/25/2015 12/30/2016 Prostate enlargement 05/21/2015 017 On mechanically assisted ventilation 08/20/2014 08/21/2014 Overview: On full ventilator support. Grade I airway, WTE Intravascular volume depletion 08/20/2014 08/21/2014 Overview: IV fluid resuscitation Stress hyperglycemia 08/20/2014 015 Overview: RHI gtt to maintain blood glucose <180 Pre-op testing 08/15/2014 08/21/2014 Overview: Images from the original note were not included. [facility] Surgeon: Beatris Mcadams M.D. Informed Consent Completed: Yes STS Score: unsupported CAD: Mild Is intended procedure a CABG: No - is a beta miguel ordered? No - reason: not indicated H & P completed: Yes PA/LAT: Completed CT: N/A MRI: N/A LE US: N/A Cath: Yes - reviewed: Yes Echo:Completed EKG: Completed EF %: 63 PI's: N/A Carotid: Completed Mapping: N/A Dental: Completed PFT's: N/A Basename 08/13/14 0830 WBC 7.93 HB 13.7 HCT 40.8 PLT 233 INR 2.4* CREAT 1.02 UA: Normal HCG:N/A ABO/ABO Confirmed: Yes Blood ordered: No SA Swab: Yes - results: Positive Last Dose of Anticoagulation: Coumadin; LD 08/14 Op Note: N/A Pacemaker Check: N/A Consults: Neurology DM: No Cardiac Surgical prep: N/A SIGNATURE: ARMIN Walton WAFER FAB OPERATOR CHECKED BY: teresa DATE of SERVICE: 08/15/2014 TIME of SERVICE: 1:32 PM AAA (abdominal aortic aneurysm) 07/13/2019 Overview: 3.5cm in 2014 documented as of this encounter (statuses as of 04/08/2023) [facility] History of Past illness Narrative* Problem Noted Date Diagnosed Date Resolved Date Aphasia following cerebral infarction 07/25/2015 12/30/2016 Prostate enlargement 05/21/2015 017 On mechanically assisted ventilation 08/20/2014 08/21/2014 Overview: On full ventilator support. Grade I airway, WTE Intravascular volume depletion 08/20/2014 08/21/2014 Overview: IV fluid resuscitation Stress hyperglycemia 08/20/2014 015 Overview: RHI gtt to maintain blood glucose <180 Pre-op testing 08/15/2014 08/21/2014 Overview: Images from the original note were not included. [facility] Surgeon: Beatris Mcadams M.D. Informed Consent Completed: Yes STS Score: unsupported CAD: Mild Is intended procedure a CABG: No - is a beta miguel ordered? No - reason: not indicated H & P completed: Yes PA/LAT: Completed CT: N/A MRI: N/A LE US: N/A Cath: Yes - reviewed: Yes Echo:Completed EKG: Completed EF %: 63 PI's: N/A Carotid: Completed Mapping: N/A Dental: Completed PFT's: N/A Basename 08/13/14 0830 WBC 7.93 HB 13.7 HCT 40.8 PLT 233 INR 2.4* CREAT 1.02 UA: Normal HCG:N/A ABO/ABO Confirmed: Yes Blood ordered: No SA Swab: Yes - results: Positive Last Dose of Anticoagulation: Coumadin; LD 08/14 Op Note: N/A Pacemaker Check: N/A Consults: Neurology DM: No Cardiac Surgical prep: N/A SIGNATURE: ARMIN Walton WAFER FAB OPERATOR CHECKED BY: teresa DATE of SERVICE: 08/15/2014 TIME of SERVICE: 1:32 PM AAA (abdominal aortic aneurysm) 07/13/2019 Overview: 3.5cm in 2014 documented as of this encounter (statuses as of 04/22/2023) [facility] History of Past illness Narrative* Problem Noted Date Diagnosed Date Resolved Date Aphasia following cerebral infarction 07/25/2015 12/30/2016 Prostate enlargement 05/21/2015 017 On mechanically assisted ventilation 08/20/2014 08/21/2014 Overview: On full ventilator support. Grade I airway, WTE Intravascular volume depletion 08/20/2014 08/21/2014 Overview: IV fluid resuscitation Stress hyperglycemia 08/20/2014 015 Overview: RHI gtt to maintain blood glucose <180 Pre-op testing 08/15/2014 08/21/2014 Overview: Images from the original note were not included. [facility] Surgeon: Beatris Mcadams M.D. Informed Consent Completed: Yes STS Score: unsupported CAD: Mild Is intended procedure a CABG: No - is a beta miguel ordered? No - reason: not indicated H & P completed: Yes PA/LAT: Completed CT: N/A MRI: N/A LE US: N/A Cath: Yes - reviewed: Yes Echo:Completed EKG: Completed EF %: 63 PI's: N/A Carotid: Completed Mapping: N/A Dental: Completed PFT's: N/A Basename 08/13/14 0830 WBC 7.93 HB 13.7 HCT 40.8 PLT 233 INR 2.4* CREAT 1.02 UA: Normal HCG:N/A ABO/ABO Confirmed: Yes Blood ordered: No SA Swab: Yes - results: Positive Last Dose of Anticoagulation: Coumadin; LD 08/14 Op Note: N/A Pacemaker Check: N/A Consults: Neurology DM: No Cardiac Surgical prep: N/A SIGNATURE: ARMIN Walton WAFER FAB OPERATOR CHECKED BY: teresa DATE of SERVICE: 08/15/2014 TIME of SERVICE: 1:32 PM AAA (abdominal aortic aneurysm) 07/13/2019 Overview: 3.5cm in 2014 documented as of this encounter (statuses as of 04/25/2023) [facility] History of Past illness Narrative* Problem Noted Date Diagnosed Date Resolved Date Aphasia following cerebral infarction 07/25/2015 12/30/2016 Prostate enlargement 05/21/2015 017 On mechanically assisted ventilation 08/20/2014 08/21/2014 Overview: On full ventilator support. Grade I airway, WTE Intravascular volume depletion 08/20/2014 08/21/2014 Overview: IV fluid resuscitation Stress hyperglycemia 08/20/2014 015 Overview: RHI gtt to maintain blood glucose <180 Pre-op testing 08/15/2014 08/21/2014 Overview: Images from the original note were not included. [facility] Surgeon: Beatris Mcadams M.D. Informed Consent Completed: Yes STS Score: unsupported CAD: Mild Is intended procedure a CABG: No - is a beta miguel ordered? No - reason: not indicated H & P completed: Yes PA/LAT: Completed CT: N/A MRI: N/A LE US: N/A Cath: Yes - reviewed: Yes Echo:Completed EKG: Completed EF %: 63 PI's: N/A Carotid: Completed Mapping: N/A Dental: Completed PFT's: N/A Basename 08/13/14 0830 WBC 7.93 HB 13.7 HCT 40.8 PLT 233 INR 2.4* CREAT 1.02 UA: Normal HCG:N/A ABO/ABO Confirmed: Yes Blood ordered: No SA Swab: Yes - results: Positive Last Dose of Anticoagulation: Coumadin; LD 08/14 Op Note: N/A Pacemaker Check: N/A Consults: Neurology DM: No Cardiac Surgical prep: N/A SIGNATURE: ARMIN Walton WAFER FAB OPERATOR CHECKED BY: teresa DATE of SERVICE: 08/15/2014 TIME of SERVICE: 1:32 PM AAA (abdominal aortic aneurysm) 07/13/2019 Overview: 3.5cm in 2014 documented as of this encounter (statuses as of 04/29/2023) [facility] History of Past illness Narrative* Problem Noted Date Diagnosed Date Resolved Date Aphasia following cerebral infarction 07/25/2015 12/30/2016 Prostate enlargement 05/21/2015 017 On mechanically assisted ventilation 08/20/2014 08/21/2014 Overview: On full ventilator support. Grade I airway, WTE Intravascular volume depletion 08/20/2014 08/21/2014 Overview: IV fluid resuscitation Stress hyperglycemia 08/20/2014 015 Overview: RHI gtt to maintain blood glucose <180 Pre-op testing 08/15/2014 08/21/2014 Overview: Images from the original note were not included. [facility] Surgeon: Beatris Mcadams M.D. Informed Consent Completed: Yes STS Score: unsupported CAD: Mild Is intended procedure a CABG: No - is a beta miguel ordered? No - reason: not indicated H & P completed: Yes PA/LAT: Completed CT: N/A MRI: N/A LE US: N/A Cath: Yes - reviewed: Yes Echo:Completed EKG: Completed EF %: 63 PI's: N/A Carotid: Completed Mapping: N/A Dental: Completed PFT's: N/A Basename 08/13/14 0830 WBC 7.93 HB 13.7 HCT 40.8 PLT 233 INR 2.4* CREAT 1.02 UA: Normal HCG:N/A ABO/ABO Confirmed: Yes Blood ordered: No SA Swab: Yes - results: Positive Last Dose of Anticoagulation: Coumadin; LD 08/14 Op Note: N/A Pacemaker Check: N/A Consults: Neurology DM: No Cardiac Surgical prep: N/A SIGNATURE: ARMIN Walton WAFER FAB OPERATOR CHECKED BY: treesa DATE of SERVICE: 08/15/2014 TIME of SERVICE: 1:32 PM AAA (abdominal aortic aneurysm) 07/13/2019 Overview: 3.5cm in 2014 documented as of this encounter (statuses as of 05/06/2023) [facility] History of Past illness Narrative* Problem Noted Date Diagnosed Date Resolved Date Aphasia following cerebral infarction 07/25/2015 12/30/2016 Prostate enlargement 05/21/2015 017 On mechanically assisted ventilation 08/20/2014 08/21/2014 Overview: On full ventilator support. Grade I airway, WTE Intravascular volume depletion 08/20/2014 08/21/2014 Overview: IV fluid resuscitation Stress hyperglycemia 08/20/2014 015 Overview: RHI gtt to maintain blood glucose <180 Pre-op testing 08/15/2014 08/21/2014 Overview: Images from the original note were not included. [facility] Surgeon: Beatris Mcadams M.D. Informed Consent Completed: Yes STS Score: unsupported CAD: Mild Is intended procedure a CABG: No - is a beta miguel ordered? No - reason: not indicated H & P completed: Yes PA/LAT: Completed CT: N/A MRI: N/A LE US: N/A Cath: Yes - reviewed: Yes Echo:Completed EKG: Completed EF %: 63 PI's: N/A Carotid: Completed Mapping: N/A Dental: Completed PFT's: N/A Basename 08/13/14 0830 WBC 7.93 HB 13.7 HCT 40.8 PLT 233 INR 2.4* CREAT 1.02 UA: Normal HCG:N/A ABO/ABO Confirmed: Yes Blood ordered: No SA Swab: Yes - results: Positive Last Dose of Anticoagulation: Coumadin; LD 08/14 Op Note: N/A Pacemaker Check: N/A Consults: Neurology DM: No Cardiac Surgical prep: N/A SIGNATURE: ARMIN Walton WAFER FAB OPERATOR CHECKED BY: teresa DATE of SERVICE: 08/15/2014 TIME of SERVICE: 1:32 PM AAA (abdominal aortic aneurysm) 07/13/2019 Overview: 3.5cm in 2014 documented as of this encounter (statuses as of 05/14/2023) [facility] History of Past illness Narrative* Problem Noted Date Diagnosed Date Resolved Date Aphasia following cerebral infarction 07/25/2015 12/30/2016 Prostate enlargement 05/21/2015 017 On mechanically assisted ventilation 08/20/2014 08/21/2014 Overview: On full ventilator support. Grade I airway, WTE Intravascular volume depletion 08/20/2014 08/21/2014 Overview: IV fluid resuscitation Stress hyperglycemia 08/20/2014 015 Overview: RHI gtt to maintain blood glucose <180 Pre-op testing 08/15/2014 08/21/2014 Overview: Images from the original note were not included. [facility] Surgeon: Beatris Mcadams M.D. Informed Consent Completed: Yes STS Score: unsupported CAD: Mild Is intended procedure a CABG: No - is a beta miguel ordered? No - reason: not indicated H & P completed: Yes PA/LAT: Completed CT: N/A MRI: N/A LE US: N/A Cath: Yes - reviewed: Yes Echo:Completed EKG: Completed EF %: 63 PI's: N/A Carotid: Completed Mapping: N/A Dental: Completed PFT's: N/A Basename 08/13/14 0830 WBC 7.93 HB 13.7 HCT 40.8 PLT 233 INR 2.4* CREAT 1.02 UA: Normal HCG:N/A ABO/ABO Confirmed: Yes Blood ordered: No SA Swab: Yes - results: Positive Last Dose of Anticoagulation: Coumadin; LD 08/14 Op Note: N/A Pacemaker Check: N/A Consults: Neurology DM: No Cardiac Surgical prep: N/A SIGNATURE: ARMIN Walton CNP CHECKED BY: teresa DATE of SERVICE: 08/15/2014 TIME of SERVICE: 1:32 PM AAA (abdominal aortic aneurysm) 07/13/2019 Overview: 3.5cm in 2014 documented as of this encounter (statuses as of 05/14/2023) [facility] History of Past illness Narrative* Problem Noted Date Diagnosed Date Resolved Date Aphasia following cerebral infarction 07/25/2015 12/30/2016 Prostate enlargement 05/21/2015 017 On mechanically assisted ventilation 08/20/2014 08/21/2014 Overview: On full ventilator support. Grade I airway, WTE Intravascular volume depletion 08/20/2014 08/21/2014 Overview: IV fluid resuscitation Stress hyperglycemia 08/20/2014 015 Overview: RHI gtt to maintain blood glucose <180 Pre-op testing 08/15/2014 08/21/2014 Overview: Images from the original note were not included. [facility] Surgeon: Beatris Mcadams M.D. Informed Consent Completed: Yes STS Score: unsupported CAD: Mild Is intended procedure a CABG: No - is a beta miguel ordered? No - reason: not indicated H & P completed: Yes PA/LAT: Completed CT: N/A MRI: N/A LE US: N/A Cath: Yes - reviewed: Yes Echo:Completed EKG: Completed EF %: 63 PI's: N/A Carotid: Completed Mapping: N/A Dental: Completed PFT's: N/A Basename 08/13/14 0830 WBC 7.93 HB 13.7 HCT 40.8 PLT 233 INR 2.4* CREAT 1.02 UA: Normal HCG:N/A ABO/ABO Confirmed: Yes Blood ordered: No SA Swab: Yes - results: Positive Last Dose of Anticoagulation: Coumadin; LD 08/14 Op Note: N/A Pacemaker Check: N/A Consults: Neurology DM: No Cardiac Surgical prep: N/A SIGNATURE: ARMIN Walton WAFER FAB OPERATOR CHECKED BY: teresa DATE of SERVICE: 08/15/2014 TIME of SERVICE: 1:32 PM AAA (abdominal aortic aneurysm) 07/13/2019 Overview: 3.5cm in 2014 documented as of this encounter (statuses as of 05/24/2023) [facility] History of Past illness Narrative* Problem Noted Date Diagnosed Date Resolved Date Aphasia following cerebral infarction 07/25/2015 12/30/2016 Prostate enlargement 05/21/2015 017 On mechanically assisted ventilation 08/20/2014 08/21/2014 Overview: On full ventilator support. Grade I airway, WTE Intravascular volume depletion 08/20/2014 08/21/2014 Overview: IV fluid resuscitation Stress hyperglycemia 08/20/2014 015 Overview: RHI gtt to maintain blood glucose <180 Pre-op testing 08/15/2014 08/21/2014 Overview: Images from the original note were not included. [facility] Surgeon: Beatris Mcadams M.D. Informed Consent Completed: Yes STS Score: unsupported CAD: Mild Is intended procedure a CABG: No - is a beta miguel ordered? No - reason: not indicated H & P completed: Yes PA/LAT: Completed CT: N/A MRI: N/A LE US: N/A Cath: Yes - reviewed: Yes Echo:Completed EKG: Completed EF %: 63 PI's: N/A Carotid: Completed Mapping: N/A Dental: Completed PFT's: N/A Basename 08/13/14 0830 WBC 7.93 HB 13.7 HCT 40.8 PLT 233 INR 2.4* CREAT 1.02 UA: Normal HCG:N/A ABO/ABO Confirmed: Yes Blood ordered: No SA Swab: Yes - results: Positive Last Dose of Anticoagulation: Coumadin; LD 08/14 Op Note: N/A Pacemaker Check: N/A Consults: Neurology DM: No Cardiac Surgical prep: N/A SIGNATURE: ARMIN Walton WAFER FAB OPERATOR CHECKED BY: teresa DATE of SERVICE: 08/15/2014 TIME of SERVICE: 1:32 PM AAA (abdominal aortic aneurysm) 07/13/2019 Overview: 3.5cm in 2014 documented as of this encounter (statuses as of 05/27/2023) [facility] History of Past illness Narrative* Problem Noted Date Diagnosed Date Resolved Date Aphasia following cerebral infarction 07/25/2015 12/30/2016 Prostate enlargement 05/21/2015 017 On mechanically assisted ventilation 08/20/2014 08/21/2014 Overview: On full ventilator support. Grade I airway, WTE Intravascular volume depletion 08/20/2014 08/21/2014 Overview: IV fluid resuscitation Stress hyperglycemia 08/20/2014 015 Overview: RHI gtt to maintain blood glucose <180 Pre-op testing 08/15/2014 08/21/2014 Overview: Images from the original note were not included. [facility] Surgeon: Beatris Mcadams M.D. Informed Consent Completed: Yes STS Score: unsupported CAD: Mild Is intended procedure a CABG: No - is a beta miguel ordered? No - reason: not indicated H & P completed: Yes PA/LAT: Completed CT: N/A MRI: N/A LE US: N/A Cath: Yes - reviewed: Yes Echo:Completed EKG: Completed EF %: 63 PI's: N/A Carotid: Completed Mapping: N/A Dental: Completed PFT's: N/A Basename 08/13/14 0830 WBC 7.93 HB 13.7 HCT 40.8 PLT 233 INR 2.4* CREAT 1.02 UA: Normal HCG:N/A ABO/ABO Confirmed: Yes Blood ordered: No SA Swab: Yes - results: Positive Last Dose of Anticoagulation: Coumadin; LD 08/14 Op Note: N/A Pacemaker Check: N/A Consults: Neurology DM: No Cardiac Surgical prep: N/A SIGNATURE: ARMIN Walton WAFER FAB OPERATOR CHECKED BY: teresa DATE of SERVICE: 08/15/2014 TIME of SERVICE: 1:32 PM AAA (abdominal aortic aneurysm) 07/13/2019 Overview: 3.5cm in 2014 documented as of this encounter (statuses as of 06/03/2023) [facility] History of Past illness Narrative* Problem Noted Date Diagnosed Date Resolved Date Aphasia following cerebral infarction 07/25/2015 12/30/2016 Prostate enlargement 05/21/2015 017 On mechanically assisted ventilation 08/20/2014 08/21/2014 Overview: On full ventilator support. Grade I airway, WTE Intravascular volume depletion 08/20/2014 08/21/2014 Overview: IV fluid resuscitation Stress hyperglycemia 08/20/2014 015 Overview: RHI gtt to maintain blood glucose <180 Pre-op testing 08/15/2014 08/21/2014 Overview: Images from the original note were not included. [facility] Surgeon: Beatris Mcadams M.D. Informed Consent Completed: Yes STS Score: unsupported CAD: Mild Is intended procedure a CABG: No - is a beta miguel ordered? No - reason: not indicated H & P completed: Yes PA/LAT: Completed CT: N/A MRI: N/A LE US: N/A Cath: Yes - reviewed: Yes Echo:Completed EKG: Completed EF %: 63 PI's: N/A Carotid: Completed Mapping: N/A Dental: Completed PFT's: N/A Basename 08/13/14 0830 WBC 7.93 HB 13.7 HCT 40.8 PLT 233 INR 2.4* CREAT 1.02 UA: Normal HCG:N/A ABO/ABO Confirmed: Yes Blood ordered: No SA Swab: Yes - results: Positive Last Dose of Anticoagulation: Coumadin; LD 08/14 Op Note: N/A Pacemaker Check: N/A Consults: Neurology DM: No Cardiac Surgical prep: N/A SIGNATURE: ARMIN Walton WAFER FAB OPERATOR CHECKED BY: teresa DATE of SERVICE: 08/15/2014 TIME of SERVICE: 1:32 PM AAA (abdominal aortic aneurysm) 07/13/2019 Overview: 3.5cm in 2014 documented as of this encounter (statuses as of 06/10/2023) [facility] History of Past illness Narrative* Problem Noted Date Diagnosed Date Resolved Date Aphasia following cerebral infarction 07/25/2015 12/30/2016 Prostate enlargement 05/21/2015 017 On mechanically assisted ventilation 08/20/2014 08/21/2014 Overview: On full ventilator support. Grade I airway, WTE Intravascular volume depletion 08/20/2014 08/21/2014 Overview: IV fluid resuscitation Stress hyperglycemia 08/20/2014 015 Overview: RHI gtt to maintain blood glucose <180 Pre-op testing 08/15/2014 08/21/2014 Overview: Images from the original note were not included. [facility] Surgeon: Beatris Mcadams M.D. Informed Consent Completed: Yes STS Score: unsupported CAD: Mild Is intended procedure a CABG: No - is a beta miguel ordered? No - reason: not indicated H & P completed: Yes PA/LAT: Completed CT: N/A MRI: N/A LE US: N/A Cath: Yes - reviewed: Yes Echo:Completed EKG: Completed EF %: 63 PI's: N/A Carotid: Completed Mapping: N/A Dental: Completed PFT's: N/A Basename 08/13/14 0830 WBC 7.93 HB 13.7 HCT 40.8 PLT 233 INR 2.4* CREAT 1.02 UA: Normal HCG:N/A ABO/ABO Confirmed: Yes Blood ordered: No SA Swab: Yes - results: Positive Last Dose of Anticoagulation: Coumadin; LD 08/14 Op Note: N/A Pacemaker Check: N/A Consults: Neurology DM: No Cardiac Surgical prep: N/A SIGNATURE: ARMIN Walton WAFER FAB OPERATOR CHECKED BY: teresa DATE of SERVICE: 08/15/2014 TIME of SERVICE: 1:32 PM AAA (abdominal aortic aneurysm) 07/13/2019 Overview: 3.5cm in 2014 documented as of this encounter (statuses as of 06/12/2023) [facility] History of Past illness Narrative* Problem Noted Date Diagnosed Date Resolved Date Aphasia following cerebral infarction 07/25/2015 12/30/2016 Prostate enlargement 05/21/2015 017 On mechanically assisted ventilation 08/20/2014 08/21/2014 Overview: On full ventilator support. Grade I airway, WTE Intravascular volume depletion 08/20/2014 08/21/2014 Overview: IV fluid resuscitation Stress hyperglycemia 08/20/2014 015 Overview: RHI gtt to maintain blood glucose <180 Pre-op testing 08/15/2014 08/21/2014 Overview: Images from the original note were not included. [facility] Surgeon: Beatris Mcadams M.D. Informed Consent Completed: Yes STS Score: unsupported CAD: Mild Is intended procedure a CABG: No - is a beta miguel ordered? No - reason: not indicated H & P completed: Yes PA/LAT: Completed CT: N/A MRI: N/A LE US: N/A Cath: Yes - reviewed: Yes Echo:Completed EKG: Completed EF %: 63 PI's: N/A Carotid: Completed Mapping: N/A Dental: Completed PFT's: N/A Basename 08/13/14 0830 WBC 7.93 HB 13.7 HCT 40.8 PLT 233 INR 2.4* CREAT 1.02 UA: Normal HCG:N/A ABO/ABO Confirmed: Yes Blood ordered: No SA Swab: Yes - results: Positive Last Dose of Anticoagulation: Coumadin; LD 08/14 Op Note: N/A Pacemaker Check: N/A Consults: Neurology DM: No Cardiac Surgical prep: N/A SIGNATURE: ARMIN Walton WAFER FAB OPERATOR CHECKED BY: teresa DATE of SERVICE: 08/15/2014 TIME of SERVICE: 1:32 PM AAA (abdominal aortic aneurysm) 07/13/2019 Overview: 3.5cm in 2014 documented as of this encounter (statuses as of 06/17/2023) [facility] History of Past illness Narrative* Problem Noted Date Diagnosed Date Resolved Date Aphasia following cerebral infarction 07/25/2015 12/30/2016 Prostate enlargement 05/21/2015 017 On mechanically assisted ventilation 08/20/2014 08/21/2014 Overview: On full ventilator support. Grade I airway, WTE Intravascular volume depletion 08/20/2014 08/21/2014 Overview: IV fluid resuscitation Stress hyperglycemia 08/20/2014 015 Overview: RHI gtt to maintain blood glucose <180 Pre-op testing 08/15/2014 08/21/2014 Overview: Images from the original note were not included. [facility] Surgeon: Beatris Macdams M.D. Informed Consent Completed: Yes STS Score: unsupported CAD: Mild Is intended procedure a CABG: No - is a beta miguel ordered? No - reason: not indicated H & P completed: Yes PA/LAT: Completed CT: N/A MRI: N/A LE US: N/A Cath: Yes - reviewed: Yes Echo:Completed EKG: Completed EF %: 63 PI's: N/A Carotid: Completed Mapping: N/A Dental: Completed PFT's: N/A Basename 08/13/14 0830 WBC 7.93 HB 13.7 HCT 40.8 PLT 233 INR 2.4* CREAT 1.02 UA: Normal HCG:N/A ABO/ABO Confirmed: Yes Blood ordered: No SA Swab: Yes - results: Positive Last Dose of Anticoagulation: Coumadin; LD 08/14 Op Note: N/A Pacemaker Check: N/A Consults: Neurology DM: No Cardiac Surgical prep: N/A SIGNATURE: ARMIN Walton WAFER FAB OPERATOR CHECKED BY: teresa DATE of SERVICE: 08/15/2014 TIME of SERVICE: 1:32 PM AAA (abdominal aortic aneurysm) 07/13/2019 Overview: 3.5cm in 2014 documented as of this encounter (statuses as of 06/20/2023) [facility] History of Past illness Narrative* Problem Noted Date Diagnosed Date Resolved Date Aphasia following cerebral infarction 07/25/2015 12/30/2016 Prostate enlargement 05/21/2015 017 On mechanically assisted ventilation 08/20/2014 08/21/2014 Overview: On full ventilator support. Grade I airway, WTE Intravascular volume depletion 08/20/2014 08/21/2014 Overview: IV fluid resuscitation Stress hyperglycemia 08/20/2014 015 Overview: RHI gtt to maintain blood glucose <180 Pre-op testing 08/15/2014 08/21/2014 Overview: Images from the original note were not included. [facility] Surgeon: Beatris Mcadams M.D. Informed Consent Completed: Yes STS Score: unsupported CAD: Mild Is intended procedure a CABG: No - is a beta miguel ordered? 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 Grade I airway, WTE Intravascular volume depletion 08/20/2014 08/21/2014 Overview: IV fluid resuscitation Stress hyperglycemia 08/20/2014 015 Overview: RHI gtt to maintain blood glucose <180 Pre-op testing 08/15/2014 08/21/2014 Overview: Images from the original note were not included. [facility] Surgeon: Beatris Mcadams M.D. Informed Consent Completed: Yes STS Score: unsupported CAD: Mild Is intended procedure a CABG: No - is a beta miguel ordered? No - reason: not indicated H & P completed: Yes PA/LAT: Completed CT: N/A MRI: N/A LE US: N/A Cath: Yes - reviewed: Yes Echo:Completed EKG: Completed EF %: 63 PI's: N/A Carotid: Completed Mapping: N/A Dental: Completed PFT's: N/A Basename 08/13/14 0830 WBC 7.93 HB 13.7 HCT 40.8 PLT 233 INR 2.4* CREAT 1.02 UA: Normal HCG:N/A ABO/ABO Confirmed: Yes Blood ordered: No SA Swab: Yes - results: Positive Last Dose of Anticoagulation: Coumadin; LD 08/14 Op Note: N/A Pacemaker Check: N/A Consults: Neurology DM: No Cardiac Surgical prep: N/A SIGNATURE: ARMIN Walton WAFER FAB OPERATOR CHECKED BY: teresa DATE of SERVICE: 08/15/2014 TIME of SERVICE: 1:32 PM AAA (abdominal aortic aneurysm) 07/13/2019 Overview: 3.5cm in 2014 documented as of this encounter (statuses as of 07/01/2023) [facility] History of Past illness Narrative* Problem Noted Date Diagnosed Date Resolved Date Aphasia following cerebral infarction 07/25/2015 12/30/2016 Prostate enlargement 05/21/2015 017 On mechanically assisted ventilation 08/20/2014 08/21/2014 Overview: On full ventilator support. Grade I airway, WTE Intravascular volume depletion 08/20/2014 08/21/2014 Overview: IV fluid resuscitation Stress hyperglycemia 08/20/2014 015 Overview: RHI gtt to maintain blood glucose <180 Pre-op testing 08/15/2014 08/21/2014 Overview: Images from the original note were not included. [facility] Surgeon: Beatris Mcadams M.D. Informed Consent Completed: Yes STS Score: unsupported CAD: Mild Is intended procedure a CABG: No - is a beta miguel ordered? No - reason: not indicated H & P completed: Yes PA/LAT: Completed CT: N/A MRI: N/A LE US: N/A Cath: Yes - reviewed: Yes Echo:Completed EKG: Completed EF %: 63 PI's: N/A Carotid: Completed Mapping: N/A Dental: Completed PFT's: N/A Basename 08/13/14 0830 WBC 7.93 HB 13.7 HCT 40.8 PLT 233 INR 2.4* CREAT 1.02 UA: Normal HCG:N/A ABO/ABO Confirmed: Yes Blood ordered: No SA Swab: Yes - results: Positive Last Dose of Anticoagulation: Coumadin; LD 08/14 Op Note: N/A Pacemaker Check: N/A Consults: Neurology DM: No Cardiac Surgical prep: N/A SIGNATURE: ARMIN Walton WAFER FAB OPERATOR CHECKED BY: teresa DATE of SERVICE: 08/15/2014 TIME of SERVICE: 1:32 PM AAA (abdominal aortic aneurysm) 07/13/2019 Overview: 3.5cm in 2014 documented as of this encounter (statuses as of 07/15/2023) [facility] History of Past illness Narrative* Problem Noted Date Diagnosed Date Resolved Date Aphasia following cerebral infarction 07/25/2015 12/30/2016 Prostate enlargement 05/21/2015 017 On mechanically assisted ventilation 08/20/2014 08/21/2014 Overview: On full ventilator support. Grade I airway, WTE Intravascular volume depletion 08/20/2014 08/21/2014 Overview: IV fluid resuscitation Stress hyperglycemia 08/20/2014 015 Overview: RHI gtt to maintain blood glucose <180 Pre-op testing 08/15/2014 08/21/2014 Overview: Images from the original note were not included. [facility] Surgeon: Beatris Mcadams M.D. Informed Consent Completed: Yes STS Score: unsupported CAD: Mild Is intended procedure a CABG: No - is a beta miguel ordered? No - reason: not indicated H & P completed: Yes PA/LAT: Completed CT: N/A MRI: N/A LE US: N/A Cath: Yes - reviewed: Yes Echo:Completed EKG: Completed EF %: 63 PI's: N/A Carotid: Completed Mapping: N/A Dental: Completed PFT's: N/A Basename 08/13/14 0830 WBC 7.93 HB 13.7 HCT 40.8 PLT 233 INR 2.4* CREAT 1.02 UA: Normal HCG:N/A ABO/ABO Confirmed: Yes Blood ordered: No SA Swab: Yes - results: Positive Last Dose of Anticoagulation: Coumadin; LD 08/14 Op Note: N/A Pacemaker Check: N/A Consults: Neurology DM: No Cardiac Surgical prep: N/A SIGNATURE: ARMIN Walton WAFER FAB OPERATOR CHECKED BY: teresa DATE of SERVICE: 08/15/2014 TIME of SERVICE: 1:32 PM AAA (abdominal aortic aneurysm) 07/13/2019 Overview: 3.5cm in 2014 documented as of this encounter (statuses as of 07/15/2023) [facility] complaint Narrative - Reported* Sleep apnea * Neurologic Evaluation. * An interactive audio and video telecommunication system which permits real time communications between the patient (at the originating site) and provider (at the distant site) was utilized to providethis telehealth service. * Patient here for follow up, sleep apnes; ESS:3 [id number] Work Phone: [place] complaint Narrative - Reported* Central sleep apnea * Neurologic Evaluation. * An interactive audio and video telecommunication system which permits real time communications between the patient (at the originating site) and provider (at the distant site) was utilized to providethis telehealth service. * Follow up sleep apnea. ESS is 4 [id number]-[id number] Work Phone: Evaluation note* Diagnosis shelter (current) use of anticoagulants- Primary Long-term (current) use of anticoagulants Permanent atrial fibrillation (HCC) Atrial fibrillation S/P MVR (mitral valve replacement) Heart valve replaced by other means [facility] Diagnosis Permanent atrial fibrillation (HCC)- Primary Atrial fibrillation Mitral valve stenosis, unspecified etiology Mechanical heart valve present Heart valve replaced by other means 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 anticoagulants Long-term (current) use of anticoagulants Mixed hyperlipidemia Current moderate episode of major depressive disorder without prior episode (HCC) History of CVA (cerebrovascular accident) Transient ischemic attack (TIA), and cerebral infarction without residual deficits Obstructive sleep apnea syndrome Obstructive sleep apnea (adult) (pediatric) Benign prostatic hyperplasia, unspecified whether lower urinary tract symptoms present Screening for colon cancer Special screening for malignant neoplasms, colon Abdominal aortic aneurysm (AAA) 35 to 39 mm in diameter (HCC) [facility] Diagnosis 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 anticoagulants- Primary Long-term (current) use of anticoagulants Permanent atrial fibrillation (HCC) Atrial fibrillation S/P MVR (mitral valve replacement) [facility] valve replaced by other means [facility] Current moderate episode of major depressive disorder without prior episode (HCC) [facility]) use of anticoagulants- Primary Long-term (current) use of anticoagulants Permanent atrial fibrillation (HCC) Atrial fibrillation S/P MVR (mitral valve replacement) Heart valve replaced by other means [facility]current) use of anticoagulants- Primary Long-term (current) use of anticoagulants Permanent atrial fibrillation (HCC) Atrial fibrillation S/P MVR (mitral valve replacement) Heart valve replaced by other means [facility] (current) use of anticoagulants- Primary Long-term (current) use of anticoagulants Permanent atrial fibrillation (HCC) Atrial fibrillation S/P MVR (mitral valve replacement) Heart valve replaced by other means [facility] Permanent atrial fibrillation (HCC)- Primary Atrial fibrillation Aphasia as late effect of cerebrovascular accident Aphasia, late effect of cerebrovascular disease Benign prostatic hyperplasia, unspecified whether lower urinary tract symptoms present Mixed hyperlipidemia Obstructive sleep apnea syndrome Obstructive sleep apnea (adult) (pediatric) Current moderate episode of major depressive disorder without prior episode (HCC) 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 anticoagulants Long-term (current) use of anticoagulants [facility] 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 anticoagulants- Primary Long-term (current) use of anticoagulants Permanent atrial fibrillation (HCC) Atrial fibrillation S/P MVR (mitral valve replacement) Heart valve replaced by other means Screening for ischemic heart disease- Primary [facility] Diagnosis Abnormal EKG- Primary Nonspecific abnormal electrocardiogram (ECG) (EKG) Screening for ischemic heart disease [facility] 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 anticoagulants- Primary Long-term (current) use of anticoagulants Permanent atrial fibrillation (HCC) Atrial fibrillation S/P MVR (mitral valve replacement) Heart valve replaced by other means [facility] Diagnosis Abdominal aortic aneurysm (AAA) 35 to 39 mm in diameter (HCC)- Primary [facility] Diagnosis 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 anticoagulants- Primary Long-term (current) use of anticoagulants Permanent atrial fibrillation (HCC) Atrial fibrillation S/P MVR (mitral valve replacement) Heart valve replaced by other means [facility]current) use of anticoagulants- Primary Long-term (current) use of anticoagulants Permanent atrial fibrillation (HCC) Atrial fibrillation S/P MVR (mitral valve replacement) Heart valve replaced by other means [facility] shelter (current) use of anticoagulants- Primary Long-term (current) use of anticoagulants Permanent atrial fibrillation (HCC) Atrial fibrillation S/P MVR (mitral valve replacement) Heart valve replaced by other means [facility] shelter (current) use of anticoagulants- Primary Long-term (current) use of anticoagulants Permanent atrial fibrillation (HCC) Atrial fibrillation S/P MVR (mitral valve replacement) Heart valve replaced by other means [facility] 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 anticoagulants- Primary Long-term (current) use of anticoagulants Permanent atrial fibrillation (HCC) Atrial fibrillation S/P MVR (mitral valve replacement) Heart valve replaced by other means [facility] Depression, unspecified depression type- Primary Mixed hyperlipidemia shelter (current) use of anticoagulants Long-term (current) use of anticoagulants Elevated prostate specific antigen (PSA) Permanent atrial fibrillation (HCC) Atrial fibrillation Mitral valve stenosis, unspecified etiology Benign prostatic hyperplasia, unspecified whether lower urinary tract symptoms present [facility] 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 anticoagulants- Primary Long-term (current) use of anticoagulants Permanent atrial fibrillation (HCC) Atrial fibrillation S/P MVR (mitral valve replacement) Heart valve replaced by other means [facility] Diagnosis Abdominal aortic aneurysm (AAA) 35 to 39 mm in diameter (HCC) [facility] Diagnosis 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 anticoagulants- Primary Long-term (current) use of anticoagulants Permanent atrial fibrillation (HCC) Atrial fibrillation S/P MVR (mitral valve replacement) Heart valve replaced by other means Abnormal EKG- Primary Nonspecific abnormal electrocardiogram (ECG) (EKG) documented [facility] Diagnosis Abnormal EKG- Primary Nonspecific abnormal electrocardiogram (ECG) (EKG) Aphasia as late effect of cerebrovascular accident Aphasia, late effect of cerebrovascular disease Permanent atrial fibrillation (HCC) Atrial fibrillation Nonrheumatic mitral valve stenosis Abdominal aortic aneurysm (AAA) 35 to 39 mm in diameter ([facility]) Shortness of breath documented [facility] Diagnosis shelter (current) use of anticoagulants- Primary Long-term (current) use of anticoagulants documented [facility] Diagnosis shelter (current) use of anticoagulants- Primary Long-term (current) use of anticoagulants Permanent atrial fibrillation (HCC) Atrial fibrillation S/P MVR (mitral valve replacement) Heart valve replaced by other means documented [facility] Diagnosis Current moderate episode of major depressive disorder without prior episode ([facility]) [facility] The patient and his both attended the appointment today. The patient is doing very well on ASVand is using his machine every night and all night. The patient has lights out between 11 PM and 11:30 PM and he falls asleep quickly. The patient will wake for the day at 7 AM to 7:30 AM. His feels that he is essentially the same in terms of his daytime sleepiness. His [place] Sleepiness Scale score today was 3. The patient will nap occasionally in the winter. The patient's is changinghis mask and cleaning his machine on a regular basis. She is using soap and water to clean his machine. * The patient did have a BiPAP ST trial but BiPAP did not help his sleep apnea. The patient subsequently had an ASV titration that showed his optimal EPAP was 5 cm of water, pressure support min was 3 cm of water and pressure support max is 20 cm of water. * I did review his compliance report and it shows that he is using his ASV 100% of the time for 8 hours and 21 minutes a night. The patient has no mask leak and his AHI was 4.0. * The patient has not had any new neurological problems and is compliant with his Coumadin and Zoloft. * As far as the patient's can tell, his memory is stable. She states that he still has his tremor but when he looks at his hand, the tremor will stop. [facility] Work Phone: Reason for referral (narrative)* Outpatient Procedure (Routine) - Pending Review Specialty Diagnoses / Procedures Referred By Contac t Ref[facility] Diagnoses Screening for ischemic heart disease Abnormal EKG Procedures ECHO ECHO TTHRC R-T 2D W/WOM-MODE COMPL SPEC&COLR D Laurel Freedman MD [address] [place] [address] [facility] [place] [address] [place] [address] Referral ID Status Reason Start Date Expiration Date Visits Requested Visits Authorized [id number] Pending Review Auto-Generat ed Referral 03/09/2023 06/07/2023 1 1 [facility] for referral (narrative)* Diagnostic Procedure Only (Routine) - Authorized Specialty Diagnoses / Procedures [facility] Diagnoses Abdominal aortic aneurysm (AAA) 35 to 39 mm in diameter (HCC) Procedures US DOPPLER AORTA DUP-SCAN ARTL ADEEL ABDL/PEL/SCROT&/RPR ORGN LMT Sridevi Rodriguez MD [address] [place] [id number] [facility] Referral ID Status Reason Start Date Expiration Date Visits Requested Visits Authorized [id number] Authorized Auto-Generat ed Referral 11/23/2022 12/23/2023 1 1 * Diagnostic Procedure Only (Routine) - Authorized Specialty Diagnoses / Procedures [facility] Diagnoses Abdominal aortic aneurysm (AAA) 35 to 39 mm in diameter (HCC) Procedures US ABD AORTA US RETROPERITONEAL REAL TIME W/IMAGE LIMITED Sridevi Rodriguez MD [address] [place] [address] [facility] Referral ID Status Reason Start Date Expiration Date Visits Requested Visits Authorized [id number] Authorized Auto-Generat ed Referral 11/23/2022 12/23/2023 1 1 [facility] for referral (narrative)* Diagnostic Procedure Only (Routine) - Closed Specialty Diagnoses / Procedures Referred By Contac t Referred To Contact [facility] Diagnoses Abdominal aortic aneurysm (AAA) 35 to 39 mm in diameter (HCC) Procedures US DOPPLER AORTA DUP-SCAN ARTL ADEEL ABDL/PEL/SCROT&/RPR ORGN LMT Sridevi Rodriguez MD [facility] [place] [id number] [id number] Referral ID Status Reason Start Date Expiration Date V isits Requested Visits Authorized [id number] Closed Auto-Generate d Referral 11/23/2022 12/23/2023 1 1 * Diagnostic Procedure Only (Routine) - Closed Specialty Diagnoses / Procedures Referred By Contac t Referred To Contact [facility] Diagnoses Abdominal aortic aneurysm (AAA) 35 to 39 mm in diameter (HCC) Procedures US ABD AORTA US RETROPERITONEAL REAL TIME W/IMAGE LIMITED Sridevi Rodriguez MD [address] [place] [address] [place] [address] Referral ID Status Reason Start Date Expiration Date V isits Requested Visits Authorized [id number] Closed Auto-Generate d Referral 11/23/2022 12/23/2023 1 1 [facility] for referral (narrative)* Outpatient Procedure (Routine) - Pending Review Specialty Diagnoses / Procedures Referred By Contac t Ref[facility] Diagnoses Permanent atrial fibrillation (HCC) Procedures ECHO ECHO TTHRC R-T 2D W/WOM-MODE COMPL SPEC&COLR D Laurel Freedman MD [address] [place] [address] [facility] [place] [address] [place] [address] Referral ID Status Reason Start Date Expiration Date Visits Requested Visits Authorized [id number] Pending Review Auto-Generat ed Referral 06/19/2024 1 1 * Outpatient Procedure (Routine) - Pending Review Specialty Diagnoses / Procedures Referred By Contac t Referred To Contact [facility] [place] Diagnoses Abnormal EKG Procedures ECG COMPLETE ECG ROUTINE ECG W/LEAST 12 LDS W/I&R Laurel Freedman MD [address] [place] [address] [facility] [address] [place] [address] Referral ID Status Reason Start Date Expiration Date Visits Requested Visits Authorized [id number] Pending Review Auto-Generat ed Referral 06/14/2023 06/13/2024 1 1 [facility] Summary Purpose Family History No Family History Records FoundNo Family History Records FoundNo Family History Records FoundNo Family History Records FoundNo Family History Records Found Advance Directives No Advanced Directives Records FoundDocuments on File Type Date Recorded 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 DATE CREATED AUTHOR AUTHOR'S ORGANIZ ATION 08/27/2023 [facility] Source Comments (unrecognize d section and content) In the event this informatio n is protected by the Federal Confidentiality of Alcohol and Drug Abuse Patient Records regulations: The Federal rules restrict any use of the information to criminally investigate or prosecute any alcohol or drug abuse patient.[facility] Inc[facility] the event this information is protected by the Federal Confidentiality of Alcohol and Drug Abuse Patient Records regulations: The Federal rules restrict any use of the information to criminally investigate or prosecute any alcohol or drug abuse patient.[facility] IncIn the event this information is protected by the Federal Confidentiality of Alcohol and Drug Abuse Patient Records regulations: The Federal rules restrict any use of the information to criminally investigate or prosecute any alcohol or drug abuse patient.[facility] IncIn the event this information is protected by the Federal Confidentiality of Alcohol and Drug Abuse Patient Records regulations: The Federal rules restrict any use of the information to criminally investigate or prosecute any alcohol or drug abuse patient.[facility] IncIn the event this information is protected by the Federal Confidentiality of Alcohol and Drug Abuse Patient Records regulations: The Federal rules restrict any use of the information to criminally investigate or prosecute any alcohol or drug abuse patient.[facility] IncIn the event this information is protected by the Federal Confidentiality of Alcohol and Drug Abuse Patient Records regulations: The Federal rules restrict any use of the information to criminally investigate or prosecute any alcohol or drug abuse patient.[facility] IncIn the event this information is protected by the Federal Confidentiality of Alcohol and Drug Abuse Patient Records regulations: The Federal rules restrict any use of the information to criminally investigate or prosecute any alcohol or drug abuse patient.[facility]In the event this information is protected by the Federal Confidentiality of Alcohol and Drug Abuse Patient Records regulations: The Federal rules restrict any use of the information to criminally investigate or prosecute any alcohol or drug abuse patient.[facility] IncIn the event this information is protected by the Federal Confidentiality of Alcohol and Drug Abuse Patient Records regulations: The Federal rules restrict any use of the information to criminally investigate or prosecute any alcohol or drug abuse patient.[facility] IncIn the event this information is protected by the Federal Confidentiality of Alcohol and Drug Abuse Patient Records regulations: The Federal rules restrict any use of the information to criminally investigate or prosecute any alcohol or drug abuse patient.[facility] IncIn the event this information is protected by the Federal Confidentiality of Alcohol and Drug Abuse Patient Records regulations: The Federal rules restrict any use of the information to criminally investigate or prosecute any alcohol or drug abuse patient.[facility] IncIn the event this information is protected by the Federal Confidentiality of Alcohol and Drug Abuse Patient Records regulations: The Federal rules restrict any use of the information to criminally investigate or prosecute any alcohol or drug abuse patient.[facility] IncIn the event this information is protected by the Federal Confidentiality of Alcohol and Drug Abuse Patient Records regulations: The Federal rules restrict any use of the information to criminally investigate or prosecute any alcohol or drug abuse patient.[facility] IncIn the event this information is protected by the Federal Confidentiality of Alcohol and Drug Abuse Patient Records regulations: The Federal rules restrict any use of the information to criminally investigate or prosecute any alcohol or drug abuse patient.[facility] IncIn the event this information is protected by the Federal Confidentiality of Alcohol and Drug Abuse Patient Records regulations: The Federal rules restrict any use of the information to criminally investigate or prosecute any alcohol or drug abuse patient.[facility] IncIn the event this information is protected by the Federal Confidentiality of Alcohol and Drug Abuse Patient Records regulations: The Federal rules restrict any use of the information to criminally investigate or prosecute any alcohol or drug abuse patient.[facility] IncIn the event this information is protected by the Federal Confidentiality of Alcohol and Drug Abuse Patient Records regulations: The Federal rules restrict any use of the information to criminally investigate or prosecute any alcohol or drug abuse patient.[facility] IncIn the event this information is protected by the Federal Confidentiality of Alcohol and Drug Abuse Patient Records regulations: The Federal rules restrict any use of the information to criminally investigate or prosecute any alcohol or drug abuse patient.[facility] IncIn the event this information is protected by the Federal Confidentiality of Alcohol and Drug Abuse Patient Records regulations: The Federal rules restrict any use of the information to criminally investigate or prosecute any alcohol or drug abuse patient.[facility] IncIn the event this information is protected by the Federal Confidentiality of Alcohol and Drug Abuse Patient Records regulations: The Federal rules restrict any use of the information to criminally investigate or prosecute any alcohol or drug abuse patient.[facility] IncIn the event this information is protected by the Federal Confidentiality of Alcohol and Drug Abuse Patient Records regulations: The Federal rules restrict any use of the information to criminally investigate or prosecute any alcohol or drug abuse patient.[facility] IncIn the event this information is protected by the Federal Confidentiality of Alcohol and Drug Abuse Patient Records regulations: The Federal rules restrict any use of the information to criminally investigate or prosecute any alcohol or drug abuse patient.[facility] IncIn the event this information is protected by the Federal Confidentiality of Alcohol and Drug Abuse Patient Records regulations: The Federal rules restrict any use of the information to criminally investigate or prosecute any alcohol or drug abuse patient.[facility] IncIn the event this information is protected by the Federal Confidentiality of Alcohol and Drug Abuse Patient Records regulations: The Federal rules restrict any use of the information to criminally investigate or prosecute any alcohol or drug abuse patient.[facility] IncIn the event this information is protected by the Federal Confidentiality of Alcohol and Drug Abuse Patient Records regulations: The Federal rules restrict any use of the information to criminally investigate or prosecute any alcohol or drug abuse patient.[facility] IncIn the event this information is protected by the Federal Confidentiality of Alcohol and Drug Abuse Patient Records regulations: The Federal rules restrict any use of the information to criminally investigate or prosecute any alcohol or drug abuse patient.[facility] IncIn the event this information is protected by the Federal Confidentiality of Alcohol and Drug Abuse Patient Records regulations: The Federal rules restrict any use of the information to criminally investigate or prosecute any alcohol or drug abuse patient.[facility] IncIn the event this information is protected by the Federal Confidentiality of Alcohol and Drug Abuse Patient Records regulations: The Federal rules restrict any use of the information to criminally investigate or prosecute any alcohol or drug abuse patient.[facility] IncIn the event this information is protected by the Federal Confidentiality of Alcohol and Drug Abuse Patient Records regulations: The Federal rules restrict any use of the information to criminally investigate or prosecute any alcohol or drug abuse patient.[facility] IncIn the event this information is protected by the Federal Confidentiality of Alcohol and Drug Abuse Patient Records regulations: The Federal rules restrict any use of the information to criminally investigate or prosecute any alcohol or drug abuse patient.[facility] IncIn the event this information is protected by the Federal Confidentiality of Alcohol and Drug Abuse Patient Records regulations: The Federal rules restrict any use of the information to criminally investigate or prosecute any alcohol or drug abuse patient.[facility] IncIn the event this information is protected by the Federal Confidentiality of Alcohol and Drug Abuse Patient Records regulations: The Federal rules restrict any use of the information to criminally investigate or prosecute any alcohol or drug abuse patient.[facility] IncIn the event this information is protected by the Federal Confidentiality of Alcohol and Drug Abuse Patient Records regulations: The Federal rules restrict any use of the information to criminally investigate or prosecute any alcohol or drug abuse patient.[facility] IncIn the event this information is protected by the Federal Confidentiality of Alcohol and Drug Abuse Patient Records regulations: The Federal rules restrict any use of the information to criminally investigate or prosecute any alcohol or drug abuse patient.[facility] IncIn the event this information is protected by the Federal Confidentiality of Alcohol and Drug Abuse Patient Records regulations: The Federal rules restrict any use of the information to criminally investigate or prosecute any alcohol or drug abuse patient.[facility] IncIn the event this information is protected by the Federal Confidentiality of Alcohol and Drug Abuse Patient Records regulations: The Federal rules restrict any use of the information to criminally investigate or prosecute any alcohol or drug abuse patient.[facility] IncIn the event this information is protected by the Federal Confidentiality of Alcohol and Drug Abuse Patient Records regulations: The Federal rules restrict any use of the information to criminally investigate or prosecute any alcohol or drug abuse patient.[facility] IncIn the event this information is protected by the Federal Confidentiality of Alcohol and Drug Abuse Patient Records regulations: The Federal rules restrict any use of the information to criminally investigate or prosecute any alcohol or drug abuse patient.[facility] IncIn the event this information is protected by the Federal Confidentiality of Alcohol and Drug Abuse Patient Records regulations: The Federal rules restrict any use of the information to criminally investigate or prosecute any alcohol or drug abuse patient.[facility] IncIn the event this information is protected by the Federal Confidentiality of Alcohol and Drug Abuse Patient Records regulations: The Federal rules restrict any use of the information to criminally investigate or prosecute any alcohol or drug abuse patient.[facility] IncIn the event this information is protected by the Federal Confidentiality of Alcohol and Drug Abuse Patient Records regulations: The Federal rules restrict any use of the information to criminally investigate or prosecute any alcohol or drug abuse patient.[facility] IncIn the event this information is protected by the Federal Confidentiality of Alcohol and Drug Abuse Patient Records regulations: The Federal rules restrict any use of the information to criminally investigate or prosecute any alcohol or drug abuse patient.[facility] IncIn the event this information is protected by the Federal Confidentiality of Alcohol and Drug Abuse Patient Records regulations: The Federal rules restrict any use of the information to criminally investigate or prosecute any alcohol or drug abuse patient.[facility] IncIn the event this information is protected by the Federal Confidentiality of Alcohol and Drug Abuse Patient Records regulations: The Federal rules restrict any use of the information to criminally investigate or prosecute any alcohol or drug abuse patient.[facility] IncIn the event this information is protected by the Federal Confidentiality of Alcohol and Drug Abuse Patient Records regulations: The Federal rules restrict any use of the information to criminally investigate or prosecute any alcohol or drug abuse patient.[facility] IncIn the event this information is protected by the Federal Confidentiality of Alcohol and Drug Abuse Patient Records regulations: The Federal rules restrict any use of the information to criminally investigate or prosecute any alcohol or drug abuse patient.[facility] IncIn the event this information is protected by the Federal Confidentiality of Alcohol and Drug Abuse Patient Records regulations: The Federal rules restrict any use of the information to criminally investigate or prosecute any alcohol or drug abuse patient.[facility] IncIn the event this information is protected by the Federal Confidentiality of Alcohol and Drug Abuse Patient Records regulations: The Federal rules restrict any use of the information to criminally investigate or prosecute any alcohol or drug abuse patient.[facility], IncIn the event this information is protected by the Federal Confidentiality of Alcohol and Drug Abuse Patient Records regulations: The Federal rules restrict any use of the information to criminally investigate or prosecute any alcohol or drug abuse patient.[facility], IncIn the event this information is protected by the Federal Confidentiality of Alcohol and Drug Abuse Patient Records regulations: The Federal rules restrict any use of the information to criminally investigate or prosecute any alcohol or drug abuse patient.[facility], IncIn the event this information is protected by the Federal Confidentiality of Alcohol and Drug Abuse Patient Records regulations: The Federal rules restrict any use of the information to criminally investigate or prosecute any alcohol or drug abuse patient.[facility], IncIn the event this information is protected by the Federal Confidentiality of Alcohol and Drug Abuse Patient Records regulations: The Federal rules restrict any use of the information to criminally investigate or prosecute any alcohol or drug abuse patient.[facility], IncIn the event this information is protected by the Federal Confidentiality of Alcohol and Drug Abuse Patient Records regulations: The Federal rules restrict any use of the information to criminally investigate or prosecute any alcohol or drug abuse patient.[facility], IncIn the event this information is protected by the Federal Confidentiality of Alcohol and Drug Abuse Patient Records regulations: The Federal rules restrict any use of the information to criminally investigate or prosecute any alcohol or drug abuse patient.[facility], IncIn the event this information is protected by the Federal Confidentiality of Alcohol and Drug Abuse Patient Records regulations: The Federal rules restrict any use of the information to criminally investigate or prosecute any alcohol or drug abuse patient.[facility], IncIn the event this information is protected by the Federal Confidentiality of Alcohol and Drug Abuse Patient Records regulations: The Federal rules restrict any use of the information to criminally investigate or prosecute any alcohol or drug abuse patient.[facility], IncIn the event this information is protected by the Federal Confidentiality of Alcohol and Drug Abuse Patient Records regulations: The Federal rules restrict any use of the information to criminally investigate or prosecute any alcohol or drug abuse patient.[facility], IncIn the event this information is protected by the Federal Confidentiality of Alcohol and Drug Abuse Patient Records regulations: The Federal rules restrict any use of the information to criminally investigate or prosecute any alcohol or drug abuse patient.[facility], IncIn the event this information is protected by the Federal Confidentiality of Alcohol and Drug Abuse Patient Records regulations: The Federal rules restrict any use of the information to criminally investigate or prosecute any alcohol or drug abuse patient.[facility], IncIn the event this information is protected by the Federal Confidentiality of Alcohol and Drug Abuse Patient Records regulations: The Federal rules restrict any use of the information to criminally investigate or prosecute any alcohol or drug abuse patient.[facility], IncIn the event this information is protected by the Federal Confidentiality of Alcohol and Drug Abuse Patient Records regulations: The Federal rules restrict any use of the information to criminally investigate or prosecute any alcohol or drug abuse patient.[facility], IncIn the event this information is protected by the Federal Confidentiality of Alcohol and Drug Abuse Patient Records regulations: The Federal rules restrict any use of the information to criminally investigate or prosecute any alcohol or drug abuse patient.[facility] Reason for Visit (unrecogniz ed section and content) Reason Comments Follow Up 3 month Reason Comments Anticoagulation Telephone Fu home INR re sult Reason Comments Appointment Reason Onset Date Comments Refill Request 01/08/2022 Reason Onset Date Comments Anticoagulation Telephone Fu 02/12/2022 Amy e INR Result Reason Comments Anticoagulation Telephone Fu home INR Reason Comments Anticoagulation Telephone Fu Home INR Reason Onset Date Comments Refill Request 05/14/2022 Reason Comments Follow Up 6 month Reason Comments Follow Up Reason Onset Date Comments Refill Request 07/10/2022 Reason Onset Date Comments Refill Request 08/02/2022 Reason Onset Date Comments Refill Request 09/04/2022 Reason Comments Anticoagulation Telephone Fu Home INR re sult Reason Comments Orders Reason Comments Results Reason Onset Date Comments Refill Request 01/03/2023 Reason Onset Date Comments Refill Request 03/06/2023 Reason Comments Anticoagulation Telephone Fu Reason Onset Date Comments Anticoagulation Telephone Fu 04/08/2023 Amy e INR Reason Onset Date Comments Anticoagulation Telephone Fu 04/08/2023 Ope shanti in error Reason Onset Date Comments Anticoagulation Telephone Fu 04/25/2023 Amy e INR Result Reason Comments Anticoagulation Reason Comments F/U 6 months Reason Comments Radiology US Specialty Diagnoses / Procedures Referred By Contac t Referred To Contact US IMAGING Diagnoses Abdominal aortic aneurysm (AAA) 35 to 39 mm in diameter (HCC) Procedures US ABD AORTA US RETROPERITONEAL REAL TIME W/IMAGE LIMITED Sridevi Rodriguez MD [address] [place] [address] [place] [address] Referral ID Status Reason Start Date Expiration Date V isits Requested Visits Authorized [id number] Closed Auto-Generate d Referral 11/23/2022 12/23/2023 1 1 Reason Comments Recheck Reason Comments Patient Question Reason Onset Date Comments Anticoagulation Telephone Fu 07/01/2023 Amy e INR Reason Onset Date Comments Anticoagulation Telephone Fu 07/15/2023 Amy e INR Result Reason Onset Date Comments Refill Request 07/14/2023 Care Teams (unrecognized sec tion and content) Quiller Tender Relationship Specialty Start Date End Date Sridevi Rodriguez MD [address] [place] [address] PCP - General Family Practice 12/30/16 13, Pharmacist [id number] [place] [address] Pharmacist Pharmacy 02/28/20 Vincent Wilde [address] [place] [address] Physician Neurology 11/10/20 Quiller Tender Relationship Specialty Start Date End Date Sridevi Rodriguez MD [address] [place] [address] PCP - General Family Practice 12/30/16 13, Pharmacist [address] [place] [address] Pharmacist Pharmacy 02/28/20 Vincent Wilde [address] [place] [address] Physician Neurology 11/10/20 Quiller Tender Relationship Specialty Start Date End Date Sridevi Rodriguez MD [address] [place] [address] PCP - General Family Practice 12/30/16 13, Pharmacist [address] [place] [address] Pharmacist Pharmacy 02/28/20 Vincent Wilde [address] [place] [address] Physician Neurology 11/10/20 Quiller Tender Relationship Specialty Start Date End Date Sridevi Rodriguez MD [address] [place] [address] PCP - General Family Practice 12/30/16 13, Pharmacist [address] [place] [address] Pharmacist Pharmacy 02/28/20 Vincent Wilde [address] [place] [address] Physician Neurology 11/10/20 Quiller Tender Relationship Specialty Start Date End Date Sridevi Rodriguez MD [address] [place] [address] PCP - General Family Practice 12/30/16 13, Pharmacist [id number] [place] [address] Pharmacist Pharmacy 02/28/20 Vincent Wilde [address] [place] [address] Physician Neurology 11/10/20 Quiller Tender Relationship Specialty Start Date End Date Sridevi Rodriguez MD [address] [place] [address] PCP - General Family Practice 12/30/16 13, Pharmacist [address] [place] [address] Pharmacist Pharmacy 02/28/20 Vincent Wilde [address] [place] [address] Physician Neurology 11/10/20 Quiller Tender Relationship Specialty Start Date End Date Sridevi Rodriguez MD [address] [place] [address] PCP - General Family Medicine 12/30/16 13, Pharmacist [address] [place] [address] Pharmacist Pharmacy 02/28/20 Vincent Wilde [address] [place] [address] Physician Neurology 11/10/20 Quiller Tender Relationship Specialty Start Date End Date Sridevi Rodriguez MD [address] [place] [address] PCP - General Family Medicine 12/30/16 13, Pharmacist [address] [place] [address] Pharmacist Pharmacy 02/28/20 Vincent Wilde [address] [place] [address] Physician Neurology 11/10/20 Quiller Tender Relationship Specialty Start Date End Date Sridevi Rodriguez MD [address] [facility] [place] [address] PCP - General Family Medicine 12/30/16 13, Pharmacist [address] [place] [address] Pharmacist Pharmacy 02/28/20 Vincent Wilde [address] [place] [address] Physician Neurology 11/10/20 Quiller Tender Relationship Specialty Start Date End Date Sridevi Rodriguez MD [address] [facility] [place] [address] PCP - General Family Medicine 12/30/16 13, Pharmacist [address] [place] [address] Pharmacist Pharmacy 02/28/20 Vincent Wilde [address] [place] [address] Physician Neurology 11/10/20 Quiller Tender Relationship Specialty Start Date End Date Sridevi Rodriguez MD [address] [facility] [place] [address] PCP - General Family Medicine 12/30/16 13, Pharmacist [address] [place] [address] Pharmacist Pharmacy 02/28/20 Vincent Wilde [address] [place] [address] Physician Neurology 11/10/20 Quiller Tender Relationship Specialty Start Date End Date Sridevi Rodriguez MD [address] [place] [address] PCP - General Family Medicine 12/30/16 13, Pharmacist [address] [place] [address] Pharmacist Pharmacy 02/28/20 Vincent Wilde [address] [place] [address] Physician Neurology 11/10/20 Quiller Tender Relationship Specialty Start Date End Date Sridevi Rodriguez MD [address] [place] [address] PCP - General Family Medicine 12/30/16 13, Pharmacist [address] [place] [address] Pharmacist Pharmacy 02/28/20 Vincent Wilde [address] [place] [address] Physician Neurology 11/10/20 Quiller Tender Relationship Specialty Start Date End Date Sridevi Rodriguez MD [address] [place] [address] PCP - General Family Medicine 12/30/16 13, Pharmacist [address] [place] [address] Pharmacist Pharmacy 02/28/20 Vincent Wilde [address] [place] [address] Physician Neurology 11/10/20 Quiller Tender Relationship Specialty Start Date End Date Sridevi Rodriguez MD [address] [place] [address] PCP - General Family Medicine 12/30/16 13, Pharmacist [address] [place] [address] Pharmacist Pharmacy 02/28/20 Vincent Wilde [address] [place] [address] Physician Neurology 11/10/20 Quiller Tender Relationship Specialty Start Date End Date Sridevi Rodriguez MD [address] [place] [address] PCP - General Family Medicine 12/30/16 13, Pharmacist [address] [place] [address] Pharmacist Pharmacy 02/28/20 Vincent Wilde [address] [place] [address] Physician Neurology 11/10/20 Quiller Tender Relationship Specialty Start Date End Date Sridevi Rodriguez MD [address] [place] [address] PCP - General Family Medicine 12/30/16 13, Pharmacist [address] [place] [address] Pharmacist Pharmacy 02/28/20 Vincent Wilde [address] [place] [address] Physician Neurology 11/10/20 Quiller Tender Relationship Specialty Start Date End Date Sridevi Rodriguez MD [address] [place] [address] PCP - General Family Medicine 12/30/16 13, Pharmacist [address] [place] [address] Pharmacist Pharmacy 02/28/20 Vincent Wilde [address] [place] [address] Physician Neurology 11/10/20 Quiller Tender Relationship Specialty Start Date End Date Sridevi Rodriguez MD [address] [facility] [place] [address] PCP - General Family Medicine 12/30/16 13, Pharmacist [address] [place] [address] Pharmacist Pharmacy 02/28/20 Vincent Wilde [address] [place] [address] Physician Neurology 11/10/20 Quiller Tender Relationship Specialty Start Date End Date Sridevi Rodriguez MD [address] [place] [address] PCP - General Family Medicine 12/30/16 13, Pharmacist [address] [place] [address] Pharmacist Pharmacy 02/28/20 Vincent Wilde [address] [place] [address] Physician Neurology 11/10/20 Quiller Tender Relationship Specialty Start Date End Date Sridevi Rodriguez MD [address] [place] [address] PCP - General Family Medicine 12/30/16 13, Pharmacist [address] [place] [address] Pharmacist Pharmacy 02/28/20 Vincent Wilde [address] [place] [address] Physician Neurology 11/10/20 Quiller Tender Relationship Specialty Start Date End Date Sridevi Rodriguez MD [address] [place] [address] PCP - General Family Medicine 12/30/16 13, Pharmacist [address] [place] [address] Pharmacist Pharmacy 02/28/20 Vincent Wilde [address] [place] [address] Physician Neurology 11/10/20 Quiller Tender Relationship Specialty Start Date End Date Sridevi Rodriguez MD [address] [place] [address] PCP - General Family Medicine 12/30/16 13, Pharmacist [address] [place] [address] Pharmacist Pharmacy 02/28/20 Vincent Wilde [address] [place] [address] Physician Neurology 11/10/20 Quiller Tender Relationship Specialty Start Date End Date Sridevi Rodriguez MD [address] [place] [address] PCP - General Family Medicine 12/30/16 13, Pharmacist [address] [place] [address] Pharmacist Pharmacy 02/28/20 Vincent Wilde [facility] [place] [address] Physician Neurology 11/10/20 Quiller Tender Relationship Specialty Start Date End Date Sridevi Rodriguez MD [address] [place] [address] PCP - General Family Medicine 12/30/16 13, Pharmacist [address] [place] [address] Pharmacist Pharmacy 02/28/20 Vincent Wilde [address] [place] [address] Physician Neurology 11/10/20 Quiller Tender Relationship Specialty Start Date End Date Sridevi Rodriguez MD [address] [place] [address] PCP - General Family Medicine 12/30/16 13, Pharmacist [address] [place] [address] Pharmacist Pharmacy 02/28/20 Vincent Wilde [address] [place] [address] Physician Neurology 11/10/20 Quiller Tender Relationship Specialty Start Date End Date Sridevi Rodriguez MD [address] [place] [address] PCP - General Family Medicine 12/30/16 13, Pharmacist [address] [place] [address] Pharmacist Pharmacy 02/28/20 Vincent Wilde [address] [place] [address] Physician Neurology 11/10/20 Quiller Tender Relationship Specialty Start Date End Date Sridevi Rodriguez MD [address] [place] [address] PCP - General Family Medicine 12/30/16 13, Pharmacist [address] [place] [address] Pharmacist Pharmacy 02/28/20 Vincent Wilde [address] [place] [address] Physician Neurology 11/10/20 Quiller Tender Relationship Specialty Start Date End Date Sridevi Rodriguez MD [address] [place], [place] [address] PCP - General Family Medicine 12/30/16 13, Pharmacist [address] [place], [place] [address] Pharmacist Pharmacy 02/28/20 Vincent Wilde [address] [id number] Physician Neurology 11/10/20 FOR RECORDS PERTAINING TO PATIENTS WHO ARE OR HAVE BEEN ENROLLED IN A CHEMICAL DEPENDENCY/SUBSTANCEABUSE PROGRAM, SOME INFORMATION MAY BE OMITTED. This clinical summary was aggregated from multiple sources. Caution should be exercised in using it in the provision of clinical care. This summary normalizes information from multiple sources, and as a consequence, information in this document may materially change the coding, format and clinical context of patient data. In addition, data may be omitted in some cases. CLINICAL DECISIONS SHOULD BE BASED ON THE PRIMARY CLINICAL RECORDS. [employer] provides no warranty or guarantee of the accuracy or completeness of information in this document.
== END | disposition home or self-care (01) ==
PROVIDERS: PCP Family Medicine; Visit Provider Podiatrist
DX: L97.512 Non-pressure chronic ulcer of other part of right foot with fat layer exposed (principal)
CPT/HCPCS: 87070; 87075; 87077; 87186; 87205

== ENCOUNTER → 2023-09-05 | Outpatient (CLI) | payer MEDICARE, OTHER, SELFPAY ==
--- NOTE | 2023-09-05 13:15 | MRI_ITS ---
STUDY: MRI RIGHT FOOT REASON FOR EXAM: Male, 78 years old. Right foot pain, attention right little toe. TECHNIQUE: Standardized fat and water weighted pulse sequences were obtained in all 3 orthogonal planes. COMPARISON: None. FINDINGS: There is increased STIR marrow signal throughout the phalanges of the fifth digit, with corresponding intermediate T1 marrow signal in the proximal and middle phalanges of the fifth digit, concerning for marrow stress edema versus developing early osteomyelitis. There is a bipartite tibial hallux sesamoid with cysts and marrow edema in both components (sagittal STIR series 6 images 6-8). There are cystic changes in the plantar aspect of the fifth metatarsal head. Normal bone marrow of the remainder of the metatarsals, phalanges and visualized distal tarsal row. Normal joint spaces, without effusions. There are no extraarticular fluid collections. Normal visualized Lisfranc joints and normal Lisfranc ligament. Smaller Normal intermetatarsal spaces without intermetatarsal (Rodriguez) neuroma or bursitis. Normal visualized extensor digitorum longus, extensor hallucis longus, flexor digitorum brevis and flexor hallucis longus tendons. Normal visualized plantar fascia without fasciitis, fibromatosis or tear. Normal intrinsic muscles of the foot, without soft tissue masses or evidence of denervation atrophy. There is mild subcutaneous soft tissue edema along the dorsum of the forefoot. MRI/Lower Ext/No Jt/w/o IMPRESSION: Increased STIR marrow signal throughout the phalanges of the fifth digit, with corresponding intermediate T1 marrow signal in the proximal and middle phalanges of the fifth digit, concerning for marrow stress edema versus developing early osteomyelitis. Bipartite. Tibial hallux sesamoid with cysts and marrow edema in both components. Cystic changes in the plantar aspect of the fifth metatarsal head. Mild subcutaneous soft tissue edema along the dorsum of the forefoot. Electronically Signed: Jean Hugo MD at 15:21 EST ,
== END | disposition home or self-care (01) ==
LOC: MRI 12:47
PROVIDERS: PCP Family Medicine; Referring Provider Podiatrist; Visit Provider Podiatrist
DX: M79.671 Pain in right foot (principal); L03.031 Cellulitis of right toe
CPT/HCPCS: 73718

== ENCOUNTER 2023-12-16 05:27 | Day surgery (SDC) | payer MEDICARE, OTHER, SELFPAY ==
[2023-12-16 06:03] LABS: INR Fingerstick 1.4; Prothrombin Time Fingerstick 15.3 SEC (11.7-14.9)
[2023-12-16 06:17] VITALS: BP 135/60; PULSE 51; RESP 18; TEMP 36.7; O2SAT 99; BMI 24.7
[2023-12-16] MEDS: Lactated Ringers 1,000 ML 15 ML IV (06:21)
[2023-12-16 06:24] LABS: International Normalized Ratio 1.2; Prothrombin Time (Protime)PT. 15.1 SECONDS (11.7-14.9)
--- NOTE | 2023-12-16 07:20 | RAD_ITS ---
STUDY: X-RAY RIGHT FOOT, FIFTH TOE REASON FOR EXAM: Male, 78 years old. 5TH TOE AMPUTATION TECHNIQUE: Single fluoroscopic spot film of the right forefoot was obtained. COMPARISON: None. FINDINGS: Normal visualized distal metatarsi. There is amputation of the fifth toe at the level of the fifth MTP joint. Normal metatarsophalangeal joint of the great toe. Normal tibial and fibular sesamoid bones. Normal interphalangeal joint of the great toe. Normal phalanges of the great toe. Normal second through fourth metatarsophalangeal joints. Normal interphalangeal joints and phalanges of the second through fourth toes. There is mild soft tissue swelling overlying the lateral forefoot. RAD/Toe(s) Min 2 Views IMPRESSION: Amputation of the fifth toe at the level of the fifth MTP joint. Mild soft tissue swelling overlying the lateral forefoot. Electronically Signed: Jean Hugo MD at 8:32 EDT ,
--- NOTE | 2023-12-16 07:30 | AMP_PTH ---
PATIENT: JUNA MEDINA [place] [facility] [place][id number] AGE/SX: 78/M ROOM: RE12/16/[address]: Dr. Jeremias Shaw DPM : 1945 BED: DIS: 12/16/2023 SPEC #: [id number] RECD: 12/16/23 11:00 STATUS: LOUISE MICHAEL #: [id number] REGGIE: 12/16/23 07:[address]: Jeremias Shaw DEPT: SURGICAL PATHOLOGY RECD BY: Wilma Gamboa ENTERED: 12/16/23 11:42 SP TYPE: Amputation OTHR DR: Dr. Jeronimo Rodriguez MD Tissues: Toe, NOS Procedures: Decalcification bone/plaque Surgery Specimen Level IV HEADER OPERATION: Right fifth toe amputation PRE-OP DIAGNOSIS: Osteomyelitis right fifth toe TISSUE SUBMITTED: Tissue and bone right fifth toe MICROSCOPIC DIAGNOSIS Right fifth toe, amputation: Acute and chronic inflammation and granulation tissue reaction. Bone with acute and chronic osteomyelitis and reactive changes. [facility] 12/22/23 MICROSCOPIC DESCRIPTION Slides are reviewed. GROSS DESCRIPTION Received in fixative is one container labeled with the patient's name and designated Bone and tissue right fifth toe. The specimen consists of a portion of toe measuring 2.0 x 2.5 x 1.5cm. Nail appears atopic. Close to the dissection line focal area of ulceration with thickening is noted. Also present in the container is a piece of bone measuring 2.0 x 1.2 x 0.5cm. [place] sections are submitted in three cassettes as follows: 1- focal area of ulceration, 2&3- bone after decalcification. [facility] 12/16/2023 The entire specimen is submitted in three cassettes. [facility] 12/20/23 TC:2 CPT:53819 ,[id number]
[2023-12-16] MEDS: Cefazolin 2 GM in 0.9% Normal Saline (100mL Bag) 100 ML IV (07:35)
[2023-12-16] MEDS: Bupivacaine Mpf 0.5% 30 ML VIAL (08:00)
[2023-12-16 08:15] VITALS: BP 116/73; BP 135/60; PULSE 54; RESP 16; TEMP 36.2; O2SAT 99
--- NOTE | 2023-12-16 08:18 | PCM.OPRPT ---
Problems Associated Problem List Diagnoses (1) Other acute osteomyelitis, right ankle and foot: Report of Operation Date of Procedure: 12/16/23 Pre-Operative Diagnosis: 1) Right 5th toe osteomyelitis 2) Right 5th toe wound Post-Operative Diagnosis: Same Surgery/Procedure Performed:: Amputation right 5th toe at 5th MPJ Description of Surgical Findings:: Patient has chronic wound to right fifth toe. MRI was questionably positive for osteomyelitis with marrow edema. Patient underwent multiple treatments with topical Betadine topical clindamycin, oral antibiotics all with failure. I discussed performing elective arthroplasty first versus elective digital amputation. Due to concern for infection definitive clearance patient's CVA history and advanced age plan was for definitive amputation to ensure adequate infection clearance and elimination of painful rigid contracted digit. Surgeon: Jeremias Shaw health information management director: None (lalita mark) Type of Anesthesia: MAC Specimen's removed: Right fifth toe for bone and tissue culture/path Drains: None Estimated Blood Loss (mL): minimal Fluids Replaced: None Description of Procedure: Patient brought back the operating placed complete supine position on the operating room table. Patient induced under MAC anesthesia. Well-padded padded right ankle tourniquet was applied. Right lower extremity scrubbed prepped and draped using typical aseptic fashion. Digital block performed with 15 cc of half percent Marcaine plain. [place] incision drawn on the fifth toe this was made full-thickness down the level fifth metatarsal phalangeal joint the fifth toe was then removed and disarticulated at the level of the fifth metatarsal phalangeal joint passed to the back table. Any bleeders identified cauterized. Site was flushed with copious amounts normal sterile saline. No evidence of residual infection or deep abscess noted at this time. The fifth toe would be split and sent for pathology and culture for bone and tissue specimen. Incisional site was flushed with copious amounts normal sterile saline and closed primarily with simple interrupted 4-0 nylon. Incision was dressed with Betadine Adaptic 4 x 4's Kerlix and Gavin bandage. No tourniquet was used. Patient was transported PACU vital signs stable and vascular status intact all digits for further monitoring prior to discharge. Patient tolerated procedure and anesthesia well apparent satisfactory condition. Definitive clearance of infection noted. Complications No complication
[2023-12-16 08:20] VITALS: BP 120/69; BP 135/60; PULSE 51; RESP 16; O2SAT 98
[2023-12-16 08:25] VITALS: BP 121/82; BP 135/60; PULSE 52; RESP 16; O2SAT 96
[2023-12-16 08:30] VITALS: BP 123/79; BP 135/60; PULSE 63; RESP 16; TEMP 36.6; O2SAT 98
[2023-12-16 08:56] VITALS: BP 135/60
== END 2023-12-16 09:17 | disposition home or self-care (01) ==
LOC: SDC 05:28 → AC 05:29
PROVIDERS: Anesthesiology; PCP Family Medicine; Referring Provider Podiatrist; Visit Provider Podiatrist
PROC: (CPT 28820; principal; 2023-12-16 07:15)
DX: M86.171 Other acute osteomyelitis, right ankle and foot (principal); I48.21 Permanent atrial fibrillation; E78.00 Pure hypercholesterolemia, unspecified; I69.320 Aphasia following cerebral infarction; Z79.899 Other long term (current) drug therapy; Z79.01 Long term (current) use of anticoagulants; Z95.2 Presence of prosthetic heart valve; G47.30 Sleep apnea, unspecified; Z87.891 Personal history of nicotine dependence; L08.9 Local infection of the skin and subcutaneous tissue, unspecified; S91.109A Unspecified open wound of unspecified toe(s) without damage to nail, initial encounter; X58.XXXA Exposure to other specified factors, initial encounter
CPT/HCPCS: 28820; 36416; 73660; 76000; 85610; 87102; 87206; 88305; 88311; J7040; J7120; J2405

== ENCOUNTER → 2024-06-26 | Outpatient (CLI) | payer MEDICARE, OTHER, SELFPAY ==
[2024-06-26 12:40] LABS: PSA,Total- Diagnostic 3.88 ng/mL (0.0-4.0)
== END | disposition home or self-care (01) ==
LOC: MTLAB 09:15
PROVIDERS: PCP Family Medicine; Referring Provider Urology; Visit Provider Urology
DX: R97.20 Elevated prostate specific antigen [PSA] (principal)
CPT/HCPCS: 36415; 84153

== ENCOUNTER → 2024-08-20 | Outpatient (CLI) | payer MEDICARE, OTHER, SELFPAY ==
[2024-08-20 12:17] LABS: Erythrocyte Sedimentation Rate 10 mm/hr (0-20)
[2024-08-20 12:21] LABS: Absolute Lymphocyte Count 0.72 X10^3/uL (0.83-4.51); Basophil# 0.02 X10^3/uL; Basophil% 0.3 % (0-1); Eosinophil# 0.08 X10^3/uL; Eosinophils% 1.1 % (0-5); Hematocrit 39.4 % (40-54); Hemoglobin 12.7 g/dL (13.0-16.5); Lymphocyte # 0.72 X10^3/ul (0.83-4.51); Lymphocyte % 9.7 % (19-41); Mean Corp Hgb Conc 32.2 g/dL (32-36); Mean Corpuscular Hgb 31.1 pg (27.0-32.0); Mean Corpuscular Volume 96.3 fL (80-94); Mean Platelet Vol. 10.6 fl (6.2-12.0); Monocyte# 0.59 X10^3/uL; Monocyte% 7.9 % (0-10); NRBC Flagged by Analyzer 0 % (0-5); Neutrophil # 6.02 X10^3/uL (2.7-7.7); Neutrophil % 80.7 % (47-70); Platelet Count 227 K/mm3 (150-450); RBC Distribution Width CV 13.5 % (11.6-14.6); RBC Distribution Width SD 48.3 fl (35.1-43.9); Red Blood Count 4.09 M/mm3 (4.6-6.2); White Blood Count 7.5 K/mm3 (4.4-11.0)
[2024-08-20 13:04] LABS: CRP < 2.90 mg/L (0.0-3.0)
== END | disposition home or self-care (01) ==
LOC: MTLAB 09:17
PROVIDERS: PCP Family Medicine; Referring Provider Specialist; Visit Provider Specialist
DX: M25.561 Pain in right knee (principal); Z96.651 Presence of right artificial knee joint
CPT/HCPCS: 36415; 85025; 85652; 86140

== ENCOUNTER 2024-10-17 09:30 | Outpatient (RCR) | payer MEDICARE, OTHER, SELFPAY ==
--- NOTE | 2024-10-12 13:29 | HP.PTEVAL_ITS ---
Patient's Visit Information Visit Information Visit Information: JUAN MEDINA is a 79 year old M referred to Physical Therapy by Dr. Jeronimo Rodriguez MD with a diagnosis of dizzyness. Date of Evaluation: 10/12/24 Physical Therapist: Hunter Gold, DPT, OCS, CSCS Visit Plan Frequency: 1x/Week Duration: 2-4 Weeks Plan: weekly x 2-6 for psoitional checks, MSQ adn oculomotor as needed Had R BPPV today PCanalithiasis, treated with R ric and home instruct. Subjective Subjective: Aphasia from stroke 20 yrs ago. talks for him. Had two spells where he had to sit down quick and suspect dizzyness. doctor checked if room was spinning describing Ezekiel dash. 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 Will see vascular surgeon appointment. No falls, no AD, has limp from old age. Spends day outside when nice, winter is more sedentary, TV, some walking. baisc ADLs,all I Rolling in bd and sleeping is not a problem Objective Objective: Walks into PT with slight wide MANUEL but I without AD. Steps reciprocal with one rail. cervical and UE aROM WFL. - L HD + R HD for up torsional nystagmus 5 seconds mild dizzyness as best I can tell with communication aphasia. Treated with R modifid ric then much better HD. Educated on BPPV Balance/Special Test Scores Functional Gait Assessment Score: 24 % Disability: 20.0000 Dizziness Score: 2 Goals Goal 1:: abolish dizzyness x 2 weeks Goal Time Frame: 4-6 Weeks Goal 2:: Pt feeel 100% back to normal and - HD testing. Goal Time Frame: 4-6 Weeks Rehabilitation Potential Physical Therapy Diagnosis: BPPV causing dizzyness Rehabilitation Potential: Fair Anticipated Interventions Patient/Client Instruction: Educate patient on: Condition and Plan of Care For the Purpose of:: To increase tolerance to activity/condition/position Therapeutic Exercise to Include: Balance training Comment: positional and education For the Purpose of:: To increase tolerance to activity/condition/position Text: Thank you for the opportunity to evaluate your patient. For Medicare and Medicare HMO plans, please review the plan of care and approve it. It will need to be FAXED BACK to us at [phone] for Medicare purposes. For Medicare only, by signing this I certify the plan of care. Please let me know if there are questions or concerns regarding this plan of care. Physician Signature: Date:__
--- NOTE | 2024-11-01 11:45 | HP.PT.NRP ---
Patient Information Patient Information: JUAN MEDINA was seen in my office for initial evaluation on 10/12/24. The following Plan of Care was established for this patient: POC Established Initial Frequency: 1x/Week Initial Duration: 2-4 Weeks Anticipated Interventions Patient/Client Instruction: Educate patient on: Condition and Plan of Care For the Purpose of:: To increase tolerance to activity/condition/position Therapeutic Exercise to Include: Balance training For the Purpose of:: To increase tolerance to activity/condition/position Last Seen Last Seen: This patient was last seen in our office 10/17/24. Pertinent comments regarding their Physical therapy will appear below: Pt seen 2 visits of POC and treated with positional treatments. They have called to cancel all remaining visits stating he has not had any issues lately. I will discontinue him from my care at this time. At this point I will be discontinuing this patient from physical therapy. I would be happy to see this patient again in the future if found appropriate by the physician. Thank you! Hunter Gold, DPT, OCS, CSCS Balance/Gait/Functional tests Balance/Special Test Scores Functional Gait Assessment Score: 26 % Disability: 13.3400 Dizziness Score: 2
== END 2024-10-17 19:00 | disposition home or self-care (01) ==
LOC: PT 09:30
PROVIDERS: PCP Family Medicine; Visit Provider Family Medicine
DX: R42 Dizziness and giddiness (principal)
CPT/HCPCS: 97161; 97530

== ENCOUNTER → 2025-07-10 | Outpatient (CLI) | payer MEDICARE, OTHER, SELFPAY ==
[2025-07-10 10:44] LABS: PSA,Total- Diagnostic 4.08 ng/mL (0.00-4.00)
== END | disposition home or self-care (01) ==
LOC: MTLAB 09:08
PROVIDERS: PCP Family Medicine; Referring Provider Urology; Visit Provider Urology
DX: R97.20 Elevated prostate specific antigen [PSA] (principal)
CPT/HCPCS: 36415; 84153